=== PATIENT | male | born 1950 | race Caucasian/White ===

== ENCOUNTER 2018-09-12 17:06 | Emergency (ER) | payer OTHER ==
--- NOTE | 2018-09-12 18:15 | RAD REPORT ---
EXAM DESCRIPTION: RAD - Chest Pa And Lat (2 Views) - 09/12/2018 6:09 pm CLINICAL HISTORY: Cough;Congestion Chest pain. COMPARISON: Chest Single View dated 01/10/2017; Chest Single View dated 09/19/2015; CHEST SINGLE VIEW dated 06/29/2014; CHEST SINGLE VIEW dated 01/08/2013Chest Pa And Lat (2 Views) dated 10/17/2016Chest Pa And Lat (2 Views) dated 10/17/2016 TECHNIQUE: PA and lateral views of the chest were obtained. FINDINGS: The lungs are hyperexpanded compatible with COPD. The heart is upper limit of normal in si ze. Thoracic aorta is tortuous. No fracture or aggressive bony process. IMPRESSION: COPD without acute process identified.
[2018-09-12] MEDS ORDERED: IPRATROPIUM BROM 0.5MG/2.5ML ONE (18:56)
[2018-09-12] MEDS ORDERED: AZITHROMYCIN 250 MG TAB ONE (18:56)
[2018-09-12] MEDS ORDERED: predniSONE 20 MG TAB ONE (18:56)
[2018-09-12] MEDS ORDERED: ALBUTEROL 2.5 MG/3 ML NEB SOL ONE (18:56)
[2018-09-12] MEDS ORDERED: Magnesium Sulfate 2gm IVPB 2 G/50 ML BAG IV ONE (18:57)
[2018-09-12 19:11] LABS: Absolute Lymphocytes (CBC) 1.3 K/uL (0.7-4.9); Basophils % 0.6 % (0-1.3); Eosinophils % 1.2 % (0-4.4); Hematocrit 45.7 % (39.6-49.0); Lymphocytes % 11.8 % (15.3-44.8); MPV 8.9 fL (7.6-11.3); Monocytes % 11.1 % (3.3-12.3); RBC Red Blood Cell Count 4.83 M/uL (4.33-5.43)
[2018-09-12 19:21] LABS: Potassium 3.9 mmol/L (3.5-5.1)
--- NOTE | 2018-09-12 19:25 | ER ---
Nurse's Notes [facility] Name: Marquise Mendoza Age: 68 yrs Sex: Male : 1950 Arrival Date: 09/12/2018 Time: 17:11 Bed 30 Private MD: Diagnosis: Bronchitis, not specified as acute or chronic Presentation: 09/12 17:39 Presenting complaint: Patient states: Productive cough and SOB since Sunday, denies ph fever, N/V/D also reports pain to chest and back w/ cough and deep breathing, Spo2 94% in triage. Transition of care: patient was not received from another setting of care. Onset of symptoms was September 12, 2018. Risk Assessment: Do you want to hurt yourself or someone else? Patient reports no desire to harm self or others. Initial Sepsis Screen: Does the patient meet any 2 criteria? No. Patient's initial sepsis screen is negative. Does the patient have a suspected source of infection? Yes: Productive cough/pneumonia. Care prior to arrival: None. 17:39 Method Of Arrival: Ambulatory 17:39 Acuity: JELLY 3 ph Triage Assessment: 17:53 General: Appears in no apparent distress. comfortable, Behavior is calm, cooperative, ao appropriate for age. Respiratory: Reports shortness of breath at rest Onset: The symptoms/episode began/occurred suddenly, the patient has moderate shortness of breath. Historical: - Allergies: 17:41 No Known Allergies; ph - Home Meds: 17:41 Lorazepam Oral [Active]; paroxetine oral oral [Active]; gabapentin oral oral [Active]; ph - Immunization history:: Adult Immunizations up to date. - Social history:: Smoking status: Patient uses tobacco products, smokes one pack cigarettes per day. - Ebola Screening: : Patient negative for fever greater than or equal to 101.5 degrees Fahrenheit, and additional compatible Ebola Virus Disease symptoms Patient denies exposure to infectious person Patient denies travel to an Ebola-affected area in the 21 days before illness onset. Screenin:52 Abuse screen: Denies threats or abuse. Denies injuries from another. Nutritional ao screening: No deficits noted. Tuberculosis screening: No symptoms or risk factors identified. Fall Risk None identified. Assessment: 17:50 General: Appears in no apparent distress. uncomfortable, Behavior is calm, cooperative, ao appropriate for age. Pain: Complains of pain in when cough pain in the chest area. Neuro: Level of Consciousness is awake, alert, obeys commands, Oriented to person, place, time, situation, Appropriate for age Moves all extremities. Full function Speech. Cardiovascular: Heart tones Capillary refill < 3 seconds Patient's skin is warm and dry. Rhythm is regular. Respiratory: Airway is patent Respiratory effort is even, unlabored, Breath sounds with wheezes bilaterally. GI: Abdomen is non-distended, Bowel sounds present X 4 quads. : No deficits noted. No signs and/or symptoms were reported regarding the genitourinary system. EENT: No deficits noted. No signs and/or symptoms were reported regarding the EENT system. Derm: No deficits noted. No signs and/or symptoms reported regarding the dermatologic system. Musculoskeletal: Circulation, motion, and sensation intact. Range of motion: intact in all extremities. Vital Signs: 17:36 BP 153 / 106; Pulse 93; Resp 24; Temp 98.4; Pulse Ox 94% on R/A; Weight 95.25 kg; ph Height 5 ft. 11 in. (180.34 cm); 19:12 BP 143 / 103; Pulse 82; Resp 20; Temp 98.7(O); Pulse Ox 99% on R/A; mh5 19:30 BP 153 / 96; Pulse 91; Resp 20; Pulse Ox 93% ; Pain 0/10; fu 17:36 Body Mass Index 29.29 (95.25 kg, 180.34 cm) ph ED Course: 17:11 Patient arrived in ED. as 17:40 Triage completed. ph 17:41 Arm band placed on Patient placed in an exam room. ph 17:44 Jhoana Juarez FNP-C is PHCP. kb 17:44 Ramon Simpson MD is Attending Physician. kb 17:50 Ti Pederson, MAXX is Primary Nurse. ao 17:53 Patient has correct armband on for positive identification. Pulse ox on. NIBP on. ao 18:09 Chest Pa And Lat (2 Views) XRAY In Process Unspecified. EDMS 18:55 Inserted saline lock: 20 gauge in right antecubital area, using aseptic technique. ao 19:46 IV discontinued, intact, bleeding controlled, No redness/swelling at site. Pressure fu dressing applied. 19:47 No provider procedures requiring assistance completed. fu 09/13 01:23 Basic Metabolic Panel Sent. ao 01:23 CBC with Diff Sent. ao Administered Medications: 09/12 18:55 Drug: predniSONE 40 mg Route: PO; ao 20:30 Follow up: Response: No adverse reaction ao 18:55 Drug: Zithromax 500 mg Route: PO; ao 20:30 Follow up: Response: No adverse reaction ao 19:00 Drug: Magnesium Sulfate 2 grams Route: IVPB; Infused Over: 2 hrs; Site: right ao antecubital; 21:20 Follow up: IV Status: Completed infusion; IV Intake: 50ml ao 19:14 Drug: DuoNeb (3:1) (2.5 mg - 0.5 mg) 3 ml Route: Nebulizer; ao 23:00 Follow up: Response: No adverse reaction ao Intake: 21:20 IV: 50ml; Total: 50ml. ao Outcome: 19:24 Discharge ordered by . kb 19:47 Discharged to home ambulatory, with family. fu 19:47 Condition: improved 19:47 Discharge instructions given to patient, Instructed on discharge instructions, benefits of quitting smoking, Demonstrated understanding of instructions, follow-up care, medications, Prescriptions given X 3. 19:48 Patient left the ED. fu Signatures: Dispatcher [employer] EDMS Jhoana Juarez, OIL BURNER TECHNICIAN-C YAMILET-Jennifer Murphy Patricia, RN RN Ti Pederson, RN Niesha Linn [facility] Amaury Bender RN RN
--- NOTE | 2018-09-12 19:25 | EDPHYS ---
Physician Documentation [facility] Name: Marquise Mendoza Age: 68 yrs Sex: Male : 1950 Arrival Date: 09/12/2018 Time: 17:11 Bed 30 Private MD: ED Physician Ramon Simpson HPI: 09/12 18:55 This 68 yrs old Male presents to ER via Ambulatory with complaints of kb Shortness Of Breath, Congestion. 18:55 The patient or guardian reports cough, that is intermittent, described as moderate, kb with productive sputum. Onset: The symptoms/episode began/occurred 6 day(s) ago. Severity of symptoms: At their worst the symptoms were moderate, in the emergency department the symptoms are unchanged. Modifying factors: The symptoms are alleviated by nothing, the symptoms are aggravated by nothing. Associated signs and symptoms: Pertinent positives: congestion, dyspnea during coughing fit, Pertinent negatives: chest pain, diarrhea, ear ache, fever, nausea, rhinorrhea, sore throat, vomiting. The patient has not experienced similar symptoms in the past. The patient has not recently seen a physician. Pt reports he has had cough and congestion for 6 days. Denies fever. Has not been diagnosed with COPD, but does smoke a pack a day for many years . Historical: - Allergies: 17:41 No Known Allergies; ph - Home Meds: 17:41 Lorazepam Oral [Active]; paroxetine oral oral [Active]; gabapentin oral oral [Active]; ph - Immunization history:: Adult Immunizations up to date. - Social history:: Smoking status: Patient uses tobacco products, smokes one pack cigarettes per day. - Ebola Screening: : Patient negative for fever greater than or equal to 101.5 degrees Fahrenheit, and additional compatible Ebola Virus Disease symptoms Patient denies exposure to infectious person Patient denies travel to an Ebola-affected area in the 21 days before illness onset. ROS: 18:55 Constitutional: Negative for fever, chills, and weight loss, ENT: Negative for injury, kb pain, and discharge, Neck: Negative for injury, pain, and swelling, Cardiovascular: Negative for chest pain, palpitations, and edema, Abdomen/GI: Negative for abdominal pain, nausea, vomiting, diarrhea, and constipation, Back: Negative for injury and pain, : Negative for injury, bleeding, discharge, and swelling, MS/Extremity: Negative for injury and deformity, Skin: Negative for injury, rash, and discoloration, Neuro: Negative for headache, weakness, numbness, tingling, and seizure. 18:55 Respiratory: Positive for cough, shortness of breath, Negative for dyspnea on exertion, hemoptysis, orthopnea, pleurisy. Exam: 18:55 Constitutional: This is a well developed, well nourished patient who is awake, alert, kb and in no acute distress. Head/Face: Normocephalic, atraumatic. ENT: Nares patent. No nasal discharge, no septal abnormalities noted. Tympanic membranes are normal and external auditory canals are clear. Oropharynx with no redness, swelling, or masses, exudates, or evidence of obstruction, uvula midline. Mucous membranes moist. Neck: Trachea midline, no thyromegaly or masses palpated, and no cervical lymphadenopathy. Supple, full range of motion without nuchal rigidity, or vertebral point tenderness. No Meningismus. Chest/axilla: Normal chest wall appearance and motion. Nontender with no deformity. No lesions are appreciated. Cardiovascular: Regular rate and rhythm with a normal S1 and S2. No gallops, murmurs, or rubs. Normal PMI, no JVD. No pulse deficits. Abdomen/GI: Soft, non-tender, with normal bowel sounds. No distension or tympany. No guarding or rebound. No evidence of tenderness throughout. Back: No spinal tenderness. No costovertebral tenderness. Full range of motion. Skin: Warm, dry with normal turgor. Normal color with no rashes, no lesions, and no evidence of cellulitis. MS/ Extremity: Pulses equal, no cyanosis. Neurovascular intact. Full, normal range of motion. Neuro: Awake and alert, GCS 15, oriented to person, place, time, and situation. Cranial nerves II-XII grossly intact. Motor strength 5/5 in all extremities. Sensory grossly intact. Cerebellar exam normal. Normal gait. 18:55 Respiratory: the patient does not display signs of respiratory distress, Respirations: normal, Breath sounds: wheezing: inspiratory expiratory that is moderate, is heard diffusely. Vital Signs: 17:36 BP 153 / 106; Pulse 93; Resp 24; Temp 98.4; Pulse Ox 94% on R/A; Weight 95.25 kg; ph Height 5 ft. 11 in. (180.34 cm); 19:12 BP 143 / 103; Pulse 82; Resp 20; Temp 98.7(O); Pulse Ox 99% on R/A; mh5 19:30 BP 153 / 96; Pulse 91; Resp 20; Pulse Ox 93% ; Pain 0/10; fu 17:36 Body Mass Index 29.29 (95.25 kg, 180.34 cm) ph MDM: 17:45 Patient medically screened. kb 18:55 Data reviewed: vital signs, nurses notes. Data interpreted: Pulse oximetry: on room air kb is 94 %. Interpretation: acceptable. 19:24 Counseling: I had a detailed discussion with the patient and/or guardian regarding: the kb historical points, exam findings, and any diagnostic results supporting the discharge/admit diagnosis, lab results, radiology results, the need for outpatient follow up, a family practitioner, to return to the emergency department if symptoms worsen or persist or if there are any questions or concerns that arise at home, smoking cessation. 09/12 18:26 Order name: CBC with Diff kb 09/12 18:26 Order name: Basic Metabolic Panel kb 09/12 17:55 Order name: Chest Pa And Lat (2 Views) XRAY; Complete Time: 18:24 kb 09/12 18:26 Order name: CBC with Automated Diff; Complete Time: 19:14 EDMS 09/12 18:26 Order name: Basic Metabolic Panel; Complete Time: 19:23 EDMS 09/12 18:26 Order name: IV Start; Complete Time: 19:12 kb Administered Medications: 18:55 Drug: predniSONE 40 mg Route: PO; ao 20:30 Follow up: Response: No adverse reaction ao 18:55 Drug: Zithromax 500 mg Route: PO; ao 20:30 Follow up: Response: No adverse reaction ao 19:00 Drug: Magnesium Sulfate 2 grams Route: IVPB; Infused Over: 2 hrs; Site: right ao antecubital; 21:20 Follow up: IV Status: Completed infusion; IV Intake: 50ml ao 19:14 Drug: DuoNeb (3:1) (2.5 mg - 0.5 mg) 3 ml Route: Nebulizer; ao 23:00 Follow up: Response: No adverse reaction ao Disposition: 09/13 07:52 Co-signature as Attending Physician, Ramon Simpson MD I agree with the assessment and kdr plan of care. Disposition: 09/12/18 19:24 Discharged to Home. Impression: Bronchitis, not specified as acute or chronic. - Condition is Stable. - Discharge Instructions: Acute Bronchitis, [id number]. - Prescriptions for Prednisone 20 mg Oral Tablet - take 1 tablet by ORAL route once daily for 5 days; 5 tablet. Albuterol Sulfate 90 mcg/actuation - inhale 1-2 puff by INHALATION route every 4-6 hours; 1 Inhaler. Zithromax 500 mg Oral Tablet - take 1 tablet by ORAL route once daily for 5 days; 5 tablet. - Medication Reconciliation Form, Thank You Letter, Antibiotic Education, Prescription Opioid Use form. - Follow up: Private Physician; When: 2 - 3 days; Reason: Recheck today's complaints, Continuance of care, Re-evaluation by your physician. Follow up: Emergency Department; When: As needed; Reason: Worsening of condition. Signatures: Dispatcher [employer] EDAL Jhoana Juarez, NOVELTY CANDY MAKER-C NOVELTY CANDY MAKER-Ckb Ramon Simpson MD MD [facility] Therese Strange, RN RN Ti Pederson, RN RN Amaury Parham, MAXX RN fu Corrections: (The following items were deleted from the chart) 09/12 19:48 19:24 09/12/2018 19:24 Discharged to Home. Impression: Bronchitis, not specified as fu acute or chronic. Condition is Stable. Forms are Medication Reconciliation Form, Thank You Letter, Antibiotic Education, Prescription Opioid Use. Follow up: Private Physician; When: 2 - 3 days; Reason: Recheck today's complaints, Continuance of care, Re-evaluation by your physician. Follow up: Emergency Department; When: As needed; Reason: Worsening of condition. kb
[2018-09-12 19:57] VITALS: TEMP 98.7
[2018-09-12 19:58] VITALS: BP 153/96; O2SAT 93
== END 2018-09-12 19:48 | disposition home or self-care (01) ==
LOC: ER 17:06
DX: J40 Bronchitis, not specified as acute or chronic (principal); F17.210 Nicotine dependence, cigarettes, uncomplicated
CPT/HCPCS: 96365; 85025; 80048; 36415; 71046; 94640; 99284; 96366; J3475; J7512

== ENCOUNTER 2018-12-22 12:14 | Inpatient (IN) | payer OTHER ==
--- NOTE | 2018-12-22 12:47 | RAD REPORT ---
EXAM DESCRIPTION: CT - Head Brain Wo Cont - 12/22/2018 12:37 pm CLINICAL HISTORY: Headache COMPARISON: None. TECHNIQUE: Computed axial tomography of the head was obtained. IV contrast was not requested. All CT scans are performed using dose optimization technique as appropriate and may include automated exposure control or mA/KV adjustment according to patient size. FINDINGS: An intracranial bleed is not seen . The ventricles are normal in caliber. No extra-axial fluid collection is noted. Fluid within the sinuses/ mastoids is not seen. IMPRESSION: No acute intracranial abnormality is seen. If patient's symptoms persist MRI of the bra in would be recommended.
[2018-12-22 12:57] LABS: Basophils % 0.6 % (0-1.3); Hematocrit 39.4 % (39.6-49.0); MPV 8.9 fL (7.6-11.3); RBC Red Blood Cell Count 4.24 M/uL (4.33-5.43)
[2018-12-22] MEDS ORDERED: ENALAPRILAT 1.25 MG/ML VIAL IV ONE (12:59)
[2018-12-22 13:01] LABS: Protime INR 0.96
[2018-12-22 13:12] LABS: ALT/SGPT 17 U/L (12-78); AST/SGOT 16 U/L (15-37); Albumin 3.5 g/dL (3.4-5.0); Alkaline Phosphatase 116 U/L (45-117); BUN Blood Urea Nitrogen 32 mg/dL (7-18); Bicarbonate 26 mmol/L (21-32); Bilirubin Total 1.3 mg/dL (0.2-1.0); Glucose Level 107 mg/dL (74-106); Potassium 3.1 mmol/L (3.5-5.1); Protein, Total 7.3 g/dL (6.4-8.2); Sodium Level 136 mmol/L (136-145); Troponin (Emerg Dept Use Only) < 0.02 ng/mL (0.0-0.045)
[2018-12-22 14:23] LABS: Urine Bacteria LOADED /HPF (NONE SEEN); Urine Culture Reflex Order REFLEXED; Urine RBC <5 /HPF (NONE SEEN)
--- NOTE | 2018-12-22 15:27 | EDPHYS ---
Physician Documentation [facility] Name: Marquise Mendoza Age: 68 yrs Sex: Male : 1950 Arrival Date: 12/22/2018 Time: 12:16 Bed 23 Private MD: ED Physician Aaron Soria HPI: 12/22 15:26 This 68 yrs old Male presents to ER via Ambulatory with complaints of High m Blood Pressure. 15:26 The patient has elevated blood pressure and discovered this at home. Onset: The jmm symptoms/episode began/occurred this morning. Modifying factors: The symptoms are aggravated by. Associated signs and symptoms: Pertinent positives: headache, Pertinent negatives: chest pain. This is a 68 year old male with a history of migraines, anxiety that presents to the ED with complaints of headache which he awoke to this morning. Patient described the headache as mild which has completely resolved. Patient states he took his bp at home which was well over 200 systolic. Patient denies chest pain or shortness of breath. Patient has not been diagnosed with htn previously. . Historical: - Allergies: 12:21 No Known Allergies; hb - Home Meds: 12:21 gabapentin Oral [Active]; Lorazepam Oral [Active]; paroxetine Oral [Active]; hb - PMHx: 12:21 Migraines; Anxiety; hb - Immunization history:: Adult Immunizations up to date. - Social history:: Smoking status: Patient uses tobacco products, smokes one pack cigarettes per day. - Ebola Screening: : No symptoms or risks identified at this time. ROS: 15:26 Constitutional: Negative for fever, chills, and weight loss, Cardiovascular: Negative jmm for chest pain, palpitations, and edema, Respiratory: Negative for shortness of breath, cough, wheezing, and pleuritic chest pain, Abdomen/GI: Negative for abdominal pain, nausea, vomiting, diarrhea, and constipation. 15:26 Neuro: Positive for headache. 15:26 All other systems are negative. Exam: 15:26 Constitutional: This is a well developed, well nourished patient who is awake, alert, jmm and in no acute distress. Head/Face: atraumatic. Eyes: EOMI, no conjunctival erythema appreciated ENT: Moist Mucus Membranes Neck: Trachea midline, Supple Chest/axilla: Normal chest wall appearance and motion. Cardiovascular: Regular rate and rhythm. No edema appreciated Respiratory: Normal respirations, no respiratory distress appreciated Abdomen/GI: Non distended, soft Back: Normal ROM Skin: General appearance color normal MS/ Extremity: Moves all extremities, no obvious deformities appreciated, no edema noted to the lower extremities Neuro: Awake and alert, normal gait Psych: Behavior is normal, Mood is normal, Patient is cooperative and pleasant Vital Signs: 12:19 BP 253 / 153; Pulse 85; Resp 16; Temp 97.8; Pulse Ox 95% on R/A; Weight 90.72 kg; hb Height 6 ft. 1 in. (185.42 cm); Pain 0/10; 13:04 BP 213 / 146; Pulse 84; Resp 18; Pulse Ox 96% on 2 lpm NC; mg2 13:21 BP 160 / 104; Pulse 80; Resp 18; Pulse Ox 96% on 2 lpm NC; mg2 13:44 BP 141 / 97; Pulse 79; Resp 18; Pulse Ox 97% on 2 lpm NC; mg2 14:54 BP 145 / 101; Pulse 66; Resp 18; Pulse Ox 96% on 2 lpm NC; mg2 15:33 BP 141 / 110; Pulse 71; Resp 18; Pulse Ox 95% on 2 lpm NC; mg2 12:19 Body Mass Index 26.39 (90.72 kg, 185.42 cm) hb MDM: 12:40 Patient medically screened. [facility] 14:59 Data reviewed: vital signs, nurses notes. Counseling: I had a detailed discussion with [facility] the patient and/or guardian regarding: the historical points, exam findings, and any diagnostic results supporting the discharge/admit diagnosis, lab results. 15:26 ED course: Patient was discussed with Dr. Santos whom had concerns for renal artery [facility] stenosis ant the need for vascular surgery. I discussed the patient with Dr. Wilks whom stated the patient's presentation did no appear consistent with renal artery stenosis and advised to admit to local hospitalist. I discussed the patient with Dr. Gonzalez whom accepted admission. . 12/22 12:30 Order name: CBC with Diff; Complete Time: 13:22 [facility] 12/22 12:30 Order name: CMP; Complete Time: 13:22 [facility] 12/22 12:30 Order name: Troponin (emerg Dept Use Only); Complete Time: 13: [facility] 12/22 12:34 Order name: PT-INR [facility] 12/22 12:34 Order name: Magnesium [facility] 12/22 12:35 Order name: Protime (+INR); Complete Time: 13:22 [facility] 12/22 12:21 Order name: CT Head Brain wo Cont; Complete Time: 12:52 [facility] 12/22 12:35 Order name: Magnesium; Complete Time: 13:22 [facility] 12/22 14:04 Order name: Urine Microscopic Only; Complete Time: 14:28 [facility] 12/22 14:24 Order name: Urine Culture [facility] 12/22 14:48 Order name: US Rp Exam Complete [facility] 12/22 15:21 Order name: Urine Dipstick--Ancillary (enter results); Complete Time: 15:52 12/22 12:30 Order name: Saline Lock; Complete Time: 12:58 [facility] 12/22 12:30 Order name: EKG - Nurse/Tech; Complete Time: 12:58 [facility] 12/22 13:51 Order name: Urine Dipstick-Ancillary (obtain specimen); Complete Time: 14:05 [facility] Administered Medications: 13:04 Drug: Enalaprilat 1.25 mg Route: IV; Rate: bolus; Site: right antecubital; mg2 14:55 Follow up: Response: No adverse reaction; Blood pressure is lowered; IV Status: mg2 Completed infusion 15:33 Drug: Rocephin - (cefTRIAXone) 1 grams Route: IVPB; Infused Over: 30 mins; Site: right mg2 antecubital; 15:47 Follow up: Response: No adverse reaction; IV Status: Completed infusion mg2 Disposition: 12/22/18 15:26 Hospitalization ordered by Kailyn Gonzalez for Inpatient Admission. Preliminary diagnosis are Urinary tract infection, site not specified, Acute Kidney Injury, Hypertension. - Bed requested for Telemetry/MedSurg (Inpatient). - Status is Inpatient Admission. mg2 - Condition is Stable. - Problem is new. - Symptoms have improved. UTI on Admission? Yes Addendum: 12/26/2018 06:04 Co-signature as Attending Physician, Aaron Soria MD. g s Signatures: Dispatcher [employer] EDMI Denisa Adams Joel, PA PA m Mary Jo Vieira RN RN Soria, Aaron, MD MD gs Gardose, Tutu, RN RN mg2 Corrections: (The following items were deleted from the chart) 12/22 15:35 15:26 Hospitalization Ordered by Kailyn Gonzalez MD for Inpatient Admission. Preliminary bd diagnosis is Urinary tract infection, site not specified; Acute Kidney Injury; Hypertension. Bed requested for Telemetry/MedSurg (Inpatient). Status is Inpatient Admission. Condition is Stable. Problem is new. Symptoms have improved. UTI on Admission? Yes. [facility] 15:56 15:35 12/22/2018 15:26 Hospitalization Ordered by Kailyn Gonzalez MD for Inpatient mg2 Admission. Preliminary diagnosis is Urinary tract infection, site not specified; Acute Kidney Injury; Hypertension. Bed requested for Telemetry/MedSurg (Inpatient). Status is Inpatient Admission. Condition is Stable. Problem is new. Symptoms have improved. UTI on Admission? Yes. bd
--- NOTE | 2018-12-22 15:27 | ER ---
Nurse's Notes [facility] Name: Marquise Mendoza Age: 68 yrs Sex: Male : 1950 Arrival Date: 12/22/2018 Time: 12:16 Bed 23 Private MD: Diagnosis: Urinary tract infection, site not specified;Acute Kidney Injury;Hypertension Presentation: 12/22 12:18 Presenting complaint: Home SBP 208 and right sided headache upon waking today. Hx of hb migraines, pain resolved [employer]. Transition of care: patient was not received from another setting of care. Onset of symptoms was December 22, 2018. Risk Assessment: Do you want to hurt yourself or someone else? Patient reports no desire to harm self or others. Initial Sepsis Screen: Does the patient meet any 2 criteria? No. Patient's initial sepsis screen is negative. Does the patient have a suspected source of infection? No. Patient's initial sepsis screen is negative. Care prior to arrival: None. 12:18 Method Of Arrival: Ambulatory hb 12:18 Acuity: JELLY 2 hb Historical: - Allergies: 12:21 No Known Allergies; hb - Home Meds: 12:21 gabapentin Oral [Active]; Lorazepam Oral [Active]; paroxetine Oral [Active]; hb - PMHx: 12:21 Migraines; Anxiety; hb - Immunization history:: Adult Immunizations up to date. - Social history:: Smoking status: Patient uses tobacco products, smokes one pack cigarettes per day. - Ebola Screening: : No symptoms or risks identified at this time. Screenin:32 Abuse screen: Denies threats or abuse. Denies injuries from another. Nutritional mg2 screening: No deficits noted. Tuberculosis screening: No symptoms or risk factors identified. Fall Risk None identified. Assessment: 12:33 Reassessment: patient sent to ct scan via stretcher. no deficits noted. patient safe to mg2 go to ct scan now. General: Appears in no apparent distress. comfortable, Behavior is calm, cooperative. Pain: Complains of pain in pentecostalism. Neuro: Level of Consciousness is awake, alert, obeys commands, Oriented to person, place, time, situation. Cardiovascular: Capillary refill < 3 seconds Patient's skin is warm and dry. Respiratory: Airway is patent Respiratory effort is even, unlabored, Respiratory pattern is regular, symmetrical. GI: No signs and/or symptoms were reported involving the gastrointestinal system. : No signs and/or symptoms were reported regarding the genitourinary system. EENT: No signs and/or symptoms were reported regarding the EENT system. Derm: Skin is intact, is healthy with good turgor, Skin is pink, warm \T\ dry. normal. Musculoskeletal: Circulation, motion, and sensation intact. Capillary refill < 3 seconds. Vital Signs: 12:19 BP 253 / 153; Pulse 85; Resp 16; Temp 97.8; Pulse Ox 95% on R/A; Weight 90.72 kg; hb Height 6 ft. 1 in. (185.42 cm); Pain 0/10; 13:04 BP 213 / 146; Pulse 84; Resp 18; Pulse Ox 96% on 2 lpm NC; mg2 13:21 BP 160 / 104; Pulse 80; Resp 18; Pulse Ox 96% on 2 lpm NC; mg2 13:44 BP 141 / 97; Pulse 79; Resp 18; Pulse Ox 97% on 2 lpm NC; mg2 14:54 BP 145 / 101; Pulse 66; Resp 18; Pulse Ox 96% on 2 lpm NC; mg2 15:33 BP 141 / 110; Pulse 71; Resp 18; Pulse Ox 95% on 2 lpm NC; mg2 12:19 Body Mass Index 26.39 (90.72 kg, 185.42 cm) hb ED Course: 12:16 Patient arrived in ED. as 12:19 Triage completed. hb 12:21 aMlik Dunn PA is PHCP. jmm 12:21 Aaron Soria MD is Attending Physician. jmm 12:21 Arm band placed on. hb 12:27 Tutu Jorgensen, MAXX is Primary Nurse. mg2 12:35 Patient has correct armband on for positive identification. alarm security or surveillance monitor on. Pulse mg2 ox on. NIBP on. Door closed. Warm blanket given. 12:37 CT completed. Patient tolerated procedure well. Patient moved back from CT. mw3 12:38 CT Head Brain wo Cont In Process Unspecified. EDMS 13:00 Inserted saline lock: 20 gauge in right antecubital area, using aseptic technique. mg2 Blood collected. 13:22 No provider procedures requiring assistance completed. mg2 15:24 Kailyn Gonzalez MD is Hospitalizing Provider. jmm 15:46 intact. mg2 Administered Medications: 13:04 Drug: Enalaprilat 1.25 mg Route: IV; Rate: bolus; Site: right antecubital; mg2 14:55 Follow up: Response: No adverse reaction; Blood pressure is lowered; IV Status: mg2 Completed infusion 15:33 Drug: Rocephin - (cefTRIAXone) 1 grams Route: IVPB; Infused Over: 30 mins; Site: right mg2 antecubital; 15:47 Follow up: Response: No adverse reaction; IV Status: Completed infusion mg2 Outcome: 15:26 Decision to Hospitalize by Provider. fozia 15:47 Admitted to Tele accompanied by tech, via wheelchair, room 405, with oxygen, with mg2 chart, Report called to MAXX Butler 15:47 Condition: stable 15:47 Instructed on the need for admit, Demonstrated understanding of instructions. 15:56 Patient left the ED. mg2 Signatures: Dispatcher [employer] EDMS Malik Dunn PA PA jmm Martinez, Amelia as Baxter, Heather, RN RN Tutu Jorgensen RN RN [facility] Mandie Raymond mw3 Corrections: (The following items were deleted from the chart) 12:20 12:18 Presenting complaint: Home SBP 208 and right sided headache upon waking today hb hb
[2018-12-22] MEDS ORDERED: CEFTRIAXONE/SWI 1gm 1 GM/10 ML SYR ONE (15:29)
[2018-12-22 15:39] LABS: Urine Blood 1+ (NEG); Urine Glucose NEGATIVE (NEG); Urine Protein 3+ (NEG)
[2018-12-22] MEDS ORDERED: ONDANSETRON 4 MG/2 ML VIAL IV PRN (16:09)
[2018-12-22] MEDS ORDERED: ACETAMINOPHEN 500 MG TAB PO PRN (16:09)
[2018-12-22] MEDS ORDERED: NA CHLORIDE 0.9% 1,000 ML IV SCH (16:09)
[2018-12-22] MEDS ORDERED: LABETALOL 20 MG/4ML SYRINGE IV PRN (16:09)
[2018-12-22] MEDS ORDERED: POTASSIUM CL SA 10 MEQ TAB PO ONE (16:40)
[2018-12-22] MEDS ORDERED: IPRATROPIUM BROM 0.5MG/2.5ML NEB PRN (16:43)
[2018-12-22] MEDS ORDERED: ALBUTEROL 2.5 MG/3 ML NEB SOL NEB PRN (16:43)
[2018-12-22] MEDS ORDERED: HYDRALAZINE HCL 20 MG/ML VIAL IV PRN (16:44)
[2018-12-22] MEDS ORDERED: LORAZEPAM 1 MG TABLET PO PRN (16:44)
[2018-12-22 17:30] VITALS: BMI 26.4
[2018-12-22] MEDS ORDERED: NICOTINE 21 MG/PAT TD SCH (18:00)
[2018-12-22] MEDS: GABAPENTIN 300 MG CAP PO SCH ×2 (18:16→20:29)
--- NOTE | 2018-12-22 20:30 | RAD REPORT ---
EXAM DESCRIPTION: US - Renal Ultrasound-Complete - 12/22/2018 6:20 pm CLINICAL HISTORY: Hypertension COMPARISON: None. FINDINGS: The right kidney measures 11 cm with an increased echotexture. The left kidney measures 11 cm with an increased echotexture. Hydronephrosis is not seen. No gross abnormality of bladder is seen Abdominal aorta has an AP diameter of 7.3 centimeters. It contains moderate thrombus. A possible diss ection is noted. IMPRESSION: Increased renal echotexture consistent with parenchymal disease 7.3 centimeter abdominal aortic aneurysm. A possible dissection is seen The charge nurse Chun was notified 8:20 p.m. December 22, 2018
[2018-12-22] MEDS ORDERED: PARoxetine HCl 10 MG TAB PO SCH (21:00)
[2018-12-22] MEDS ORDERED: LABETALOL HCL 100 MG/20 ML ONE ×2 (21:41→21:51)
[2018-12-22] MEDS ORDERED: D5W 100 ML IV ONE (21:55)
[2018-12-22] MEDS ORDERED: LABETALOL HCL 200 MG in D5W 60 ML IV SCH (22:00)
[2018-12-22 23:18] VITALS: BP 168/97; TEMP 98; O2SAT 96
--- NOTE | 2018-12-23 00:37 | HP ---
Date of Admission: 12/22/2018 Chief Complaint: Headache, elevated blood pressure. Code Status: Full. Primary Care Physician: Dr. Gracia. History Of Present Illness: Patient is a 68-year-old male with past medical history of depression, anxiety, COPD, smoker, and migraine headaches, as well as neuropathy from postherpetic neuralgia with no previous diagnosis of hypertension who comes into the hospital for headache. Patient was in his usual state of health, had episode of headache the night prior to admission, took some ibuprofen. Headache was right-sided continuous, felt similar to his previous migraine headaches, however, did not have improvement. He checked his blood pressure. His blood pressure was in the 200s. He therefore came into the ER for further evaluation. His symptoms are constant, moderate, progressively worsening. No blurry vision. No chest pain or shortness of breath. Patient's workup in the ER revealed a blood pressure of 253/153. He was given enalapril 0.125 mg IV x1 and blood pressure dropped to 145/101. His workup revealed a kidney function creatinine level of 2.24, which is above his baseline and which was 1.49 in September. He had some mild electrolyte abnormalities. Head CT scan was negative. Patient was referred for admission. When seen in the ER, he was awake, alert, oriented x3, in minimal distress. Headache had improved significantly. Past Medical History: Restless legs syndrome, history of shingles with postherpetic neuralgia, depression, and anxiety, COPD, migraine headaches. Surgeries: Patient had perineal abscess surgery, surgery for left thumb trauma to reconnect it. Allergies: NO KNOWN DRUG ALLERGIES. Medications: List reviewed. Social History: Patient is . Smokes 1 pack per day, has been smoking since he was 12. Denies any alcohol use or illicit drug use. Patient is independent in his activities of daily living, has good social support. Family History: Patient denies any family history of hypertension or heart disease. No premature coronary artery disease in the family. Review of Systems: Ten-point system reviewed, negative except as per HPI. Physical Examination: Vital Signs: Blood pressure 253/153, improved to 153/106, pulse 93, respiratory rate 24, temperature 98.4, O2 saturation is 94% on room air. Patient did drop down to 90%, he was placed on 2 L of oxygen via nasal cannula. General: Awake, alert, oriented x3. Elderly male, appears older than stated age, in some mild distress. HEENT: Normocephalic, atraumatic. PERRLA, EOMI. Moist mucous membranes. Oropharynx is clear. Poor dentition. Conjunctivae anicteric. Neck: Supple. No JVD. Trachea midline. CV: S1, S2. Regular rate and rhythm. Peripheral pulses 1+ bilaterally. Respiratory: Clear to auscultation bilaterally. No wheezing or stridor. No use of accessory muscles. Gastrointestinal: Abdomen is soft, nontender, nondistended. Positive bowel sounds. Extremities: No clubbing, cyanosis, or edema. No calf tenderness. Neuro: Cranial nerves 2 through 12 intact grossly. No focal neurological deficit. Speech is normal. Skin: No rashes. Normal skin turgor. Psych: Mood is okay. Affect is full. Insight and judgment are good. Laboratory Data: WBC 10.4, H and H 13.6 and 39.4, platelets 196, neutrophils 79 %. INR 0.96. Sodium 136, potassium 3.1, chloride 100, CO2 26, BUN 32, creatinine 2.24, baseline is 1.49 from September 2018. Glucose 107, calcium 8.8, magnesium 2.7, total bilirubin 1.3, AST 16, ALT 17, troponin less than 0.02. Albumin is 3.5. UA; trace leukocyte esterase, negative nitrite, less than 5 rbc , 250 wbc, loaded bacteria. Head CT scan personally reviewed shows no acute intracranial abnormality. Assessment: 68-year-old male with; 1. Accelerated hypertension. Blood pressure is 250s over 150s, improved with enalapril, now in the 150s over 100s. Patient seems to be very sensitive to IV medication. Patient on enalapril, we will switch over to hydralazine, avoid beta-sravan due to history of chronic obstructive pulmonary disease. We will continue to monitor closely. Patient has no previous history of hypertension. 2. Headache, right-sided. Patient does touch his cheondoism when he reports headache, has been ongoing for several months. Has been taking ibuprofen 800 mg daily for the past 3 weeks or so. states he has been taking that dose for longer period of time. Patient has been counseled against the use of NSAIDs. We will switch to Tylenol and triptans as needed for migraine. Possibility of temporal arteritis. We will start on steroids as well. 3. Acute kidney injury likely secondary to NSAID use possibly ATN. We will start on IV fluids and monitor kidney function. We will consult Nephrology. We will obtain ultrasound of the kidneys, avoid NSAIDs and nephrotoxins. 4. Acute cystitis without hematuria. Patient did report some urinary frequency at night and some dribbling. Patient likely has enlarged prostate which will need to be further worked up as an outpatient by PCP. We will start on IV antibiotics and follow up on urine culture. 5. Chronic obstructive pulmonary disease, chronic bronchitis. Patient does follow with tufter, currently on 2 L via nasal cannula due to hypoxia. We will start on nebulizer treatments as needed. Patient not on any maintenance inhalers. 6. Generalized anxiety disorder. Patient is on chronic benzodiazepines. We will continue home medications. 7. Major depressive disorder, single episode, currently in remission. Continue Paxil. 8. Postherpetic neuralgia. Continue gabapentin. 9. Restless legs syndrome. 10. Nicotine dependence with cigarette smoking. Continuous counseled. We will start on nicotine patch. 11. Deep vein thrombosis prophylaxis with Lovenox and SCDs. We will await renal ultrasound to rule out any sort of hemorrhage prior to starting Lovenox. Plan: Admit patient to Med-Surg, place as inpatient. Length Of Stay: Greater than 2 midnights. ESTELA Voice ID: [id number] MTDD
--- NOTE | 2018-12-23 01:24 | P.PN ---
Date of Service: 12/22/18 Renal ultrasound report 7.3 cm abdominal aortic aneurysm with thrombus and possible dissection. Patient seen and examined. He denies any abdominal pain. His only complaint is blurry vision. Current blood pressure is 180/113. Case discussed with Dr. Gonzalez. Urgent transfer to tertiary institute for further evaluation by Vascular surgery recommended. I spoke to Dr. Logan at [facility] via the transfer center. Patient accepted for transfer. He will be air-lifted to [facility]. He transfered to ICU for the meantime for Labetalol drip for a target SBP of 120 or MAP of 65.
--- NOTE | 2018-12-23 08:56 | EKG ---
Test Date: 2018-12-22 Test Time: 12:50:05 [employer] Supervisor: MEASUREMENT RESULTS: Intervals: Rate: 78 CT: 150 QRSD: 88 QT: 416 QTc: 474 Colony: P: 58 CT: 150 QRS: 34 T: -6 INTERPRETIVE STATEMENTS: Sinus rhythm with premature atrial complexes Nonspecific ST abnormality Abnormal ECG Compared to ECG 10/17/2016 14:12:22 Atrial premature complex(es) now present ST (T wave) deviation now present Sinus arrhythmia no longer present Electronically Signed On 12-23-18 08:55:34 CDT by Orlin Kaufman
[2018-12-23] MEDS ORDERED: CEFTRIAXONE/SWI 1gm 1 GM/10 ML SYR IVP SCH (09:00)
[2018-12-23] MEDS ORDERED: NICOTINE 21 MG/PAT TD SCH (17:31)
--- NOTE | 2018-12-23 21:14 | DS ---
Date of Discharge: 12/22/2018 Consultants: Dr. Blankenship, nephrology. Discharge Diagnoses: 1.Acute aortic dissection and thrombus, 7.3 cm abnormal aortic aneurysm. 2.Accelerated hypertension. Blood pressure 250s over 150s. 3.Headache, right-sided. 4.Acute kidney injury secondary to NSAID use. 5.Acute cystitis without hematuria. 6.Chronic obstructive pulmonary disease with bronchitis. 7.Generalized anxiety disorder. 8.Major depressive disorder, single episode, currently in remission. 9.Postherpetic neuralgia. 10.Restless legs syndrome. 11.Nicotine dependence with cigarette smoking. Hospital Course: Patient is a 68-year-old male who was admitted to the hospital for headache and luisa vated blood pressure. His blood pressure improved to 140s over 100s down from [address] scan of the head was negative. He was also found to have acute kidney injury likely related to his overu se of NSAIDs and had a UTI. Patient was started on IV antibiotics. Nephrology was consulted, karine valdez, it was not seen due to patient being transferred out the same night. Patient's renal ultrasound w as ordered, which showed increased renal echotexture consistent with parenchymal disease, 7.3 cm abdo ramona aortic aneurysm with possible dissection. This was called in to the charge nurse and was then notified to the electronic bench technician, Dr. Harmon whom I contacted as well. He initiated the transfer to [facility] and spoke with vascular surgeon who excepted the patient. Please see his progress note for detail s regarding discharge. Patient was then transferred to ICU to be placed on labetalol drip until arriaga sferred to better control his blood pressure. Patient was then life flighted to acute care facility in a serious condition. For physical exam findings please see H and P dictated o n the day of discharge. /BRII Voice ID: [id number] Report ID: [id number]
== END 2018-12-22 23:10 | disposition short-term general hospital (02) | DRG 300 ==
LOC: ER 12:14 → ERHOLD 15:21 → 4TH 15:47 → 3RD-ICU 21:40
PROVIDERS: ADMIT Family Medicine; ATTEND Family Medicine
DX: I71.02 Dissection of abdominal aorta (principal); I74.09 Other arterial embolism and thrombosis of abdominal aorta; B02.29 Other postherpetic nervous system involvement; N17.9 Acute kidney failure, unspecified; N30.00 Acute cystitis without hematuria; I10 Essential (primary) hypertension; F32.5 Major depressive disorder, single episode, in full remission; F41.9 Anxiety disorder, unspecified; J44.9 Chronic obstructive pulmonary disease, unspecified; F17.210 Nicotine dependence, cigarettes, uncomplicated; G43.909 Migraine, unspecified, not intractable, without status migrainosus; G25.81 Restless legs syndrome; N14.1 Nephropathy induced by other drugs, medicaments and biological substances; T39.395A Adverse effect of other nonsteroidal anti-inflammatory drugs [NSAID], initial encounter; Y92.9 Unspecified place or not applicable; Z99.81 Dependence on supplemental oxygen
CPT/HCPCS: 36415; 70450; 76770; 80053; 81003; 81015; 83735; 84484; 85025; 85610; 87077; 87086; 87088; 87186; 93005; 94760; 96365; 96366; 96375; 99285; J0360; J0696; J7030

== ENCOUNTER 2019-05-14 16:52 | Inpatient (IN) | payer OTHER ==
--- OUTSIDE RECORDS SUMMARY | 2019-05-14 17:00 | XMS REPORT ---
:1950 Author Organization [facility] Address [address] [place] [address] Care Team Providers Name Role Phone WILLOW REID ALRIVIAD Unavailable Unavailable Payers Payer Name Policy Type Policy Number Effective Date Expiration Date Problems This patient has no known problems. Allergies, Adverse Reactions, Alerts Allergy Allergy Status Severity Reaction(s) Onset Inactive Treating Comments Name Type Date Date Clinician caffeine FA Active U 2019-02 00:00:0 0 No Known DA Active U 2019-02 Allergies -13 00:00:0 0 Medications This patient has no known medications. Results Test Description Test Time Test Comments Text Results Atomic Results Result Comments BASIC METABOLIC PANEL 2019-03-05 11:43:00 Test Item Value Reference Range Comments SODIUM (test code=NA) 137 MMOL/L 137-145 POTASSIUM (test code=K) 3.4 MMOL/L 3.5-5.1 CHLORIDE (test code=CL) 102 MMOL/L 98-107 CARBON DIOXIDE (test code=CO2) 22 MMOL/L 22-30 ANION GAP (test code=GAP) 16 MMOL/L 14-24 GLUCOSE (test code=GLU) 122 MG/DL 74-106 BLOOD UREA NITROGEN (test 31 MG/DL 9-20 code=BUN) GLOMERULAR FILTRATION RATE (test 19 Reporting units: ml/min/1.73 m2 code=GFR) (Modified MDRD Formula)Reference Range: > or=60 ml/min/1.73 m2 CREATININE (test code=CREAT) 3.20 MG/DL 0.66-1.25 CALCIUM (test code=CA) 9.3 MG/DL 8.4-10.2 BASIC METABOLIC [id number] 11:35:00 Test Item Value Reference Range Comments SODIUM (test code=NA) 137 MMOL/L 137-145 POTASSIUM (test code=K) 3.4 MMOL/L 3.5-5.1 CHLORIDE (test code=CL) 102 MMOL/L 98-107 CARBON DIOXIDE (test code=CO2) MMOL/L 22-30 GLUCOSE (test code=GLU) MG/DL 74-106 BLOOD UREA NITROGEN (test code=BUN) MG/DL 9-20 GLOMERULAR FILTRATION RATE (test code=GFR) CREATININE (test code=CREAT) MG/DL 0.66-1.25 CALCIUM (test code=CA) MG/DL 8.7-9.7 CBC W/AUTO [id number] 11:12:00 Test Item Value Reference Range Comments WHITE BLOOD CELL (test code=WBC) 8.4 K/MM3 3.8-9.8 RED BLOOD CELL (test code=RBC) 3.92 M/MM3 3.95-5.67 HEMOGLOBIN (test code=HGB) 11.8 G/DL 12.4-16.7 HEMATOCRIT (test code=HCT) 38.1 % 35.9-49.5 MEAN CELL VOLUME (test code=MCV) 97 fL 81.7-96.1 MEAN CELL HGB (test code=MCH) 30.1 pg 27.6-33.2 MEAN CELL HGB CONCETRATION (test code=MCHC) 31.0 % 32.9-35.5 RED CELL DISTRIBUTION WIDTH (test code=RDW) 19.1 % 12.1-15.2 PLATELET COUNT (test code=PLT) 157 K/MM3 129-368 MEAN PLATELET VOLUME (test code=MPV) 11.8 fl 7.4-10.4 NEUTROPHIL % (test code=NT%) 74.8 % 43-75 IMMATURE GRANULOCYTE % (test code=IG%) 0.4 % 0.0-2.0 LYMPHOCYTE % (test code=LY%) 13.5 % 14-44 MONOCYTE % (test code=MO%) 9.6 % 4-13 EOSINOPHIL % (test code=EO%) 1.2 % 0-6 BASOPHIL % (test code=BA%) 0.5 % 0-2 NUCLEATED RBC % (test code=NRBC%) 0.0 % 0-1.0 NEUTROPHIL # (test code=NT#) 6.25 K/mm3 2.0-7.6 IMMATURE GRANULOCYTE # (test code=IG#) 0.03 x10 3/uL 0-0.03 LYMPHOCYTE # (test code=LY#) 1.13 K/mm3 1.0-3.8 MONOCYTE # (test code=MO#) 0.80 K/mm3 0.1-0.8 EOSINOPHIL # (test code=EO#) 0.10 K/mm3 0.0-0.2 BASOPHIL # (test code=BA#) 0.04 K/mm3 0.0-0.2 NUCLEATED RBC # (test code=NRBC#) 0.00 K/mm3 0.0-0.1 - XR CHEST [id number] 19:01:00 Patient Name: ROSEMARIE YOUNG Unit No: [id number] EXAMS: CPT CODE: [id number] XR CHEST 1V [id number] Chest Radiograph History: S/P ICD Comparison: None at this time Location: R16 A single frontal view of the chest is submitted. The heart is within normal limits in size. There is pulmonary vascular congestion. There are patchy opacities in the lungs bilaterally. There are small bilateralpleural effusions. The bones appear unremarkable. An AICD is identified. No pneumothorax is identified. IMPRESSION: There are findings compatible with congestive heart failure. There are patchy opacities in the lung bases bilaterally. This could be due to atelectasis or pneumonia. at 1901 Reported and signed by: Raimundo Loving MD CC: René Brownlee MD ; Aaron Benz Technologist: Felicitas Lantigua (RT)(R) Transcrpt Date/Tm/Trnsp: 03/04/2019 (1900) HeatherPMT Orig Print D/T: S: 03/04 (1903) [facility] NAME: ROSEMARIE YOUNG [id number] PHYS: [place] [address] : 1950 AGE: 68 SEX: M LOC: ZKatiuska Peña PHONE #: [phone] EXAM DATE: 03/04/2019 STATUS: ADM IN FAX #: [phone] RADIOLOGY NO: PAGE 1 Signed ReportBASIC METABOLIC [id number] 11:49:00 Test Item Value Reference Range Comments SODIUM (test code=NA) 139 MMOL/L 137-145 POTASSIUM (test code=K) 3.5 MMOL/L 3.5-5.1 CHLORIDE (test code=CL) 102 MMOL/L 98-107 CARBON DIOXIDE (test code=CO2) 23 MMOL/L 22-30 ANION GAP (test code=GAP) 18 MMOL/L 14-24 GLUCOSE (test code=GLU) 110 MG/DL 74-106 BLOOD UREA NITROGEN (test 31 MG/DL 9-20 code=BUN) GLOMERULAR FILTRATION RATE 19 Reporting units: ml/min/1.73 (test code=GFR) m2 (Modified MDRD Formula)Reference Range: > or=60 ml/min/1.73 m2 CREATININE (test code=CREAT) 3.30 MG/DL 0.66-1.25 CALCIUM (test code=CA) 9.5 MG/DL 8.4-10.2 Comments to Overhead Gar[employer] Door Hanger: NURSE WILL BRING SPECIMEN TO LAB Is this a LINE draw? NComments to Overhead Gar[employer] Door Hanger: NURSE WILL BRING SPECIMEN TO [id number] 11:49:00 Test Item Value Reference Range Comments MAGNESIUM (test code=MAG) 2.4 MG/DL 1.6-2.3 Comments to Overhead Garage Door Hanger: NURSE WILL BRING SPECIMEN TO LAB Is this a LINE draw? NComments to Overhead Gar[employer] Door Hanger: NURSE WILL BRING SPECIMEN TO LABPROTHROMBIN [id number] 11:49:00 Test Item Value Reference Range Comments PROTHROMBIN TIME PATIENT (test 12.2 SECONDS 9.6-11.6 code=PTP) INTERNATIONAL NORMAL RATIO 1.2 0.8-1.1 The INR is to be used only (test code=INR) for monitoring oral anticoagulanttherapy. INDICATION INR VALUE 1. Prophylaxis, deep venous thrombosis, including high risk surgery. 2.0 - 3.0 2. Prophylaxis, deep venous thrombosis, hip surgery, treatment for deep venous thrombosis or pulmonary prevention of systemic embolism in patients with valvular heart disease, atrial fibrillation, tissue heart valve, or acute myocardial infarction. 2.0 - 3.0 3. Mechanical prosthesis heart valves, recurrent systemic embolism. 3.0 - 4.5 Comments to Overhead Gar[employer] Door Hanger: NURSE WILL BRING SPECIMEN TO LABPTT [id number] 11:49:00 Test Item Value Reference Range Comments PTT ACTIVATED (test code=APTT) 31.7 SECONDS 22.0-33.0 Comments to Overhead Gar[employer] Door Hanger: NURSE WILL BRING SPECIMEN TO LABBASIC METABOLIC [id number] 11:45:00 Test Item Value Reference Range Comments SODIUM (test code=NA) 139 MMOL/L 137-145 POTASSIUM (test code=K) 3.5 MMOL/L 3.5-5.1 CHLORIDE (test code=CL) 102 MMOL/L 98-107 CARBON DIOXIDE (test code=CO2) MMOL/L 22-30 GLUCOSE (test code=GLU) MG/DL 74-106 BLOOD UREA NITROGEN (test code=BUN) MG/DL 9-20 GLOMERULAR FILTRATION RATE (test code=GFR) CREATININE (test code=CREAT) MG/DL 0.66-1.25 CALCIUM (test code=CA) MG/DL 8.7-9.7 Comments to Overhead Gar[employer] Door Hanger: NURSE WILL BRING SPECIMEN TO LAB Is this a LINE draw? NComments to Overhead Gar[employer] Door Hanger: NURSE WILL BRING SPECIMEN TO [id number] 11:45:00 Test Item Value Reference Range Comments MAGNESIUM (test code=MAG) MG/DL 1.6-2.3 Comments to Overhead Gar[employer] Door Hanger: NURSE WILL BRING SPECIMEN TO LAB Is this a LINE draw? NComments to Overhead Gar[employer] Door Hanger: NURSE WILL BRING SPECIMEN TO LABBASIC METABOLIC [id number] 11:44:00 Test Item Value Reference Range Comments SODIUM (test code=NA) MMOL/L 137-145 POTASSIUM (test code=K) MMOL/L 3.5-5.1 CHLORIDE (test code=CL) 102 MMOL/L 98-107 CARBON DIOXIDE (test code=CO2) MMOL/L 22-30 GLUCOSE (test code=GLU) MG/DL 74-106 BLOOD UREA NITROGEN (test code=BUN) MG/DL 9-20 GLOMERULAR FILTRATION RATE (test code=GFR) CREATININE (test code=CREAT) MG/DL 0.66-1.25 CALCIUM (test code=CA) MG/DL 8.7-9.7 Comments to Overhead Gar[employer] Door Hanger: NURSE WILL BRING SPECIMEN TO LAB Is this a LINE draw? NComments to Overhead [employer] Door Hanger: NURSE WILL BRING SPECIMEN TO [id number] 11:44:00 Test Item Value Reference Range Comments MAGNESIUM (test code=MAG) MG/DL 1.6-2.3 Comments to Overhead Gar[employer] Door Hanger: NURSE WILL BRING SPECIMEN TO LAB Is this a LINE draw? NComments to Overhead Gar[employer] Door Hanger: NURSE WILL BRING SPECIMEN TO LABCBC W/AUTO [id number] 11:33:00 Test Item Value Reference Range Comments WHITE BLOOD CELL (test code=WBC) 8.5 K/MM3 3.8-9.8 RED BLOOD CELL (test code=RBC) 4.20 M/MM3 3.95-5.67 HEMOGLOBIN (test code=HGB) 12.8 G/DL 12.4-16.7 HEMATOCRIT (test code=HCT) 41.4 % 35.9-49.5 MEAN CELL VOLUME (test code=MCV) 99 fL 81.7-96.1 MEAN CELL HGB (test code=MCH) 30.5 pg 27.6-33.2 MEAN CELL HGB CONCETRATION (test code=MCHC) 30.9 % 32.9-35.5 RED CELL DISTRIBUTION WIDTH (test code=RDW) 19.1 % 12.1-15.2 PLATELET COUNT (test code=PLT) 184 K/MM3 129-368 MEAN PLATELET VOLUME (test code=MPV) 11.8 fl 7.4-10.4 NEUTROPHIL % (test code=NT%) 77.0 % 43-75 IMMATURE GRANULOCYTE % (test code=IG%) 0.2 % 0.0-2.0 LYMPHOCYTE % (test code=LY%) 11.8 % 14-44 MONOCYTE % (test code=MO%) 9.0 % 4-13 EOSINOPHIL % (test code=EO%) 1.5 % 0-6 BASOPHIL % (test code=BA%) 0.5 % 0-2 NUCLEATED RBC % (test code=NRBC%) 0.0 % 0-1.0 NEUTROPHIL # (test code=NT#) 6.53 K/mm3 2.0-7.6 IMMATURE GRANULOCYTE # (test code=IG#) 0.02 x10 3/uL 0-0.03 LYMPHOCYTE # (test code=LY#) 1.00 K/mm3 1.0-3.8 MONOCYTE # (test code=MO#) 0.76 K/mm3 0.1-0.8 EOSINOPHIL # (test code=EO#) 0.13 K/mm3 0.0-0.2 BASOPHIL # (test code=BA#) 0.04 K/mm3 0.0-0.2 NUCLEATED RBC # (test code=NRBC#) 0.00 K/mm3 0.0-0.1 Comments to Overhead [employer] Door Hanger: NURSE WILL BRING SPECIMEN TO LABIs this a LINE draw? NBASIC METABOLIC [id number] 07:10:00 Test Item Value Reference Range Comments SODIUM (test code=NA) 135 MMOL/L 137-145 POTASSIUM (test code=K) 3.9 MMOL/L 3.5-5.1 CHLORIDE (test code=CL) 99 MMOL/L 98-107 CARBON DIOXIDE (test code=CO2) 24 MMOL/L 22-30 ANION GAP (test code=GAP) 16 MMOL/L 14-24 GLUCOSE (test code=GLU) 132 MG/DL 74-106 BLOOD UREA NITROGEN (test 31 MG/DL 9-20 code=BUN) GLOMERULAR FILTRATION RATE 19 Reporting units: ml/min/1.73 (test code=GFR) m2 (Modified MDRD Formula)Reference Range: > or=60 ml/min/1.73 m2 CREATININE (test code=CREAT) 3.30 MG/DL 0.66-1.25 CALCIUM (test code=CA) 9.2 MG/DL 8.4-10.2 LIPID PROFILE (CORONARY RISK)2019-02-15 07:10:00 Test Item Value Reference Range Comments TRIGLYCERIDES (test code=TRIG) 148 MG/DL TRIGLYCERIDES REFERENCE RANGE:Normal: <150 mg/dLBorderline High: 150-199 mg/dLHigh: 200-499 mg/dLVery High: >=500 mg/dL CHOLESTEROL (test code=CHOL) 152 MG/DL <200 HDL CHOLESTEROL (test 38 MG/DL 40-59 code=HDL) LIPOPROTEIN LDL (test 78 MG/DL 0-99 code=LDL) OPTIMAL.........<100 mg/dLNEAR OPTIMAL/ABOVE OPTIMAL.........100-129 mg/dL BORDERLINE HIGH.........130-159 mg/dL HIGH.........160-189 mg/dL VERY HIGH.........>/=190 mg/dL [id number] 07:10:00 Test Item Value Reference Range Comments MAGNESIUM (test code=MAG) 2.4 MG/DL 1.6-2.3 BASIC METABOLIC [id number] 07:01:00 Test Item Value Reference Range Comments SODIUM (test code=NA) 135 MMOL/L 137-145 POTASSIUM (test code=K) 3.9 MMOL/L 3.5-5.1 CHLORIDE (test code=CL) 99 MMOL/L 98-107 CARBON DIOXIDE (test code=CO2) 24 MMOL/L 22-30 ANION GAP (test code=GAP) 16 MMOL/L 14-24 GLUCOSE (test code=GLU) 132 MG/DL 74-106 BLOOD UREA NITROGEN (test 31 MG/DL 9-20 code=BUN) GLOMERULAR FILTRATION RATE 19 Reporting units: ml/min/1.73 (test code=GFR) m2 (Modified MDRD Formula)Reference Range: > or=60 ml/min/1.73 m2 CREATININE (test code=CREAT) 3.30 MG/DL 0.66-1.25 CALCIUM (test code=CA) 9.2 MG/DL 8.4-10.2 LIPID PROFILE (CORONARY RISK)2019-02-15 07:01:00 Test Item Value Reference Range Comments TRIGLYCERIDES (test code=TRIG) 148 MG/DL TRIGLYCERIDES REFERENCE RANGE:Normal: <150 mg/dLBorderline High: 150-199 mg/dLHigh: 200-499 mg/dLVery High: >=500 mg/dL CHOLESTEROL (test code=CHOL) 152 MG/DL <200 HDL CHOLESTEROL (test 38 MG/DL 40-59 code=HDL) LIPOPROTEIN LDL (test MG/DL 0-99 code=LDL) [id number] 07:01:00 Test Item Value Reference Range Comments MAGNESIUM (test code=MAG) 2.4 MG/DL 1.6-2.3 BASIC METABOLIC [id number] 06:55:00 Test Item Value Reference Range Comments SODIUM (test code=NA) 135 MMOL/L 137-145 POTASSIUM (test code=K) 3.9 MMOL/L 3.5-5.1 CHLORIDE (test code=CL) 99 MMOL/L 98-107 CARBON DIOXIDE (test code=CO2) MMOL/L 22-30 GLUCOSE (test code=GLU) MG/DL 74-106 BLOOD UREA NITROGEN (test code=BUN) MG/DL 9-20 GLOMERULAR FILTRATION RATE (test code=GFR) CREATININE (test code=CREAT) MG/DL 0.66-1.25 CALCIUM (test code=CA) MG/DL 8.7-9.7 LIPID PROFILE (CORONARY RISK)2019-02-15 06:55:00 Test Item Value Reference Range Comments TRIGLYCERIDES (test code=TRIG) MG/DL CHOLESTEROL (test code=CHOL) MG/DL <200 HDL CHOLESTEROL (test code=HDL) MG/DL 40-59 LIPOPROTEIN LDL (test code=LDL) MG/DL 0-99 [id number] 06:55:00 Test Item Value Reference Range Comments MAGNESIUM (test code=MAG) MG/DL 1.6-2.3 PROTHROMBIN [id number] 06:53:00 Test Item Value Reference Range Comments PROTHROMBIN TIME PATIENT (test 11.9 SECONDS 9.6-11.6 code=PTP) INTERNATIONAL NORMAL RATIO 1.1 0.8-1.1 The INR is to be used only (test code=INR) for monitoring oral anticoagulanttherapy. INDICATION INR VALUE 1. Prophylaxis, deep venous thrombosis, including high risk surgery. 2.0 - 3.0 2. Prophylaxis, deep venous thrombosis, hip surgery, treatment for deep venous thrombosis or pulmonary prevention of systemic embolism in patients with valvular heart disease, atrial fibrillation, tissue heart valve, or acute myocardial infarction. 2.0 - 3.0 3. Mechanical prosthesis heart valves, recurrent systemic embolism. 3.0 - 4.5 PTT [id number] 06:53:00 Test Item Value Reference Range Comments PTT ACTIVATED (test code=APTT) 32.2 SECONDS 22.0-33.0 CBC W/AUTO [id number] 06:43:00 Test Item Value Reference Range Comments WHITE BLOOD CELL (test code=WBC) 9.2 K/MM3 3.8-9.8 RED BLOOD CELL (test code=RBC) 3.48 M/MM3 3.95-5.67 HEMOGLOBIN (test code=HGB) 10.4 G/DL 12.4-16.7 HEMATOCRIT (test code=HCT) 33.3 % 35.9-49.5 MEAN CELL VOLUME (test code=MCV) 96 fL 81.7-96.1 MEAN CELL HGB (test code=MCH) 29.9 pg 27.6-33.2 MEAN CELL HGB CONCETRATION (test code=MCHC) 31.2 % 32.9-35.5 RED CELL DISTRIBUTION WIDTH (test code=RDW) 17.2 % 12.1-15.2 PLATELET COUNT (test code=PLT) 257 K/MM3 129-368 MEAN PLATELET VOLUME (test code=MPV) 11.3 fl 7.4-10.4 NEUTROPHIL % (test code=NT%) 74.4 % 43-75 IMMATURE GRANULOCYTE % (test code=IG%) 0.7 % 0.0-2.0 LYMPHOCYTE % (test code=LY%) 13.9 % 14-44 MONOCYTE % (test code=MO%) 9.1 % 4-13 EOSINOPHIL % (test code=EO%) 1.4 % 0-6 BASOPHIL % (test code=BA%) 0.5 % 0-2 NUCLEATED RBC % (test code=NRBC%) 0.0 % 0-1.0 NEUTROPHIL # (test code=NT#) 6.86 K/mm3 2.0-7.6 IMMATURE GRANULOCYTE # (test code=IG#) 0.06 x10 3/uL 0-0.03 LYMPHOCYTE # (test code=LY#) 1.28 K/mm3 1.0-3.8 MONOCYTE # (test code=MO#) 0.84 K/mm3 0.1-0.8 EOSINOPHIL # (test code=EO#) 0.13 K/mm3 0.0-0.2 BASOPHIL # (test code=BA#) 0.05 K/mm3 0.0-0.2 NUCLEATED RBC # (test code=NRBC#) 0.00 K/mm3 0.0-0.1 [id number] 05:11:00 Test Item Value Reference Range Comments PHOSPHORUS (BEAKER) (test xcnc=961) 1.8 mg/dL 2.3-4.7 [id number] 05:11:00 Test Item Value Reference Range Comments MAGNESIUM (BEAKER) (test acjs=868) 2.0 mg/dL 1.6-2.6 BASIC METABOLIC [id number] 05:11:00 Test Item Value Reference Range Comments SODIUM (BEAKER) (test 135 meq/L 136-145 csjo=038) POTASSIUM (BEAKER) (test 3.2 meq/L 3.5-5.1 sjbc=038) CHLORIDE (BEAKER) (test 105 meq/L 98-107 nkhv=959) CO2 (BEAKER) (test 21 meq/L 22-29 ackb=945) BLOOD UREA NITROGEN 16 mg/dL 7-21 (BEAKER) (test hmse=680) CREATININE (BEAKER) (test 1.56 mg/dL 0.57-1.25 mput=854) GLUCOSE RANDOM (BEAKER) 97 mg/dL 70-105 (test coae=659) CALCIUM (BEAKER) (test 8.4 mg/dL 8.4-10.2 kvrr=609) EGFR (BEAKER) (test 44 mL/min/1.73 sq m ESTIMATED GFR IS NOT agvw=3209) ACCURATE CREATININE CLEARANCE IN PREDICTING GLOMERULAR FILTRATION RATE. ESTIMATED GFR IS NOT APPLICABLE FOR DIALYSIS PATIENTS. [id number] 05:07:00 Test Item Value Reference Range Comments PARTIAL THROMBOPLASTIN TIME (BEAKER) (test 47.4 seconds 22.5-36.0 iiqs=641) PROTHROMBIN [id number] 05:05:00 Test Item Value Reference Range Comments PROTIME (BEAKER) (test fyoq=782) 14.2 seconds 11.9-14.2 INR (BEAKER) (test xtlc=773) 1.2 <=5.9 Effective 07/31/2018: PT Reference Range ChangeNew: 11.9-14.2 Previous: 11.7- 14.7RECOMMENDED COUMADIN/WARFARIN INR THERAPY RANGESSTANDARD DOSE: 2.0-3.0 Includes: PROPHYLAXIS for venous thrombosis, systemic embolization; TREATMENT for venous thrombosis and/or pulmonary embolus.HIGH RISK: Target INR is2.5-3.5 for patients wiht mechanical heart valves.CBC (HEMOGRAM ONLY)2018-12-27 04:58:00 Test Item Value Reference Range Comments WHITE BLOOD CELL COUNT (BEAKER) (test fvkf=873) 10.9 K/ L 3.5-10.5 RED BLOOD CELL COUNT (BEAKER) (test ezqx=104) 3.09 M/ L 4.63-6.08 HEMOGLOBIN (BEAKER) (test dgkm=278) 9.8 GM/DL 13.7-17.5 HEMATOCRIT (BEAKER) (test chix=502) 29.8 % 40.1-51.0 MEAN CORPUSCULAR VOLUME (BEAKER) (test ygtq=583) 96.4 fL 79.0-92.2 MEAN CORPUSCULAR HEMOGLOBIN (BEAKER) (test 31.7 pg 25.7-32.2 idkk=572) MEAN CORPUSCULAR HEMOGLOBIN CONC (BEAKER) (test 32.9 GM/DL 32.3-36.5 olna=485) RED CELL DISTRIBUTION WIDTH (BEAKER) (test 13.8 % 11.6-14.4 bwzq=001) PLATELET COUNT (BEAKER) (test wclu=716) 135 K/CU MM 150-450 MEAN PLATELET VOLUME (BEAKER) (test gqor=341) 10.7 fL 9.4-12.4 NUCLEATED RED BLOOD CELLS (BEAKER) (test 0 /100 WBC 0-0 bhch=027) POTASSIUM-STAT [id number] 19:57:00 Test Item Value Reference Range Comments POTASSIUM (BEAKER) (test yjvb=764) 3.4 meq/L 3.6-5.5 POTASSIUM-STAT [id number] 13:27:00 Test Item Value Reference Range Comments POTASSIUM (BEAKER) (test kkqh=331) 3.1 meq/L 3.6-5.5 RAD, CHEST, 1 VIEW, NON [id number] 08:42:00Reason for exam:->postop and intubatedFINAL REPORT INDICATION: postop and intubated TECHNIQUE: Chest radiograph, single view, portable technique. FINDINGS / IMPRESSION: Comparison to December 25 at 11:11 PM.Bibasilar subsegmental atelectasis without discrete pneumonia. No overt pulmonary edema or pneumothorax.Endotracheal tube and right internal jugular line again demonstrated and appear in good position. Signed: Alejandro Cardenas MDReport Verified Date/Time: 12/26/2018 08:42:52 Reading Location: [facility] Reading Room 08: 42 AMBLOOD GAS, [id number] 04:48:00 Test Item Value Reference Range Comments PH ARTERIAL (BEAKER) (test pzop=576) 7.43 7.35-7.45 PCO2 ARTERIAL (BEAKER) (test vbkv=384) 31 mmHg 35-45 PO2 ARTERIAL (BEAKER) (test lvrx=038) 62 mmHg 80-90 O2 SATURATION ARTERIAL (BEAKER) (test wkje=385) 92.9 % 96.0-97.0 HCO3 ARTERIAL (BEAKER) (test upvv=139) 20 mmol/L 21-29 BASE EXCESS ARTERIAL (BEAKER) (test vxhe=591) -3.6 mmol/L -2.0-3.0 PATIENT TEMPERATURE (BEAKER) (test wshc=2954) 36.8 C FIO2 (BEAKER) (test zkns=1772) 60.0 % [id number] 04:17:00 Test Item Value Reference Range Comments PHOSPHORUS (BEAKER) (test gxqn=573) 2.7 mg/dL 2.3-4.7 [id number] 04:17:00 Test Item Value Reference Range Comments MAGNESIUM (BEAKER) (test iowy=781) 2.3 mg/dL 1.6-2.6 BASIC METABOLIC [id number] 04:17:00 Test Item Value Reference Range Comments SODIUM (BEAKER) (test 141 meq/L 136-145 ymqb=546) POTASSIUM (BEAKER) (test 3.3 meq/L 3.5-5.1 jmtu=812) CHLORIDE (BEAKER) (test 112 meq/L 98-107 jnam=040) CO2 (BEAKER) (test 21 meq/L 22-29 rnlo=369) BLOOD UREA NITROGEN 16 mg/dL 7-21 (BEAKER) (test pwyq=987) CREATININE (BEAKER) (test 1.63 mg/dL 0.57-1.25 zalb=641) GLUCOSE RANDOM (BEAKER) 102 mg/dL 70-105 (test emgj=050) CALCIUM (BEAKER) (test 8.4 mg/dL 8.4-10.2 bmns=565) EGFR (BEAKER) (test 42 mL/min/1.73 sq m ESTIMATED GFR IS NOT fouy=9224) ACCURATE CREATININE CLEARANCE IN PREDICTING GLOMERULAR FILTRATION RATE. ESTIMATED GFR IS NOT APPLICABLE FOR DIALYSIS PATIENTS. [id number] 04:00:00 Test Item Value Reference Range Comments PARTIAL THROMBOPLASTIN TIME (BEAKER) (test 44.5 seconds 22.5-36.0 ygba=115) PROTHROMBIN TIME/[id number] 03:59:00 Test Item Value Reference Range Comments PROTIME (BEAKER) (test cluj=562) 14.3 seconds 11.9-14.2 INR (BEAKER) (test btih=791) 1.2 <=5.9 Effective 07/31/2018: PT Reference Range ChangeNew: 11.9-14.2 Previous: 11.7- 14.7RECOMMENDED COUMADIN/WARFARIN INR THERAPY RANGESSTANDARD DOSE: 2.0-3.0 Includes: PROPHYLAXIS for venous thrombosis, systemic embolization; TREATMENT for venous thrombosis and/or pulmonary embolus.HIGH RISK: Target INR is2.5-3.5 for patients wiht mechanical heart valves.CBC (HEMOGRAM ONLY)2018-12-26 03:52:00 Test Item Value Reference Range Comments WHITE BLOOD CELL COUNT (BEAKER) (test tfqy=553) 12.1 K/ L 3.5-10.5 RED BLOOD CELL COUNT (BEAKER) (test vqvk=525) 3.38 M/ L 4.63-6.08 HEMOGLOBIN (BEAKER) (test ysez=690) 10.6 GM/DL 13.7-17.5 HEMATOCRIT (BEAKER) (test uwei=906) 33.3 % 40.1-51.0 MEAN CORPUSCULAR VOLUME (BEAKER) (test jccl=546) 98.5 fL 79.0-92.2 MEAN CORPUSCULAR HEMOGLOBIN (BEAKER) (test 31.4 pg 25.7-32.2 axbj=475) MEAN CORPUSCULAR HEMOGLOBIN CONC (BEAKER) (test 31.8 GM/DL 32.3-36.5 xcui=419) RED CELL DISTRIBUTION WIDTH (BEAKER) (test 13.9 % 11.6-14.4 vevf=121) PLATELET COUNT (BEAKER) (test wxjm=060) 157 K/CU MM 150-450 MEAN PLATELET VOLUME (BEAKER) (test ahcr=201) 10.8 fL 9.4-12.4 NUCLEATED RED BLOOD CELLS (BEAKER) (test 0 /100 WBC 0-0 afli=740) BASIC METABOLIC [id number] 00:10:00 Test Item Value Reference Range Comments SODIUM (BEAKER) (test 136 meq/L 136-145 rirj=487) POTASSIUM (BEAKER) (test 4.0 meq/L 3.5-5.1 rmub=385) CHLORIDE (BEAKER) (test 110 meq/L 98-107 sbui=230) CO2 (BEAKER) (test 18 meq/L 22-29 vxsg=640) BLOOD UREA NITROGEN 14 mg/dL 7-21 (BEAKER) (test sgri=966) CREATININE (BEAKER) (test 1.46 mg/dL 0.57-1.25 bvpk=480) GLUCOSE RANDOM (BEAKER) 100 mg/dL 70-105 (test ntus=839) CALCIUM (BEAKER) (test 7.9 mg/dL 8.4-10.2 mten=484) EGFR (BEAKER) (test 48 mL/min/1.73 sq m ESTIMATED GFR IS NOT xcvu=2715) ACCURATE CREATININE CLEARANCE IN PREDICTING GLOMERULAR FILTRATION RATE. ESTIMATED GFR IS NOT APPLICABLE FOR DIALYSIS PATIENTS. [id number] 23:55:00 Test Item Value Reference Range Comments PHOSPHORUS (BEAKER) (test rrui=631) 3.9 mg/dL 2.3-4.7 [id number] 23:55:00 Test Item Value Reference Range Comments MAGNESIUM (BEAKER) (test ddsa=753) 1.9 mg/dL 1.6-2.6 RAD, CHEST, 1 VIEW, NON [id number] 23:50:00Reason for exam:-> postopShould this be performed at the bedside?->YesFINAL REPORT Chest one view. Clinical history: postop Comparison: December 23, 2017 Discussion: A frontal chest is provided. Cardiomediastinal contours are unchanged. Aorta is tortuous. ETT is 6 cm above the margy. Right IJ line projects over the distal SVC. There is no consolidation or hunter pulmonary edema. No pneumothorax or large effusion. No acute bony abnormality. Signed: Jose Pandaeport Verified Date/Time: 12/25/2018 23:50:30 Reading Location: [facility] [id number] Ortho Consult Reading Room OXYGEN SATURATION, [id number] 23:34:00 Test Item Value Reference Range Comments O2 SATURATION (MEASURED) (BEAKER) (test igya=6225) 87.1 % BLOOD GAS, [id number] 23:33:00 Test Item Value Reference Range Comments PH ARTERIAL (BEAKER) (test zjzz=453) 7.29 7.35-7.45 PCO2 ARTERIAL (BEAKER) (test frrc=422) 45 mmHg 35-45 PO2 ARTERIAL (BEAKER) (test qpqp=799) 98 mmHg 80-90 O2 SATURATION ARTERIAL (BEAKER) (test bnyo=372) 96.8 % 96.0-97.0 HCO3 ARTERIAL (BEAKER) (test fuav=629) 22 mmol/L 21-29 BASE EXCESS ARTERIAL (BEAKER) (test rloo=032) -4.9 mmol/L -2.0-3.0 PATIENT TEMPERATURE (BEAKER) (test kyem=9405) 36.8 C FIO2 (BEAKER) (test dsmh=4140) 60.0 % [id number] 23:17:00 Test Item Value Reference Range Comments PARTIAL THROMBOPLASTIN TIME (BEAKER) (test 39.2 seconds 22.5-36.0 tneg=885) PROTHROMBIN TIME/[id number] 23:16:00 Test Item Value Reference Range Comments PROTIME (BEAKER) (test tcsk=187) 16.4 seconds 11.9-14.2 INR (BEAKER) (test ljbp=883) 1.4 <=5.9 Effective 07/31/2018: PT Reference Range ChangeNew: 11.9-14.2 Previous: 11.7- 14.7RECOMMENDED COUMADIN/WARFARIN INR THERAPY RANGESSTANDARD DOSE: 2.0-3.0 Includes: PROPHYLAXIS for venous thrombosis, systemic embolization; TREATMENT for venous thrombosis and/or pulmonary embolus.HIGH RISK: Target INR is2.5-3.5 for patients wiht mechanical heart valves.CBC W/PLT COUNT & AUTO [id number] 23:15:00 Test Item Value Reference Range Comments WHITE BLOOD CELL COUNT (BEAKER) (test ffte=122) 14.0 K/ L 3.5-10.5 RED BLOOD CELL COUNT (BEAKER) (test bbsc=838) 3.36 M/ L 4.63-6.08 HEMOGLOBIN (BEAKER) (test mgtk=007) 10.7 GM/DL 13.7-17.5 HEMATOCRIT (BEAKER) (test vyoq=911) 33.6 % 40.1-51.0 MEAN CORPUSCULAR VOLUME (BEAKER) (test tjoj=450) 100.0 fL 79.0-92.2 MEAN CORPUSCULAR HEMOGLOBIN (BEAKER) (test 31.8 pg 25.7-32.2 qbjm=997) MEAN CORPUSCULAR HEMOGLOBIN CONC (BEAKER) (test 31.8 GM/DL 32.3-36.5 gsrb=894) RED CELL DISTRIBUTION WIDTH (BEAKER) (test 13.8 % 11.6-14.4 gcbn=681) PLATELET COUNT (BEAKER) (test xzbm=677) 156 K/CU MM 150-450 MEAN PLATELET VOLUME (BEAKER) (test lrsa=034) 10.6 fL 9.4-12.4 NUCLEATED RED BLOOD CELLS (BEAKER) (test 0 /100 WBC 0-0 cqct=356) NEUTROPHILS RELATIVE PERCENT (BEAKER) (test 73 % krnl=092) LYMPHOCYTES RELATIVE PERCENT (BEAKER) (test 15 % suzn=871) MONOCYTES RELATIVE PERCENT (BEAKER) (test 9 % uenf=179) EOSINOPHILS RELATIVE PERCENT (BEAKER) (test 1 % fhhz=383) BASOPHILS RELATIVE PERCENT (BEAKER) (test 1 % spem=228) NEUTROPHILS ABSOLUTE COUNT (BEAKER) (test 10.24 K/ L 1.78-5.38 yebf=515) LYMPHOCYTES ABSOLUTE COUNT (BEAKER) (test 2.05 K/ L 1.32-3.57 dbux=892) MONOCYTES ABSOLUTE COUNT (BEAKER) (test 1.27 K/ L 0.30-0.82 npth=866) EOSINOPHILS ABSOLUTE COUNT (BEAKER) (test 0.17 K/ L 0.04-0.54 pcgn=254) BASOPHILS ABSOLUTE COUNT (BEAKER) (test 0.07 K/ L 0.01-0.08 devm=605) IMMATURE GRANULOCYTES-RELATIVE PERCENT (BEAKER) 1 % 0-1 (test dcwg=4269) [id number] 22:22:00 Test Item Value Reference Range Comments ACTIVATED CLOTTING TIME 114 sec Reference Range: 74-137 (BEAKER) (test djou=353) seconds, Baseline/TESTED AT [place] [address] [id number] 22:22:00 Test Item Value Reference Range Comments ACTIVATED CLOTTING TIME 340 sec Reference Range: 74-137 (BEAKER) (test yehi=255) seconds, Baseline/TESTED AT [place] [address] [id number] 22:22:00 Test Item Value Reference Range Comments ACTIVATED CLOTTING TIME 219 sec Reference Range: 74-137 (BEAKER) (test difx=341) seconds, Baseline/TESTED AT [place] [address] [id number] 22:22:00 Test Item Value Reference Range Comments ACTIVATED CLOTTING TIME 252 sec Reference Range: 74-137 (BEAKER) (test ukfr=961) seconds, Baseline/TESTED AT [place] [address] [id number] 22:22:00 Test Item Value Reference Range Comments ACTIVATED CLOTTING TIME 257 sec Reference Range: 74-137 (BEAKER) (test chdg=587) seconds, Baseline/TESTED AT [place] [address] [id number] 22:22:00 Test Item Value Reference Range Comments ACTIVATED CLOTTING TIME 224 sec Reference Range: 74-137 (BEAKER) (test myxz=498) seconds, Baseline/TESTED AT [place] [address] GLUCOSE-STAT [id number] 22:20:00 Test Item Value Reference Range Comments GLUCOSE RANDOM (BEAKER) (test jwxt=976) 101 mg/dL 70-110 SODIUM NA-STAT [id number] 22:20:00 Test Item Value Reference Range Comments SODIUM (BEAKER) (test eqnb=176) 136 meq/L 135-148 POTASSIUM-STAT [id number] 22:20:00 Test Item Value Reference Range Comments POTASSIUM (BEAKER) (test skxf=334) 4.0 meq/L 3.6-5.5 BLOOD GAS, [id number] 22:20:00 Test Item Value Reference Range Comments PH ARTERIAL (BEAKER) (test rieh=351) 7.28 7.35-7.45 PCO2 ARTERIAL (BEAKER) (test yjjq=930) 48 mmHg 35-45 PO2 ARTERIAL (BEAKER) (test xlem=172) 181 mmHg 80-90 O2 SATURATION ARTERIAL (BEAKER) (test xssj=371) 99.1 % 96.0-97.0 HCO3 ARTERIAL (BEAKER) (test cnqp=677) 22 mmol/L 21-29 BASE EXCESS ARTERIAL (BEAKER) (test yrvb=982) -4.5 mmol/L -2.0-3.0 PATIENT TEMPERATURE (BEAKER) (test hthq=6650) 36.5 C FIO2 (BEAKER) (test fxle=3805) 100.0 % HGB/HCT (H&H) - STAT [id number] 22:20:00 Test Item Value Reference Range Comments HEMOGLOBIN (BEAKER) (test ahcw=981) 11.0 g/dL 13.0-16.8 HEMATOCRIT (BEAKER) (test kjbm=795) 32.0 % 40.0-50.0 CALCIUM, [id number] 22:20:00 Test Item Value Reference Range Comments CALCIUM IONIZED (BEAKER) (test besx=829) 1.08 mmol/L 1.12-1.27 PH, BLOOD (BEAKER) (test fpxi=8091) 7.28 CALCIUM, [id number] 21:14:00 Test Item Value Reference Range Comments CALCIUM IONIZED (BEAKER) (test rfpa=184) 1.09 mmol/L 1.12-1.27 PH, BLOOD (BEAKER) (test xdll=0262) 7.26 GLUCOSE-STAT [id number] 21:13:00 Test Item Value Reference Range Comments GLUCOSE RANDOM (BEAKER) (test yrco=510) 97 mg/dL 70-110 SODIUM NA-STAT [id number] 21:13:00 Test Item Value Reference Range Comments SODIUM (BEAKER) (test eifm=550) 135 meq/L 135-148 POTASSIUM-STAT [id number] 21:13:00 Test Item Value Reference Range Comments POTASSIUM (BEAKER) (test ugyi=163) 4.6 meq/L 3.6-5.5 BLOOD GAS, [id number] 21:13:00 Test Item Value Reference Range Comments PH ARTERIAL (BEAKER) (test klot=340) 7.26 7.35-7.45 PCO2 ARTERIAL (BEAKER) (test aial=687) 52 mmHg 35-45 PO2 ARTERIAL (BEAKER) (test wtqa=744) 226 mmHg 80-90 O2 SATURATION ARTERIAL (BEAKER) (test dxin=862) 99.3 % 96.0-97.0 HCO3 ARTERIAL (BEAKER) (test zaab=321) 23 mmol/L 21-29 BASE EXCESS ARTERIAL (BEAKER) (test fkbw=795) -4.3 mmol/L -2.0-3.0 PATIENT TEMPERATURE (BEAKER) (test wbye=9762) 36.5 C FIO2 (BEAKER) (test bjfe=7996) 100.0 % HGB/HCT (H&H) - STAT [id number] 21:13:00 Test Item Value Reference Range Comments HEMOGLOBIN (BEAKER) (test gwna=440) 11.0 g/dL 13.0-16.8 HEMATOCRIT (BEAKER) (test zint=418) 32.0 % 40.0-50.0 BLOOD GAS, [id number] 20:07:00 Test Item Value Reference Range Comments PH ARTERIAL (BEAKER) (test gwkj=249) 7.30 7.35-7.45 PCO2 ARTERIAL (BEAKER) (test gmzp=256) 47 mmHg 35-45 PO2 ARTERIAL (BEAKER) (test egil=518) 248 mmHg 80-90 O2 SATURATION ARTERIAL (BEAKER) (test qgpa=965) 99.5 % 96.0-97.0 HCO3 ARTERIAL (BEAKER) (test jgdn=202) 23 mmol/L 21-29 BASE EXCESS ARTERIAL (BEAKER) (test zjgw=293) -3.4 mmol/L -2.0-3.0 PATIENT TEMPERATURE (BEAKER) (test ocps=3592) 36.4 C FIO2 (BEAKER) (test fors=2708) 100.0 % POTASSIUM-STAT [id number] 20:07:00 Test Item Value Reference Range Comments POTASSIUM (BEAKER) (test qvjd=375) 2.8 meq/L 3.6-5.5 HGB/HCT (H&H) - STAT [id number] 20:07:00 Test Item Value Reference Range Comments HEMOGLOBIN (BEAKER) (test hllg=074) 10.9 g/dL 13.0-16.8 HEMATOCRIT (BEAKER) (test vxuf=907) 32.0 % 40.0-50.0 CALCIUM, [id number] 20:07:00 Test Item Value Reference Range Comments CALCIUM IONIZED (BEAKER) (test dkda=796) 1.01 mmol/L 1.12-1.27 PH, BLOOD (BEAKER) (test pxas=6603) 7.30 GLUCOSE-STAT [id number] 20:06:00 Test Item Value Reference Range Comments GLUCOSE RANDOM (BEAKER) (test ifst=386) 93 mg/dL 70-110 SODIUM NA-STAT [id number] 20:06:00 Test Item Value Reference Range Comments SODIUM (BEAKER) (test vgcm=612) 135 meq/L 135-148 BLOOD GAS, [id number] 19:04:00 Test Item Value Reference Range Comments PH ARTERIAL (BEAKER) (test crfd=366) 7.37 7.35-7.45 PCO2 ARTERIAL (BEAKER) (test hqzq=161) 40 mmHg 35-45 PO2 ARTERIAL (BEAKER) (test zpgs=443) 198 mmHg 80-90 O2 SATURATION ARTERIAL (BEAKER) (test dpxq=240) 99.3 % 96.0-97.0 HCO3 ARTERIAL (BEAKER) (test wyfj=793) 23 mmol/L 21-29 BASE EXCESS ARTERIAL (BEAKER) (test kpce=086) -2.7 mmol/L -2.0-3.0 PATIENT TEMPERATURE (BEAKER) (test hdra=4758) 36.3 C FIO2 (BEAKER) (test ckid=9837) 100.0 % POTASSIUM-STAT [id number] 19:04:00 Test Item Value Reference Range Comments POTASSIUM (BEAKER) (test wimn=522) 2.4 meq/L 3.6-5.5 HGB/HCT (H&H) - STAT [id number] 19:04:00 Test Item Value Reference Range Comments HEMOGLOBIN (BEAKER) (test vqps=101) 11.4 g/dL 13.0-16.8 HEMATOCRIT (BEAKER) (test upei=401) 34.0 % 40.0-50.0 CALCIUM, [id number] 19:04:00 Test Item Value Reference Range Comments CALCIUM IONIZED (BEAKER) (test vpvb=098) 1.11 mmol/L 1.12-1.27 PH, BLOOD (BEAKER) (test wrqz=9959) 7.37 GLUCOSE-STAT [id number] 19:03:00 Test Item Value Reference Range Comments GLUCOSE RANDOM (BEAKER) (test rrdn=157) 92 mg/dL 70-110 SODIUM NA-STAT [id number] 19:03:00 Test Item Value Reference Range Comments SODIUM (BEAKER) (test vmpw=502) 140 meq/L 135-148 [id number] 05:00:00 Test Item Value Reference Range Comments PHOSPHORUS (BEAKER) (test jxkr=232) 3.0 mg/dL 2.3-4.7 [id number] 05:00:00 Test Item Value Reference Range Comments MAGNESIUM (BEAKER) (test kprn=495) 2.1 mg/dL 1.6-2.6 BASIC METABOLIC [id number] 05:00:00 Test Item Value Reference Range Comments SODIUM (BEAKER) (test 140 meq/L 136-145 zkne=073) POTASSIUM (BEAKER) (test 3.1 meq/L 3.5-5.1 rvsg=508) CHLORIDE (BEAKER) (test 111 meq/L 98-107 vvss=577) CO2 (BEAKER) (test 22 meq/L 22-29 bjqi=140) BLOOD UREA NITROGEN 17 mg/dL 7-21 (BEAKER) (test nihl=791) CREATININE (BEAKER) (test 1.46 mg/dL 0.57-1.25 bqbt=354) GLUCOSE RANDOM (BEAKER) 90 mg/dL 70-105 (test rtbk=458) CALCIUM (BEAKER) (test 8.8 mg/dL 8.4-10.2 xrvq=136) EGFR (BEAKER) (test 48 mL/min/1.73 sq m ESTIMATED GFR IS NOT phxw=4056) ACCURATE CREATININE CLEARANCE IN PREDICTING GLOMERULAR FILTRATION RATE. ESTIMATED GFR IS NOT APPLICABLE FOR DIALYSIS PATIENTS. CBC (HEMOGRAM ONLY)2018-12-25 04:53:00 Test Item Value Reference Range Comments WHITE BLOOD CELL COUNT 10.1 K/ L 3.5-10.5 (BEAKER) (test deln=557) RED BLOOD CELL COUNT (BEAKER) 3.37 M/ L 4.63-6.08 (test pasj=097) HEMOGLOBIN (BEAKER) (test 10.7 GM/DL 13.7-17.5 qvqo=308) HEMATOCRIT (BEAKER) (test 33.0 % 40.1-51.0 dqrs=622) MEAN CORPUSCULAR VOLUME 97.9 fL 79.0-92.2 Discordant MCV results (BEAKER) (test ihij=064) compared to previous results; clinical correlation required. MEAN CORPUSCULAR HEMOGLOBIN 31.8 pg 25.7-32.2 (BEAKER) (test vdsd=478) MEAN CORPUSCULAR HEMOGLOBIN 32.4 GM/DL 32.3-36.5 CONC (BEAKER) (test bpml=175) RED CELL DISTRIBUTION WIDTH 13.7 % 11.6-14.4 (BEAKER) (test owjd=463) PLATELET COUNT (BEAKER) (test 167 K/CU MM 150-450 lpcs=240) MEAN PLATELET VOLUME (BEAKER) 10.5 fL 9.4-12.4 (test axtn=933) NUCLEATED RED BLOOD CELLS 0 /100 WBC 0-0 (BEAKER) (test xhfs=631) [id number] 04:48:00 Test Item Value Reference Range Comments PARTIAL THROMBOPLASTIN TIME (BEAKER) (test 39.6 seconds 22.5-36.0 pyth=802) PROTHROMBIN [id number] 04:47:00 Test Item Value Reference Range Comments PROTIME (BEAKER) (test tdva=379) 16.5 seconds 11.9-14.2 INR (BEAKER) (test wabc=791) 1.4 <=5.9 Effective 07/31/2018: PT Reference Range ChangeNew: 11.9-14.2 Previous: 11.7- 14.7RECOMMENDED COUMADIN/WARFARIN INR THERAPY RANGESSTANDARD DOSE: 2.0-3.0 Includes: PROPHYLAXIS for venous thrombosis, systemic embolization; TREATMENT for venous thrombosis and/or pulmonary embolus.HIGH RISK: Target INR is2.5-3.5 for patients wiht mechanical heart valves.CTA, CHEST, ABDOMEN - PELVIS, FOR [id number] 16:52:00Addendum BeginsREPORT STATUS:A Addendum: I agree with the previously described non vascular findings. Signed: Raven Chris MDReport Verified Date/Time: 12/24/2018 16:52:26 Reading Location: [place] [address] Angio Body Reading RoomAddendum EndsFINAL REPORT CT angiography of the thoracoabdominal aorta and pelvic arteries, 23 December 2018 INDICATION: This is a 68 year old male with a diagnosis of aortic aneurysm presents for assessment. TECHNIQUE: Spiral acquisition before and during intravenous contrast administration using a [employer] multidetector CT scanner. Images were obtained before and during the dynamic passage of intravenous contrast material. Multi-planar 3-D volume- rendering reconstruction was performed using an independent workstation interactively by the interpreting physician as well as the 3-D specialist for optimal visualisation of thethoracoabdominal aorta, the pelvic arteries as well as its proximal branches. Please refer to the contrast sheet scanned in the EPIC system for the amount and route of contrast given. This exam was performed according to our departmental dose-optimisation programme, which includes automated exposure control, adjustment of the mA and/or kV according to patient size and/or use of iterative reconstruction technique. Dose modulation, iterative reconstruction, and/or weight based adjustment of the mA/kV was utilized to reduce the radiation dose to as low as reasonably achievable. FINDINGS: VASCULAR: The central pulmonary artery is at the upper limits of normal in size. The cardiac chambers demonstratenormal atrioventricular and ventriculoarterial concordance, and systemic and pulmonary venous return. The left ventricle is normal in size. No pericardial effusion is identified. Coronary artery origins are normal. Coronary artery calcification is identified in the LAD and RCA territories. Right atrial enlargement is also identified as well as left atrial enlargement. Minimal aortic valvular calcification is seen. Ectasia is identified in the ascending thoracic aorta and scattered calcification is identified, however, there is also noncalcific atheroma present in the mid ascending thoracic aorta, image 81, with thickness up to 4 to 5 mm. There is moderate noncalcific atherosclerosis identified proximal descending thoracic aorta, as well as in the distal descending thoracic aorta. At image 52, the upper abdomen measure up to 7 to 8 mm in thickness, and the atheroma in the distal descending thoracic aorta, at image 145 measures up to 11 mm. The abdominal aorta, there is aneurysmal dilation identified in the infrarenal abdominal aorta. Please refer to snapshot regarding the angulation. An approximate 1.5 cm below the left renal artery, and approximately 1 cm below the right renal artery, the proximal neck measures approximately 27.5 x 25.6 mm. The length of the aneurysm is at least 11 to 12 cm, terminates at the aortic bifurcation. Maximum diameter of the aneurysmal dilation is 6.9 x 6.6 cm , with circumferential intraluminal thrombus identified that is nonobstructive. See snapshot for details. The dilation also extends into the left common iliac artery relatively sparing the right common iliac artery, and the maximum diameter of the left common iliac artery is approximately 4.5 x 4.2 cm, again with circumferential intraluminal thrombus present. The right common iliac artery measures approximately 18 mm. The common iliac, external iliac, common femoral, and the visualised superficial femoral arteries are patent with minimal eccentric nonobstructive calcification identified. Of note, substantial tortuosity is identified between the left common iliac and the left external iliac artery andthe RIGHT pelvic approach could be the more optimal approach. Batch Trucker dimension of the left and the right external iliac artery is at least 9 to 10 mm. Minimal atherosclerotic ulcerations identified in the left external iliac artery at image 378. The coeliac axis, SMA are widely patent. The IMAis also patent. There are single left and right renal arteries that are widely patent. Single left and right renal veins are seen draining normally into the IVC. There could be a tiny superior accessory left renal artery identified as well. There is no evidence of acute aortic pathology, specifically ,there is no dissection, intramural hematoma, or contained rupture. The arch vessel branching patternis normal and the visualized arch vessels are widely patent proximally. Nonobstructive noncalcific atherosclerosis is seen at the takeoff of the left subclavian artery, image 46. Quantitative dimensions of the aorta are as follows: 3.7 x 3.7 cm at the sinuses of Valsalva (the sino-tubular junction is preserved); 3.5 x 3.4 cm at the proximal ascending thoracic aorta; 4.2 x 4 point cm at the mid ascending aorta; 3.9 x 3.8 cm at the distal ascending aorta; 3.2 cm at the mid transverse arch; 3.5 cm atthe proximal descending aorta; 3.5 x3.2 cm at the mid descending aorta; 3.7 x 3.7 cm at the distal descending thoracic aorta; 3.8 x 3.7 cm at the diaphragmatic hiatus. In the abdomen, the aorta measures 2.8 x 2.8 cm at the mesenteric segment; 2.9 x 2.6 cm at the renal segment,; and approximately 5.6 x 4.6 cm at the aortic bifurcation. NON-VASCULAR: The visualised thyroid gland appears unremarkable. The chest wall and mediastinum appear normal. Number of small lymph nodes are seen in the mediastinum, some with fatty hilum, consider nonspecific in nature. In the lung windows, no endobronchiallesion is seen. Debris/mucous plug is identified in the trachea, in the right lateral aspect, image 41. Mild paraseptal emphysematous changes are seen, best seen in the upper lobes. No effusion is identified. No dependent changes are seen. No suspicious pulmonary nodule is identified. Pulmonary findings has been already been described by the Vocational Examiner Radiologist. See formal dictation for details. In addition, tiny calcified granuloma is identified in the right lower lobe at image 146 indicating prior granulomatous disease. In the abdomen, the liver and spleen appears unremarkable. The liver edge is smooth. No abnormal enhancing structure is identified. The adrenal glands are unremarkable. The pancreas have no gross abnormality identified. The gallbladder also has no gross abnormality seen. No gallstone is identified and no wall thickening is noted. The pancreas appears unremarkable. No acute renal pathology is seen and no hydronephrosis or perirenal fluid collection is identified. Cortical scarring is identified in both kidneys. Bowel is not well assessed by CT angiography as enteric contrast is not given. No obvious bowel dilation is identified. The appendix appears unremarkable. Diverticular disease is seen in the distal colon, with associated stranding identified in the distal/sigmoid colon, at image 380. No obvious fluid collection is seen. No obvious rim-enhancing is identified. See recent dictation by Vocational Examiner Radiologist for details. Once again of note, as described by the Vocational Examiner Radiologist, a focus of inflammatory fat stranding and soft tissue density surrounding gas is identified, 361, again may suggest acute diverticulitis. An addendum will be dictated thereafter, if needed. The prostate type of the calcification identified. The bladder is not distended. No free air free fluid seen abdomen and pelvis. No significant retroperitoneal adenopathy is identified. No acute interval bony changes is identified. Mild degenerative changes is noted. CONCLUSIONS: 1. Ectasia is identified in the ascending thoracic aorta. Increasing atherosclerosis is identified in the descendingthoracic aorta with protruding noncalcific atheroma identified. Aneurysmal dilation is identified inthe infrarenal abdominal aorta, and maximum diameter measures approximately 6.9 x 6.6 cm, with circumferential intraluminal thrombus identified that is nonobstructive, and the dilation also extends into the left common iliac artery. There is no evidence of acute aortic pathology, specifically, there is no dissection, intramural hematoma, or contained rupture. Quantitative dimension of the the thoracoabdominal aorta are as described above. Please See snapshot for details. The radiology department requires follow duration to be dictated, however, the referring physician is the Vocational Examiner Cardiovascular Surgeon of the [facility], therefore no recommendation is necessary. Substantial angulation is present between the left common iliac artery and the left external iliac artery in the pelvic arteries, bilaterally, widely patent. Perhaps, the right pelvic approach may be the more optimal approach. Please correlate clinically. 2. Normal coronary artery origins. Coronary arthrosclerosis. 3. No interval change is seen in the pulmonary findings when compared to recent CT scan. Minimal paraseptal emphysematous changes. Evidence of prior granulomatous disease. 4. Other findings as described above, including the sigmoid colon finding. Please correlate with clinical examination. An addendum will be dictated thereafter, if needed. 5. An addendum will be dictated regarding the non-vascularfindings by the Vocational Examiner Radiologist. Signed: Tahir Arita Verified Date/ Time: 12/24/2018 07:57:30 [id number] 05:30:00 Test Item Value Reference Range Comments PARTIAL THROMBOPLASTIN TIME (BEAKER) (test 35.2 seconds 22.5-36.0 xweo=634) PROTHROMBIN [id number] 05:29:00 Test Item Value Reference Range Comments PROTIME (BEAKER) (test wlmo=990) 13.8 seconds 11.9-14.2 INR (BEAKER) (test bqmv=035) 1.1 <=5.9 Effective 07/31/2018: PT Reference Range ChangeNew: 11.9-14.2 Previous: 11.7- 14.7RECOMMENDED COUMADIN/WARFARIN INR THERAPY RANGESSTANDARD DOSE: 2.0-3.0 Includes: PROPHYLAXIS for venous thrombosis, systemic embolization; TREATMENT for venous thrombosis and/or pulmonary embolus.HIGH RISK: Target INR is2.5-3.5 for patients wiht mechanical heart valves.[id number] 04:10:00 Test Item Value Reference Range Comments PHOSPHORUS (BEAKER) (test oezv=580) 2.4 mg/dL 2.3-4.7 [id number] 04:10:00 Test Item Value Reference Range Comments MAGNESIUM (BEAKER) (test erey=515) 2.2 mg/dL 1.6-2.6 BASIC METABOLIC [id number] 04:10:00 Test Item Value Reference Range Comments SODIUM (BEAKER) (test 136 meq/L 136-145 henb=025) POTASSIUM (BEAKER) (test 3.4 meq/L 3.5-5.1 leyl=343) CHLORIDE (BEAKER) (test 106 meq/L 98-107 wrft=132) CO2 (BEAKER) (test 24 meq/L 22-29 nsvv=396) BLOOD UREA NITROGEN 21 mg/dL 7-21 (BEAKER) (test xrca=671) CREATININE (BEAKER) (test 1.54 mg/dL 0.57-1.25 zjgq=362) GLUCOSE RANDOM (BEAKER) 124 mg/dL 70-105 (test lcxn=579) CALCIUM (BEAKER) (test 8.8 mg/dL 8.4-10.2 bmht=713) EGFR (BEAKER) (test 45 mL/min/1.73 sq m ESTIMATED GFR IS NOT wwzl=5858) ACCURATE CREATININE CLEARANCE IN PREDICTING GLOMERULAR FILTRATION RATE. ESTIMATED GFR IS NOT APPLICABLE FOR DIALYSIS PATIENTS. CBC (HEMOGRAM ONLY)2018-12-24 03:42:00 Test Item Value Reference Range Comments WHITE BLOOD CELL COUNT (BEAKER) (test iair=613) 12.3 K/ L 3.5-10.5 RED BLOOD CELL COUNT (BEAKER) (test kpun=590) 3.66 M/ L 4.63-6.08 HEMOGLOBIN (BEAKER) (test xywk=132) 11.4 GM/DL 13.7-17.5 HEMATOCRIT (BEAKER) (test ybek=771) 33.9 % 40.1-51.0 MEAN CORPUSCULAR VOLUME (BEAKER) (test ckde=457) 92.6 fL 79.0-92.2 MEAN CORPUSCULAR HEMOGLOBIN (BEAKER) (test 31.1 pg 25.7-32.2 vqwi=375) MEAN CORPUSCULAR HEMOGLOBIN CONC (BEAKER) (test 33.6 GM/DL 32.3-36.5 szpg=056) RED CELL DISTRIBUTION WIDTH (BEAKER) (test 13.2 % 11.6-14.4 pkrj=291) PLATELET COUNT (BEAKER) (test wtww=959) 193 K/CU MM 150-450 MEAN PLATELET VOLUME (BEAKER) (test intw=788) 10.3 fL 9.4-12.4 NUCLEATED RED BLOOD CELLS (BEAKER) (test 0 /100 WBC 0-0 vhym=375) POCT-GLUCOSE [id number] 00:04:00 Test Item Value Reference Range Comments POC-GLUCOSE METER (BEAKER) 112 mg/dL 70-110 TESTED AT [facility] [address] [facility] (test nakv=8539) [facility] [address] RAD, CHEST, 1 VIEW, NON [id number] 10:30:00Reason for exam:->Post- opShould this be performed at the bedside?->YesFINAL REPORT CLINICAL HISTORY: Post-op TECHNIQUE: 1 view of the chest. COMPARISON: CT 12/23/2018 IMPRESSION: There are coarsened lung markings without focal infiltrates or effusions. The cardiomediastinal silhouette is magnified by technique. Tortuosity of the thoracic aorta again seen. Signed: Shreya Abreu MDReport Verified Date/Time: 12/23/2018 10:30:21 Reading Location: [facility] Radiology Reading Room 10:30 AMLACTIC ACID, [id number] 04:16:00 Test Item Value Reference Range Comments LACTATE BLOOD ARTERIAL (2) (BEAKER) (test 0.5 mmol/L 0.5-2.2 uacj=5687) BASIC METABOLIC [id number] 04:16:00 Test Item Value Reference Range Comments SODIUM (BEAKER) (test 136 meq/L 136-145 naul=175) POTASSIUM (BEAKER) (test 3.2 meq/L 3.5-5.1 xuex=288) CHLORIDE (BEAKER) (test 102 meq/L 98-107 cnme=251) CO2 (BEAKER) (test 25 meq/L 22-29 tuin=847) BLOOD UREA NITROGEN 28 mg/dL 7-21 (BEAKER) (test qmsi=175) CREATININE (BEAKER) (test 1.87 mg/dL 0.57-1.25 faih=388) GLUCOSE RANDOM (BEAKER) 116 mg/dL 70-105 (test xnhl=239) CALCIUM (BEAKER) (test 9.2 mg/dL 8.4-10.2 qxaa=641) EGFR (BEAKER) (test 36 mL/min/1.73 sq m ESTIMATED GFR IS NOT [id number]) ACCURATE CREATININE CLEARANCE IN PREDICTING GLOMERULAR FILTRATION RATE. ESTIMATED GFR IS NOT APPLICABLE FOR DIALYSIS PATIENTS. [id number] 04:13:00 Test Item Value Reference Range Comments PARTIAL THROMBOPLASTIN TIME (BEAKER) (test 34.4 seconds 22.5-36.0 ahoz=441) PROTHROMBIN TIME/[id number] 04:12:00 Test Item Value Reference Range Comments PROTIME (BEAKER) (test avfg=791) 13.3 seconds 11.9-14.2 INR (BEAKER) (test fqpe=790) 1.1 <=5.9 Effective 07/31/2018: PT Reference Range ChangeNew: 11.9-14.2 Previous: 11.7- 14.7RECOMMENDED COUMADIN/WARFARIN INR THERAPY RANGESSTANDARD DOSE: 2.0-3.0 Includes: PROPHYLAXIS for venous thrombosis, systemic embolization; TREATMENT for venous thrombosis and/or pulmonary embolus.HIGH RISK: Target INR is2.5-3.5 for patients wiht mechanical heart valves.BLOOD GAS, [id number] 03:55:00 Test Item Value Reference Range Comments PH ARTERIAL (BEAKER) (test gcjm=137) 7.48 7.35-7.45 PCO2 ARTERIAL (BEAKER) (test pjtw=046) 34 mmHg 35-45 PO2 ARTERIAL (BEAKER) (test iare=886) 64 mmHg 80-90 O2 SATURATION ARTERIAL (BEAKER) (test zqcj=686) 94.2 % 96.0-97.0 HCO3 ARTERIAL (BEAKER) (test iofx=686) 25 mmol/L 21-29 BASE EXCESS ARTERIAL (BEAKER) (test mogi=140) 1.5 mmol/L -2.0-3.0 PATIENT TEMPERATURE (BEAKER) (test ckif=4496) 36.7 C FIO2 (BEAKER) (test gwzl=2882) 21.0 % CBC (HEMOGRAM ONLY)2018-12-23 03:48:00 Test Item Value Reference Range Comments WHITE BLOOD CELL COUNT (BEAKER) (test tgzp=334) 14.4 K/ L 3.5-10.5 RED BLOOD CELL COUNT (BEAKER) (test mpqq=026) 3.97 M/ L 4.63-6.08 HEMOGLOBIN (BEAKER) (test txcv=806) 12.5 GM/DL 13.7-17.5 HEMATOCRIT (BEAKER) (test bkxo=333) 36.9 % 40.1-51.0 MEAN CORPUSCULAR VOLUME (BEAKER) (test xocp=402) 92.9 fL 79.0-92.2 MEAN CORPUSCULAR HEMOGLOBIN (BEAKER) (test 31.5 pg 25.7-32.2 wpbe=631) MEAN CORPUSCULAR HEMOGLOBIN CONC (BEAKER) (test 33.9 GM/DL 32.3-36.5 bgrq=683) RED CELL DISTRIBUTION WIDTH (BEAKER) (test 13.2 % 11.6-14.4 ehym=291) PLATELET COUNT (BEAKER) (test uxfu=779) 180 K/CU MM 150-450 MEAN PLATELET VOLUME (BEAKER) (test nzxj=394) 10.0 fL 9.4-12.4 NUCLEATED RED BLOOD CELLS (BEAKER) (test 0 /100 WBC 0-0 ekcn=389) CT, CHEST, WITHOUT [id number] 02:30:00Reason for exam:->AAA found on OSH renal U/SAddendum BeginsREPORT STATUS:A Findings were discussed with Dr. Reddy of the vascular surgery service at the time of dictation. An additional recommendation of follow-up colonoscopy when clinically feasible is recommended to exclude a more aggressive colonic lesion. Signed: Paul Tejeda MDReport Verified Date/Time: 12/23/2018 02:30:49 Addendum EndsFINAL REPORT CLINICAL HISTORY: AAA, preop planning FINDINGS: Multiple axial images of the chest, abdomen and pelvis were performed without IV contrast. Oral contrast was not given. This exam was performed according to our departmental dose-optimization program, which includes automated exposure control, adjustment of the mA and/or kV according to patient size and/or use of the iterative reconstruction technique. Comparison : None. Chest: Lung parenchyma: Mild emphysematous changes in the upper lungs. Calcified granuloma in the lingula. Pleural effusion: None. Pneumothorax: None. Tracheobronchial tree: No significant findings. Pulmonary vasculature: No significant findings. Cardiac contours and great vessels: Atherosclerotic calcification of the coronary arteries. Elongated thoracic aorta with mild to moderate atherosclerotic calcification. Mediastinum: No significant findings. Lymph Nodes: No adenopathy in the mediastinum or alphonso. Skeleton: No acute abnormality. Abdomen and pelvis: Liver: No significant findings. Gallbladder and biliary tree: No significant findings. Spleen: No significant findings. Adrenal Glands: No significant findings. Kidneys and ureters: No significant findings. Stomach and Duodenum: No significant findings. Pancreas: No significant findings. Bowel: Colonic diverticulosis. Circumferential wall thickening of the mid sigmoid colon. There is a focus of inflammatory fat stranding and soft tissue density surrounding gas, arising from the thickened bowel wall. This may reflect a contained perforation or inflamed diverticulum. This is best seen on coronal image 41 and axial [id number]. Evaluation is limited by lack of IV contrast but no rim-enhancing fluid collection is identified to suggest drainable abscess. Appendix: Normal. Bladder: No significant findings. Major vascular structures: 7.5 x 7.5 cm infrarenal abdominal aortic aneurysm. The craniocaudal dimension of the aortic component of the aneurysm measures 11.8 cm. There is aneurysmal dilatation extending into the left greater than right common iliac arteries. The left common iliac artery measures 3.5 cm. The right common iliac artery measures 2.3 cm. There is extensive atherosclerotic calcification. Reproductive organs: No significant findings. Other: No free fluid or adenopathy Skeleton: No acute bony abnormality. IMPRESSION: Lack of IV contrast limits the evaluation. 7.5 cm infrarenal abdominal aortic aneurysm with extension into the left greater than right common iliac arteries, as described. Findings suggesting acute sigmoid diverticulitis. There is inflammatory fat stranding and soft tissue density surrounding a small focus of gas adjacent to the inflamed sigmoid colon which could reflect an inflamed diverticulum or contained perforation. No abscess formation is identified. The cardiothoracic surgery resident was paged at the time of dictation. Signed: Paul Tejeda MDReport Verified Date/Time: 2018 02:27:28 Electronically signed by: PAUL TEJEDA M.D. on 2018 02:30 AMCT, [id number] 02:30:00Reason for exam:->AAA, finding on OSH renal U/SAddendum BeginsREPORT STATUS:A Findings were discussed with Dr. Reddy of the vascular surgery service at the time of dictation. An additional recommendation of follow-up colonoscopy when clinically feasible is recommended to exclude a more aggressive colonic lesion. Signed: Paul Tejeda MDRkathrynort Verified Date/Time: 12/23/2018 02:30:49 Addendum EndsFINAL REPORT CLINICAL HISTORY: AAA, preop planning FINDINGS: Multiple axial images of the chest, abdomen and pelvis were performed without IV contrast. Oral contrast was not given. This exam was performed according to our departmental dose-optimization program, which includes automated exposure control, adjustment of the mA and/or kV according to patient size and/or use of the iterative reconstruction technique. Comparison : None. Chest: Lung parenchyma: Mild emphysematous changes in the upper lungs. Calcified granuloma in the lingula. Pleural effusion: None. Pneumothorax: None. Tracheobronchial tree: No significant findings. Pulmonary vasculature: No significant findings. Cardiac contours and great vessels: Atherosclerotic calcification of the coronary arteries. Elongated thoracic aorta with mild to moderate atherosclerotic calcification. Mediastinum: No significant findings. Lymph Nodes: No adenopathy in the mediastinum or alphonso. Skeleton: No acute abnormality. Abdomen and pelvis: Liver: No significant findings. Gallbladder and biliary tree: No significant findings. Spleen: No significant findings. Adrenal Glands: No significant findings. Kidneys and ureters: No significant findings. Stomach and Duodenum: No significant findings. Pancreas: No significant findings. Bowel: Colonic diverticulosis. Circumferential wall thickening of the mid sigmoid colon. There is a focus of inflammatory fat stranding and soft tissue density surrounding gas, arising from the thickened bowel wall. This may reflect a contained perforation or inflamed diverticulum. This is best seen on coronal image 41 and axial . Evaluation is limited by lack of IV contrast but no rim-enhancing fluid collection is identified to suggest drainable abscess. Appendix: Normal. Bladder: No significant findings. Major vascular structures: 7.5 x 7.5 cm infrarenal abdominal aortic aneurysm. The craniocaudal dimension of the aortic component of the aneurysm measures 11.8 cm. There is aneurysmal dilatation extending into the left greater than right common iliac arteries. The left common iliac artery measures 3.5 cm. The right common iliac artery measures 2.3 cm. There is extensive atherosclerotic calcification. Reproductive organs: No significant findings. Other: No free fluid or adenopathy Skeleton: No acute bony abnormality. IMPRESSION: Lack of IV contrast limits the evaluation. 7.5 cm infrarenal abdominal aortic aneurysm with extension into the left greater than right common iliac arteries, as described. Findings suggesting acute sigmoid diverticulitis. There is inflammatory fat stranding and soft tissue density surrounding a small focus of gas adjacent to the inflamed sigmoid colon which could reflect an inflamed diverticulum or contained perforation. No abscess formation is identified. The cardiothoracic surgery resident was paged at the time of dictation. Signed: Paul Tejeda MDReport Verified Date/Time: 2018 02:27:28 Electronically signed by: PAUL TEJEDA M.D. on 2018 02:30 AMCBC W/PLT COUNT & AUTO [id number] 01:24:00 Test Item Value Reference Range Comments WHITE BLOOD CELL COUNT (BEAKER) (test owfv=896) 12.0 K/ L 3.5-10.5 RED BLOOD CELL COUNT (BEAKER) (test osjy=602) 4.11 M/ L 4.63-6.08 HEMOGLOBIN (BEAKER) (test nopv=925) 12.7 GM/DL 13.7-17.5 HEMATOCRIT (BEAKER) (test msyf=828) 38.3 % 40.1-51.0 MEAN CORPUSCULAR VOLUME (BEAKER) (test mpzu=793) 93.2 fL 79.0-92.2 MEAN CORPUSCULAR HEMOGLOBIN (BEAKER) (test 30.9 pg 25.7-32.2 qbrf=948) MEAN CORPUSCULAR HEMOGLOBIN CONC (BEAKER) (test 33.2 GM/DL 32.3-36.5 mpwi=731) RED CELL DISTRIBUTION WIDTH (BEAKER) (test 13.2 % 11.6-14.4 aowx=772) PLATELET COUNT (BEAKER) (test kmmv=955) 183 K/CU MM 150-450 MEAN PLATELET VOLUME (BEAKER) (test yrfq=462) 11.2 fL 9.4-12.4 NUCLEATED RED BLOOD CELLS (BEAKER) (test 0 /100 WBC 0-0 diji=555) NEUTROPHILS RELATIVE PERCENT (BEAKER) (test 80 % njai=837) LYMPHOCYTES RELATIVE PERCENT (BEAKER) (test 11 % hxuv=148) MONOCYTES RELATIVE PERCENT (BEAKER) (test 8 % oycu=004) EOSINOPHILS RELATIVE PERCENT (BEAKER) (test 1 % vbou=209) BASOPHILS RELATIVE PERCENT (BEAKER) (test 1 % etcz=724) NEUTROPHILS ABSOLUTE COUNT (BEAKER) (test 9.51 K/ L 1.78-5.38 ceiv=564) LYMPHOCYTES ABSOLUTE COUNT (BEAKER) (test 1.28 K/ L 1.32-3.57 cwig=308) MONOCYTES ABSOLUTE COUNT (BEAKER) (test 0.96 K/ L 0.30-0.82 rydr=876) EOSINOPHILS ABSOLUTE COUNT (BEAKER) (test 0.09 K/ L 0.04-0.54 gcnx=418) BASOPHILS ABSOLUTE COUNT (BEAKER) (test 0.06 K/ L 0.01-0.08 qwlc=781) IMMATURE GRANULOCYTES-RELATIVE PERCENT (BEAKER) 1 % 0-1 (test rdhz=6723) PROTHROMBIN TIME/[id number] 01:19:00 Test Item Value Reference Range Comments PROTIME (BEAKER) (test mgnb=230) 13.2 seconds 11.9-14.2 INR (BEAKER) (test txom=567) 1.0 <=5.9 Effective 07/31/2018: PT Reference Range ChangeNew: 11.9-14.2 Previous: 11.7- 14.7RECOMMENDED COUMADIN/WARFARIN INR THERAPY RANGESSTANDARD DOSE: 2.0-3.0 Includes: PROPHYLAXIS for venous thrombosis, systemic embolization; TREATMENT for venous thrombosis and/or pulmonary embolus.HIGH RISK: Target INR is2.5-3.5 for patients wiht mechanical heart valves.[id number] 01:19:00 Test Item Value Reference Range Comments PARTIAL THROMBOPLASTIN TIME (BEAKER) (test 35.8 seconds 22.5-36.0 eaih=704) CALCIUM, [id number] 01:15:00 Test Item Value Reference Range Comments CALCIUM IONIZED (BEAKER) (test biqx=894) 1.02 mmol/L 1.12-1.27 PH, BLOOD (BEAKER) (test rsmw=5030) 7.52 BLOOD GAS, [id number] 01:15:00 Test Item Value Reference Range Comments PH ARTERIAL (BEAKER) (test ivtg=326) 7.52 7.35-7.45 PCO2 ARTERIAL (BEAKER) (test lhlc=775) 32 mmHg 35-45 PO2 ARTERIAL (BEAKER) (test tnhh=417) 74 mmHg 80-90 O2 SATURATION ARTERIAL (BEAKER) (test tfak=917) 96.3 % 96.0-97.0 HCO3 ARTERIAL (BEAKER) (test znwy=725) 25 mmol/L 21-29 BASE EXCESS ARTERIAL (BEAKER) (test pfas=491) 3.0 mmol/L -2.0-3.0 PATIENT TEMPERATURE (BEAKER) (test zvft=8800) 36.8 C FIO2 (BEAKER) (test humi=4429) 21.0 % SODIUM NA-STAT [id number] 01:15:00 Test Item Value Reference Range Comments SODIUM (BEAKER) (test lpna=283) 132 meq/L 135-148 POTASSIUM-STAT [id number] 01:15:00 Test Item Value Reference Range Comments POTASSIUM (BEAKER) (test fdjg=655) 2.7 meq/L 3.6-5.5 GLUCOSE-STAT [id number] 01:15:00 Test Item Value Reference Range Comments GLUCOSE RANDOM (BEAKER) (test rshp=909) 123 mg/dL 70-110 HGB/HCT (H&H) - STAT [id number] 01:15:00 Test Item Value Reference Range Comments HEMOGLOBIN (BEAKER) (test gftw=584) 12.8 g/dL 13.0-16.8 HEMATOCRIT (BEAKER) (test iyxj=966) 38.0 % 40.0-50.0 [id number] 00:51:00 Test Item Value Reference Range Comments PHOSPHORUS (BEAKER) (test biqu=030) 3.0 mg/dL 2.3-4.7 [id number] 00:51:00 Test Item Value Reference Range Comments MAGNESIUM (BEAKER) (test ngbs=900) 2.3 mg/dL 1.6-2.6 BASIC METABOLIC [id number] 00:51:00 Test Item Value Reference Range Comments SODIUM (BEAKER) (test 134 meq/L 136-145 hjqx=175) POTASSIUM (BEAKER) (test 2.8 meq/L 3.5-5.1 xiaw=736) CHLORIDE (BEAKER) (test 99 meq/L 98-107 pkey=906) CO2 (BEAKER) (test 25 meq/L 22-29 inhz=945) BLOOD UREA NITROGEN 29 mg/dL 7-21 (BEAKER) (test gbcl=138) CREATININE (BEAKER) (test 1.95 mg/dL 0.57-1.25 wwfg=801) GLUCOSE RANDOM (BEAKER) 128 mg/dL 70-105 (test riqo=955) CALCIUM (BEAKER) (test 9.0 mg/dL 8.4-10.2 wzev=709) EGFR (BEAKER) (test 34 mL/min/1.73 sq m ESTIMATED GFR IS NOT oiby=8483) ACCURATE CREATININE CLEARANCE IN PREDICTING GLOMERULAR FILTRATION RATE. ESTIMATED GFR IS NOT APPLICABLE FOR DIALYSIS PATIENTS. LACTIC ACID, [id number] 00:45:00 Test Item Value Reference Range Comments LACTATE BLOOD ARTERIAL (2) (BEAKER) (test 0.9 mmol/L 0.5-2.2 gdnh=8013)
--- NOTE | 2019-05-14 18:30 | EDPHYS ---
Physician Documentation [facility] Name: Marquise Mendoza Age: 68 yrs Sex: Male : 1950 Arrival Date: 05/14/2019 Time: 16:55 Bed 5 Private MD: Abdulaziz Rodríguez ED Physician Ramon Simpson HPI: 05/13 18:29 This 68 yrs old Male presents to ER via Wheelchair with complaints of Kidney kdr Problem - Sent By Dr. Rodríguez. 18:29 The patient presents with confusion, decreased mental status. Onset: The kdr symptoms/episode began/occurred last night. Possible causes: Acute on chronic renal failure, Uremia. 18:39 Associated signs and symptoms: Pertinent positives: confusion, weakness. Current kdr symptoms: In the emergency department the patient's symptoms have improved, mildly. Patient's baseline: Neuro: alert and fully oriented, Motor: no deficits, Ambulation: walks without assistance, Speech: normal for age, The patient has a previous history of Kidney disease, anxiety, Migraines. The patient has not experienced similar symptoms in the past. The patient has been recently seen by a physician: The patient was sent by Dr. Rodríguez for further evaluation of his AMS and renal functioin. Historical: - Allergies: 18:00 No Known Allergies; tw2 - Home Meds: 18:00 gabapentin Oral [Active]; Lorazepam Oral [Active]; paroxetine Oral [Active]; tw2 - PMHx: 18:00 Anxiety; Migraines; tw2 - Immunization history:: Adult Immunizations. - Social history:: Smoking status: Patient reports the use of cigarette tobacco products, smokes two packs cigarettes per day. ROS: 18:39 Constitutional: Negative for fever, chills, and weight loss, Eyes: Negative for injury, kdr pain, redness, and discharge, Neck: Negative for injury, pain, and swelling, Cardiovascular: Negative for chest pain, palpitations, and edema, Respiratory: Negative for shortness of breath, cough, wheezing, and pleuritic chest pain, Abdomen/GI: Negative for abdominal pain, nausea, vomiting, diarrhea, and constipation, Back: Negative for injury and pain, : Negative for injury, bleeding, discharge, and swelling, MS/Extremity: Negative for injury and deformity, Skin: Negative for injury, rash, and discoloration, Psych: Negative for depression, anxiety, suicide ideation, homicidal ideation, and hallucinations, Allergy/Immunology: Negative for hives, rash, and allergies, Endocrine: Negative for neck swelling, polydipsia, polyuria, polyphagia, and marked weight changes, Hematologic/Lymphatic: Negative for swollen nodes, abnormal bleeding, and unusual bruising. 18:39 Neuro: Positive for altered mental status, weakness, Negative for gait disturbance, headache, loss of consciousness, seizure activity, speech changes, syncope, near syncope. Exam: 18:39 Constitutional: This is a well developed, well nourished patient who is awake, alert, kdr and in no acute distress. The patinet is pale and has mild jauncied appearance Head/Face: Normocephalic, atraumatic. Eyes: Pupils equal round and reactive to light, extra-ocular motions intact. Lids and lashes normal. Conjunctiva and sclera are non-icteric and not injected. Cornea within normal limits. Periorbital areas with no swelling, redness, or edema. Neck: Trachea midline, no thyromegaly or masses palpated, and no cervical lymphadenopathy. Supple, full range of motion without nuchal rigidity, or vertebral point tenderness. No Meningismus. Chest/axilla: Normal chest wall appearance and motion. Nontender with no deformity. No lesions are appreciated. Cardiovascular: Regular rate and rhythm with a normal S1 and S2. No gallops, murmurs, or rubs. Normal PMI, no JVD. No pulse deficits. Respiratory: Lungs have equal breath sounds bilaterally, clear to auscultation and percussion. No rales, rhonchi or wheezes noted. No increased work of breathing, no retractions or nasal flaring. Abdomen/GI: Soft, non-tender, with normal bowel sounds. No distension or tympany. No guarding or rebound. No evidence of tenderness throughout. Back: No spinal tenderness. No costovertebral tenderness. Full range of motion. MS/ Extremity: Pulses equal, no cyanosis. Neurovascular intact. Full, normal range of motion. Neuro: Awake and alert, GCS 15, oriented to person, place, time, and situation. Cranial nerves II-XII grossly intact. Motor strength 5/5 in all extremities. Sensory grossly intact. Cerebellar exam normal. Normal gait. Psych: Awake, alert, with orientation to person, place and time. Behavior, mood, and affect are within normal limits. 18:39 Skin: Appearance: Color: jaundiced, pale. Vital Signs: 17:34 BP 130 / 98; Pulse 61; Resp 18; Temp 97.9(TE); Pulse Ox 97% on R/A; Pain 0/10; tw2 18:04 BP 128 / 99; Pulse 75; Resp 20; Pulse Ox 97% on R/A; tw2 19:30 BP 118 / 90; Pulse 62; Resp 17; Pulse Ox 99% on R/A; jb4 20:00 BP 141 / 93; Pulse 64; Resp 20; Pulse Ox 99% on R/A; jb4 21:00 BP 137 / 97; Pulse 71; Resp 14; Pulse Ox 100% on R/A; jb4 22:00 BP 102 / 78; Pulse 64; Resp 18; Pulse Ox 98% on R/A; jb4 MDM: 18:29 Patient medically screened. kdr 18:43 Data reviewed: vital signs, nurses notes, lab test result(s), radiologic studies. kdr Counseling: I had a detailed discussion with the patient and/or guardian regarding: the historical points, exam findings, and any diagnostic results supporting the discharge/admit diagnosis, lab results, radiology results, the need for further work-up and treatment in the hospital. 05/13 18:02 Order name: Amylase, Serum kdr 05/13 18:02 Order name: Basic Metabolic Panel kdr 05/13 18:02 Order name: Blood Culture Adult (2) kdr 05/13 18:02 Order name: CBC with Diff kdr 05/13 18:02 Order name: Ckmb kdr 05/13 18:02 Order name: CPK kdr 05/13 18:02 Order name: Lactate kdr 05/13 18:02 Order name: LFT's kdr 05/13 18:02 Order name: Lipase kdr 05/13 18:02 Order name: Procalcitonin kdr 05/13 18:02 Order name: Protime (+inr) kdr 05/13 18:02 Order name: Ptt, Activated kdr 05/13 18:02 Order name: Troponin (emerg Dept Use Only) kdr 05/13 18:02 Order name: Urine Microscopic Only kdr 05/13 18:02 Order name: Chest Single View XRAY kdr 05/13 18:02 Order name: Accucheck; Complete Time: 18:49 kdr 05/13 18:02 Order name: Cardiac monitoring; Complete Time: 18:05 [facility] 05/13 18:02 Order name: EKG - Nurse/Tech; Complete Time: 18:58 [facility] 05/13 18:02 Order name: IV Saline Lock - Large Bore; Complete Time: 18:49 [facility] 03 18:02 Order name: Labs collected and sent; Complete Time: 18:49 [facility] 05/13 18:02 Order name: O2 Per Protocol; Complete Time: 18:05 [facility] 05/13 18:02 Order name: O2 Sat Monitoring; Complete Time: 18:05 [facility] 05/13 18:53 Order name: Glucose, Ancillary Testing [facility] 05/13 18:58 Order name: Urine Dipstick--Ancillary (enter results) 05/13 20:01 Order name: Hepatitis B Surface Ab,Quant [facility] 05/13 20:01 Order name: Hep B Surface AG w/ Confirm [facility] 05/13 20:01 Order name: Hep B Core Ab, Tot/reflex IgM [facility] 05/13 20:07 Order name: Urine Culture [facility] 05/13 20:29 Order name: CONS Physician Consult [facility] 05/13 20:29 Order name: Renal [facility] 05/13 18:02 Order name: Urine Dipstick-Ancillary (obtain specimen); Complete Time: 22:18 kdr Administered Medications: No medications were administered Disposition: 05/14/19 18:29 Hospitalization ordered by Quentin Mchugh for Inpatient Admission. Preliminary diagnosis are Altered mental status, unspecified, Uremia. - Bed requested for Telemetry/MedSurg (Inpatient). - Status is Inpatient Admission. dh4 - Condition is Fair. - Problem is new. - Symptoms are unchanged. Signatures: Dispatcher [employer] [facility] Cindy Nielson RN RN dw Ramon Simpson MD MD [facility] Lashell Phelps RN RN [facility] [place] 4 Corrections: (The following items were deleted from the chart) 21:28 18:29 Hospitalization Ordered by Quentin Mchugh for Inpatient Admission. Preliminary diagnosis is Altered mental status, unspecified; Uremia. Bed requested for Telemetry/MedSurg (Inpatient). Status is Inpatient Admission. Condition is Fair. Problem is new. Symptoms are unchanged. kdr 22:39 21:28 05/14/2019 18:29 Hospitalization Ordered by Quentin Mchugh for Inpatient 4 Admission. Preliminary diagnosis is Altered mental status, unspecified; Uremia. Bed requested for Telemetry/MedSurg (Inpatient). Status is Inpatient Admission. Condition is Fair. Problem is new. Symptoms are unchanged. dw
--- NOTE | 2019-05-14 18:30 | ER ---
Nurse's Notes [facility] Name: Marquise Mendoza Age: 68 yrs Sex: Male : 1950 Arrival Date: 05/14/2019 Time: 16:55 Bed 5 Private MD: Abdulaziz Rodríguez Diagnosis: Altered mental status, unspecified;Uremia Presentation: 05/13 17:34 Chief complaint: Patient states: Dr. Elizabeth sent me here to be admitted. Coronavirus tw2 screen: The patient has NOT traveled to a country currently being monitored by the [facility] within the last 14 days. Ebola Screen: Patient denies travel to an Ebola-affected area in the 21 days before illness onset. Initial Sepsis Screen: Does the patient meet any 2 criteria? No. Patient's initial sepsis screen is negative. Does the patient have a suspected source of infection? No. Patient's initial sepsis screen is negative. Risk Assessment: Do you want to hurt yourself or someone else? Patient reports no desire to harm self or others. 17:34 Method Of Arrival: Wheelchair tw2 17:34 Acuity: JELLY 3 tw2 17:34 Onset of symptoms was May 14, 2019. tw2 Triage Assessment: 17:34 General: Appears in no apparent distress. Behavior is calm, cooperative, appropriate tw2 for age. General: Smells of cigarette smoke. Pain: Denies pain. Derm: Skin is jaundiced. Historical: - Allergies: 18:00 No Known Allergies; tw2 - Home Meds: 18:00 gabapentin Oral [Active]; Lorazepam Oral [Active]; paroxetine Oral [Active]; tw2 - PMHx: 18:00 Anxiety; Migraines; tw2 - Immunization history:: Adult Immunizations. - Social history:: Smoking status: Patient reports the use of cigarette tobacco products, smokes two packs cigarettes per day. Screenin:01 Abuse screen: Denies threats or abuse. Nutritional screening: No deficits noted. tw2 Tuberculosis screening: No symptoms or risk factors identified. Fall Risk Secondary diagnosis (15 points) impaired mobility. Assessment: 17:35 General: Appears in no apparent distress. Behavior is calm, cooperative, appropriate tw2 for age. Pain: Denies pain. Neuro: Level of Consciousness is awake, alert, obeys commands, Oriented to person, place, time, situation. Cardiovascular: Heart tones S1 S2 Patient's skin is warm and dry. Respiratory: Airway is patent Respiratory effort is even, unlabored, Respiratory pattern is regular, symmetrical, Breath sounds are clear bilaterally. GI: Abdomen is round distended, Bowel sounds present X 4 quads. : No signs and/or symptoms were reported regarding the genitourinary system. EENT: No signs and/or symptoms were reported regarding the EENT system. Derm: Skin is fragile, is thin, Skin is dry, Skin is jaundiced, Skin temperature is warm. Musculoskeletal: Range of motion: intact in all extremities. 18:02 Reassessment: Patient appears in no apparent distress at this time. Patient and/or tw2 family updated on plan of care and expected duration. Pain level reassessed. 19:00 Reassessment: Patient appears in no apparent distress at this time. Patient and/or jb4 family updated on plan of care and expected duration. Pain level reassessed. Patient is alert, oriented x 3, equal unlabored respirations, skin warm/dry/pink. Family is at the bedside. 20:00 Reassessment: Patient appears in no apparent distress at this time. Patient and/or jb4 family updated on plan of care and expected duration. Pain level reassessed. Pt is awake and alert with no s/s of distress noted, respirations are even and unlabored, family remains at the bedside. 20:30 Reassessment: Pt assisted to the restroom and back to bed via wheelchair. jb4 21:45 Reassessment: Patient appears in no apparent distress at this time. Patient and/or jb4 family updated on plan of care and expected duration. Pain level reassessed. Patient is alert, oriented x 3, equal unlabored respirations, skin warm/dry/pink. attempted to call report, instructed to wait for call back. 22:11 Reassessment: attempted to call report. Placed on hold for 12 minutes. Will attempt to jb4 call again in 5 minutes. 22:39 Reassessment: PT transferred upstairs via stretcher. IV site is dry, clean, and intact jb4 w/ no s/s of infiltration or phlebitis. Pt is awake and alert and is oriented x4. Respirations are even and unlabored. no s/s of distress noted. Vital Signs: 17:34 BP 130 / 98; Pulse 61; Resp 18; Temp 97.9(TE); Pulse Ox 97% on R/A; Pain 0/10; tw2 18:04 BP 128 / 99; Pulse 75; Resp 20; Pulse Ox 97% on R/A; tw2 19:30 BP 118 / 90; Pulse 62; Resp 17; Pulse Ox 99% on R/A; jb4 20:00 BP 141 / 93; Pulse 64; Resp 20; Pulse Ox 99% on R/A; jb4 21:00 BP 137 / 97; Pulse 71; Resp 14; Pulse Ox 100% on R/A; jb4 22:00 BP 102 / 78; Pulse 64; Resp 18; Pulse Ox 98% on R/A; jb4 ED Course: 16:55 Patient arrived in ED. ag5 16:56 Abdulaziz Rodríguez DO is Private Physician. ag5 17:06 Ramon Simpson MD is Attending Physician. kdr 17:34 Arm band placed on. tw2 17:34 Bed in low position. Call light in reach. nurse monitoring on. Pulse ox on. NIBP on. tw2 17:59 Triage completed. tw2 18:21 Quentin Mchugh is Hospitalizing Provider. kdr 18:28 Missed attempt(s): 20 gauge in right forearm. Bleeding controlled, band aid applied, tw2 catheter tip intact. Missed attempt(s): 20 gauge in right forearm. Bleeding controlled, band aid applied, catheter tip intact. 18:30 First set of blood cultures drawn by me. jb1 18:37 Chest Single View XRAY In Process Unspecified. EDMS 18:45 Second set of blood cultures drawn by me. jb1 18:48 Lashell Phelps RN is Primary Nurse. tw2 18:56 Initial lab(s) drawn, by me, sent to lab. Inserted saline lock: 22 gauge in left jb1 antecubital area, using aseptic technique. Blood collected. 18:57 EKG done, by ED staff, reviewed by Ramon Simpson MD. jb1 18:57 Urine collected: clean catch specimen, cloudy, krystal colored. jb1 19:00 Report given to PaoRN and PedroRN. tw2 19:01 Primary Nurse role handed off by Lashell Phelps RN jb4 19:01 Naveen Villasenor RN is Primary Nurse. jb4 22:39 No provider procedures requiring assistance completed. Patient admitted, IV remains in jb4 place. Administered Medications: No medications were administered Outcome: 18:29 Decision to Hospitalize by Provider. kdr 22:39 Patient left the ED. 4 22:39 Admitted to Tele accompanied by tech, via stretcher, room 401, with chart, Report jb4 called to MAXX Ellis 22:39 Condition: stable 22:39 Discharge instructions given to patient, family, Instructed on the need for admit, Demonstrated understanding of instructions. Signatures: Dispatcher [employer] EDFransisco Byrd jb1 Ramon Simpson MD MD kdr Lashell Phelps RN RN tw2 Naveen Villasenor RN RN jb4 Kamila [facility] [place] 4 Corrections: (The following items were deleted from the chart) 18:01 17:34 Chief complaint: Patient states: Dr. Elizabeth sent me here to be admitted tw2 tw2
--- NOTE | 2019-05-14 18:51 | RAD REPORT ---
EXAM DESCRIPTION: Brittany Single View05/14/2019 6:37 pm CLINICAL HISTORY: Chest pain COMPARISON: April 2019 FINDINGS: Small to moderate left and small right pleural effusions. Left basilar atelectasis. Mild interstitial lung opacities probably mild interstitial pulmonary edema The heart is mildly to moderately enlarged. Pacemaker leads are in place.
[2019-05-14 19:07] LABS: Basophils % 1.1 % (0-1.3); Hematocrit 28.4 % (39.6-49.0); MPV 10.7 fL (7.6-11.3); RBC Red Blood Cell Count 2.97 M/uL (4.33-5.43)
[2019-05-14 19:11] LABS: Protime INR 1.09
[2019-05-14 19:39] LABS: ALT/SGPT 10 U/L (12-78); AST/SGOT 7 U/L (15-37); Albumin 3.2 g/dL (3.4-5.0); Alkaline Phosphatase 137 U/L (45-117); Amylase Level 30 U/L (25-115); BUN Blood Urea Nitrogen 86 mg/dL (7-18); Bicarbonate 17 mmol/L (21-32); Bilirubin Direct 0.7 mg/dL (0-0.2); Bilirubin Total 1.1 mg/dL (0.2-1.0); CKMB Creatine Kinase MB 2.3 ng/mL (0.3-3.6); Creatine Phosphokinase 60 U/L (39-308); Glucose Level 90 mg/dL (74-106); Lipase 114 U/L (73-393); Protein, Total 7.2 g/dL (6.4-8.2); Sodium Level 136 mmol/L (136-145); Troponin (Emerg Dept Use Only) < 0.02 ng/mL (0.0-0.045)
[2019-05-14 20:05] LABS: Urine Bacteria 20-50 /HPF (NONE SEEN); Urine Culture Reflex Order REFLEXED; Urine RBC <5 /HPF (NONE SEEN)
[2019-05-14 20:08] LABS: Urine Blood 1+ (NEG); Urine Glucose NEGATIVE (NEG); Urine Protein 1+ (NEG); Urine Specific Gravity 1.015 (1.005-1.030)
[2019-05-14] MEDS ORDERED: ONDANSETRON 4 MG/2 ML VIAL IV PRN (20:23)
[2019-05-14 23:41] VITALS: BMI 24.9
[2019-05-14] MEDS: CEFTRIAXONE/SWI 1gm 1 GM/10 ML SYR IV SCH (23:50)
[2019-05-15] MEDS: ALPRAZOLAM 0.25 MG TABLET PO PRN (00:07)
--- NOTE | 2019-05-15 02:28 | P.HP ---
Certification for Inpatient Patient admitted to: Inpatient With expected LOS: >2 Midnights Patient will require the following post-hospital care: None Practitioner: I am a practitioner with admitting privileges, knowledge of patient current condition, hospital course, and medical plan of care. Services: Services provided to patient in accordance with Admission requirements found in Title 42 Section 412.3 of the Code of Federal Regulations Patient History Date of Service: 05/14/19 Reason for admission: Altered mental status; uremic encephalopathy History of Present Illness: Patient is a 68-year-old gentleman who came to the hospital with confusion. Patient has a significant history of recent abdominal aortic aneurysm repair with stent placement. Patient has some renal insufficiency at that time with a baseline of creatinine around 3.0. However, after this patient's creatinine trended upward. He was found have a creatinine of 7 shortly after his surgery. Nephrology has been monitoring patient's renal function closely. Over the last few days patient has started getting more confused. Patient came into the hospital, and he was found to be significantly more uremic then before. Patient has pruritus, and patient has had decreased appetite. Patient states his food does not taste the same. He has been very lethargic and he was brought into the emergency room for further evaluation. In the emergency room patient has significantly elevated BUN and creatinine. Patient will be admitted to the hospital for further workup. Patient may benefit from hemodialysis. We will admitted to the hospital, consult nephrology, and we may also need general surgery consultation for dialysis access catheter placement. Allergies No Known Allergies Allergy (Verified 05/15/19 01:15) Home Medications: LORazepam [Ativan] 1 mg PO DAILY PRN 10/17/16 Paroxetine HCl [Paxil] 10 mg PO BID 10/17/16 Gabapentin [Neurontin] 600 mg PO BID 12/22/18 Ibuprofen 800 mg PO DAILY PRN 12/22/18 Losartan Potassium 100 mg PO DAILY 05/15/19 - Past Medical/Surgical History Has patient received pneumonia vaccine in the past: Yes Diabetic: No -: Migranes -: Anxiety -: Shingles -: abdominal aortic aneurysm repair - Family History Father Medical History: Diabetes Mother Medical History: Diabetes - Social History Smoking Status: Current every day smoker Alcohol use: Yes CD- Drugs: No Caffeine use: No Place of Residence: Home Review of Systems 10-point ROS is otherwise unremarkable Physical Examination - Vital Signs Temperature: 98.2 F Blood Pressure: 107/68 Pulse: 64 Respirations: 18 Pulse Ox (%): 98 - Physical Exam General: Alert, In no apparent distress, Oriented x1, Confused HEENT: Atraumatic, PERRLA, Mucous membr. moist/pink, EOMI, Sclerae nonicteric Neck: Supple, 2+ carotid pulse no bruit, No LAD, Without JVD or thyroid abnormality Respiratory: Clear to auscultation bilaterally, Normal air movement Cardiovascular: Regular rate/rhythm, Normal S1 S2, No murmurs Gastrointestinal: Normal bowel sounds, Soft and benign, Non-distended, No tenderness Musculoskeletal: No clubbing, No swelling, No tenderness Integumentary: No rashes Neurological: Normal gait, Normal speech, Normal strength at 5/5 x4 extr, Normal tone, Sensation intact, Cranial nerves 3-12 intact, Normal affect Lymphatics: No axilla or inguinal lymphadenopathy - Studies Laboratory Data (last 24 hrs) 05/14/19 18:45: PT 12.8 H, INR 1.09, APTT 40.1 H 05/14/19 18:45: WBC 7.0, Hgb 9.2 L, Hct 28.4 L, Plt Count 129 L 05/14/19 18:45: Sodium 136, Potassium 5.0, BUN 86 H, Creatinine 9.08 H* D, Glucose 90, Total Bilirubin 1.1 H, AST 7 L, ALT 10 L, Alkaline Phosphatase 137 H , Amylase 30, Lipase 114 Assessment & Plan - Problems (Diagnosis) (1) Uremic encephalopathy Current Visit: Yes Status: Acute (2) Acute on chronic kidney failure Current Visit: Yes Status: Acute (3) History of AAA (abdominal aortic aneurysm) repair Current Visit: Yes Status: Acute (4) Depression Current Visit: Yes Status: Acute (5) Migraine Current Visit: Yes Status: Acute (6) Anemia of chronic disease Current Visit: Yes Status: Acute (7) Metabolic acidosis Current Visit: Yes Status: Acute (8) Thrombocytopenia Current Visit: Yes Status: Acute (9) Proteinuria Current Visit: Yes Status: Acute - Plan Plan: 1. IV hydration 2. Nephrology consultation 3. Renal ultrasound 4. May need repeat echocardiogram 5. Monitor labs closely 6. IV antibiotics for UTI 7. Monitor CBCs closely 8. GI and DVT prophylaxis Discharge Plan: Home Plan to discharge in: Greater than 2 days - Advance Directives Does patient have a Living Will: No Does patient have a Durable POA for Healthcare: No - Code Status/Comfort Care Code Status Assessed: Yes Code Status: Full Code Critical Care: No Time Spent Managing PTS Care (In Minutes): 45
[2019-05-15] MEDS: NA CHLORIDE 0.9% 1,000 ML IV SCH ×2 (03:23→16:20)
[2019-05-15 04:29] LABS: Basophils % 1.2 % (0-1.3); Hematocrit 26.6 % (39.6-49.0); Lymphocytes % 15.2 % (15.3-44.8); MPV 10.8 fL (7.6-11.3); RBC Red Blood Cell Count 2.81 M/uL (4.33-5.43)
[2019-05-15 04:56] LABS: Magnesium 2.8 mg/dL (1.8-2.4); Potassium 5.1 mmol/L (3.5-5.1)
[2019-05-15] MEDS: ENOXAPARIN 30 MG/0.3 ML SQ SCH (08:15)
[2019-05-15] MEDS ORDERED: INFLUENZA VACCINE (for 3y+) 0.5 ML DOSE IMVAC ONE (09:00)
[2019-05-15] MEDS ORDERED: ALBUTEROL 2.5 MG/3 ML NEB SOL ONE ×2 (13:40→15:41)
[2019-05-15] MEDS ORDERED: NA CHLORIDE 0.9% 1,000 ML ONE (13:41)
[2019-05-15] MEDS ORDERED: propofoL 200 MG/20 ML VIAL IV ONE ×2 (13:47→15:08)
[2019-05-15] MEDS ORDERED: FENTANYL CITR 100 MCG/2 ML ONE (13:48)
[2019-05-15] MEDS ORDERED: ONDANSETRON 4 MG/2 ML VIAL ONE ×2 (13:52→14:27)
[2019-05-15] MEDS ORDERED: ROCURONIUM 50 MG/5 ML VIAL IV ONE (13:54)
[2019-05-15] MEDS ORDERED: HEPARIN 500 UNIT/5 ML SYR IV ONE (13:55)
[2019-05-15] MEDS ORDERED: NEOSTIGMINE 1 MG/ML -5 ML ONE (13:55)
[2019-05-15] MEDS ORDERED: NS 0.9% VIAL 20 ML ONE (13:55)
[2019-05-15] MEDS ORDERED: GLYCOPYRROLATE 0.2 MG/ML SYR ONE (13:55)
[2019-05-15] MEDS ORDERED: LIDOCAINE 1% 20 ML MDV ONE (13:56)
--- NOTE | 2019-05-15 14:16 | P.CNS ---
Date of Consult: 05/15/19 PC: I was asked to see this 68-year-old male in regards to placement of a dialysis catheter. HPC: Patient is in acute renal failure requires dialysis PSHx: No clavicular fracture SOC: An allergy SYS REVIEW: Denies any medical problems at the moment just not feeling well O/E wake alert sleepy HEENT: Nonicteric Chest: Chest movement equal bilaterally ABD: Intact LOCO: No fractured clavicle or callus IMPRESSION: Renal failure PLAN: I will take him the operating room for insertion of a right IJ dialysis catheter. The risks of this procedure have been discussed. The possibility of bleeding, infection, injury to surrounding structures was explained. Pneumothorax bleeding and catheter malfunction were outlined. They understand and want to proceed.
[2019-05-15] MEDS: LIDOCAINE 1% MPF 2 ML AMPULE ONE ×2 (14:21→14:31)
[2019-05-15] MEDS ORDERED: MANNITOL 25% 12.5 GM/50 ML VIAL IV PRN (14:54)
[2019-05-15] MEDS ORDERED: NA CHLORIDE 0.9% 1,000 ML IV PRN (14:54)
[2019-05-15] MEDS ORDERED: ALBUMIN HUMAN 25% 50 ML IV SCH (15:00)
--- NOTE | 2019-05-15 15:08 | P.CNS ---
Date of Consult: 05/15/19 Reason for Consult: SARAH/ CKD Requesting Physician: Emmett Oliver Primary Care Provider: Dr. Gracia Chief Complaint: Altered mental status; uremic encephalopathy History of Present Illness: 68 yo WM CKD, HTN presented to the ER with acute on chronic renal disease with associated uremia. The reports confusion and hallucinations at home. + Anorexia Case reviewed with the and daughter. Patient is a 68-year-old gentleman who came to the hospital with confusion. Patient has a significant history of recent abdominal aortic aneurysm repair with stent placement. Patient has some renal insufficiency at that time with a baseline of creatinine around 3.0. However, after this patient's creatinine trended upward. He was found have a creatinine of 7 shortly after his surgery. Nephrology has been monitoring patient's renal function closely. Over the last few days patient has started getting more confused. Patient came into the hospital, and he was found to be significantly more uremic then before. Patient has pruritus, and patient has had decreased appetite. Patient states his food does not taste the same. He has been very lethargic and he was brought into the emergency room for further evaluation. In the emergency room patient has significantly elevated BUN and creatinine. Patient will be admitted to the hospital for further workup. Patient may benefit from hemodialysis. We will admitted to the hospital, consult nephrology, and we may also need general surgery consultation for dialysis access catheter placement. 18:29 This 68 yrs old Male presents to ER via Wheelchair with complaints of Kidney kdr Problem - Sent By Dr. Rodríguez. 18:29 The patient presents with confusion, decreased mental status. Onset: The kdr symptoms/episode began/occurred last night. Possible causes: Acute on chronic renal failure, Uremia. 18:39 Associated signs and symptoms: Pertinent positives: confusion, weakness. Current kdr symptoms: In the emergency department the patient's symptoms have improved , mildly. Patient's baseline: Neuro: alert and fully oriented, Motor: no deficits, Ambulation: walks without assistance, Speech: normal for age, The patient has a previous history of Kidney disease, anxiety, Migraines. The patient has not experienced similar symptoms in the past. The patient has been recently seen by a physician: The patient was sent by Dr. Rodríguez for further evaluation of his AMS and renal functioin. Allergies No Known Allergies Allergy (Verified 05/15/19 01:15) Home medications list reviewed: Yes Home Medications: LORazepam [Ativan] 1 mg PO DAILY PRN 10/17/16 Paroxetine HCl [Paxil] 10 mg PO BID 10/17/16 Gabapentin [Neurontin] 600 mg PO BID 12/22/18 Ibuprofen 800 mg PO DAILY PRN 12/22/18 Losartan Potassium 100 mg PO DAILY 05/15/19 - Past Medical/Surgical History Diabetic: No -: Migranes -: Anxiety -: Shingles -: abdominal aortic aneurysm repair - Family History Father Medical History: Diabetes Mother Medical History: Diabetes - Social History Smoking Status: Current every day smoker Alcohol use: Yes CD- Drugs: No Caffeine use: No Place of Residence: Home Review of Systems 10-point ROS is otherwise unremarkable General: Weakness, Malaise Gastrointestinal: Nausea Neurological: Weakness, Confusion Physical Examination Temp Pulse Resp BP Pulse Ox 97.3 F 69 17 156/85 H 97 05/15/19 12:00 05/15/19 12:00 05/15/19 12:00 05/15/19 12:00 05/15/19 12:00 General: In no apparent distress, Cooperative HEENT: Atraumatic Neck: Supple Respiratory: Clear to auscultation bilaterally Cardiovascular: No edema, Regular rate/rhythm Gastrointestinal: Soft and benign, Non-distended Musculoskeletal: No clubbing, No contractures Integumentary: No rashes, No cyanosis Neurological: Normal speech Laboratory Data (last 24 hrs) 05/14/19 18:45: PT 12.8 H, INR 1.09, APTT 40.1 H 05/14/19 18:45: WBC 7.0, Hgb 9.2 L, Hct 28.4 L, Plt Count 129 L 05/14/19 18:45: Sodium 136, Potassium 5.0, BUN 86 H, Creatinine 9.08 H* D, Glucose 90, Total Bilirubin 1.1 H, AST 7 L, ALT 10 L, Alkaline Phosphatase 137 H , Amylase 30, Lipase 114 Imagings Data: EXAM DESCRIPTION: Brittany Single View05/14/2019 6:37 pm CLINICAL HISTORY: Chest pain COMPARISON: April 2019 FINDINGS: Small to moderate left and small right pleural effusions. Left basilar atelectasis. Mild interstitial lung opacities probably mild interstitial pulmonary edema The heart is mildly to moderately enlarged. Pacemaker leads are in place. Conclusions/Impression: A/ SARAH likely due to LEONEL and suspicious for ESRD. Hyponatremia. Hyperkalemia. Acidosis. CKD IV with proteinuria in the setting of HTN, vascular disease and NSAIDs. HTN with CKD/ CHF. Diastolic CHF, A/C. Anemia in chronic illness. Thrombocytopenia. HyperPO4. P/ Continue current POC and Medications. Arrange for a temporary HD catheter placement today. Arrange for acute HD today. Will need daily dialysis. Start Vitamin D and Phoslo. Give a dose of Retacrit. No NSAIDs. Advance renal diet once indicated. AM labs. Daily weight. Thank you kindly for the consultation.
--- NOTE | 2019-05-15 15:16 | P.OP ---
Preoperative diagnosis: end stage renal disease Postoperative diagnosis: The same Primary procedure: Insertion of temporary dialysis catheter Anesthesia: General Estimated blood loss: Less than 10 cc Operative Technique: The patient brought the operating room and placed supine on the table. After the induction of adequate general anesthesia, there the right side of the neck and chest were prepped with a Betadine solution, he was draped in usual aseptic manner. The carotid artery was palpated. Just lateral to this using a finer needle we of the Calot delayed the jugular vein. A finer needle used to go behind this and cannulate the vein as well. Good venous return having been obtained a guidewire was passed down to red needle. The 1st attempt we not have good easy trending of the guidewire hence the guidewire was withdrawn as was the needle. After having re-loaded once again the vein was isolated this time the finer needle was able to cannulate the vein and the wire was passed easily we confirmed this position using fluoroscopy. The catheter now was inserted. This was done by making a skin incision on the upper right part of the chest. The catheter was brought through our subcutaneous tunnel that we created. The dilators were gradually placed over the wire and using a modified Seldinger technique the catheter was inserted through the tear-away catheter into the right superior vena cava. The catheter was in good position. We required some manipulation and this was done under fluoroscopy to ensure we had a good sweep at the bend in that the catheter is flushed adequately. At this point the subcutaneous tissue was approximated to the neck using interrupted sutures of Vicryl. This was also repeated on the anterior wall the chest. The catheter was flushed and secured using nylon. At the end of procedure he was stable when sent to the recovery room. The chest x-ray is pending. Transferred to: Recovery Room Condition: Good
--- NOTE | 2019-05-15 15:38 | RAD REPORT ---
EXAM DESCRIPTION: RAD - Fluoroscopy <1 Hour - 05/15/2019 3:17 pm FINDINGS: There were 11 portable C-arm views submitted from a fluoroscopic assisted placement of a r ight-sided dialysis catheter. Images show stepwise placement of the catheter. No suspicious or unexpe cted findings. Fluoro time was 2.0 minutes.
--- NOTE | 2019-05-15 15:46 | RAD REPORT ---
EXAM DESCRIPTION: RAD - Chest Single View - 05/15/2019 3:37 pm CLINICAL HISTORY: s/p HD cath COMPARISON: CT chest May 01, 2019 TECHNIQUE: AP portable chest image was obtained 05/15/2019 3:37 pm . FINDINGS: Patient is status post placement of a right-sided double-lumen dialysis catheter. Double-l umen catheter is in place. The long and short arm of the catheter are in the superior most aspect of the SVC. Both long and short arm are positioned superior to the SVC -brachiocephalic junction. No pneumothorax. Moderate bilateral pleural effusions are present. Overall vascular and lung parenchymal congestion is seen with prominent heart. IMPRESSION: No pneumothorax identified. Double-lumen catheter has been placed. Long and short arm of the catheter are in the superior most SV C. This is superior to the SVC brachiocephalic junction.
[2019-05-15] MEDS ORDERED: EPOETIN ALFA-EPBX 10,000 UNIT/ML VIAL SQ SCH (16:00)
[2019-05-15] MEDS: CA ACETATE 667 MG CAP PO SCH (17:00)
--- NOTE | 2019-05-15 17:08 | P.PN ---
Subjective Date of Service: 05/15/19 Primary Care Provider: Dr. Gracia Chief Complaint: Altered mental status; uremic encephalopathy Patient still confused. Dialysis catheter placed today. Physical Examination - Vital Signs Temperature: 96.7 F Blood Pressure: 126/80 Pulse: 59 Respirations: 18 Pulse Ox (%): 95 - Physical Exam General: In no apparent distress, Confused HEENT: Mucous membr. moist/pink, Other (Bruise-occipital scalp.) Neck: Supple, JVD not distended Respiratory: Clear to auscultation bilaterally, Normal air movement Cardiovascular: No edema, Regular rate/rhythm, Normal S1 S2 Gastrointestinal: Normal bowel sounds, Soft and benign, Non-distended, No tenderness Musculoskeletal: No erythema Neurological: Other (Confused, nonfocal.) Urinary: Dialysis catheter - Studies Laboratory Data (last 24 hrs) 05/14/19 18:45: PT 12.8 H, INR 1.09, APTT 40.1 H 05/14/19 18:45: WBC 7.0, Hgb 9.2 L, Hct 28.4 L, Plt Count 129 L 05/14/19 18:45: Sodium 136, Potassium 5.0, BUN 86 H, Creatinine 9.08 H* D, Glucose 90, Total Bilirubin 1.1 H, AST 7 L, ALT 10 L, Alkaline Phosphatase 137 H , Amylase 30, Lipase 114 Assessment And Plan - Current Problems (Diagnosis) (1) Acute on chronic kidney failure Current Visit: Yes Status: Acute (2) Anemia of chronic disease Current Visit: Yes Status: Acute (3) Metabolic acidosis Current Visit: Yes Status: Acute (4) Uremic encephalopathy Current Visit: Yes Status: Acute (5) UTI (urinary tract infection) Current Visit: Yes Status: Acute (6) Fall Current Visit: Yes Status: Acute - Plan Patient is scheduled for dialysis today. Monitor renal function IV Rocephin for UTI. Follow urine culture. Monitor H&H daily. Transfuse p.r.n. for hemoglobin less than 8. Erythropoietin per nephrology. Obtain CT head.
[2019-05-15] MEDS: CEFTRIAXONE/SWI 1gm 1 GM/10 ML SYR IV SCH (21:30)
[2019-05-16 03:53] LABS: Urine Appearance CLEAR; Urine Bilirubin NEGATIVE (NEG); Urine Blood TRACE (NEG); Urine Color YELLOW; Urine Glucose NEGATIVE (NEG); Urine Protein TRACE (NEG); Urine pH 5.5 (5.0-7.0)
[2019-05-16 04:13] LABS: UR MICROALBUMIN 6.6 mg/dL (< 1.9); Urine Bacteria 20-50 /HPF (NONE SEEN); Urine Culture Reflex Order REFLEXED; Urine Mucus 1+ /HPF (NONE SEEN)
[2019-05-16 06:09] LABS: Absolute Lymphocytes (CBC) 0.7 K/uL (0.7-4.9); Basophils % 0.6 % (0-1.3); Hematocrit 25.9 % (39.6-49.0); Lymphocytes % 7.1 % (15.3-44.8); MPV 10.7 fL (7.6-11.3); RBC Red Blood Cell Count 2.69 M/uL (4.33-5.43)
[2019-05-16 08:00] LABS: Albumin 2.8 g/dL (3.4-5.0); Folic Acid, (Folate) 7.4 ng/mL (3.1-17.5); Phosphorus 7.7 mg/dL (2.5-4.9)
[2019-05-16] MEDS: CA ACETATE 667 MG CAP PO SCH ×3 (08:00→17:12)
[2019-05-16 08:04] LABS: Potassium 5.6 mmol/L (3.5-5.1)
[2019-05-16] MEDS ORDERED: NS 0.9% VIAL 20 ML ONE (08:33)
[2019-05-16] MEDS: LIDOCAINE 1% MPF 30 ML VIAL ONE ×2 (08:33→09:32)
[2019-05-16] MEDS ORDERED: NA CHLORIDE 0.9% 500 ML ONE (08:36)
[2019-05-16] MEDS ORDERED: propofoL 200 MG/20 ML VIAL IV ONE (08:42)
[2019-05-16] MEDS ORDERED: FENTANYL CITR 100 MCG/2 ML ONE (08:42)
[2019-05-16] MEDS ORDERED: LIDOCAINE 2% MPF 5 ML VIAL ONE (08:42)
[2019-05-16] MEDS ORDERED: ROCURONIUM 50 MG/5 ML VIAL IV ONE (08:42)
--- NOTE | 2019-05-16 08:54 | P.PN ---
Date of Service: 05/16/19 S: Patient feels okay today. Complaining of being hungry (patient is NPO since midnight) O: Physical exam essentially unchanged A: Malfunctioning catheter when patient was put on dialysis yesterday apparently had resistance on the venous flow line P: I will take her the operating room to manipulate this catheter. We will most likely change it to a straight temporary. The risks of this procedure have been discussed. Once again the possibility of bleeding, infection, pneumothorax and catheter complications were explained. The possible need in the future for something more permanent were outlined. He understands and wants to proceed.
[2019-05-16] MEDS: CALCITROL 0.25 MCG CAP PO SCH (09:00)
[2019-05-16] MEDS: ENOXAPARIN 30 MG/0.3 ML SQ SCH (09:00)
[2019-05-16] MEDS: VITAMIN D 5,000 UNIT CAP PO SCH (09:00)
--- NOTE | 2019-05-16 09:54 | P.OP ---
Preoperative diagnosis: Malfunctioning dialysis catheter Postoperative diagnosis: The same Primary procedure: Pre insertion of new temporary dialysis catheter Estimated blood loss: Less than 20 cc Operative Technique: The patient brought the operating room and placed supine on the table. After the induction of adequate general anesthesia, there the right side of the neck and chest were prepped with a Betadine solution, he was draped in usual aseptic manner. Attention was turned towards the previous incision on the right side of the neck. The sutures were removed. The catheter loop was identified in the subcutaneous tissue. The catheter was grasped proximally and distally with 2 hemostats. The catheter was transected. On the distal edge a piece of anchoring suture of 2 0 Vicryl was placed to prevent catheter migration. The distal portion of the catheter was now freed from the skin were had been inserted on the chest and removed. Attention was turned back towards the catheter still remaining. We were able to pass a guidewire down through the he catheter in confirm its position with fluoroscopy. At this point the old catheter was removed. A new temporary straight dialysis catheter was now placed over the guidewire and reinserted. This position was confirmed using fluoroscopy. It was anchored in place with nylon sutures to the skin. The insertion site was then approximated using interrupted sutures of Vicryl as well as 2 nylon sutures. At this point the position was once again confirmed, the catheter thoroughly flushed, and dressings applied. He was stable when sent to the recovery room. A chest x-ray will be obtained to confirm catheter position and demonstrate no pneumothorax. Complications: None Transferred to: Recovery Room Condition: Good
--- NOTE | 2019-05-16 10:06 | RAD REPORT ---
EXAM DESCRIPTION: CT - Head Brain Wo Cont - 05/15/2019 9:20 pm CLINICAL HISTORY: Fall, hit head. COMPARISON: None. TECHNIQUE: CT scan of the brain without IV contrast. This exam was performed according to our depa rtmental dose-optimization program, which includes automated exposure control, adjustment of the mA a nd/or kV according to patient size and/or use of iterative reconstruction technique. FINDINGS: The ventricles, cisterns, and sulci are age-appropriate. No evidence of acute infarction, intracranial hemorrhage, extra-axial fluid collection, or midline shift. There is sinus mucosal disea se of the right maxillary sinus. No depressed skull fracture. IMPRESSION: No acute intracranial findings. Electronically signed by: Carlos Fierro MD 05/15/2019 9:43 PM CDT Due to temporary technical issues with the PACS/Fluency reporting system, reports are being signed by the in house radiologist as a courtesy to ensure prompt reporting. The interpreting radiologist is f ully responsible for the content of the report.
--- NOTE | 2019-05-16 10:44 | RAD REPORT ---
EXAM DESCRIPTION: RAD - Fluoroscopy <1 Hour - 05/16/2019 9:59 am FINDINGS: There were 5 portable C-arm views obtained during fluoroscopic assisted replacement or rep ositioning of a catheter. No suspicious or unexpected findings. Fluoro time was 0.7 minutes.
--- NOTE | 2019-05-16 10:54 | RAD REPORT ---
EXAM DESCRIPTION: Dajuant Single View05/16/2019 10:46 am CLINICAL HISTORY: Device placement/catheter placement COMPARISON: May 15, 2019 FINDINGS: Central venous line has its tip in the superior vena cava. A pneumothorax is not present Small to moderate left and small right pleural effusions with bibasilar atelectasis. The pulmonary ed ysabel appears mostly resolved. Heart remains enlarged
--- NOTE | 2019-05-16 16:41 | P.PN ---
Subjective Date of Service: 05/16/19 Primary Care Provider: Dr. Gracia Chief Complaint: Altered mental status; uremic encephalopathy Patient remain confused but more interactive today than yesterday. His hemodialysis catheter was nonfunctional and dialysis could not be performed yesterday. Dialysis catheter was changed today. Patient seen after hemodialysis. Physical Examination - Vital Signs Temperature: 97.0 F Blood Pressure: 107/77 Pulse: 61 Respirations: 16 Pulse Ox (%): 94 - Physical Exam General: Confused HEENT: Mucous membr. moist/pink, Sclerae nonicteric Neck: Supple, JVD not distended Respiratory: Clear to auscultation bilaterally, Normal air movement Cardiovascular: No edema, Regular rate/rhythm, Normal S1 S2, No murmurs Gastrointestinal: Normal bowel sounds, Soft and benign, Non-distended, No tenderness Musculoskeletal: No swelling, No erythema Integumentary: No erythema Neurological: Other (Confused, non-focal) Assessment And Plan - Current Problems (Diagnosis) (1) Acute on chronic kidney failure Current Visit: Yes Status: Acute (2) Anemia of chronic disease Current Visit: Yes Status: Acute (3) Metabolic acidosis Current Visit: Yes Status: Acute (4) Uremic encephalopathy Current Visit: Yes Status: Acute (5) UTI (urinary tract infection) Current Visit: Yes Status: Acute (6) Fall Current Visit: Yes Status: Acute - Plan Status post hemodialysis today. Head CT: No acute intracranial findings. Repeat blood chemistry to follow potassium and metabolic acidosis. Urine culture: mixed growth Continue IV Rocephin for UTI. Monitor H&H daily. Transfuse p.r.n. for hemoglobin less than 8. Continue to hold home psychotropic medications and ARB Avoid NSAID.
[2019-05-16 17:03] LABS: Potassium 4.4 mmol/L (3.5-5.1)
[2019-05-16] MEDS: SODIUM BICARB 325 MG TAB PO SCH ×2 (17:12→21:37)
--- NOTE | 2019-05-16 18:58 | P.PN ---
Date of Service: 05/16/19 Vital Signs Temp Pulse Resp BP Pulse Ox 97.0 F 61 16 107/77 94 05/16/19 16:41 05/16/19 16:41 05/16/19 16:41 05/16/19 16:41 05/16/19 16:41 Medications Acetaminophen (Tylenol -Extra Strength) 500 mg PO Q4HP PRN PRN Reason: pain/fever Stop: 06/13/19 20:24 Alprazolam (Xanax) 0.25 mg PO BEDTIME PRN PRN PRN Reason: INSOMNIA Stop: 06/13/19 20:24 Last Admin: 05/15/19 00:07 Dose: 0.25 mg Calcitriol (Rocaltrol) 0.5 mcg PO DAILY [facility] Stop: 06/15/19 09:01 Last Admin: 05/16/19 09:00 Dose: Not Given Calcium Acetate (Phoslo) 667 mg PO TIDWM [facility] Stop: 06/14/19 17:01 Last Admin: 05/16/19 17:12 Dose: 667 mg Cholecalciferol (Vitamin D 5,000 Iu Cap) 5,000 unit PO DAILY [facility] Stop: 06/15/19 09:01 Last Admin: 05/16/19 09:00 Dose: Not Given Enoxaparin Sodium (Lovenox 30 Mg Inj) 30 mg SQ DAILY [facility] Stop: 06/14/19 09:01 Last Admin: 05/16/19 09:00 Dose: Not Given Heparin Sodium (Porcine) (Heparin 1,000 Units/Ml) 6,000 unit IV EVERY HD PRN PRN Reason: FLUSH AFTER EACH USE Stop: 06/14/19 14:55 Ceftriaxone Sodium/Sodium Chloride (Rocephin 1 Gm/10 Ml Swi Ivp) 1 gm in 10 mls @ 20 mls/hr IV 2100 [facility]ANT[facility]; Protocol Stop: 06/13/19 21:01 Last Admin: 05/15/19 21:30 Dose: 10 mls Albumin Human (Albumin 25%) 50 mls @ 100 mls/hr IV EVERY HD [facility] Stop: 06/14/19 15:01 Ferric Sodium Gluconate Complex 125 mg/ Sodium Chloride 110 mls @ 100 mls/hr IV ONCE ONE Stop: 05/17/19 07:05 Mannitol (Mannitol 12.5 Gm/50 Ml Vial) 12.5 gm IV EVERY HD PRN PRN Reason: FOR BP SUPPORT AT HD Stop: 06/14/19 14:55 Ondansetron HCl (Zofran) 4 mg IV Q6HP PRN PRN Reason: NAUSEA / VOMITING Stop: 06/13/19 20:24 Sodium Bicarbonate (Sodium Bicarb 325 Mg) 325 mg PO TID [facility] Stop: 06/15/19 14:01 Last Admin: 05/16/19 17:12 Dose: 325 mg Sodium Chloride (Normal Saline Flush) 10 ml IV BID [facility] Stop: 06/13/19 21:01 Last Admin: 05/16/19 09:00 Dose: Not Given Microbiology Results 05/14/19 18:55 Clean Catch Urine [place] Count - Preliminary >100,000 CFU/ML. 05/14/19 18:55 Clean Catch Urine - Preliminary MIXED MILES. 05/14/19 18:30 Blood - Blood Aerobic Blood Culture - Preliminary No growth in 24 hours. 05/14/19 18:30 Blood - Blood Anaerobic Blood Culture - Preliminary No growth in 24 hours. 05/14/19 18:30 Blood - Blood Aerobic Blood Culture - Preliminary No growth in 24 hours. 05/14/19 18:30 Blood - Blood Anaerobic Blood Culture - Preliminary No growth in 24 hours. Assessment/ Plan: Nephrology CPS stable without CP or SOB. +Fatigue No acute events overnight. HD delayed due to non-working HD CVC. Vitals, medications, blood work and imaging reviewed in the chart. General: In no apparent distress, Cooperative HEENT: Atraumatic Neck: Supple Respiratory: Clear to auscultation bilaterally Cardiovascular: No edema, Regular rate/rhythm Gastrointestinal: Soft and benign, Non-distended Musculoskeletal: No clubbing, No contractures Integumentary: No rashes, No cyanosis Neurological: Normal speech Laboratory Data (last 24 hrs) 05/14/19 18:45: PT 12.8 H, INR 1.09, APTT 40.1 H 05/14/19 18:45: WBC 7.0, Hgb 9.2 L, Hct 28.4 L, Plt Count 129 L 05/14/19 18:45: Sodium 136, Potassium 5.0, BUN 86 H, Creatinine 9.08 H* D, Glucose 90, Total Bilirubin 1.1 H, AST 7 L, ALT 10 L, Alkaline Phosphatase 137 H , Amylase 30, Lipase 114 Imagings Data: EXAM DESCRIPTION: Brittany Single View05/14/2019 6:37 pm CLINICAL HISTORY: Chest pain COMPARISON: April 2019 FINDINGS: Small to moderate left and small right pleural effusions. Left basilar atelectasis. Mild interstitial lung opacities probably mild interstitial pulmonary edema The heart is mildly to moderately enlarged. Pacemaker leads are in place. Conclusions/Impression: A/ SARAH likely due to LEONEL and suspicious for ESRD. Hyponatremia. Hyperkalemia. Acidosis. CKD IV with proteinuria in the setting of HTN, vascular disease and NSAIDs. HTN with CKD/ CHF. Diastolic CHF, A/C. Anemia in chronic illness. Thrombocytopenia. HyperPO4. P/ Continue current POC and Medications. Non-tunneled HD CVC placed this morning. Acute HD today as ordered. Seen and examined at the start of HD. Give IV iron in the AM. Retacrit PRN. No NSAIDs. Advance renal diet as tolerated. AM labs. Daily weight. Will discuss dialysis placement with the family.
[2019-05-16] MEDS: CEFTRIAXONE/SWI 1gm 1 GM/10 ML SYR IV SCH (21:36)
[2019-05-17] MEDS ORDERED: SOD FERRIC GLUC COMPLX/SUCROSE 125 MG in NA CHLORIDE 0.9% 100 ML IV ONE ×2 (06:00→08:00)
[2019-05-17 07:11] LABS: Absolute Lymphocytes (CBC) 0.9 K/uL (0.7-4.9); Basophils % 1.2 % (0-1.3); Hematocrit 24.9 % (39.6-49.0); Lymphocytes % 11.7 % (15.3-44.8); MPV 10.5 fL (7.6-11.3); RBC Red Blood Cell Count 2.61 M/uL (4.33-5.43)
[2019-05-17 07:38] LABS: Albumin 2.9 g/dL (3.4-5.0); Phosphorus 5.5 mg/dL (2.5-4.9); Potassium 4.2 mmol/L (3.5-5.1)
[2019-05-17] MEDS: CALCITROL 0.25 MCG CAP PO SCH (09:44)
[2019-05-17] MEDS: VITAMIN D 5,000 UNIT CAP PO SCH (09:44)
[2019-05-17] MEDS: ENOXAPARIN 30 MG/0.3 ML SQ SCH (09:45)
[2019-05-17] MEDS: SODIUM BICARB 325 MG TAB PO SCH ×3 (09:49→20:58)
[2019-05-17] MEDS: CA ACETATE 667 MG CAP PO SCH ×3 (09:49→17:50)
--- NOTE | 2019-05-17 13:38 | P.PN ---
Subjective Date of Service: 05/17/19 Primary Care Provider: Dr. Gracia Chief Complaint: Altered mental status; uremic encephalopathy Patient is awake and alert, oriented x4. He has no complain. Physical Examination - Vital Signs Temperature: 97.5 F Blood Pressure: 121/79 Pulse: 73 Respirations: 16 Pulse Ox (%): 95 - Physical Exam General: Alert, In no apparent distress, Oriented x3 HEENT: Mucous membr. moist/pink, Sclerae nonicteric Neck: JVD not distended Respiratory: Clear to auscultation bilaterally, Normal air movement Cardiovascular: No edema, Regular rate/rhythm, Normal S1 S2 Gastrointestinal: Normal bowel sounds, Soft and benign, No tenderness Musculoskeletal: No swelling, No erythema Integumentary: No rashes Neurological: Normal speech, Normal strength at 5/5 x4 extr - Studies Microbiology Data (last 24 hrs): 05/14/19 18:55 Clean Catch Urine [place] Count - Final >100,000 CFU/ML. 05/14/19 18:55 Clean Catch Urine - Final MIXED MILES. Assessment And Plan - Current Problems (Diagnosis) (1) Acute on chronic kidney failure Current Visit: Yes Status: Acute (2) Anemia of chronic disease Current Visit: Yes Status: Acute (3) Metabolic acidosis Current Visit: Yes Status: Acute (4) Uremic encephalopathy Current Visit: Yes Status: Acute (5) UTI (urinary tract infection) Current Visit: Yes Status: Acute (6) Fall Current Visit: Yes Status: Acute - Plan Status post hemodialysis yesterday Metabolic acidosis significant improved. Hyperkalemia corrected. Urine culture: mixed growth Continue IV Rocephin for UTI. Patient to complete 3 days of treatment. Monitor H&H daily. Transfuse p.r.n. for hemoglobin less than 8. Renally dose medication Resume psychotropic medications. Avoid ARB and NSAID. Nephrology to follow.
[2019-05-17] MEDS: CEFTRIAXONE/SWI 1gm 1 GM/10 ML SYR IV SCH (20:57)
[2019-05-17] MEDS: GABAPENTIN 300 MG CAP PO SCH (20:58)
[2019-05-17] MEDS: PARoxetine HCL 10 MG TAB PO SCH (20:58)
[2019-05-17] MEDS ORDERED: HOME MED 1 EA UNK (Gabapentin [Neurontin] 300 MG) PO SCH (21:00)
[2019-05-17] MEDS ORDERED: GABAPENTIN 300 MG CAP PO SCH (21:00)
[2019-05-17] MEDS ORDERED: PAROXETINE HCL 10 MG PO SCH (21:00)
[2019-05-18 06:13] LABS: Absolute Lymphocytes (CBC) 0.8 K/uL (0.7-4.9); Basophils % 1.1 % (0-1.3); Hematocrit 24.7 % (39.6-49.0); MPV 9.6 fL (7.6-11.3); RBC Red Blood Cell Count 2.61 M/uL (4.33-5.43)
[2019-05-18 06:37] LABS: Albumin 2.9 g/dL (3.4-5.0); Magnesium 2.1 mg/dL (1.8-2.4); Phosphorus 3.7 mg/dL (2.5-4.9); Potassium 3.9 mmol/L (3.5-5.1)
[2019-05-18] MEDS: SODIUM BICARB 325 MG TAB PO SCH ×3 (07:50→20:29)
[2019-05-18] MEDS: ENOXAPARIN 30 MG/0.3 ML SQ SCH (07:51)
[2019-05-18] MEDS: PARoxetine HCL 10 MG TAB PO SCH ×2 (07:51→20:29)
[2019-05-18] MEDS: CA ACETATE 667 MG CAP PO SCH ×3 (07:51→16:08)
[2019-05-18] MEDS: VITAMIN D 5,000 UNIT CAP PO SCH (07:51)
[2019-05-18] MEDS: GABAPENTIN 300 MG CAP PO SCH (07:51)
[2019-05-18] MEDS: CALCITROL 0.25 MCG CAP PO SCH (07:51)
[2019-05-18] MEDS ORDERED: POTASSIUM CL SA 10 MEQ TAB PO ONE (09:00)
--- NOTE | 2019-05-18 12:04 | P.PN ---
Subjective Date of Service: 05/18/19 Primary Care Provider: Dr. Gracia Chief Complaint: Altered mental status; uremic encephalopathy Patient is awake and alert, oriented x4. He has no complain today. Physical Examination - Vital Signs Temperature: 98.3 F Blood Pressure: 138/83 Pulse: 76 Respirations: 18 Pulse Ox (%): 93 - Physical Exam General: Alert, In no apparent distress, Oriented x3 HEENT: Mucous membr. moist/pink Neck: Supple, JVD not distended Respiratory: Clear to auscultation bilaterally, Normal air movement Cardiovascular: No edema, Regular rate/rhythm, Normal S1 S2 Gastrointestinal: Normal bowel sounds, Soft and benign, No tenderness Musculoskeletal: No swelling Integumentary: No rashes Neurological: Other (Nonfocal) - Studies Microbiology Data (last 24 hrs): 05/14/19 18:55 Clean Catch Urine [place] Count - Final >100,000 CFU/ML. 05/14/19 18:55 Clean Catch Urine - Final MIXED MILES. Assessment And Plan - Current Problems (Diagnosis) (1) Acute on chronic kidney failure Current Visit: Yes Status: Acute (2) Anemia of chronic disease Current Visit: Yes Status: Acute (3) Metabolic acidosis Current Visit: Yes Status: Acute (4) Uremic encephalopathy Current Visit: Yes Status: Acute (5) UTI (urinary tract infection) Current Visit: Yes Status: Acute (6) Fall Current Visit: Yes Status: Acute - Plan Status post hemodialysis. Metabolic acidosis resoloved. Urine culture: mixed growth Continue IV Rocephin for UTI. Patient to complete 3 days of treatment. Monitor H&H daily. Transfuse p.r.n. for hemoglobin less than 8. Renally dose medication Avoid ARB and NSAID. Nephrology is following.
[2019-05-18] MEDS: ACETAMINOPHEN 500 MG TAB PO PRN ×2 (15:25→20:29)
[2019-05-18] MEDS: CEFTRIAXONE/SWI 1gm 1 GM/10 ML SYR IV SCH (20:29)
[2019-05-19 04:17] LABS: Absolute Lymphocytes (CBC) 1.1 K/uL (0.7-4.9); Basophils % 0.9 % (0-1.3); Hematocrit 25.5 % (39.6-49.0); Lymphocytes % 13.2 % (15.3-44.8); MPV 9.8 fL (7.6-11.3); RBC Red Blood Cell Count 2.66 M/uL (4.33-5.43)
[2019-05-19 04:39] LABS: Magnesium 2.3 mg/dL (1.8-2.4); Potassium 3.8 mmol/L (3.5-5.1)
--- NOTE | 2019-05-19 07:41 | P.PN ---
Subjective Date of Service: 05/19/19 Subjective: Improving Patient ended up pulling his Edwin catheter-patient with no active bleeding. Will contact Nephrology and decide on further plan of care Review of Systems 10-point ROS is otherwise unremarkable Physical Examination - Vital Signs Temperature: 98.2 F Blood Pressure: 143/87 Pulse: 72 Respirations: 16 Pulse Ox (%): 91 - Physical Exam General: Alert, In no apparent distress, Oriented x3 Neck: Supple, JVD not distended, Other (Minimal bleeding from right IJ site) Respiratory: Clear to auscultation bilaterally, Normal air movement Cardiovascular: Regular rate/rhythm, Normal S1 S2, No murmurs Gastrointestinal: Normal bowel sounds, Soft and benign, Non-distended, No tenderness Musculoskeletal: No clubbing, No swelling, No tenderness Neurological: Normal speech, Normal strength at 5/5 x4 extr, Normal tone, Sensation intact, Cranial nerves 3-12 intact - Studies Medications List Reviewed: Yes Assessment & Plan - Problems (Diagnosis) (1) Uremic encephalopathy Current Visit: Yes Status: Acute (2) Acute on chronic kidney failure Current Visit: Yes Status: Acute (3) History of AAA (abdominal aortic aneurysm) repair Current Visit: Yes Status: Acute (4) Depression Current Visit: Yes Status: Acute (5) Migraine Current Visit: Yes Status: Acute (6) Anemia of chronic disease Current Visit: Yes Status: Acute (7) Metabolic acidosis Current Visit: Yes Status: Acute (8) Thrombocytopenia Current Visit: Yes Status: Acute (9) Proteinuria Current Visit: Yes Status: Acute (10) Status post insertion of hemodialysis catheter Current Visit: Yes Status: Acute - Plan Plan: 1. Continuing IV hydration 2. Nephrology consultation appreciated 3. Contact surgery for permanent hemodialysis access catheter placement/Tessio catheter 4. Monitor labs closely 5. IV antibiotics for UTI 6. Monitor CBCs and continue monitoring renal function 7. GI and DVT prophylaxis Discharge Plan: Home Plan to discharge in: Greater than 2 days - Advance Directives Does patient have a Living Will: Yes Does patient have a Durable POA for Healthcare: No - Code Status/Comfort Care Code Status: Full Code Critical Care: No Time Spent Managing PTS Care (In Minutes): 35
[2019-05-19] MEDS: CA ACETATE 667 MG CAP PO SCH ×3 (08:00→16:47)
[2019-05-19] MEDS: GABAPENTIN 300 MG CAP PO SCH (09:00)
[2019-05-19] MEDS: SODIUM BICARB 325 MG TAB PO SCH (09:00)
[2019-05-19] MEDS: VITAMIN D 5,000 UNIT CAP PO SCH (09:00)
[2019-05-19] MEDS: PARoxetine HCL 10 MG TAB PO SCH ×2 (09:00→21:11)
[2019-05-19] MEDS: CALCITROL 0.25 MCG CAP PO SCH (09:00)
[2019-05-19] MEDS: ENOXAPARIN 30 MG/0.3 ML SQ SCH (09:00)
[2019-05-19] MEDS ORDERED: Ringers Lactate 1,000 ML IV ONE (09:31)
[2019-05-19] MEDS ORDERED: NA CHLORIDE 0.9% 500 ML ONE (09:36)
[2019-05-19] MEDS ORDERED: CEFAZOLIN/SWI 1gm 1 GM/10 ML SYR ONE (09:51)
[2019-05-19] MEDS ORDERED: FENTANYL CITR 100 MCG/2 ML ONE (10:26)
[2019-05-19] MEDS ORDERED: LIDOCAINE 2% MPF 5 ML VIAL ONE (10:26)
[2019-05-19] MEDS ORDERED: propofoL 200 MG/20 ML VIAL IV ONE (10:26)
[2019-05-19] MEDS ORDERED: LIDOCAINE 1% MPF 30 ML VIAL ONE (11:28)
[2019-05-19] MEDS ORDERED: HEPARIN 5000 UNIT/ML 1 ML VIAL ONE (11:29)
[2019-05-19] MEDS ORDERED: NA CHLORIDE 0.9% 100 ML IV ONE (11:30)
[2019-05-19] MEDS ORDERED: NS 0.9% VIAL 10 ML ONE (11:31)
--- NOTE | 2019-05-19 12:47 | P.OP ---
Preoperative diagnosis: ESRD Postoperative diagnosis: same Primary procedure: SONDRA Dick, Fluoroscopy Anesthesia: MAC Estimated blood loss: min Specimen: None Findings: Normal Anatomy Complications: None Drain(s): Nasogastric Transferred to: Recovery Room Condition: Good
--- NOTE | 2019-05-19 12:52 | RAD REPORT ---
EXAM DESCRIPTION: RAD - Fluoroscopy <1 Hour - 05/19/2019 12:46 pm FINDINGS: There were 2 portable C-arm views obtained during fluoroscopic assisted placement of a rig ht-sided dialysis catheter. No suspicious or unexpected findings. Fluoro time was less than 0.1 minutes.
--- NOTE | 2019-05-19 13:42 | PREOPCON ---
Date of Consultation: 05/19/2019 Reason For Consultation: Patient needs Tesio catheter. History Of Present Illness: The patient is a 68-year-old gentleman. He came with uremic encephalopa thy, altered mental status on , had a Tesio catheter placed, however, did not function and had a replace with a Edwin the next day and was dialyzed and then last night, accidentally the catheter g ot pulled while he was getting out of bed to go to the bathroom. I was consulted for Tesio catheter placement. He is awake, alert. No fever or chills. No sore throat, runny nose, cough, headaches, o r dizziness. No chest pain. Review of Systems: Otherwise, unremarkable. Past Medical History: Significant for migraines, anxiety, Shingles, and abdominal aneurysm. Past Surgical History: Repair of abdominal aneurysm. Allergies: NONE. Social History: Patient does smoke and drink alcohol, has been counseled. Family History: Significant for diabetes. Physical Examination: Vital Signs: Stable. He is afebrile. General: He is awake, alert, and oriented x3. Head and Neck: Cranial nerves 2 through 12 grossly within normal limits. No neck masses. No JVD. Throat clear. Neck supple. Chest: Clear. Heart: S1 and S2. Abdomen: Soft. Extremities: Neurovascularly intact. Neurologic: Nonfocal. Laboratory Data: White count is 8.1, hemoglobin and hematocrit are 8.4 and 25.5, and platelets are 1 14. INR was 1.09 on admission. BUN is 35. Creatinine is 6.17. Assessment: End-stage renal disease. Plan: Placement of Tesio catheter. Patient understands the risks, benefits, and alternatives and ag castillo to procedure. /MODL Voice ID: [id number] Report ID: [id number]
--- NOTE | 2019-05-19 13:43 | RAD REPORT ---
EXAM DESCRIPTION: RAD - Chest Single View - 05/19/2019 1:33 pm CLINICAL HISTORY: S/P Tesio COMPARISON: AP chest May 15 TECHNIQUE: AP portable chest image was obtained 05/19/2019 1:33 pm . FINDINGS: Right-sided Tessio catheter has been placed. Tip of the catheter is in the mid SVC level. No pneumothorax. Left pleural effusion and bilateral lung base parenchymal opacification have not changed. Heart size is stable. Defibrillator is in place. IMPRESSION: No pneumothorax. Tessio catheter in good position. Catheter tip mid SVC.
--- NOTE | 2019-05-19 20:49 | P.PN ---
Date of Service: 05/19/19 Vital Signs Temp Pulse Resp BP Pulse Ox 98.2 F 91 H 18 153/101 H 96 05/19/19 20:00 05/19/19 20:00 05/19/19 20:00 05/19/19 20:00 05/19/19 20:00 Medications Acetaminophen (Tylenol -Extra Strength) 500 mg PO Q4HP PRN PRN Reason: pain/fever Stop: 06/13/19 20:24 Last Admin: 05/18/19 20:29 Dose: 500 mg Alprazolam (Xanax) 0.25 mg PO BEDTIME PRN PRN PRN Reason: INSOMNIA Stop: 06/13/19 20:24 Last Admin: 05/15/19 00:07 Dose: 0.25 mg Calcitriol (Rocaltrol) 0.5 mcg PO DAILY [facility] Stop: 06/15/19 09:01 Last Admin: 05/19/19 09:00 Dose: Not Given Calcium Acetate (Phoslo) 667 mg PO TIDWM [facility] Stop: 06/14/19 17:01 Last Admin: 05/19/19 16:47 Dose: Not Given Cholecalciferol (Vitamin D 5,000 Iu Cap) 5,000 unit PO DAILY [facility] Stop: 06/15/19 09:01 Last Admin: 05/19/19 09:00 Dose: Not Given Enoxaparin Sodium (Lovenox 30 Mg Inj) 30 mg SQ DAILY [facility] Stop: 06/14/19 09:01 Last Admin: 05/19/19 09:00 Dose: Not Given Gabapentin (Neurontin) 100 mg PO BEDTIME [facility] Stop: 06/18/19 21:01 Heparin Sodium (Porcine) (Heparin 1,000 Units/Ml) 6,000 unit IV EVERY HD PRN PRN Reason: FLUSH AFTER EACH USE Stop: 06/14/19 14:55 Ceftriaxone Sodium/Sodium Chloride (Rocephin 1 Gm/10 Ml Swi Ivp) 1 gm in 10 mls @ 20 mls/hr IV 2100 [facility]; Protocol Stop: 06/13/19 21:01 Last Admin: 05/18/19 20:29 Dose: 10 mls Albumin Human (Albumin 25%) 50 mls @ 100 mls/hr IV EVERY HD [facility] Stop: 06/14/19 15:01 Ferric Sodium Gluconate Complex 125 mg/ Sodium Chloride 110 mls @ 100 mls/hr IV 1X ONE Stop: 05/20/19 21:50 Lorazepam (Ativan) 1 mg PO DAILY PRN PRN Reason: ANXIETY Stop: 06/16/19 13:39 Mannitol (Mannitol 12.5 Gm/50 Ml Vial) 12.5 gm IV EVERY HD PRN PRN Reason: FOR BP SUPPORT AT HD Stop: 06/14/19 14:55 Ondansetron HCl (Zofran) 4 mg IV Q6HP PRN PRN Reason: NAUSEA / VOMITING Stop: 06/13/19 20:24 Paroxetine HCl (Paxil) 10 mg PO BID [facility] Stop: 06/16/19 21:01 Last Admin: 05/19/19 09:00 Dose: Not Given Sodium Chloride (Normal Saline Flush) 10 ml IV BID [facility] Stop: 06/13/19 21:01 Last Admin: 05/19/19 09:00 Dose: Not Given Microbiology Results 05/14/19 18:30 Blood - Blood Aerobic Blood Culture - Final No growth in 5 days. 05/14/19 18:30 Blood - Blood Anaerobic Blood Culture - Final No growth in 5 days. 05/14/19 18:30 Blood - Blood Aerobic Blood Culture - Final No growth in 5 days. 05/14/19 18:30 Blood - Blood Anaerobic Blood Culture - Final No growth in 5 days. 05/14/19 18:55 Clean Catch Urine [place] Count - Final >100,000 CFU/ML. 05/14/19 18:55 Clean Catch Urine - Final MIXED MILES. Assessment/ Plan: Nephrology CPS stable without CP or SOB. No acute events overnight. Plan for tunneled CVC today. Vitals, medications, blood work and imaging reviewed in the chart. General: In no apparent distress, Cooperative HEENT: Atraumatic Neck: Supple Respiratory: Clear to auscultation bilaterally Cardiovascular: No edema, Regular rate/rhythm Gastrointestinal: Soft and benign, Non-distended Musculoskeletal: No clubbing, No contractures Integumentary: No rashes, No cyanosis Neurological: Normal speech Laboratory Data (last 24 hrs) 05/14/19 18:45: PT 12.8 H, INR 1.09, APTT 40.1 H 05/14/19 18:45: WBC 7.0, Hgb 9.2 L, Hct 28.4 L, Plt Count 129 L 05/14/19 18:45: Sodium 136, Potassium 5.0, BUN 86 H, Creatinine 9.08 H* D, Glucose 90, Total Bilirubin 1.1 H, AST 7 L, ALT 10 L, Alkaline Phosphatase 137 H , Amylase 30, Lipase 114 Imagings Data: EXAM DESCRIPTION: Brittany Single View05/14/2019 6:37 pm CLINICAL HISTORY: Chest pain COMPARISON: April 2019 FINDINGS: Small to moderate left and small right pleural effusions. Left basilar atelectasis. Mild interstitial lung opacities probably mild interstitial pulmonary edema The heart is mildly to moderately enlarged. Pacemaker leads are in place. Conclusions/Impression: A/ SARAH likely due to LEONEL and suspicious for ESRD. Hyponatremia. Hyperkalemia. Acidosis. CKD IV with proteinuria in the setting of HTN, vascular disease and NSAIDs. HTN with CKD/ CHF. Diastolic CHF, A/C. Anemia in chronic illness. Thrombocytopenia. HyperPO4. P/ Continue current POC and Medications. Plan for tunneled HD CVC today. Case reviewed with Dr. Rm. Acute HD today as ordered. Give a dose of IV iron. Give Retacrit. Reduce gabapentin. Check a Doppler Renal US. Check LE Arterial Doppler due to claudication. No NSAIDs. Renal Diet. AM labs. Daily weight.
[2019-05-19] MEDS ORDERED: EPOETIN ALFA-EPBX 10,000 UNIT/ML VIAL SQ SCH (21:00)
[2019-05-19] MEDS ORDERED: EPOETIN ALFA 10,000 UNIT/ML VIAL ONE (21:04)
[2019-05-19] MEDS: CEFTRIAXONE/SWI 1gm 1 GM/10 ML SYR IV SCH (21:10)
[2019-05-19] MEDS: GABAPENTIN 100 MG CAP PO SCH (21:11)
[2019-05-19] MEDS: ALPRAZOLAM 0.25 MG TABLET PO PRN (21:11)
[2019-05-19] MEDS: carvediloL 6.25 MG TAB PO SCH (21:43)
[2019-05-19] MEDS: LOSARTAN POTASSIUM 50 MG TABLET PO SCH (21:43)
--- NOTE | 2019-05-19 23:51 | OP ---
Date of Procedure: 05/19/2019 Surgeon: Martin Rm MD Preoperative Diagnosis: End-stage renal disease. Postoperative Diagnosis: End-stage renal disease. Procedure: Right internal jugular Tesio catheter placement and interpretation of intraoperative fluo roscopy. Estimated Blood Loss: Minimal. Specimen: None. Findings: Normal anatomy. Anesthesia: MAC. Complications: None. Disposition: Patient tolerated the procedure in stable condition, taken to Recovery in good general condition. Procedure In Detail: Patient was brought to the OR and placed in supine position. MAC anesthesia wa s begun. Patient was prepped and draped in the usual sterile fashion. Lidocaine 1% infiltrated loca lly. An 18-gauge needle was used to access the right IJ vein. Guidewire passed. Position confirmed with fluoroscopy. Counterincision made. Tunneling device was used to tunnel the catheter between t he 2 wounds. Seldinger technique was used. Tip of the catheter was placed in the SVC under fluorosc opy. Catheter flushed with heparin and packed with heparin with good blood flow. 3-0 chromic was us ed to approximate subcutaneous tissue, and 3-0 nylon was used to secure the tube to the chest wall. Sterile dressing was applied. Patient was awakened and taken to Recovery in good general condition. Chest x-ray has been ordered. /MODL Voice ID: [id number] Report ID: [id number]
[2019-05-20 02:07] LABS: HBsAG Nonreactive (Nonreactive)
[2019-05-20 05:25] LABS: Absolute Lymphocytes (CBC) 0.8 K/uL (0.7-4.9); Basophils % 1.1 % (0-1.3); Hematocrit 25.1 % (39.6-49.0); Lymphocytes % 11.5 % (15.3-44.8); MPV 9.5 fL (7.6-11.3)
--- NOTE | 2019-05-20 06:55 | RAD REPORT ---
EXAM DESCRIPTION: US - Renal Ultrasound-Complete - 05/19/2019 9:17 pm CLINICAL HISTORY: SARAH. Vascular Disease. AAA. COMPARISON: Renal Ultrasound-Complete dated 12/22/2018 FINDINGS: The right kidney measures 8.6 x 5.1 x 4.2 cm. The left kidney measures 8.2 x 4.2 x 4.3 cm . Renal size in volume measurements are substantially decreased from December 2018. This is suspected to be related to image acquisition and measuring techniques. It would be unusual for kidneys to lose so much volume over short 5 month interval. Cortical thickness is normal. Increased cortical echogenicity is noted consistent with medical renal disease. This matches the prior study. No hydronephrosis or suspicious renal mass. Urinary bladder is separately detailed. IMPRESSION: No hydronephrosis or suspicious renal mass. Increased cortical echogenicity is present consistent with medical renal disease. This matches the co mparison. Kidneys measure substantially smaller than December 2018. This is favored to be due to measuring techn ique. Such a substantial reduction in renal volume over 5 month interval would be unusual.
--- NOTE | 2019-05-20 06:56 | RAD REPORT ---
EXAM DESCRIPTION: US - Urinary Bladder - 05/19/2019 9:18 pm CLINICAL HISTORY: SARAH. COMPARISON: None FINDINGS: No bladder wall thickening or mass. No stone or other intraluminal finding. Prevoid volume was 494 milliliters. Postvoid volume was 463 milliliters.
[2019-05-20] MEDS: CA ACETATE 667 MG CAP PO SCH ×3 (08:20→17:05)
[2019-05-20] MEDS: MULTIVITAMINS,THERAPEUT 1 TAB PO SCH (08:21)
[2019-05-20] MEDS: PARoxetine HCL 10 MG TAB PO SCH ×2 (08:21→20:07)
[2019-05-20] MEDS: VITAMIN D 5,000 UNIT CAP PO SCH (08:21)
[2019-05-20] MEDS: CALCITROL 0.25 MCG CAP PO SCH (08:21)
[2019-05-20] MEDS: ENOXAPARIN 30 MG/0.3 ML SQ SCH (08:22)
[2019-05-20] MEDS: carvediloL 6.25 MG TAB PO SCH ×2 (08:22→20:06)
--- NOTE | 2019-05-20 10:59 | P.PN ---
Subjective Date of Service: 05/20/19 Primary Care Provider: Dr. Gracia Chief Complaint: Altered mental status; uremic encephalopathy Patient is awake and alert, oriented x4. He has no complain today. Status post hemodialysis sessions. Physical Examination - Vital Signs Temperature: 98.9 F Blood Pressure: 155/74 Pulse: 73 Respirations: 16 Pulse Ox (%): 95 - Physical Exam General: Alert, In no apparent distress, Oriented x3 HEENT: Mucous membr. moist/pink, Sclerae nonicteric Neck: Supple, JVD not distended Respiratory: Clear to auscultation bilaterally, Normal air movement Cardiovascular: No edema, Regular rate/rhythm, Normal S1 S2 Gastrointestinal: Normal bowel sounds, Soft and benign, Non-distended, No tenderness Musculoskeletal: No swelling, No erythema Integumentary: No rashes Neurological: Normal speech, Normal strength at 5/5 x4 extr, Cranial nerves 3- 12 intact - Studies Microbiology Data (last 24 hrs): 05/14/19 18:30 Blood - Blood Aerobic Blood Culture - Final No growth in 5 days. 05/14/19 18:30 Blood - Blood Anaerobic Blood Culture - Final No growth in 5 days. 05/14/19 18:30 Blood - Blood Aerobic Blood Culture - Final No growth in 5 days. 05/14/19 18:30 Blood - Blood Anaerobic Blood Culture - Final No growth in 5 days. Medications List Reviewed: Yes Assessment And Plan - Current Problems (Diagnosis) (1) Acute on chronic kidney failure Current Visit: Yes Status: Acute (2) Anemia of chronic disease Current Visit: Yes Status: Acute (3) Metabolic acidosis Current Visit: Yes Status: Resolved (4) Uremic encephalopathy Current Visit: Yes Status: Resolved (5) UTI (urinary tract infection) Current Visit: Yes Status: Acute (6) Fall Current Visit: Yes Status: Acute - Plan Status post multiple hemodialysis. Metabolic acidosis resolved. Urine culture: mixed growth Patient completed treatment for UTI. Hemoglobin has been stable around 8. Renally dose medication Nephrology is following. Permanent dialysis catheter placed. Patient is waiting for outpatient dialysis seat.
--- NOTE | 2019-05-20 16:41 | RAD REPORT ---
EXAM DESCRIPTION: US - Lower Extremity Arterial Bilat - 05/20/2019 3:57 pm CLINICAL HISTORY: Left greater than right claudication Leg pain, claudication COMPARISON: No comparisons TECHNIQUE: Bilateral lower extremity arterial Doppler examination was performed with waveform tracin g and ankle brachial pressure measurements. FINDINGS: Symmetric brachial pressure measurements are noted. Triphasic waveforms are seen throughout both lower extremity arterial systems to the level of the melyssa salis pedis arteries. Mild atheromatous plaquing is seen throughout both lower extremity arterial sys tems. Right ankle brachial index measures 1.2, normal. Left ankle brachial index measures 1.1, normal. IMPRESSION: No evidence of significant peripheral vascular disease. Mild atherosclerosis noted.
[2019-05-20] MEDS: NICOTINE 14 MG/PAT TD SCH (18:34)
[2019-05-20] MEDS: LOSARTAN POTASSIUM 50 MG TABLET PO SCH (20:05)
[2019-05-20] MEDS: GABAPENTIN 100 MG CAP PO SCH (20:06)
[2019-05-20] MEDS: LORAZEPAM 1 MG TABLET PO PRN (20:22)
[2019-05-20] MEDS ORDERED: SOD FERRIC GLUC COMPLX/SUCROSE 125 MG in NA CHLORIDE 0.9% 100 ML IV ONE (20:45)
--- NOTE | 2019-05-20 20:47 | P.PN ---
Date of Service: 05/20/19 Vital Signs Temp Pulse Resp BP Pulse Ox 99.6 F 74 16 162/93 H 95 05/20/19 20:00 05/20/19 20:06 05/20/19 20:00 05/20/19 20:06 05/20/19 20:00 Medications Acetaminophen (Tylenol -Extra Strength) 500 mg PO Q4HP PRN PRN Reason: pain/fever Stop: 06/13/19 20:24 Last Admin: 05/18/19 20:29 Dose: 500 mg Calcitriol (Rocaltrol) 0.5 mcg PO DAILY SANTOSH Stop: 06/15/19 09:01 Last Admin: 05/20/19 08:21 Dose: 0.5 mcg Calcium Acetate (Phoslo) 667 mg PO TIDWM SANTOSH Stop: 06/14/19 17:01 Last Admin: 05/20/19 17:05 Dose: 667 mg Carvedilol (Coreg) 6.25 mg PO BID SANTOSH Stop: 06/19/19 09:01 Last Admin: 05/20/19 20:06 Dose: 6.25 mg Cholecalciferol (Vitamin D 5,000 Iu Cap) 5,000 unit PO DAILY SANTOSH Stop: 06/15/19 09:01 Last Admin: 05/20/19 08:21 Dose: 5,000 unit Enoxaparin Sodium (Lovenox 30 Mg Inj) 30 mg SQ DAILY SANTOSH Stop: 06/14/19 09:01 Last Admin: 05/20/19 08:22 Dose: 30 mg Gabapentin (Neurontin) 100 mg PO BEDTIME SANTOSH Stop: 06/18/19 21:01 Last Admin: 05/20/19 20:06 Dose: 100 mg Heparin Sodium (Porcine) (Heparin 1,000 Units/Ml) 6,000 unit IV EVERY HD PRN PRN Reason: FLUSH AFTER EACH USE Stop: 06/14/19 14:55 Albumin Human (Albumin 25%) 50 mls @ 100 mls/hr IV EVERY HD SANTOSH Stop: 06/14/19 15:01 Ferric Sodium Gluconate Complex 125 mg/ Sodium Chloride 110 mls @ 100 mls/hr IV 1X ONE Stop: 05/20/19 21:50 Last Admin: 05/20/19 20:05 Dose: 110 mls Lorazepam (Ativan) 1 mg PO DAILY PRN PRN Reason: ANXIETY Stop: 06/16/19 13:39 Last Admin: 05/20/19 20:22 Dose: 1 mg Losartan Potassium (Cozaar) 100 mg PO BEDTIME SANTOSH Stop: 06/19/19 21:01 Last Admin: 05/20/19 20:05 Dose: 100 mg Mannitol (Mannitol 12.5 Gm/50 Ml Vial) 12.5 gm IV EVERY HD PRN PRN Reason: FOR BP SUPPORT AT HD Stop: 06/14/19 14:55 Nicotine (Nicoderm) 14 mg TD DAILY SANTOSH Stop: 06/19/19 19:01 Last Admin: 05/20/19 18:34 Dose: 14 mg Ondansetron HCl (Zofran) 4 mg IV Q6HP PRN PRN Reason: NAUSEA / VOMITING Stop: 06/13/19 20:24 Paroxetine HCl (Paxil) 20 mg PO BID SANTOSH Stop: 06/19/19 09:01 Last Admin: 05/20/19 20:07 Dose: 20 mg Sodium Chloride (Normal Saline Flush) 10 ml IV BID SANTOSH Stop: 06/13/19 21:01 Last Admin: 05/20/19 08:22 Dose: 10 ml Tamsulosin HCl (Flomax) 0.4 mg PO BID [facility] Stop: 06/19/19 21:01 Vitamin B Complex/Vit C/Folic Acid (Nephro-David) 1 tab PO DAILY SANTOSH Stop: 06/19/19 09:01 Last Admin: 05/20/19 08:21 Dose: 1 tab Lab Results (last 24 hrs) 05/14/19 20:36: Hep Bs Antigen Nonreactive, Hep Bs Antibody, Quant <5 L, Hep B Core Total Ab Nonreactive Microbiology Results 05/14/19 18:30 Blood - Blood Aerobic Blood Culture - Final No growth in 5 days. 05/14/19 18:30 Blood - Blood Anaerobic Blood Culture - Final No growth in 5 days. 05/14/19 18:30 Blood - Blood Aerobic Blood Culture - Final No growth in 5 days. 05/14/19 18:30 Blood - Blood Anaerobic Blood Culture - Final No growth in 5 days. 05/14/19 18:55 Clean Catch Urine [place] Count - Final >100,000 CFU/ML. 05/14/19 18:55 Clean Catch Urine - Final MIXED MILES. Assessment/ Plan: Nephrology CPS stable without CP or SOB. No acute events overnight. Feeling better and wants to leave the hospital. Vitals, medications, blood work and imaging reviewed in the chart. General: In no apparent distress, Cooperative HEENT: Atraumatic Neck: Supple Respiratory: Clear to auscultation bilaterally Cardiovascular: No edema, Regular rate/rhythm Gastrointestinal: Soft and benign, Non-distended Musculoskeletal: No clubbing, No contractures Integumentary: No rashes, No cyanosis Neurological: Normal speech Laboratory Data (last 24 hrs) 05/14/19 18:45: PT 12.8 H, INR 1.09, APTT 40.1 H 05/14/19 18:45: WBC 7.0, Hgb 9.2 L, Hct 28.4 L, Plt Count 129 L 05/14/19 18:45: Sodium 136, Potassium 5.0, BUN 86 H, Creatinine 9.08 H* D, Glucose 90, Total Bilirubin 1.1 H, AST 7 L, ALT 10 L, Alkaline Phosphatase 137 H , Amylase 30, Lipase 114 Imagings Data: EXAM DESCRIPTION: Dajuant Single View05/14/2019 6:37 pm CLINICAL HISTORY: Chest pain COMPARISON: April 2019 FINDINGS: Small to moderate left and small right pleural effusions. Left basilar atelectasis. Mild interstitial lung opacities probably mild interstitial pulmonary edema The heart is mildly to moderately enlarged. Pacemaker leads are in place. Conclusions/Impression: A/ SARAH likely due to LEONEL and suspicious for ESRD. Hyponatremia. Hyperkalemia. Acidosis. CKD IV with proteinuria in the setting of HTN, vascular disease and NSAIDs. HTN with CKD/ CHF. Diastolic CHF, A/C. Anemia in chronic illness. Thrombocytopenia. HyperPO4. BPH with LUTS. P/ Continue current POC and Medications. Acute HD today as ordered. Next HD tomorrow. Give another dose of IV iron. Retacrit PRN. Start Flomax for elevated PVR. Check Bladder Scan tomorrow. No NSAIDs. Renal Diet. AM labs. Daily weight. Placement pending for [facility].
[2019-05-20] MEDS: TAMSULOSIN 0.4 MG SR CAP PO SCH (20:55)
[2019-05-21 05:02] LABS: Basophils % 0.7 % (0-1.3); Hematocrit 25.6 % (39.6-49.0); Lymphocytes % 12.5 % (15.3-44.8); MPV 9.7 fL (7.6-11.3); RBC Red Blood Cell Count 2.65 M/uL (4.33-5.43)
[2019-05-21 05:08] LABS: Potassium 3.9 mmol/L (3.5-5.1)
[2019-05-21] MEDS: CALCITROL 0.25 MCG CAP PO SCH (08:23)
[2019-05-21] MEDS: PARoxetine HCL 10 MG TAB PO SCH ×2 (08:23→21:41)
[2019-05-21] MEDS: CA ACETATE 667 MG CAP PO SCH ×3 (08:24→19:44)
[2019-05-21] MEDS: ENOXAPARIN 30 MG/0.3 ML SQ SCH (08:24)
[2019-05-21] MEDS: carvediloL 6.25 MG TAB PO SCH ×2 (08:24→21:41)
[2019-05-21] MEDS: TAMSULOSIN 0.4 MG SR CAP PO SCH ×2 (08:24→21:41)
[2019-05-21] MEDS: MULTIVITAMINS,THERAPEUT 1 TAB PO SCH (08:24)
[2019-05-21] MEDS: VITAMIN D 5,000 UNIT CAP PO SCH (08:24)
[2019-05-21] MEDS: NICOTINE 14 MG/PAT TD SCH (08:25)
--- NOTE | 2019-05-21 21:19 | P.PN ---
Date of Service: 05/21/19 Vital Signs Temp Pulse Resp BP Pulse Ox 99.2 F 72 20 113/72 95 05/21/19 16:00 05/21/19 16:00 05/21/19 16:00 05/21/19 16:00 05/21/19 16:00 Medications Acetaminophen (Tylenol -Extra Strength) 500 mg PO Q4HP PRN PRN Reason: pain/fever Stop: 06/13/19 20:24 Last Admin: 05/18/19 20:29 Dose: 500 mg Calcitriol (Rocaltrol) 0.5 mcg PO DAILY SANTOSH Stop: 06/15/19 09:01 Last Admin: 05/21/19 08:23 Dose: 0.5 mcg Calcium Acetate (Phoslo) 667 mg PO TIDWM SANTOSH Stop: 06/14/19 17:01 Last Admin: 05/21/19 19:44 Dose: 667 mg Carvedilol (Coreg) 6.25 mg PO BID SANTOSH Stop: 06/19/19 09:01 Last Admin: 05/21/19 08:24 Dose: 6.25 mg Cholecalciferol (Vitamin D 5,000 Iu Cap) 5,000 unit PO DAILY SANTOSH Stop: 06/15/19 09:01 Last Admin: 05/21/19 08:24 Dose: 5,000 unit Enoxaparin Sodium (Lovenox 30 Mg Inj) 30 mg SQ DAILY SANTOSH Stop: 06/14/19 09:01 Last Admin: 05/21/19 08:24 Dose: 30 mg Gabapentin (Neurontin) 100 mg PO BEDTIME SANTOSH Stop: 06/18/19 21:01 Last Admin: 05/20/19 20:06 Dose: 100 mg Albumin Human (Albumin 25%) 50 mls @ 100 mls/hr IV EVERY HD SANTOSH Stop: 06/14/19 15:01 Lorazepam (Ativan) 1 mg PO DAILY PRN PRN Reason: ANXIETY Stop: 06/16/19 13:39 Last Admin: 05/20/19 20:22 Dose: 1 mg Losartan Potassium (Cozaar) 100 mg PO BEDTIME SANTOSH Stop: 06/19/19 21:01 Last Admin: 05/20/19 20:05 Dose: 100 mg Mannitol (Mannitol 12.5 Gm/50 Ml Vial) 12.5 gm IV EVERY HD PRN PRN Reason: FOR BP SUPPORT AT HD Stop: 06/14/19 14:55 Nicotine (Nicoderm) 14 mg TD DAILY SANTOSH Stop: 06/19/19 19:01 Last Admin: 05/21/19 08:25 Dose: 14 mg Ondansetron HCl (Zofran) 4 mg IV Q6HP PRN PRN Reason: NAUSEA / VOMITING Stop: 06/13/19 20:24 Paroxetine HCl (Paxil) 20 mg PO BID SANTOSH Stop: 06/19/19 09:01 Last Admin: 05/21/19 08:23 Dose: 20 mg Sodium Chloride (Normal Saline Flush) 10 ml IV BID SANTOSH Stop: 06/13/19 21:01 Last Admin: 05/21/19 08:25 Dose: 10 ml Tamsulosin HCl (Flomax) 0.4 mg PO BID SANTOSH Stop: 06/19/19 21:01 Last Admin: 05/21/19 08:24 Dose: 0.4 mg Vitamin B Complex/Vit C/Folic Acid (Nephro-David) 1 tab PO DAILY SANTOSH Stop: 06/19/19 09:01 Last Admin: 05/21/19 08:24 Dose: 1 tab Microbiology Results 05/14/19 18:30 Blood - Blood Aerobic Blood Culture - Final No growth in 5 days. 05/14/19 18:30 Blood - Blood Anaerobic Blood Culture - Final No growth in 5 days. 05/14/19 18:30 Blood - Blood Aerobic Blood Culture - Final No growth in 5 days. 05/14/19 18:30 Blood - Blood Anaerobic Blood Culture - Final No growth in 5 days. 05/14/19 18:55 Clean Catch Urine [place] Count - Final >100,000 CFU/ML. 05/14/19 18:55 Clean Catch Urine - Final MIXED MILES. Assessment/ Plan: Nephrology CPS stable without CP or SOB. No acute events overnight. Feeling better. Vitals, medications, blood work and imaging reviewed in the chart. General: In no apparent distress, Cooperative HEENT: Atraumatic Neck: Supple Respiratory: Clear to auscultation bilaterally Cardiovascular: No edema, Regular rate/rhythm Gastrointestinal: Soft and benign, Non-distended Musculoskeletal: No clubbing, No contractures Integumentary: No rashes, No cyanosis Neurological: Normal speech Laboratory Data (last 24 hrs) 05/14/19 18:45: PT 12.8 H, INR 1.09, APTT 40.1 H 05/14/19 18:45: WBC 7.0, Hgb 9.2 L, Hct 28.4 L, Plt Count 129 L 05/14/19 18:45: Sodium 136, Potassium 5.0, BUN 86 H, Creatinine 9.08 H* D, Glucose 90, Total Bilirubin 1.1 H, AST 7 L, ALT 10 L, Alkaline Phosphatase 137 H , Amylase 30, Lipase 114 Imagings Data: EXAM DESCRIPTION: Brittany Single View05/14/2019 6:37 pm CLINICAL HISTORY: Chest pain COMPARISON: April 2019 FINDINGS: Small to moderate left and small right pleural effusions. Left basilar atelectasis. Mild interstitial lung opacities probably mild interstitial pulmonary edema The heart is mildly to moderately enlarged. Pacemaker leads are in place. Conclusions/Impression: A/ SARAH likely due to LEONEL and suspicious for ESRD. Hyponatremia. Hyperkalemia. Acidosis. CKD IV with proteinuria in the setting of HTN, vascular disease and NSAIDs. HTN with CKD/ CHF. Diastolic CHF, A/C. Anemia in chronic illness. Thrombocytopenia. HyperPO4. BPH with LUTS. PVR seems improved today. P/ Continue current POC and Medications. Acute HD today as ordered. Next full HD Sunday Give another dose of IV iron. Retacrit PRN. Continue to monitor PVR due to possible omer cath prior to discharge. No NSAIDs. Renal Diet. AM labs. Daily weight. Placement confirmed for [facility]. Addendum: HD nurse called this evening to report the CVC not working well. Will need a partial HD in the am to confirm the CVC is working prior to discharge.
[2019-05-21] MEDS: GABAPENTIN 100 MG CAP PO SCH (21:41)
[2019-05-21] MEDS: LOSARTAN POTASSIUM 50 MG TABLET PO SCH (21:41)
[2019-05-21] MEDS: LORAZEPAM 1 MG TABLET PO PRN (21:48)
--- NOTE | 2019-05-22 02:33 | DS ---
Date of service 05/21/2019 Consultants: Dr. Rodríguez with Nephrology; Dr. Mathias with Surgery; Dr. Rm with Surgery. Procedures: On 05/19/2019, right IJ Tesio and fluoroscopy. 05/16/2019, Dr. Mathias, for insertion of temporary dialysis catheter. Admitting Diagnoses: 1. Uremic encephalopathy. 2. Acute on chronic kidney injury. 3. History of abdominal aortic aneurysm repair. 4. Depression. 5. Migraine. 6. Anemia of chronic disease. 7. Metabolic acidosis. 8. Thrombocytopenia. 9. Proteinuria. Discharge Diagnoses: 1. Uremic encephalopathy, resolved. 2. Acute on chronic kidney failure, now started on dialysis. 3. Metabolic acidosis, resolved. 4. Anemia of chronic disease. H and H stable. 5. Urinary tract infection. Culture showing mixed louise. Treatment completed with antibiotics. 6. Status post fall. 7. History of migraines, stable. 8. Generalized anxiety disorder, stable. 9. History of AAA repair, stable. Hospital Course: Patient is a 68-year-old male, came into the hospital with confusion. Patient's creatinine was elevated to 9.08. His baseline is around 3. Patient was started on IV fluids. Nephrology was consulted. Patient was also seen by General Surgery, Dr. Mathias and Dr. Rm and patient had Tesio catheter placed. Patient was initiated on dialysis and dialysis was set up as an outpatient. His cultures remained negative including blood culture, urine culture showed mixed louise. He was treated with antibiotics and completed treatment. Patient did have some urinary retention, was started on Flomax as patient may need to be straight cathed if necessary. Patient was then cleared for discharge and was sent home in a stable condition with dialysis setup. Medications: As per medication reconciliation list. Followup: Followup with primary care physician in 2 to 3 days. Followup with supervisor webbing, Dr. Rodríguez in 2 weeks. Return to ER for worsening condition. Diet: Renal. Activity: Fall precautions. Physical Examination: General: Awake, alert, and oriented, no acute distress. Elderly male, appears older than stated age. CV: S1, S2. Respiratory: Moving air well bilaterally. Abdomen: Abdomen is soft, nontender, nondistended. Positive bowel sounds. Extremities: No clubbing, cyanosis, edema. Neurologic: Nonfocal. Total Time Spent: On discharging patient was 35 minutes. SA/MODL Voice ID: [id number] Report ID: [id number] ANTHONY
[2019-05-22 05:16] LABS: Magnesium 2.1 mg/dL (1.8-2.4); Phosphorus 1.9 mg/dL (2.5-4.9); Potassium 4.2 mmol/L (3.5-5.1)
[2019-05-22 08:40] VITALS: BP 127/80; TEMP 98
[2019-05-22] MEDS ORDERED: EPOETIN ALFA 10,000 UNIT/ML VIAL SQ SCH (09:00)
[2019-05-22 09:56] VITALS: O2SAT 92
[2019-05-22] MEDS: POTASS/SODIUM PHOSPHATE 1 PKT POWD.PACK PO SCH ×3 (10:00→12:13)
[2019-05-22] MEDS: CA ACETATE 667 MG CAP PO SCH ×2 (12:00→12:13)
[2019-05-22] MEDS: MULTIVITAMINS,THERAPEUT 1 TAB PO SCH (12:13)
[2019-05-22] MEDS: carvediloL 6.25 MG TAB PO SCH (12:13)
[2019-05-22] MEDS: TAMSULOSIN 0.4 MG SR CAP PO SCH (12:13)
[2019-05-22] MEDS: NICOTINE 14 MG/PAT TD SCH (12:13)
[2019-05-22] MEDS: VITAMIN D 5,000 UNIT CAP PO SCH (12:13)
[2019-05-22] MEDS: PARoxetine HCL 10 MG TAB PO SCH (12:14)
[2019-05-22] MEDS: ENOXAPARIN 30 MG/0.3 ML SQ SCH (12:15)
[2019-05-22] MEDS: CALCITROL 0.25 MCG CAP PO SCH (12:15)
--- NOTE | 2019-05-22 16:33 | PN ---
Date of Progress Note: 05/22/2019 Subjective: Patient seen and examined. Chart reviewed and case discussed with RN and Dr. Rodríguez as well as Dr. Rm. Patient's dialysis catheter is working properly, was dialyzed for about 30 minut es. There were no issues. Patient denies any urinary retention. Medications: List reviewed. Physical Examination: Vital Signs: Temperature 98, heart rate 80, blood pressure 127/80, respirations 18, O2 of 92% on harrison m air. General: Awake, alert, oriented x3, not in any acute distress, elderly male. CV: S1, S2. Peripheral pulses weak. Respiratory: Moving air well bilaterally. No wheezing. Gastrointestinal: Abdomen is soft, nontender, nondistended. Positive bowel sounds. Extremities: No clubbing, cyanosis, or edema. Neurologic: Nonfocal. Laboratory Data: Sodium 140, potassium 4.2, chloride 106, CO2 of 26, BUN 9, creatinine 3.52, glucose 97, phosphorus 1.9, magnesium 2.1. WBC pending. Assessment: A 68-year-old male with: 1.Uremic encephalopathy, resolved. 2.Acute on chronic kidney failure, now on dialysis. 3.Metabolic acidosis, resolved. 4.Anemia of chronic disease, stable. 5.Acute cystitis with hematuria, treatment completed with antibiotics. 6.Urinary obstruction, likely due to benign prostatic hyperplasia, improved with Flomax. 7.Status post fall. 8.History of migraines, stable. 9.Generalized anxiety disorder, stable. 10.History of abdominal aortic aneurysm repair, stable. Plan: Discharge home in stable condition. Patient to follow up with consumer loan manager and urologist in 1 to 2 weeks. Follow up with primary care physician in 2 to 3 days. Return to ER for worsening condi tion. Keep dialysis appointment as scheduled. SA/MODL Voice ID: [id number] Report ID: [id number]
--- NOTE | 2019-05-22 20:52 | P.PN ---
Date of Service: 05/22/19 Vital Signs Temp Pulse Resp BP Pulse Ox 98 F 80 18 127/80 92 05/22/19 08:00 05/22/19 08:00 05/22/19 08:00 05/22/19 08:00 05/22/19 08:00 Microbiology Results 05/14/19 18:30 Blood - Blood Aerobic Blood Culture - Final No growth in 5 days. 05/14/19 18:30 Blood - Blood Anaerobic Blood Culture - Final No growth in 5 days. 05/14/19 18:30 Blood - Blood Aerobic Blood Culture - Final No growth in 5 days. 05/14/19 18:30 Blood - Blood Anaerobic Blood Culture - Final No growth in 5 days. 05/14/19 18:55 Clean Catch Urine [place] Count - Final >100,000 CFU/ML. 05/14/19 18:55 Clean Catch Urine - Final MIXED MLIES. Assessment/ Plan: Nephrology CPS stable without CP or SOB. No acute events overnight. Feeling better. Vitals, medications, blood work and imaging reviewed in the chart. General: In no apparent distress, Cooperative HEENT: Atraumatic Neck: Supple Respiratory: Clear to auscultation bilaterally Cardiovascular: No edema, Regular rate/rhythm Gastrointestinal: Soft and benign, Non-distended Musculoskeletal: No clubbing, No contractures Integumentary: No rashes, No cyanosis Neurological: Normal speech Laboratory Data (last 24 hrs) 05/14/19 18:45: PT 12.8 H, INR 1.09, APTT 40.1 H 05/14/19 18:45: WBC 7.0, Hgb 9.2 L, Hct 28.4 L, Plt Count 129 L 05/14/19 18:45: Sodium 136, Potassium 5.0, BUN 86 H, Creatinine 9.08 H* D, Glucose 90, Total Bilirubin 1.1 H, AST 7 L, ALT 10 L, Alkaline Phosphatase 137 H , Amylase 30, Lipase 114 Imagings Data: EXAM DESCRIPTION: Brittany Single View05/14/2019 6:37 pm CLINICAL HISTORY: Chest pain COMPARISON: April 2019 FINDINGS: Small to moderate left and small right pleural effusions. Left basilar atelectasis. Mild interstitial lung opacities probably mild interstitial pulmonary edema The heart is mildly to moderately enlarged. Pacemaker leads are in place. Conclusions/Impression: A/ SARAH likely due to LEONEL and suspicious for ESRD. Hyponatremia. Hyperkalemia. Acidosis. CKD IV with proteinuria in the setting of HTN, vascular disease and NSAIDs. HTN with CKD/ CHF. Diastolic CHF, A/C. Anemia in chronic illness. Thrombocytopenia. HyperPO4. BPH with LUTS. PVR seems improved today. P/ Continue current POC and Medications. Nurse to verify the CVC is working this morning; may be discharged if the CVC is working. Discharge home on Flomax. No NSAIDs. Renal Diet. AM labs. Daily weight. Placement confirmed for [facility]. Case reviewed with Dr. Gonzalez.
[2019-05-22] MEDS ORDERED: SOD FERRIC GLUC COMPLX/SUCROSE 125 MG in NA CHLORIDE 0.9% 100 ML IV ONE (21:30)
== END 2019-05-22 14:40 | disposition home health service (06) | DRG 682 ==
LOC: ER 16:52 → ERHOLD 20:43 → 4TH 21:51
PROVIDERS: ADMIT Hospitalist; ATTEND Family Medicine
PROC: B513YZA Fluoroscopy of Right Jugular Veins using Other Contrast, Guidance (ICD-10-PCS; 2019-05-15)
PROC: 5A1D70Z Performance of Urinary Filtration, Intermittent, Less than 6 Hours Per Day (ICD-10-PCS; 2019-05-15)
PROC: 05HM33Z Insertion of Infusion Device into Right Internal Jugular Vein, Percutaneous Approach (ICD-10-PCS; principal; 2019-05-15 13:30)
PROC: 05PY33Z Removal of Infusion Device from Upper Vein, Percutaneous Approach (ICD-10-PCS; 2019-05-16)
PROC: 05HM33Z Insertion of Infusion Device into Right Internal Jugular Vein, Percutaneous Approach (ICD-10-PCS; 2019-05-16)
PROC: B513YZA Fluoroscopy of Right Jugular Veins using Other Contrast, Guidance (ICD-10-PCS; 2019-05-16)
PROC: 5A1D70Z Performance of Urinary Filtration, Intermittent, Less than 6 Hours Per Day (ICD-10-PCS; 2019-05-16)
PROC: 5A1D70Z Performance of Urinary Filtration, Intermittent, Less than 6 Hours Per Day (ICD-10-PCS; 2019-05-17)
PROC: 05HN33Z Insertion of Infusion Device into Left Internal Jugular Vein, Percutaneous Approach (ICD-10-PCS; 2019-05-19)
PROC: B514YZA Fluoroscopy of Left Jugular Veins using Other Contrast, Guidance (ICD-10-PCS; 2019-05-19)
PROC: 5A1D70Z Performance of Urinary Filtration, Intermittent, Less than 6 Hours Per Day (ICD-10-PCS; 2019-05-19)
PROC: 5A1D70Z Performance of Urinary Filtration, Intermittent, Less than 6 Hours Per Day (ICD-10-PCS; 2019-05-20)
PROC: 5A1D70Z Performance of Urinary Filtration, Intermittent, Less than 6 Hours Per Day (ICD-10-PCS; 2019-05-21)
PROC: 5A1D70Z Performance of Urinary Filtration, Intermittent, Less than 6 Hours Per Day (ICD-10-PCS; 2019-05-22)
DX: N18.6 End stage renal disease (principal); G93.41 Metabolic encephalopathy; I50.33 Acute on chronic diastolic (congestive) heart failure; E87.2 Acidosis; E87.1 Hypo-osmolality and hyponatremia; I13.0 Hypertensive heart and chronic kidney disease with heart failure and stage 1 through stage 4 chronic kidney disease, or unspecified chronic kidney disease; I13.2 Hypertensive heart and chronic kidney disease with heart failure and with stage 5 chronic kidney disease, or end stage renal disease; T82.41XA Breakdown (mechanical) of vascular dialysis catheter, initial encounter; N30.01 Acute cystitis with hematuria; N17.9 Acute kidney failure, unspecified; N11.9 Chronic tubulo-interstitial nephritis, unspecified; R80.9 Proteinuria, unspecified; G43.909 Migraine, unspecified, not intractable, without status migrainosus; F32.89 Other specified depressive episodes; D63.8 Anemia in other chronic diseases classified elsewhere; D69.6 Thrombocytopenia, unspecified; E87.5 Hyperkalemia; E83.39 Other disorders of phosphorus metabolism; N40.1 Benign prostatic hyperplasia with lower urinary tract symptoms; Z86.79 Personal history of other diseases of the circulatory system
CPT/HCPCS: 36415; 70450; 71045; 76000; 76770; 76857; 80048; 80069; 80076; 81001; 81003; 81015; 82043; 82150; 82550; 82553; 82570; 82607; 82746; 82947; 83540; 83605; 83690; 83735; 83880; 84100; 84145; 84466; 84484; 84550; 85025; 85610; 85730; 86317; 86704; 86706; 86803; 87040; 87086; 87088; 87340; 90935; 93925; 99285; C1752; J0690; J0696; J1642; J1644; J1650; J2001; J2405; J2704; J2710; J2916; J3010; J7030; J7040; J7120; Q5105; Q5106

== ENCOUNTER 2019-06-23 15:50 | Observation (INO) | payer OTHER ==
--- OUTSIDE RECORDS SUMMARY | 2019-06-23 17:15 | XMS REPORT ---
:1950 Author Organization [facility] t Address [address] [place] [address] [address]. [address] [place] [address] Care Team Providers Name Role Phone PREVENTZA, ALRIVIAD Unavailable Unavailable Payers Payer Name Policy Type Policy Number Effective Date Expiration D ate Problems This patient has no known problems. Allergies, Adverse Reactions, Alerts Allergy Allergy Status Severity Reaction(s) Onset Inactive Treating C omments Name Type Date Date Clinician caffeine FA Active U 2019-02 00:00:0 0 No Known DA Active U 2019-02 -13 00:00:0 0 Medications This patient has no known medications. Results Test Description Test Time Test Comments Text Results Atomic Results Result Comments BASIC METABOLIC PANEL 2019-03-05 11:43:00 Test Item Value Reference Range Comments SODIUM (test code = NA) 137 MMOL/L 137-145 POTASSIUM (test code = K) 3.4 MMOL/L 3.5-5.1 CHLORIDE (test code = CL) 102 MMOL/L 98-107 CARBON DIOXIDE (test code = CO2) 22 MMOL/L 22-30 ANION GAP (test code = GAP) 16 MMOL/L 14-24 GLUCOSE (test code = GLU) 122 MG/DL 74-106 BLOOD UREA NITROGEN (test code = 31 MG/DL 9-20 BUN) GLOMERULAR FILTRATION RATE (test 19 Reporting units: ml/min/1.73 m2 code = GFR) (Modified MDRD Formula)Referenc e Range: > or = 60 ml/min/1.73 m 2 CREATININE (test code = CREAT) 3.20 MG/DL 0.66-1.25 CALCIUM (test code = CA) 9.3 MG/DL 8.4-10.2 BASIC METABOLIC [id number] 11:35:00 Test Item Value Reference Range Comments SODIUM (test code = NA) 137 MMOL/L 137-145 POTASSIUM (test code = K) 3.4 MMOL/L 3.5-5.1 CHLORIDE (test code = CL) 102 MMOL/L 98-107 CARBON DIOXIDE (test code = CO2) MMOL/L 22-30 GLUCOSE (test code = GLU) MG/DL 74-106 BLOOD UREA NITROGEN (test code = BUN) MG/DL 9-20 GLOMERULAR FILTRATION RATE (test code = GFR) CREATININE (test code = CREAT) MG/DL 0.66-1.25 CALCIUM (test code = CA) MG/DL 8.7-9.7 CBC W/AUTO [id number] 11:12:00 Test Item Value Reference Range Comments WHITE BLOOD CELL (test code = WBC) 8.4 K/MM3 3.8-9.8 RED BLOOD CELL (test code = RBC) 3.92 M/MM3 3.95-5.67 HEMOGLOBIN (test code = HGB) 11.8 G/DL 12.4-16.7 HEMATOCRIT (test code = HCT) 38.1 % 35.9-49.5 MEAN CELL VOLUME (test code = MCV) 97 fL 81.7-96.1 MEAN CELL HGB (test code = MCH) 30.1 pg 27.6-33.2 MEAN CELL HGB CONCETRATION (test code = MCHC) 31.0 % 32 .9-35.5 RED CELL DISTRIBUTION WIDTH (test code = RDW) 19.1 % 12 .1-15.2 PLATELET COUNT (test code = PLT) 157 K/MM3 129-368 MEAN PLATELET VOLUME (test code = MPV) 11.8 fl 7.4-10.4 NEUTROPHIL % (test code = NT%) 74.8 % 43-75 IMMATURE GRANULOCYTE % (test code = IG%) 0.4 % 0.0-2.0 LYMPHOCYTE % (test code = LY%) 13.5 % 14-44 MONOCYTE % (test code = MO%) 9.6 % 4-13 EOSINOPHIL % (test code = EO%) 1.2 % 0-6 BASOPHIL % (test code = BA%) 0.5 % 0-2 NUCLEATED RBC % (test code = NRBC%) 0.0 % 0-1.0 NEUTROPHIL # (test code = NT#) 6.25 K/mm3 2.0-7.6 IMMATURE GRANULOCYTE # (test code = IG#) 0.03 x10 3/uL 0-0.03 LYMPHOCYTE # (test code = LY#) 1.13 K/mm3 1.0-3.8 MONOCYTE # (test code = MO#) 0.80 K/mm3 0.1-0.8 EOSINOPHIL # (test code = EO#) 0.10 K/mm3 0.0-0.2 BASOPHIL # (test code = BA#) 0.04 K/mm3 0.0-0.2 NUCLEATED RBC # (test code = NRBC#) 0.00 K/mm3 0.0-0.1 - XR CHEST [id number] 19:01:00 Patient Name: ROSEMARIE YOUNG Unit No: [id number] EXAMS: CPT CODE: [id number] XR CHEST 1V [id number] Chest Radiograph History: S/P ICD Comparison: None [...] by: Raimundo Loving MD CC: René Brownlee MD; Aaron Benz Technologist: Felicitas Lantigua (RT)(R) Transcrpt Date/Tm/Trnsp: 03/04/2019 (1900) HeatherPMT Orig Print D/T: S: 03/04/2019 (1903) [facility] NAME: ROSEMARIE YOUNG [id number] [address] PHYS: [place] [address] : 1950 AGE: 68 SEX: M LOC: Z.365 A PHONE #: [phone] EXAM DATE: 03/04/2019 STATUS: ADM IN FAX #: [phone] RADIOLOGY NO: PAGE 1 Signed ReportBASIC METABOLIC [id number] 11:49:00 Test Item Value Reference Range Comments SODIUM (test code = NA) 139 MMOL/L 137-145 POTASSIUM (test code = K) 3.5 MMOL/L 3.5-5.1 CHLORIDE (test code = CL) 102 MMOL/L 98-107 CARBON DIOXIDE (test code = 23 MMOL/L 22-30 CO2) ANION GAP (test code = GAP) 18 MMOL/L 14-24 GLUCOSE (test code = GLU) 110 MG/DL 74-106 BLOOD UREA NITROGEN (test code 31 MG/DL 9-20 = BUN) GLOMERULAR FILTRATION RATE 19 Repor ting units: ml/min/1.73 (test code = GFR) m2 (Modified MDRD Formula)Referenc e Range: > or = 60 ml/min/1 .73 m2 CREATININE (test code = CREAT) 3.30 MG/DL 0.66-1.25 CALCIUM (test code = CA) 9.5 MG/DL 8.4-10.2 Comments to Electric Razor Assembler: NURSE WILL BRING SPECIMEN TO LAB Is this a LINE draw? NComments to Electric Razor Assembler: NURSE WILL BRING SPECIMEN TO [id number] 11:49:00 Test Item Value Reference Range Comments MAGNESIUM (test code = MAG) 2.4 MG/DL 1.6-2.3 Comments to Electric Razor Assembler: NURSE WILL BRING SPECIMEN TO LAB Is this a LINE draw? NComments to Electric Razor Assembler: NURSE WILL BRING SPECIMEN TO LABPROTHROMBIN TIME 2019-03-04 11:49:00 Test Item Value Reference Range Comments PROTHROMBIN TIME PATIENT (test 12.2 SECONDS 9.6-11.6 code = PTP) INTERNATIONAL NORMAL RATIO 1.2 0.8-1.1 The I NR is to be used only (test code = INR) for monitoring oral anticoagulantthe rapy. INDICATION INR VALUE 1. Prophylaxis, maite p venous thrombosis, i ncluding high risk surger y. 2.0 - 3 .0 2. Prophylaxis, maite p venous thrombosis, h ip surgery, treatme nt for deep venous t hrombosis or pulmonary pre vention of systemic embo lism in patients with valvular heart disease, a trial fibrillation, tissue heart valve, or acute myocardial in farction. 2.0 - 3.0 3 . Mechanical prost hesis heart valves, recurrent systemic embolis m. 3.0 - 4. 5 Comments to Electric Razor Assembler: NURSE WILL BRING SPECIMEN TO LABPTT ACTIVATED 2019-03-04 11:49:00 Test Item Value Reference Range Comments PTT ACTIVATED (test code = APTT) 31.7 SECONDS 22.0-33.0 Comments to Electric Razor Assembler: NURSE WILL BRING SPECIMEN TO LABBASIC METABOLIC PANEL 2019-03-04 11:45:00 Test Item Value Reference Range Comments SODIUM (test code = NA) 139 MMOL/L 137-145 POTASSIUM (test code = K) 3.5 MMOL/L 3.5-5.1 CHLORIDE (test code = CL) 102 MMOL/L 98-107 CARBON DIOXIDE (test code = CO2) MMOL/L 22-30 GLUCOSE (test code = GLU) MG/DL 74-106 BLOOD UREA NITROGEN (test code = BUN) MG/DL 9-20 GLOMERULAR FILTRATION RATE (test code = GFR) CREATININE (test code = CREAT) MG/DL 0.66-1.25 CALCIUM (test code = CA) MG/DL 8.7-9.7 Comments to Electric Razor Assembler: NURSE WILL BRING SPECIMEN TO LAB Is this a LINE draw? NComments to Electric Razor Assembler: NURSE WILL BRING SPECIMEN TO [id number] 11:45:00 Test Item Value Reference Range Comments MAGNESIUM (test code = MAG) MG/DL 1.6-2.3 Comments to Electric Razor Assembler: NURSE WILL BRING SPECIMEN TO LAB Is this a LINE draw? NComments to Electric Razor Assembler: NURSE WILL BRING SPECIMEN TO LABBASIC METABOLIC PANEL 2019-03-04 11:44:00 Test Item Value Reference Range Comments SODIUM (test code = NA) MMOL/L 137-145 POTASSIUM (test code = K) MMOL/L 3.5-5.1 CHLORIDE (test code = CL) 102 MMOL/L 98-107 CARBON DIOXIDE (test code = CO2) MMOL/L 22-30 GLUCOSE (test code = GLU) MG/DL 74-106 BLOOD UREA NITROGEN (test code = BUN) MG/DL 9-20 GLOMERULAR FILTRATION RATE (test code = GFR) CREATININE (test code = CREAT) MG/DL 0.66-1.25 CALCIUM (test code = CA) MG/DL 8.7-9.7 Comments to Electric Razor Assembler: NURSE WILL BRING SPECIMEN TO LAB Is this a LINE draw? NComments to Electric Razor Assembler: NURSE WILL BRING SPECIMEN TO [id number] 11:44:00 Test Item Value Reference Range Comments MAGNESIUM (test code = MAG) MG/DL 1.6-2.3 Comments to Electric Razor Assembler: NURSE WILL BRING SPECIMEN TO LAB Is this a LINE draw? NComments to Electric Razor Assembler: NURSE WILL BRING SPECIMEN TO LABCBC W/AUTO DIFF 2019-03-04 11:33:00 Test Item Value Reference Range Comments WHITE BLOOD CELL (test code = WBC) 8.5 K/MM3 3.8-9.8 RED BLOOD CELL (test code = RBC) 4.20 M/MM3 3.95-5.67 HEMOGLOBIN (test code = HGB) 12.8 G/DL 12.4-16.7 HEMATOCRIT (test code = HCT) 41.4 % 35.9-49.5 MEAN CELL VOLUME (test code = MCV) 99 fL 81.7-96.1 MEAN CELL HGB (test code = MCH) 30.5 pg 27.6-33.2 MEAN CELL HGB CONCETRATION (test code = MCHC) 30.9 % 32 .9-35.5 RED CELL DISTRIBUTION WIDTH (test code = RDW) 19.1 % 12 .1-15.2 PLATELET COUNT (test code = PLT) 184 K/MM3 129-368 MEAN PLATELET VOLUME (test code = MPV) 11.8 fl 7.4-10.4 NEUTROPHIL % (test code = NT%) 77.0 % 43-75 IMMATURE GRANULOCYTE % (test code = IG%) 0.2 % 0.0-2.0 LYMPHOCYTE % (test code = LY%) 11.8 % 14-44 MONOCYTE % (test code = MO%) 9.0 % 4-13 EOSINOPHIL % (test code = EO%) 1.5 % 0-6 BASOPHIL % (test code = BA%) 0.5 % 0-2 NUCLEATED RBC % (test code = NRBC%) 0.0 % 0-1.0 NEUTROPHIL # (test code = NT#) 6.53 K/mm3 2.0-7.6 IMMATURE GRANULOCYTE # (test code = IG#) 0.02 x10 3/uL 0-0.03 LYMPHOCYTE # (test code = LY#) 1.00 K/mm3 1.0-3.8 MONOCYTE # (test code = MO#) 0.76 K/mm3 0.1-0.8 EOSINOPHIL # (test code = EO#) 0.13 K/mm3 0.0-0.2 BASOPHIL # (test code = BA#) 0.04 K/mm3 0.0-0.2 NUCLEATED RBC # (test code = NRBC#) 0.00 K/mm3 0.0-0.1 Comments to Electric Razor Assembler: NURSE WILL BRING SPECIMEN TO LABIs this a LINE draw? N BASIC METABOLIC [id number] 07:10:00 Test Item Value Reference Range Comments SODIUM (test code = NA) 135 MMOL/L 137-145 POTASSIUM (test code = K) 3.9 MMOL/L 3.5-5.1 CHLORIDE (test code = CL) 99 MMOL/L 98-107 CARBON DIOXIDE (test code = 24 MMOL/L 22-30 CO2) ANION GAP (test code = GAP) 16 MMOL/L 14-24 GLUCOSE (test code = GLU) 132 MG/DL 74-106 BLOOD UREA NITROGEN (test code 31 MG/DL 9-20 = BUN) GLOMERULAR FILTRATION RATE 19 Repor ting units: ml/min/1.73 (test code = GFR) m2 (Modified MDRD Formula)Referenc e Range: > or = 60 ml/min/1 .73 m2 CREATININE (test code = CREAT) 3.30 MG/DL 0.66-1.25 CALCIUM (test code = CA) 9.2 MG/DL 8.4-10.2 LIPID PROFILE (CORONARY RISK)2019-02-15 07:10:00 Test Item Value Reference Range Comments TRIGLYCERIDES (test code = 148 MG/DL TRIGL YCERIDES REFERENCE TRIG) RANGE:Normal: <1 50 mg/dLBorderline High: 150-199 mg/dLHigh: 200-4 99 mg/dLVery High: >=500 mg/d L CHOLESTEROL (test code = CHOL) 152 MG/DL <200 HDL CHOLESTEROL (test code = 38 MG/DL 40-59 HDL) LIPOPROTEIN LDL (test code = 78 MG/DL 0-99 LDL) OPTIMAL......... <100 mg/dLNEAR OPTIMA L/ABOVE OPTIMAL......... 100-129 mg/dL BORDER LINE HIGH.........130 -159 mg/dL HIGH.........160 -189 mg/dL PETER Y HIGH.........>/= 190 mg/dL [id number] 07:10:00 Test Item Value Reference Range Comments MAGNESIUM (test code = MAG) 2.4 MG/DL 1.6-2.3 BASIC METABOLIC [id number] 07:01:00 Test Item Value Reference Range Comments SODIUM (test code = NA) 135 MMOL/L 137-145 POTASSIUM (test code = K) 3.9 MMOL/L 3.5-5.1 CHLORIDE (test code = CL) 99 MMOL/L 98-107 CARBON DIOXIDE (test code = 24 MMOL/L 22-30 CO2) ANION GAP (test code = GAP) 16 MMOL/L 14-24 GLUCOSE (test code = GLU) 132 MG/DL 74-106 BLOOD UREA NITROGEN (test code 31 MG/DL 9-20 = BUN) GLOMERULAR FILTRATION RATE 19 Repor ting units: ml/min/1.73 (test code = GFR) m2 (Modified MDRD Formula)Referenc e Range: > or = 60 ml/min/1 .73 m2 CREATININE (test code = CREAT) 3.30 MG/DL 0.66-1.25 CALCIUM (test code = CA) 9.2 MG/DL 8.4-10.2 LIPID PROFILE (CORONARY RISK)2019-02-15 07:01:00 Test Item Value Reference Range Comments TRIGLYCERIDES (test code = 148 MG/DL TRIGL YCERIDES REFERENCE TRIG) RANGE:Normal: <1 50 mg/dLBorderline High: 150-199 mg/dLHigh: 200-4 99 mg/dLVery High: >=500 mg/d L CHOLESTEROL (test code = CHOL) 152 MG/DL <200 HDL CHOLESTEROL (test code = 38 MG/DL 40-59 HDL) LIPOPROTEIN LDL (test code = MG/DL 0-99 LDL) [id number] 07:01:00 Test Item Value Reference Range Comments MAGNESIUM (test code = MAG) 2.4 MG/DL 1.6-2.3 BASIC METABOLIC [id number] 06:55:00 Test Item Value Reference Range Comments SODIUM (test code = NA) 135 MMOL/L 137-145 POTASSIUM (test code = K) 3.9 MMOL/L 3.5-5.1 CHLORIDE (test code = CL) 99 MMOL/L 98-107 CARBON DIOXIDE (test code = CO2) MMOL/L 22-30 GLUCOSE (test code = GLU) MG/DL 74-106 BLOOD UREA NITROGEN (test code = BUN) MG/DL 9-20 GLOMERULAR FILTRATION RATE (test code = GFR) CREATININE (test code = CREAT) MG/DL 0.66-1.25 CALCIUM (test code = CA) MG/DL 8.7-9.7 LIPID PROFILE (CORONARY RISK)2019-02-15 06:55:00 Test Item Value Reference Range Comments TRIGLYCERIDES (test code = TRIG) MG/DL CHOLESTEROL (test code = CHOL) MG/DL <200 HDL CHOLESTEROL (test code = HDL) MG/DL 40-59 LIPOPROTEIN LDL (test code = LDL) MG/DL 0-99 [id number] 06:55:00 Test Item Value Reference Range Comments MAGNESIUM (test code = MAG) MG/DL 1.6-2.3 PROTHROMBIN [id number] 06:53:00 Test Item Value Reference Range Comments PROTHROMBIN TIME PATIENT (test 11.9 SECONDS 9.6-11.6 code = PTP) INTERNATIONAL NORMAL RATIO 1.1 0.8-1.1 The I NR is to be used only (test code = INR) for monitoring oral anticoagulantthe rapy. INDICATION INR VALUE 1. Prophylaxis, maite p venous thrombosis, i ncluding high risk surger y. 2.0 - 3 .0 2. Prophylaxis, maite p venous thrombosis, h ip surgery, treatme nt for deep venous t hrombosis or pulmonary pre vention of systemic embo lism in patients with valvular heart disease, a trial fibrillation, tissue heart valve, or acute myocardial in farction. 2.0 - 3.0 3 . Mechanical prost hesis heart valves, recurrent systemic embolis m. 3.0 - 4. 5 PTT [id number] 06:53:00 Test Item Value Reference Range Comments PTT ACTIVATED (test code = APTT) 32.2 SECONDS 22.0-33.0 CBC W/AUTO [id number] 06:43:00 Test Item Value Reference Range Comments WHITE BLOOD CELL (test code = WBC) 9.2 K/MM3 3.8-9.8 RED BLOOD CELL (test code = RBC) 3.48 M/MM3 3.95-5.67 HEMOGLOBIN (test code = HGB) 10.4 G/DL 12.4-16.7 HEMATOCRIT (test code = HCT) 33.3 % 35.9-49.5 MEAN CELL VOLUME (test code = MCV) 96 fL 81.7-96.1 MEAN CELL HGB (test code = MCH) 29.9 pg 27.6-33.2 MEAN CELL HGB CONCETRATION (test code = MCHC) 31.2 % 32 .9-35.5 RED CELL DISTRIBUTION WIDTH (test code = RDW) 17.2 % 12 .1-15.2 PLATELET COUNT (test code = PLT) 257 K/MM3 129-368 MEAN PLATELET VOLUME (test code = MPV) 11.3 fl 7.4-10.4 NEUTROPHIL % (test code = NT%) 74.4 % 43-75 IMMATURE GRANULOCYTE % (test code = IG%) 0.7 % 0.0-2.0 LYMPHOCYTE % (test code = LY%) 13.9 % 14-44 MONOCYTE % (test code = MO%) 9.1 % 4-13 EOSINOPHIL % (test code = EO%) 1.4 % 0-6 BASOPHIL % (test code = BA%) 0.5 % 0-2 NUCLEATED RBC % (test code = NRBC%) 0.0 % 0-1.0 NEUTROPHIL # (test code = NT#) 6.86 K/mm3 2.0-7.6 IMMATURE GRANULOCYTE # (test code = IG#) 0.06 x10 3/uL 0-0.03 LYMPHOCYTE # (test code = LY#) 1.28 K/mm3 1.0-3.8 MONOCYTE # (test code = MO#) 0.84 K/mm3 0.1-0.8 EOSINOPHIL # (test code = EO#) 0.13 K/mm3 0.0-0.2 BASOPHIL # (test code = BA#) 0.05 K/mm3 0.0-0.2 NUCLEATED RBC # (test code = NRBC#) 0.00 K/mm3 0.0-0.1 [id number] 05:11:00 Test Item Value Reference Range Comments PHOSPHORUS (BEAKER) (test code = 604) 1.8 mg/dL 2.3-4.7 [id number] 05:11:00 Test Item Value Reference Range Comments MAGNESIUM (BEAKER) (test code = 627) 2.0 mg/dL 1.6-2.6 BASIC METABOLIC [id number] 05:11:00 Test Item Value Reference Range Comments SODIUM (BEAKER) (test 135 meq/L 136-145 code = 381) POTASSIUM (BEAKER) (test 3.2 meq/L 3.5-5.1 code = 379) CHLORIDE (BEAKER) (test 105 meq/L 98-107 code = 382) CO2 (BEAKER) (test code = 21 meq/L 22-29 355) BLOOD UREA NITROGEN 16 mg/dL 7-21 (BEAKER) (test code = 354) CREATININE (BEAKER) (test 1.56 mg/dL 0.57-1.25 code = 358) GLUCOSE RANDOM (BEAKER) 97 mg/dL 70-105 (test code = 652) CALCIUM (BEAKER) (test 8.4 mg/dL 8.4-10.2 code = 697) EGFR (BEAKER) (test code 44 mL/min/1.73 sq m EST IMATED GFR IS NOT = 1092) ACCURATE CREA TININE CLEARANCE IN PRE DICTING GLOMERULAR FILTR ATION RATE. ESTIMATED GFR IS NOT APPLICABLE F OR DIALYSIS PATIENT S. [id number] 05:07:00 Test Item Value Reference Range Comments PARTIAL THROMBOPLASTIN TIME (BEAKER) (test code 47.4 seconds 22.5-36.0 = 760) PROTHROMBIN [id number] 05:05:00 Test Item Value Reference Range Comments PROTIME (BEAKER) (test code = 759) 14.2 seconds 11.9-14.2 INR (BEAKER) (test code = 370) 1.2 <=5.9 Effective 07/31/2018: PT Reference Range ChangeNew: 11.9-14.2 Previous: 11.7- 14.7RECOMMENDED COUMADIN/WARFARIN INR THERAPY RANGESSTANDARD DOSE: 2.0-3.0 Includes: PROPHYLAXIS for venous thrombosis, systemic embolization; TREATMENT for venous thrombosis and/or pulmonary embolus.HIGH RISK: Target INR is2.5-3.5 for patients wiht mechanical heart valves.CBC (HEMOGRAM ONLY)2018-12-27 04:58:00 Test Item Value Reference Range Comments WHITE BLOOD CELL COUNT (BEAKER) (test code = 10.9 K/ L 3.5 -10.5 775) RED BLOOD CELL COUNT (BEAKER) (test code = 761) 3.09 M/ L 4.63-6.08 HEMOGLOBIN (BEAKER) (test code = 410) 9.8 GM/DL 13.7-17.5 HEMATOCRIT (BEAKER) (test code = 411) 29.8 % 40.1-51.0 MEAN CORPUSCULAR VOLUME (BEAKER) (test code = 96.4 fL 79 .0-92.2 753) MEAN CORPUSCULAR HEMOGLOBIN (BEAKER) (test code 31.7 pg 25.7-32.2 = 751) MEAN CORPUSCULAR HEMOGLOBIN CONC (BEAKER) (test 32.9 GM/DL 32.3-36.5 code = 752) RED CELL DISTRIBUTION WIDTH (BEAKER) (test code 13.8 % 11.6-14.4 = 412) PLATELET COUNT (BEAKER) (test code = 756) 135 K/CU MM 150-45 0 MEAN PLATELET VOLUME (BEAKER) (test code = 754) 10.7 fL 9.4-12.4 NUCLEATED RED BLOOD CELLS (BEAKER) (test code = 0 /100 WBC 0-0 413) POTASSIUM-STAT [id number] 19:57:00 Test Item Value Reference Range Comments POTASSIUM (BEAKER) (test code = 379) 3.4 meq/L 3.6-5.5 POTASSIUM-STAT [id number] 13:27:00 Test Item Value Reference Range Comments POTASSIUM (BEAKER) (test code = 379) 3.1 meq/L 3.6-5.5 RAD, CHEST, 1 VIEW, NON [id number] 08:42:00Reason for exam:->postop and intubatedFINAL REPORT INDICATION: postop and intubated TECHNIQUE: Chest radiograph, single view, portable technique. FINDINGS / IMPRESSION: Comparison to December 25 at 11:11 PM.Bibasilar subsegmental atelectasis without discrete pneumonia. No overt pulmonary edema or pneumothorax.Endotracheal tube and right internal jugular line again demonstrated and appear in good position. Signed: Alejandro Cardenas MDReport Verified Date/Time: 12/26/2018 08:42:52 Reading Location: [facility] Reading Room BLOOD GAS, [id number] 04:48:00 Test Item Value Reference Range Comments PH ARTERIAL (BEAKER) (test code = 383) 7.43 7.35-7.45 PCO2 ARTERIAL (BEAKER) (test code = 384) 31 mmHg 35-45 PO2 ARTERIAL (BEAKER) (test code = 385) 62 mmHg 80-90 O2 SATURATION ARTERIAL (BEAKER) (test code = 92.9 % 96. 0-97.0 386) HCO3 ARTERIAL (BEAKER) (test code = 388) 20 mmol/L 21-29 BASE EXCESS ARTERIAL (BEAKER) (test code = 387) -3.6 mmol/L -2.0-3.0 PATIENT TEMPERATURE (BEAKER) (test code = 1818) 36.8 C FIO2 (BEAKER) (test code = 1819) 60.0 % [id number] 04:17:00 Test Item Value Reference Range Comments PHOSPHORUS (BEAKER) (test code = 604) 2.7 mg/dL 2.3-4.7 [id number] 04:17:00 Test Item Value Reference Range Comments MAGNESIUM (BEAKER) (test code = 627) 2.3 mg/dL 1.6-2.6 BASIC METABOLIC [id number] 04:17:00 Test Item Value Reference Range Comments SODIUM (BEAKER) (test 141 meq/L 136-145 code = 381) POTASSIUM (BEAKER) (test 3.3 meq/L 3.5-5.1 code = 379) CHLORIDE (BEAKER) (test 112 meq/L 98-107 code = 382) CO2 (BEAKER) (test code = 21 meq/L 22-29 355) BLOOD UREA NITROGEN 16 mg/dL 7-21 (BEAKER) (test code = 354) CREATININE (BEAKER) (test 1.63 mg/dL 0.57-1.25 code = 358) GLUCOSE RANDOM (BEAKER) 102 mg/dL 70-105 (test code = 652) CALCIUM (BEAKER) (test 8.4 mg/dL 8.4-10.2 code = 697) EGFR (BEAKER) (test code 42 mL/min/1.73 sq m EST IMATED GFR IS NOT = 1092) ACCURATE CREA TININE CLEARANCE IN PRE DICTING GLOMERULAR FILTR ATION RATE. ESTIMATED GFR IS NOT APPLICABLE F OR DIALYSIS PATIENT S. [id number] 04:00:00 Test Item Value Reference Range Comments PARTIAL THROMBOPLASTIN TIME (BEAKER) (test code 44.5 seconds 22.5-36.0 = 760) PROTHROMBIN TIME/[id number] 03:59:00 Test Item Value Reference Range Comments PROTIME (BEAKER) (test code = 759) 14.3 seconds 11.9-14.2 INR (BEAKER) (test code = 370) 1.2 <=5.9 Effective 07/31/2018: PT Reference Range ChangeNew: 11.9-14.2 Previous: 11.7- 14.7RECOMMENDED COUMADIN/WARFARIN INR THERAPY RANGESSTANDARD DOSE: 2.0-3.0 Includes: PROPHYLAXIS for venous thrombosis, systemic embolization; TREATMENT for venous thrombosis and/or pulmonary embolus.HIGH RISK: Target INR is2.5-3.5 for patients wiht mechanical heart valves.CBC (HEMOGRAM ONLY)2018-12-26 03:52:00 Test Item Value Reference Range Comments WHITE BLOOD CELL COUNT (BEAKER) (test code = 12.1 K/ L 3.5 -10.5 775) RED BLOOD CELL COUNT (BEAKER) (test code = 761) 3.38 M/ L 4.63-6.08 HEMOGLOBIN (BEAKER) (test code = 410) 10.6 GM/DL 13.7-17.5 HEMATOCRIT (BEAKER) (test code = 411) 33.3 % 40.1-51.0 MEAN CORPUSCULAR VOLUME (BEAKER) (test code = 98.5 fL 79 .0-92.2 753) MEAN CORPUSCULAR HEMOGLOBIN (BEAKER) (test code 31.4 pg 25.7-32.2 = 751) MEAN CORPUSCULAR HEMOGLOBIN CONC (BEAKER) (test 31.8 GM/DL 32.3-36.5 code = 752) RED CELL DISTRIBUTION WIDTH (BEAKER) (test code 13.9 % 11.6-14.4 = 412) PLATELET COUNT (BEAKER) (test code = 756) 157 K/CU MM 150-45 0 MEAN PLATELET VOLUME (BEAKER) (test code = 754) 10.8 fL 9.4-12.4 NUCLEATED RED BLOOD CELLS (BEAKER) (test code = 0 /100 WBC 0-0 413) BASIC METABOLIC [id number] 00:10:00 Test Item Value Reference Range Comments SODIUM (BEAKER) (test 136 meq/L 136-145 code = 381) POTASSIUM (BEAKER) (test 4.0 meq/L 3.5-5.1 code = 379) CHLORIDE (BEAKER) (test 110 meq/L 98-107 code = 382) CO2 (BEAKER) (test code = 18 meq/L 22-29 355) BLOOD UREA NITROGEN 14 mg/dL 7-21 (BEAKER) (test code = 354) CREATININE (BEAKER) (test 1.46 mg/dL 0.57-1.25 code = 358) GLUCOSE RANDOM (BEAKER) 100 mg/dL 70-105 (test code = 652) CALCIUM (BEAKER) (test 7.9 mg/dL 8.4-10.2 code = 697) EGFR (BEAKER) (test code 48 mL/min/1.73 sq m EST IMATED GFR IS NOT = 1092) ACCURATE CREA TININE CLEARANCE IN PRE DICTING GLOMERULAR FILTR ATION RATE. ESTIMATED GFR IS NOT APPLICABLE F OR DIALYSIS PATIENT S. [id number] 23:55:00 Test Item Value Reference Range Comments PHOSPHORUS (BEAKER) (test code = 604) 3.9 mg/dL 2.3-4.7 [id number] 23:55:00 Test Item Value Reference Range Comments MAGNESIUM (BEAKER) (test code = 627) 1.9 mg/dL 1.6-2.6 RAD, CHEST, 1 VIEW, NON [id number] 23:50:00Reason for exam:->postopShould this be performed at the bedside?->YesFINAL REPORT [...] effusion. No acute bony abnormality. Signed: Jose Panda Verified Date/Time: 12/25/2018 23:50:30 Reading Location: [address] Ortho Consult Reading Room OXYGEN SATURATION, [id number] 23:34:00 Test Item Value Reference Range Comments O2 SATURATION (MEASURED) (BEAKER) (test code = 1455) 87.1 % BLOOD GAS, [id number] 23:33:00 Test Item Value Reference Range Comments PH ARTERIAL (BEAKER) (test code = 383) 7.29 7.35-7.45 PCO2 ARTERIAL (BEAKER) (test code = 384) 45 mmHg 35-45 PO2 ARTERIAL (BEAKER) (test code = 385) 98 mmHg 80-90 O2 SATURATION ARTERIAL (BEAKER) (test code = 96.8 % 96. 0-97.0 386) HCO3 ARTERIAL (BEAKER) (test code = 388) 22 mmol/L 21-29 BASE EXCESS ARTERIAL (BEAKER) (test code = 387) -4.9 mmol/L -2.0-3.0 PATIENT TEMPERATURE (BEAKER) (test code = 1818) 36.8 C FIO2 (BEAKER) (test code = 1819) 60.0 % [id number] 23:17:00 Test Item Value Reference Range Comments PARTIAL THROMBOPLASTIN TIME (BEAKER) (test code 39.2 seconds 22.5-36.0 = 760) PROTHROMBIN TIME/[id number] 23:16:00 Test Item Value Reference Range Comments PROTIME (BEAKER) (test code = 759) 16.4 seconds 11.9-14.2 INR (BEAKER) (test code = 370) 1.4 <=5.9 Effective 07/31/2018: PT Reference Range ChangeNew: 11.9-14.2 Previous: 11.7- 14.7RECOMMENDED COUMADIN/WARFARIN INR THERAPY RANGESSTANDARD DOSE: 2.0-3.0 Includes: PROPHYLAXIS for venous thrombosis, systemic embolization; TREATMENT for venous thrombosis and/or pulmonary embolus.HIGH RISK: Target INR is2.5-3.5 for patients wiht mechanical heart valves.CBC W/PLT COUNT & AUTO [id number] 23:15:00 Test Item Value Reference Range Comments WHITE BLOOD CELL COUNT (BEAKER) (test code = 14.0 K/ L 3.5 -10.5 775) RED BLOOD CELL COUNT (BEAKER) (test code = 761) 3.36 M/ L 4.63-6.08 HEMOGLOBIN (BEAKER) (test code = 410) 10.7 GM/DL 13.7-17.5 HEMATOCRIT (BEAKER) (test code = 411) 33.6 % 40.1-51.0 MEAN CORPUSCULAR VOLUME (BEAKER) (test code = 100.0 fL 79 .0-92.2 753) MEAN CORPUSCULAR HEMOGLOBIN (BEAKER) (test code 31.8 pg 25.7-32.2 = 751) MEAN CORPUSCULAR HEMOGLOBIN CONC (BEAKER) (test 31.8 GM/DL 32.3-36.5 code = 752) RED CELL DISTRIBUTION WIDTH (BEAKER) (test code 13.8 % 11.6-14.4 = 412) PLATELET COUNT (BEAKER) (test code = 756) 156 K/CU MM 150-45 0 MEAN PLATELET VOLUME (BEAKER) (test code = 754) 10.6 fL 9.4-12.4 NUCLEATED RED BLOOD CELLS (BEAKER) (test code = 0 /100 WBC 0-0 413) NEUTROPHILS RELATIVE PERCENT (BEAKER) (test code 73 % = 429) LYMPHOCYTES RELATIVE PERCENT (BEAKER) (test code 15 % = 430) MONOCYTES RELATIVE PERCENT (BEAKER) (test code = 9 % 431) EOSINOPHILS RELATIVE PERCENT (BEAKER) (test code 1 % = 432) BASOPHILS RELATIVE PERCENT (BEAKER) (test code = 1 % 437) NEUTROPHILS ABSOLUTE COUNT (BEAKER) (test code = 10.24 K/ L 1.78-5.38 670) LYMPHOCYTES ABSOLUTE COUNT (BEAKER) (test code = 2.05 K/ L 1.32-3.57 414) MONOCYTES ABSOLUTE COUNT (BEAKER) (test code = 1.27 K/ L 0 .30-0.82 415) EOSINOPHILS ABSOLUTE COUNT (BEAKER) (test code = 0.17 K/ L 0.04-0.54 416) BASOPHILS ABSOLUTE COUNT (BEAKER) (test code = 0.07 K/ L 0 .01-0.08 417) IMMATURE GRANULOCYTES-RELATIVE PERCENT (BEAKER) 1 % 0-1 (test code = 2801) [id number] 22:22:00 Test Item Value Reference Range Comments ACTIVATED CLOTTING TIME 114 sec Referenc e Range: 74-137 (BEAKER) (test code = 441) secon ds, Baseline/TESTED AT [address] [address] [id number] 22:22:00 Test Item Value Reference Range Comments ACTIVATED CLOTTING TIME 340 sec Referenc e Range: 74-137 (BEAKER) (test code = 441) secon ds, Baseline/TESTED AT [address] [address] [id number] 22:22:00 Test Item Value Reference Range Comments ACTIVATED CLOTTING TIME 219 sec Referenc e Range: 74-137 (BEAKER) (test code = 441) secon ds, Baseline/TESTED AT [address] [address] [id number] 22:22:00 Test Item Value Reference Range Comments ACTIVATED CLOTTING TIME 252 sec Referenc e Range: 74-137 (BEAKER) (test code = 441) secon ds, Baseline/TESTED AT [address] [address] [id number] 22:22:00 Test Item Value Reference Range Comments ACTIVATED CLOTTING TIME 257 sec Referenc e Range: 74-137 (BEAKER) (test code = 441) venkat shelton, Baseline/TESTED AT [facility] [address] [facility] [address] [id number] 22:22:00 Test Item Value Reference Range Comments ACTIVATED CLOTTING TIME 224 sec Referenc e Range: 74-137 (BEAKER) (test code = 441) venkat shelton, Baseline/TESTED AT [facility] [address] [facility] [address] GLUCOSE-STAT [id number] 22:20:00 Test Item Value Reference Range Comments GLUCOSE RANDOM (BEAKER) (test code = 652) 101 mg/dL 70-110 SODIUM NA-STAT [id number] 22:20:00 Test Item Value Reference Range Comments SODIUM (BEAKER) (test code = 381) 136 meq/L 135-148 POTASSIUM-STAT [id number] 22:20:00 Test Item Value Reference Range Comments POTASSIUM (BEAKER) (test code = 379) 4.0 meq/L 3.6-5.5 BLOOD GAS, [id number] 22:20:00 Test Item Value Reference Range Comments PH ARTERIAL (BEAKER) (test code = 383) 7.28 7.35-7.45 PCO2 ARTERIAL (BEAKER) (test code = 384) 48 mmHg 35-45 PO2 ARTERIAL (BEAKER) (test code = 385) 181 mmHg 80-90 O2 SATURATION ARTERIAL (BEAKER) (test code = 99.1 % 96. 0-97.0 386) HCO3 ARTERIAL (BEAKER) (test code = 388) 22 mmol/L 21-29 BASE EXCESS ARTERIAL (BEAKER) (test code = 387) -4.5 mmol/L -2.0-3.0 PATIENT TEMPERATURE (BEAKER) (test code = 1818) 36.5 C FIO2 (BEAKER) (test code = 1819) 100.0 % HGB/HCT (H&H) - STAT [id number] 22:20:00 Test Item Value Reference Range Comments HEMOGLOBIN (BEAKER) (test code = 410) 11.0 g/dL 13.0-16.8 HEMATOCRIT (BEAKER) (test code = 411) 32.0 % 40.0-50.0 CALCIUM, [id number] 22:20:00 Test Item Value Reference Range Comments CALCIUM IONIZED (BEAKER) (test code = 698) 1.08 mmol/L 1.12- 1.27 PH, BLOOD (BEAKER) (test code = 1810) 7.28 CALCIUM, [id number] 21:14:00 Test Item Value Reference Range Comments CALCIUM IONIZED (BEAKER) (test code = 698) 1.09 mmol/L 1.12- 1.27 PH, BLOOD (BEAKER) (test code = 1810) 7.26 GLUCOSE-STAT [id number] 21:13:00 Test Item Value Reference Range Comments GLUCOSE RANDOM (BEAKER) (test code = 652) 97 mg/dL 70-110 SODIUM NA-STAT [id number] 21:13:00 Test Item Value Reference Range Comments SODIUM (BEAKER) (test code = 381) 135 meq/L 135-148 POTASSIUM-STAT [id number] 21:13:00 Test Item Value Reference Range Comments POTASSIUM (BEAKER) (test code = 379) 4.6 meq/L 3.6-5.5 BLOOD GAS, [id number] 21:13:00 Test Item Value Reference Range Comments PH ARTERIAL (BEAKER) (test code = 383) 7.26 7.35-7.45 PCO2 ARTERIAL (BEAKER) (test code = 384) 52 mmHg 35-45 PO2 ARTERIAL (BEAKER) (test code = 385) 226 mmHg 80-90 O2 SATURATION ARTERIAL (BEAKER) (test code = 99.3 % 96. 0-97.0 386) HCO3 ARTERIAL (BEAKER) (test code = 388) 23 mmol/L 21-29 BASE EXCESS ARTERIAL (BEAKER) (test code = 387) -4.3 mmol/L -2.0-3.0 PATIENT TEMPERATURE (BEAKER) (test code = 1818) 36.5 C FIO2 (BEAKER) (test code = 1819) 100.0 % HGB/HCT (H&H) - STAT [id number] 21:13:00 Test Item Value Reference Range Comments HEMOGLOBIN (BEAKER) (test code = 410) 11.0 g/dL 13.0-16.8 HEMATOCRIT (BEAKER) (test code = 411) 32.0 % 40.0-50.0 BLOOD GAS, [id number] 20:07:00 Test Item Value Reference Range Comments PH ARTERIAL (BEAKER) (test code = 383) 7.30 7.35-7.45 PCO2 ARTERIAL (BEAKER) (test code = 384) 47 mmHg 35-45 PO2 ARTERIAL (BEAKER) (test code = 385) 248 mmHg 80-90 O2 SATURATION ARTERIAL (BEAKER) (test code = 99.5 % 96. 0-97.0 386) HCO3 ARTERIAL (BEAKER) (test code = 388) 23 mmol/L 21-29 BASE EXCESS ARTERIAL (BEAKER) (test code = 387) -3.4 mmol/L -2.0-3.0 PATIENT TEMPERATURE (BEAKER) (test code = 1818) 36.4 C FIO2 (BEAKER) (test code = 1819) 100.0 % POTASSIUM-STAT [id number] 20:07:00 Test Item Value Reference Range Comments POTASSIUM (BEAKER) (test code = 379) 2.8 meq/L 3.6-5.5 HGB/HCT (H&H) - STAT [id number] 20:07:00 Test Item Value Reference Range Comments HEMOGLOBIN (BEAKER) (test code = 410) 10.9 g/dL 13.0-16.8 HEMATOCRIT (BEAKER) (test code = 411) 32.0 % 40.0-50.0 CALCIUM, [id number] 20:07:00 Test Item Value Reference Range Comments CALCIUM IONIZED (BEAKER) (test code = 698) 1.01 mmol/L 1.12- 1.27 PH, BLOOD (BEAKER) (test code = 1810) 7.30 GLUCOSE-STAT [id number] 20:06:00 Test Item Value Reference Range Comments GLUCOSE RANDOM (BEAKER) (test code = 652) 93 mg/dL 70-110 SODIUM NA-STAT [id number] 20:06:00 Test Item Value Reference Range Comments SODIUM (BEAKER) (test code = 381) 135 meq/L 135-148 BLOOD GAS, [id number] 19:04:00 Test Item Value Reference Range Comments PH ARTERIAL (BEAKER) (test code = 383) 7.37 7.35-7.45 PCO2 ARTERIAL (BEAKER) (test code = 384) 40 mmHg 35-45 PO2 ARTERIAL (BEAKER) (test code = 385) 198 mmHg 80-90 O2 SATURATION ARTERIAL (BEAKER) (test code = 99.3 % 96. 0-97.0 386) HCO3 ARTERIAL (BEAKER) (test code = 388) 23 mmol/L 21-29 BASE EXCESS ARTERIAL (BEAKER) (test code = 387) -2.7 mmol/L -2.0-3.0 PATIENT TEMPERATURE (BEAKER) (test code = 1818) 36.3 C FIO2 (BEAKER) (test code = 1819) 100.0 % POTASSIUM-STAT [id number] 19:04:00 Test Item Value Reference Range Comments POTASSIUM (BEAKER) (test code = 379) 2.4 meq/L 3.6-5.5 HGB/HCT (H&H) - STAT [id number] 19:04:00 Test Item Value Reference Range Comments HEMOGLOBIN (BEAKER) (test code = 410) 11.4 g/dL 13.0-16.8 HEMATOCRIT (BEAKER) (test code = 411) 34.0 % 40.0-50.0 CALCIUM, [id number] 19:04:00 Test Item Value Reference Range Comments CALCIUM IONIZED (BEAKER) (test code = 698) 1.11 mmol/L 1.12- 1.27 PH, BLOOD (BEAKER) (test code = 1810) 7.37 GLUCOSE-STAT [id number] 19:03:00 Test Item Value Reference Range Comments GLUCOSE RANDOM (BEAKER) (test code = 652) 92 mg/dL 70-110 SODIUM NA-STAT [id number] 19:03:00 Test Item Value Reference Range Comments SODIUM (BEAKER) (test code = 381) 140 meq/L 135-148 [id number] 05:00:00 Test Item Value Reference Range Comments PHOSPHORUS (BEAKER) (test code = 604) 3.0 mg/dL 2.3-4.7 [id number] 05:00:00 Test Item Value Reference Range Comments MAGNESIUM (BEAKER) (test code = 627) 2.1 mg/dL 1.6-2.6 BASIC METABOLIC [id number] 05:00:00 Test Item Value Reference Range Comments SODIUM (BEAKER) (test 140 meq/L 136-145 code = 381) POTASSIUM (BEAKER) (test 3.1 meq/L 3.5-5.1 code = 379) CHLORIDE (BEAKER) (test 111 meq/L 98-107 code = 382) CO2 (BEAKER) (test code = 22 meq/L 22-29 355) BLOOD UREA NITROGEN 17 mg/dL 7-21 (BEAKER) (test code = 354) CREATININE (BEAKER) (test 1.46 mg/dL 0.57-1.25 code = 358) GLUCOSE RANDOM (BEAKER) 90 mg/dL 70-105 (test code = 652) CALCIUM (BEAKER) (test 8.8 mg/dL 8.4-10.2 code = 697) EGFR (BEAKER) (test code 48 mL/min/1.73 sq m EST IMATED GFR IS NOT = 1092) ACCURATE CREA TININE CLEARANCE IN PRE DICTING GLOMERULAR FILTR ATION RATE. ESTIMATED GFR IS NOT APPLICABLE F OR DIALYSIS PATIENT S. CBC (HEMOGRAM ONLY)2018-12-25 04:53:00 Test Item Value Reference Range Comments WHITE BLOOD CELL COUNT 10.1 K/ L 3.5-10.5 (BEAKER) (test code = 775) RED BLOOD CELL COUNT (BEAKER) 3.37 M/ L 4.63-6.08 (test code = 761) HEMOGLOBIN (BEAKER) (test 10.7 GM/DL 13.7-17.5 code = 410) HEMATOCRIT (BEAKER) (test 33.0 % 40.1-51.0 code = 411) MEAN CORPUSCULAR VOLUME 97.9 fL 79.0-92.2 Discorda nt MCV results (BEAKER) (test code = 753) timur red to previous results; clinica l correlation requ ired. MEAN CORPUSCULAR HEMOGLOBIN 31.8 pg 25.7-32.2 (BEAKER) (test code = 751) MEAN CORPUSCULAR HEMOGLOBIN 32.4 GM/DL 32.3-36.5 CONC (BEAKER) (test code = 752) RED CELL DISTRIBUTION WIDTH 13.7 % 11.6-14.4 (BEAKER) (test code = 412) PLATELET COUNT (BEAKER) (test 167 K/CU MM 150-450 code = 756) MEAN PLATELET VOLUME (BEAKER) 10.5 fL 9.4-12.4 (test code = 754) NUCLEATED RED BLOOD CELLS 0 /100 WBC 0-0 (BEAKER) (test code = 413) [id number] 04:48:00 Test Item Value Reference Range Comments PARTIAL THROMBOPLASTIN TIME (BEAKER) (test code 39.6 seconds 22.5-36.0 = 760) PROTHROMBIN [id number] 04:47:00 Test Item Value Reference Range Comments PROTIME (BEAKER) (test code = 759) 16.5 seconds 11.9-14.2 INR (BEAKER) (test code = 370) 1.4 <=5.9 Effective 07/31/2018: PT Reference Range ChangeNew: 11.9-14.2 Previous: 11.7- 14.7RECOMMENDED COUMADIN/WARFARIN INR THERAPY RANGESSTANDARD DOSE: 2.0-3.0 Includes: PROPHYLAXIS for venous thrombosis, systemic embolization; TREATMENT for venous thrombosis and/or pulmonary embolus.HIGH RISK: Target INR is2.5-3.5 for patients wiht mechanical heart valves.CTA, CHEST, ABDOMEN - PELVIS, FOR [id number] 16:52:00Addendum BeginsREPORT STATUS:A Addendum: I agree with the previously described non vascular findings. Signed: Chris Spencer MDRepcory Verified Date/Time: 12/24/2018 16:52:26 Corina marks Location: [place] [address] Angio Body Reading RoomAddendum EndsFINAL REPORT CT angiography of the thoracoabdominal aorta and pelvic arteries, 23 December 2018 INDICATION: This is a 68 year old male with a diagnosis of aortic aneurysm presents for assessment. TECHNIQUE: Spiral a cquisition before and during intravenous contrast administration using a Karrie multidetector CT scanner. Images were obtained before and during the dynamic passage of intravenous contrast material. Multi-planar 3-D volume-rendering reconstruction was performed using an independent workstation [...] the aneurysmal dilation is 6.9 x 6.6 cm, with circumferential intraluminal [...] approach could be the more optimal approach. Advertising Intern dimension of the left and the right [...] is no evidence of acute aortic pathology, specifically,there is no dissection, intramural hematoma, or contained rupture. The arch vessel branching patternis normal and the visualized arch vessels are widely patent proximally. Nonobstructive noncalcific atherosclerosis is seen at the takeoff of the left subclavian artery, image 46. Quantitative dimensions of the aorta are as follows: 3.7 x 3.7 cm at the sinuses of Valsalva (the sino- tubular junction is preserved); 3.5 x 3.4 cm [...] has been already been described by the [employer] Layer Radiologist. See formal dictation for details. In [...] rim-enhancing is identified. See recent dictation by Sew[employer] P[employer] Layer Radiologist for details. Once again of note, as described by the [employer] Layer Radiologist, a focus of inflammatory fat stranding [...] aorta. Increasing atherosclerosis is identified in the descending thoracic aorta with protruding noncalcific atheroma identified. Aneurysmal [...] dictated, however, the referring physician is the [employer] Cardiovascular Surgeon of the [facility], therefore no recommendation is necessary. Substantial angulation [...] be dictated regarding the non-vascularfindings by the [employer] P[employer] Layer Radiologist. Signed: Tahir Aritaeport Verified Date/Time: 12/24/2018 07:57:30 [id number] 05:30:00 Test Item Value Reference Range Comments PARTIAL THROMBOPLASTIN TIME (BEAKER) (test code 35.2 seconds 22.5-36.0 = 760) PROTHROMBIN [id number] 05:29:00 Test Item Value Reference Range Comments PROTIME (BEAKER) (test code = 759) 13.8 seconds 11.9-14.2 INR (BEAKER) (test code = 370) 1.1 <=5.9 Effective 07/31/2018: PT Reference Range ChangeNew: 11.9-14.2 Previous: 11.7- 14.7RECOMMENDED COUMADIN/WARFARIN INR THERAPY RANGESSTANDARD DOSE: 2.0-3.0 Includes: PROPHYLAXIS for venous thrombosis, systemic embolization; TREATMENT for venous thrombosis and/or pulmonary embolus.HIGH RISK: Target INR is2.5-3.5 for patients wiht mechanical heart valves.[id number] 04:10:00 Test Item Value Reference Range Comments PHOSPHORUS (BEAKER) (test code = 604) 2.4 mg/dL 2.3-4.7 [id number] 04:10:00 Test Item Value Reference Range Comments MAGNESIUM (BEAKER) (test code = 627) 2.2 mg/dL 1.6-2.6 BASIC METABOLIC [id number] 04:10:00 Test Item Value Reference Range Comments SODIUM (BEAKER) (test 136 meq/L 136-145 code = 381) POTASSIUM (BEAKER) (test 3.4 meq/L 3.5-5.1 code = 379) CHLORIDE (BEAKER) (test 106 meq/L 98-107 code = 382) CO2 (BEAKER) (test code = 24 meq/L -29 355) BLOOD UREA NITROGEN 21 mg/dL 7-21 (BEAKER) (test code = 354) CREATININE (BEAKER) (test 1.54 mg/dL 0.57-1.25 code = 358) GLUCOSE RANDOM (BEAKER) 124 mg/dL 70-105 (test code = 652) CALCIUM (BEAKER) (test 8.8 mg/dL 8.4-10.2 code = 697) EGFR (BEAKER) (test code 45 mL/min/1.73 sq m EST IMATED GFR IS NOT = 1092) ACCURATE CREA TININE CLEARANCE IN PRE DICTING GLOMERULAR FILTR ATION RATE. ESTIMATED GFR IS NOT APPLICABLE F OR DIALYSIS PATIENT S. CBC (HEMOGRAM ONLY)2018-12-24 03:42:00 Test Item Value Reference Range Comments WHITE BLOOD CELL COUNT (BEAKER) (test code = 12.3 K/ L 3.5 -10.5 775) RED BLOOD CELL COUNT (BEAKER) (test code = 761) 3.66 M/ L 4.63-6.08 HEMOGLOBIN (BEAKER) (test code = 410) 11.4 GM/DL 13.7-17.5 HEMATOCRIT (BEAKER) (test code = 411) 33.9 % 40.1-51.0 MEAN CORPUSCULAR VOLUME (BEAKER) (test code = 92.6 fL 79 .0-92.2 753) MEAN CORPUSCULAR HEMOGLOBIN (BEAKER) (test code 31.1 pg 25.7-32.2 = 751) MEAN CORPUSCULAR HEMOGLOBIN CONC (BEAKER) (test 33.6 GM/DL 32.3-36.5 code = 752) RED CELL DISTRIBUTION WIDTH (BEAKER) (test code 13.2 % 11.6-14.4 = 412) PLATELET COUNT (BEAKER) (test code = 756) 193 K/CU MM 150-45 0 MEAN PLATELET VOLUME (BEAKER) (test code = 754) 10.3 fL 9.4-12.4 NUCLEATED RED BLOOD CELLS (BEAKER) (test code = 0 /100 WBC 0-0 413) POCT-GLUCOSE [id number] 00:04:00 Test Item Value Reference Range Comments POC-GLUCOSE METER (BEAKER) 112 mg/dL 70-110 TESTE D AT [address] (test code = 1538) [facility] [address] RAD, CHEST, 1 VIEW, NON [id number] 10:30:00Reason for exam:->Post-opShould this be performed at the bedside?->YesFINAL REPORT CLINICAL HISTORY: Post-op TECHNIQUE: 1 view of the chest. COMPARISON: CT 12/23/2018 IMPRESSION: There are coarsened lung markings without focal infiltrates or effusions. The cardiomediastinal silhouette is magnified by technique. Tortuosity of the thoracic aorta again seen. Signed: Shreya Abreu MDReport Verified Date/Time: 12/23/2018 10:30:21 Reading Location: [facility] Radiology Reading Room 10:30 AMLACTIC ACID, [id number] 04:16:00 Test Item Value Reference Range Comments LACTATE BLOOD ARTERIAL (2) (BEAKER) (test code = 0.5 mmol/L 0.5-2.2 2874) BASIC METABOLIC [id number] 04:16:00 Test Item Value Reference Range Comments SODIUM (BEAKER) (test 136 meq/L 136-145 code = 381) POTASSIUM (BEAKER) (test 3.2 meq/L 3.5-5.1 code = 379) CHLORIDE (BEAKER) (test 102 meq/L 98-107 code = 382) CO2 (BEAKER) (test code = 25 meq/L 22-29 355) BLOOD UREA NITROGEN 28 mg/dL 7-21 (BEAKER) (test code = 354) CREATININE (BEAKER) (test 1.87 mg/dL 0.57-1.25 code = 358) GLUCOSE RANDOM (BEAKER) 116 mg/dL 70-105 (test code = 652) CALCIUM (BEAKER) (test 9.2 mg/dL 8.4-10.2 code = 697) EGFR (BEAKER) (test code 36 mL/min/1.73 sq m EST IMATED GFR IS NOT = 1092) ACCURATE CREA TININE CLEARANCE IN PRE DICTING GLOMERULAR FILTR ATION RATE. ESTIMATED GFR IS NOT APPLICABLE F OR DIALYSIS PATIENT S. [id number] 04:13:00 Test Item Value Reference Range Comments PARTIAL THROMBOPLASTIN TIME (BEAKER) (test code 34.4 seconds 22.5-36.0 = 760) PROTHROMBIN TIME/[id number] 04:12:00 Test Item Value Reference Range Comments PROTIME (BEAKER) (test code = 759) 13.3 seconds 11.9-14.2 INR (BEAKER) (test code = 370) 1.1 <=5.9 Effective 07/31/2018: PT Reference Range ChangeNew: 11.9-14.2 Previous: 11.7- 14.7RECOMMENDED COUMADIN/WARFARIN INR THERAPY RANGESSTANDARD DOSE: 2.0-3.0 Includes: PROPHYLAXIS for venous thrombosis, systemic embolization; TREATMENT for venous thrombosis and/or pulmonary embolus.HIGH RISK: Target INR is2.5-3.5 for patients wiht mechanical heart valves.BLOOD GAS, [id number] 03:55:00 Test Item Value Reference Range Comments PH ARTERIAL (BEAKER) (test code = 383) 7.48 7.35-7.45 PCO2 ARTERIAL (BEAKER) (test code = 384) 34 mmHg 35-45 PO2 ARTERIAL (BEAKER) (test code = 385) 64 mmHg 80-90 O2 SATURATION ARTERIAL (BEAKER) (test code = 386) 94.2 % 96.0-97.0 HCO3 ARTERIAL (BEAKER) (test code = 388) 25 mmol/L 21-29 BASE EXCESS ARTERIAL (BEAKER) (test code = 387) 1.5 mmol/L -2.0-3.0 PATIENT TEMPERATURE (BEAKER) (test code = 1818) 36.7 C FIO2 (BEAKER) (test code = 1819) 21.0 % CBC (HEMOGRAM ONLY)2018-12-23 03:48:00 Test Item Value Reference Range Comments WHITE BLOOD CELL COUNT (BEAKER) (test code = 14.4 K/ L 3.5 -10.5 775) RED BLOOD CELL COUNT (BEAKER) (test code = 761) 3.97 M/ L 4.63-6.08 HEMOGLOBIN (BEAKER) (test code = 410) 12.5 GM/DL 13.7-17.5 HEMATOCRIT (BEAKER) (test code = 411) 36.9 % 40.1-51.0 MEAN CORPUSCULAR VOLUME (BEAKER) (test code = 92.9 fL 79 .0-92.2 753) MEAN CORPUSCULAR HEMOGLOBIN (BEAKER) (test code 31.5 pg 25.7-32.2 = 751) MEAN CORPUSCULAR HEMOGLOBIN CONC (BEAKER) (test 33.9 GM/DL 32.3-36.5 code = 752) RED CELL DISTRIBUTION WIDTH (BEAKER) (test code 13.2 % 11.6-14.4 = 412) PLATELET COUNT (BEAKER) (test code = 756) 180 K/CU MM 150-45 0 MEAN PLATELET VOLUME (BEAKER) (test code = 754) 10.0 fL 9.4-12.4 NUCLEATED RED BLOOD CELLS (BEAKER) (test code = 0 /100 WBC 0-0 413) CT, CHEST, WITHOUT [id number] 02:30:00Reason for exam:->AAA found on OSH renal [...] was not given. This exam was performed acc ording to our departmental dose-optimization program, which includes automated exposure control, adjustment of the mA and/or kV according to patient size and/or use of the iterative reconstruction technique. Comparison: None. Chest: Lung parenchyma: Mild emphysematous changes [...] seen on coronal image 41 and axial [id number]. Evaluation is limited by lack of IV [...] the time of dictation. Signed: Paul Tejeda Verified Date/Time: 12/23/2018 02:27:28 CT, [id number] 02:30:00Reason for exam:->AAA, finding on OSH renal U/SAddendum BeginsREPORT STATUS:A Findings were discussed with Dr. Reddy of the vascular surgery service at the time of dictation. An additional recommendation of follow-up colonoscopy when clinically feasible is recommended to exclude a more aggressive colonic lesion. Signed: Paul Tejeda Verified Date/Time: 12/23/2018 02:30:49 Addendum EndsFINAL REPORT CLINICAL HISTORY: AAA, preop planning FINDINGS: Multiple axial images of the chest, abdomen and pelvis were performed without IV contrast. Oral contrast was not given. This exam was performed acc ording to our departmental dose-optimization program, which includes automated exposure control, adjustment of the mA and/or kV according to patient size and/or use of the iterative reconstruction technique. Comparison: None. Chest: Lung parenchyma: Mild emphysematous changes [...] seen on coronal image 41 and axial [id number]. Evaluation is limited by lack of IV [...] dictation. Signed: Paul Tejeda MDReport Verified Date/Time: 12/23/2018 02:27:28 CBC W/PLT COUNT & AUTO [id number] 01:24:00 Test Item Value Reference Range Comments WHITE BLOOD CELL COUNT (BEAKER) (test code = 12.0 K/ L 3.5 -10.5 775) RED BLOOD CELL COUNT (BEAKER) (test code = 761) 4.11 M/ L 4.63-6.08 HEMOGLOBIN (BEAKER) (test code = 410) 12.7 GM/DL 13.7-17.5 HEMATOCRIT (BEAKER) (test code = 411) 38.3 % 40.1-51.0 MEAN CORPUSCULAR VOLUME (BEAKER) (test code = 93.2 fL 79 .0-92.2 753) MEAN CORPUSCULAR HEMOGLOBIN (BEAKER) (test code 30.9 pg 25.7-32.2 = 751) MEAN CORPUSCULAR HEMOGLOBIN CONC (BEAKER) (test 33.2 GM/DL 32.3-36.5 code = 752) RED CELL DISTRIBUTION WIDTH (BEAKER) (test code 13.2 % 11.6-14.4 = 412) PLATELET COUNT (BEAKER) (test code = 756) 183 K/CU MM 150-45 0 MEAN PLATELET VOLUME (BEAKER) (test code = 754) 11.2 fL 9.4-12.4 NUCLEATED RED BLOOD CELLS (BEAKER) (test code = 0 /100 WBC 0-0 413) NEUTROPHILS RELATIVE PERCENT (BEAKER) (test code 80 % = 429) LYMPHOCYTES RELATIVE PERCENT (BEAKER) (test code 11 % = 430) MONOCYTES RELATIVE PERCENT (BEAKER) (test code = 8 % 431) EOSINOPHILS RELATIVE PERCENT (BEAKER) (test code 1 % = 432) BASOPHILS RELATIVE PERCENT (BEAKER) (test code = 1 % 437) NEUTROPHILS ABSOLUTE COUNT (BEAKER) (test code = 9.51 K/ L 1.78-5.38 670) LYMPHOCYTES ABSOLUTE COUNT (BEAKER) (test code = 1.28 K/ L 1.32-3.57 414) MONOCYTES ABSOLUTE COUNT (BEAKER) (test code = 0.96 K/ L 0 .30-0.82 415) EOSINOPHILS ABSOLUTE COUNT (BEAKER) (test code = 0.09 K/ L 0.04-0.54 416) BASOPHILS ABSOLUTE COUNT (BEAKER) (test code = 0.06 K/ L 0 .01-0.08 417) IMMATURE GRANULOCYTES-RELATIVE PERCENT (BEAKER) 1 % 0-1 (test code = 2801) PROTHROMBIN TIME/[id number] 01:19:00 Test Item Value Reference Range Comments PROTIME (BEAKER) (test code = 759) 13.2 seconds 11.9-14.2 INR (BEAKER) (test code = 370) 1.0 <=5.9 Effective 07/31/2018: PT Reference Range ChangeNew: 11.9-14.2 Previous: 11.7- 14.7RECOMMENDED COUMADIN/WARFARIN INR THERAPY RANGESSTANDARD DOSE: 2.0-3.0 Includes: PROPHYLAXIS for venous thrombosis, systemic embolization; TREATMENT for venous thrombosis and/or pulmonary embolus.HIGH RISK: Target INR is2.5-3.5 for patients wiht mechanical heart valves.[id number] 01:19:00 Test Item Value Reference Range Comments PARTIAL THROMBOPLASTIN TIME (BEAKER) (test code 35.8 seconds 22.5-36.0 = 760) CALCIUM, [id number] 01:15:00 Test Item Value Reference Range Comments CALCIUM IONIZED (BEAKER) (test code = 698) 1.02 mmol/L 1.12- 1.27 PH, BLOOD (BEAKER) (test code = 1810) 7.52 BLOOD GAS, [id number] 01:15:00 Test Item Value Reference Range Comments PH ARTERIAL (BEAKER) (test code = 383) 7.52 7.35-7.45 PCO2 ARTERIAL (BEAKER) (test code = 384) 32 mmHg 35-45 PO2 ARTERIAL (BEAKER) (test code = 385) 74 mmHg 80-90 O2 SATURATION ARTERIAL (BEAKER) (test code = 386) 96.3 % 96.0-97.0 HCO3 ARTERIAL (BEAKER) (test code = 388) 25 mmol/L 21-29 BASE EXCESS ARTERIAL (BEAKER) (test code = 387) 3.0 mmol/L -2.0-3.0 PATIENT TEMPERATURE (BEAKER) (test code = 1818) 36.8 C FIO2 (BEAKER) (test code = 1819) 21.0 % SODIUM NA-STAT [id number] 01:15:00 Test Item Value Reference Range Comments SODIUM (BEAKER) (test code = 381) 132 meq/L 135-148 POTASSIUM-STAT [id number] 01:15:00 Test Item Value Reference Range Comments POTASSIUM (BEAKER) (test code = 379) 2.7 meq/L 3.6-5.5 GLUCOSE-STAT [id number] 01:15:00 Test Item Value Reference Range Comments GLUCOSE RANDOM (BEAKER) (test code = 652) 123 mg/dL 70-110 HGB/HCT (H&H) - STAT [id number] 01:15:00 Test Item Value Reference Range Comments HEMOGLOBIN (BEAKER) (test code = 410) 12.8 g/dL 13.0-16.8 HEMATOCRIT (BEAKER) (test code = 411) 38.0 % 40.0-50.0 [id number] 00:51:00 Test Item Value Reference Range Comments PHOSPHORUS (BEAKER) (test code = 604) 3.0 mg/dL 2.3-4.7 [id number] 00:51:00 Test Item Value Reference Range Comments MAGNESIUM (BEAKER) (test code = 627) 2.3 mg/dL 1.6-2.6 BASIC METABOLIC [id number] 00:51:00 Test Item Value Reference Range Comments SODIUM (BEAKER) (test 134 meq/L 136-145 code = 381) POTASSIUM (BEAKER) (test 2.8 meq/L 3.5-5.1 code = 379) CHLORIDE (BEAKER) (test 99 meq/L 98-107 code = 382) CO2 (BEAKER) (test code = 25 meq/L 22-29 355) BLOOD UREA NITROGEN 29 mg/dL 7-21 (BEAKER) (test code = 354) CREATININE (BEAKER) (test 1.95 mg/dL 0.57-1.25 code = 358) GLUCOSE RANDOM (BEAKER) 128 mg/dL 70-105 (test code = 652) CALCIUM (BEAKER) (test 9.0 mg/dL 8.4-10.2 code = 697) EGFR (BEAKER) (test code 34 mL/min/1.73 sq m EST IMATED GFR IS NOT = 1092) ACCURATE CREA TININE CLEARANCE IN PRE DICTING GLOMERULAR FILTR ATION RATE. ESTIMATED GFR IS NOT APPLICABLE F OR DIALYSIS PATIENT S. LACTIC ACID, [id number] 00:45:00 Test Item Value Reference Range Comments LACTATE BLOOD ARTERIAL (2) (PHILLIP) (test code = 0.9 mmol/L 0.5-2.2 9434)
[2019-06-23 17:17] VITALS: BMI 25.4
[2019-06-23] MEDS ORDERED: ACETAMINOPHEN 500 MG TAB PO PRN (17:44)
[2019-06-23] MEDS ORDERED: ALPRAZOLAM 0.25 MG TABLET PO PRN (17:44)
[2019-06-23] MEDS ORDERED: ONDANSETRON 4 MG/2 ML VIAL IV PRN (17:44)
[2019-06-23] MEDS ORDERED: ALBUTEROL INHALER 60 PUFF/8 GM IH PRN (17:44)
--- NOTE | 2019-06-23 17:49 | P.HP ---
Certification for Inpatient Patient admitted to: Observation With expected LOS: <2 Midnights Patient will require the following post-hospital care: None Practitioner: I am a practitioner with admitting privileges, knowledge of patient current condition, hospital course, and medical plan of care. Services: Services provided to patient in accordance with Admission requirements found in Title 42 Section 412.3 of the Code of Federal Regulations Patient History Date of Service: 06/23/19 Primary Care Provider: Dr. Gracia; Nephrology-Dr. Rodríguez; Pulm-Dr. Reyes Reason for admission: SOB History of Present Illness: 68-year-old male with history of end-stage renal disease on hemodialysis, hypertension, anxiety, chronic pain with neuropathy, and CAD with pacemaker. Patient presented to the emergency room at [facility] for shortness of breath. Patient has been shortness of breath over the last several days. He denies any fever, chills, nausea or vomiting. Patient has noted increasing edema to the lower extremity. During dialysis today he became more short of breath. He was sent to the ER for further evaluation at [facility]. The patient was evaluated there. There was some suspicion of acute on chronic systolic CHF with possible COPD exacerbation. The patient was transferred to our facility for continuity of care with his nephrologists. Patient also being evaluated for COVID due to his symptoms and risk factors. Upon transfer to our hospital. Patient is stable. Some edema to the lower extremity noted Patient without significant shortness of breath. Patient is a smoker. Allergies No Known Allergies Allergy (Verified 05/15/19 01:15) Home medications list reviewed: Yes Home Medications: LORazepam [Ativan*] 1 mg PO DAILY PRN 10/17/16 Paroxetine HCl [Paxil] 10 mg PO BID 10/17/16 Losartan Potassium 100 mg PO DAILY 05/15/19 Aspirin Chewable [Aspirin Chewable*] 1 tab PO DAILY 05/17/19 carvediloL [Coreg*] 6.25 mg PO BID 05/17/19 Calcitrol [Rocaltrol*] 0.5 mcg PO DAILY #30 cap 05/21/19 Calcium Acetate [Phoslo*] 667 mg PO TIDWM #90 cap 05/21/19 Cholecalciferol (Vitamin D3) [Vitamin D 5,000 IU Cap*] 5,000 unit PO DAILY #30 cap 05/21/19 Gabapentin [Neurontin*] 100 mg PO BEDTIME #30 cap 05/21/19 - Past Medical/Surgical History Has patient received pneumonia vaccine in the past: Yes Diabetic: No -: Migraines -: Anxiety -: History of shingles -: ESRD -: Hypertension -: CHF -: Pacemaker -: Hx of AAA repair -: Tobacco abuse -: abdominal aortic aneurysm repair -: pacemaker Psychosocial/ Personal History: Patient lives at home. - Family History Father -: Diabetes Mother -: Diabetes - Social History Smoking Status: Current every day smoker Alcohol use: No CD- Drugs: No Caffeine use: No Place of Residence: Home Review of Systems General: As per HPI Eyes: Unremarkable ENT: Unremarkable Respiratory: Shortness of Breath, SOB with Excertion, As per HPI Cardiovascular: Edema, As per HPI Gastrointestinal: Unremarkable Genitourinary: Unremarkable Musculoskeletal: Pedal edema, As per HPI Integumentary: Unremarkable Neurological: Unremarkable Lymphatics: Unremarkable Physical Examination - Physical Exam General: Alert, In no apparent distress, Oriented x3, Cooperative HEENT: Atraumatic, Normocephalic, Mucous membr. moist/pink Neck: Supple Respiratory: Diminished (Bile) Cardiovascular: Normal pulses, Regular rate/rhythm Gastrointestinal: Normal bowel sounds, Soft and benign, Non-distended, No tenderness, No masses, No rebound, No guarding Integumentary: No erythema, No warmth, No cyanosis, Tenderness/swelling (2+ pitting edema to the lower extremity) Neurological: Normal speech, Normal strength at 5/5 x4 extr, Normal tone, Abnormal affect (Increased anxiety) Assessment and Plan - Plan Impression: Shortness of breath likely related to acute on chronic systolic CHF complicated with COPD exacerbation End-stage renal disease on hemodialysis Hypertension Anxiety Tobacco abuse BPH with history of urinary retention Chronic pain History of AAA repair/pacemaker Plan: Shortness of breath likely related to acute on chronic systolic CHF complicated with COPD exacerbation: Will monitor the patient closely. Due to his risk factors patient will be evaluated for COVID. Anticipate this will be negative. Will start IV Lasix. Will obtain echocardiogram to further evaluate. Will continue a 1500 cc per day fluid restriction. Case discussed with nephrology. Patient will require dialysis likely in the morning after his evaluation for COVID is negative. Will also obtain echocardiogram to further evaluate for underlying CHF. Will start prednisone 10 mg 1 pill twice daily and continue Dulera/ProAir for COPD. Will maintain oxygen saturations above 93%. Will continue to monitor closely. Will provide DVT prophylaxis. Anticipate i mprovement over the next 24 hr with likely discharge tomorrow. End-stage renal disease on hemodialysis: Some volume overload noted. Will continue as above. Patient will require dialysis. Case discussed at length with nephrology. Hypertension: Continue with losartan and carvedilol. Anxiety: Continue with Paxil. Will provide Xanax as needed. Tobacco abuse: Will provide nicotine patch. BPH with history of urinary retention: Continue Flomax. Chronic pain: Continue with gabapentin. History of AAA repair/pacemaker: Continue to monitor closely.Will check echocardiogram. Continue with aspirin. Discharge Plan: Home Plan to discharge in: 24 Hours - Advance Directives Does patient have a Living Will: Yes Does patient have a Durable POA for Healthcare: No - Code Status/Comfort Care Code Status Assessed: Yes (Patient is full code) Time Spent Managing Pts Care (In Minutes): 55
[2019-06-23] MEDS: HYDRALAZINE HCL 20 MG/ML VIAL IV PRN (17:59)
[2019-06-23] MEDS: predniSONE 10 MG TAB PO SCH (19:59)
[2019-06-23] MEDS: PARoxetine HCL 10 MG TAB PO SCH (19:59)
[2019-06-23] MEDS: TAMSULOSIN 0.4 MG SR CAP PO SCH (19:59)
[2019-06-23] MEDS: HEPARIN 5000 UNIT/ML 1 ML VIAL SQ SCH (19:59)
[2019-06-23] MEDS: GABAPENTIN 100 MG CAP PO SCH (19:59)
[2019-06-23] MEDS: carvediloL 6.25 MG TAB PO SCH (20:00)
[2019-06-23] MEDS: DULERA 100/5 (MOMETASONE/FORMOTEROL) INHALER IH SCH (21:00)
[2019-06-24] MEDS: HYDRALAZINE HCL 20 MG/ML VIAL IV PRN (00:08)
[2019-06-24 05:43] LABS: Absolute Lymphocytes (CBC) 0.6 K/uL (0.7-4.9); Basophils % 0.3 % (0-1.3); Lymphocytes % 10.2 % (15.3-44.8)
[2019-06-24 06:05] LABS: Magnesium 2.8 mg/dL (1.8-2.4); Potassium 4.5 mmol/L (3.5-5.1)
[2019-06-24 06:28] LABS: Anisocytosis SLIGHT; Blood Morphology Comment NOTED (NOT SEEN); Macrocytosis 1+; Platelet Estimate ADEQ
[2019-06-24] MEDS ORDERED: MANNITOL 25% 12.5 GM/50 ML VIAL IV PRN (08:49)
[2019-06-24] MEDS ORDERED: NA CHLORIDE 0.9% 1,000 ML IV PRN (08:49)
[2019-06-24] MEDS ORDERED: EPOETIN ALFA-EPBX 10,000 UNIT/ML VIAL SQ ONE (08:51)
[2019-06-24] MEDS: carvediloL 6.25 MG TAB PO SCH (08:52)
[2019-06-24] MEDS: HEPARIN 5000 UNIT/ML 1 ML VIAL SQ SCH (08:52)
[2019-06-24] MEDS: PARoxetine HCL 10 MG TAB PO SCH (08:52)
[2019-06-24] MEDS: CA ACETATE 667 MG CAP PO SCH ×3 (08:53→17:00)
[2019-06-24] MEDS: predniSONE 10 MG TAB PO SCH (08:53)
[2019-06-24] MEDS: FUROSEMIDE 40 MG/4 ML VIAL IV SCH ×2 (08:53→17:24)
[2019-06-24] MEDS: GABAPENTIN 100 MG CAP PO SCH (08:53)
[2019-06-24] MEDS: TAMSULOSIN 0.4 MG SR CAP PO SCH (08:53)
[2019-06-24] MEDS: DULERA 100/5 (MOMETASONE/FORMOTEROL) INHALER IH SCH (08:54)
[2019-06-24] MEDS ORDERED: LOSARTAN POTASSIUM 50 MG TABLET PO SCH (09:00)
[2019-06-24] MEDS ORDERED: CALCITROL 0.25 MCG CAP PO ONE (09:00)
[2019-06-24] MEDS ORDERED: ALBUMIN HUMAN 25% 50 ML IV SCH (09:00)
[2019-06-24] MEDS ORDERED: ASPIRIN EC 81 MG TAB PO SCH (09:00)
[2019-06-24] MEDS ORDERED: VITAMIN D 5,000 UNIT CAP PO SCH (09:00)
[2019-06-24] MEDS ORDERED: NICOTINE 21 MG/PAT TD SCH (09:00)
[2019-06-24] MEDS ORDERED: CALCITROL 0.25 MCG CAP PO SCH (09:00)
[2019-06-24] MEDS ORDERED: MULTIVITAMINS,THERAPEUT 1 TAB PO SCH (09:00)
--- NOTE | 2019-06-24 10:41 | P.DS ---
Admission Date: 06/23/19 Discharge Date: 06/24/19 Primary Care Provider: Dr. Gracia; Nephrology-Dr. Rodríguez; Pulm-Dr. Reyes Disposition: ROUTINE DISCHARGE Discharge Condition: GOOD Reason for Admission: SOB Consultations: Nephrology-Dr. Rodríguez Pulmonary-Dr. Reyes Procedures: Medical problem list: Shortness of breath likely related to acute on chronic systolic CHF complicated with COPD exacerbation End-stage renal disease on hemodialysis Hypertension Anxiety Tobacco abuse BPH with history of urinary retention Chronic pain History of AAA repair/pacemaker Brief History of Present Illness: 68-year-old male with history of end-stage renal disease on hemodialysis, hypertension, anxiety, chronic pain with neuropathy, and CAD with pacemaker. Patient presented to the emergency room at [facility] for shortness of breath. Patient has been shortness of breath over the last several days. He d enies any fever, chills, nausea or vomiting. Patient has noted increasing edema to the lower extremity. During dialysis today he became more short of breath. He was sent to the ER for further evaluation at [facility]. The patient was evaluated there. There was some suspicion of acute on chronic systolic CHF with possible COPD exacerbation. The patient was transferred to our facility fo r continuity of care with his nephrologists. Patient also being evaluated for COVID due to his symptoms and risk factors. Upon transfer to our hospital. Patient is stable. Some edema to the lower extremity noted Patient without significant shortness of breath. Patient is a smoker. Hospital Course: Patient presented with shortness of breath likely from acute on chronic systolic CHF complicated with COPD exacerbation. Patient was transferred from [facility] to breath support to continue his care for continuity. Patient received IV Lasix. Patient also received steroids and breathing treatments. His condition has improved. Patient was started on a fluid restriction. Patient receives dialysis. Echocardiogram obtained to evaluate CHF. Pulmonology was consulted as well. At discharge for his COPD will continue with Symbicort 2 puffs twice daily. Patient may continue with albuterol nebs 1 unit dose 3 times a day as needed for shortness of breath. Patient will also continue with prednisone 10 mg daily for the next 5 days. Case discussed with pulmonology. Recommend follow up with pulmonology in 1-2 weeks to monitor his progress and further address his COPD. For his CHF patient will continue a 1500 cc per day fluid restriction and low-salt diet. Patient will continue with dialysis as directed by nephrology. Nephrology will continue to work to do case his fluid intake and decrease his dry await. Patient will continue with Lasix 40 mg daily. Recommend to monitor weight daily. He is to keep track of this. Recommend follow up with nephrology in 1-2 weeks to monitor his care. If his weight increases by more than 5 lb he is to contact nephrology for further recommendation. Patient with end-stage renal disease on hemodialysis. Patient likely with volume overload related to CHF. Patient require dialysis. Case discussed at length with nephrology. Continue with above recommendations. Patient will continue with his medications of calcitriol, PhosLo and vitamin-D. Patient with hypertension. This has remained stable. At discharge he will continue with losartan and carvedilol. Recommend to maintain blood pressures less 150/80. Further adjustment can be done by nephrology. Patient with anxiety. At discharge, patient will continue with Paxil and benzodiazepine. Patient with increase anxiety. Patient required medication during the hospital stay. Patient with BPH with history of urinary retention. At discharge he will continue with Flomax. Patient with chronic pain. At discharge he will continue with gabapentin. Patient with history of AAA repair and pacemaker. Echocardiogram obtained. Patient may continue with aspirin 81 mg daily. Patient may follow up with cardiology as directed. Patient with tobacco abuse. Tobacco cessation education provided. Will provide Nicoderm medication to help with his cessation. Vital Signs/Physical Exam: Temp Pulse Resp BP Pulse Ox 97.8 F 82 18 136/96 H 94 06/24/19 08:00 06/24/19 08:53 06/24/19 08:00 06/24/19 08:53 06/24/19 08:00 General: Alert, In no apparent distress, Oriented x3, Cooperative HEENT: Atraumatic Neck: Supple Respiratory: Clear to auscultation bilaterally, Normal air movement Cardiovascular: Normal pulses, Regular rate/rhythm Gastrointestinal: Normal bowel sounds, Soft and benign, Non-distended, No masses, No rebound, No guarding Integumentary: No tenderness/swelling, No erythema, No warmth, No cyanosis Neurological: Normal speech, Normal strength at 5/5 x4 extr, Normal tone, Abnormal affect (Some anxiety noted) Laboratory Data at Discharge: WBC 5.4 K/uL (4.3-10.9) 06/24/19 05:14 Hgb 9.5 g/dL (13.6-17.9) L 06/24/19 05:14 Hct 30.0 % (39.6-49.0) L 06/24/19 05:14 Plt Count 127 K/uL (152-406) L 06/24/19 05:14 Sodium 137 mmol/L (136-145) 06/24/19 05:14 Potassium 4.5 mmol/L (3.5-5.1) 06/24/19 05:14 BUN 41 mg/dL (7-18) H 06/24/19 05:14 Creatinine 5.02 mg/dL (0.55-1.3) H* 06/24/19 05:14 Glucose 135 mg/dL (74-106) H 06/24/19 05:14 Magnesium 2.8 mg/dL (1.8-2.4) H D 06/24/19 05:14 Home Medications: LORazepam [Ativan*] 1 mg PO DAILY PRN 10/17/16 Paroxetine HCl [Paxil] 20 mg PO BID 10/17/16 Losartan Potassium 100 mg PO DAILY 05/15/19 Aspirin Chewable [Aspirin Chewable*] 1 tab PO DAILY 05/17/19 carvediloL [Coreg*] 6.25 mg PO BID 05/17/19 Calcium Acetate [Phoslo*] 667 mg PO TIDWM #90 cap 05/21/19 Cholecalciferol (Vitamin D3) [Vitamin D 5,000 IU Cap*] 5,000 unit PO DAILY #30 cap 05/21/19 Calcitrol [Rocaltrol*] 0.5 mcg PO BEDTIME 06/23/19 Gabapentin [Neurontin*] 200 mg PO BID 06/23/19 Tamsulosin [Flomax*] 0.4 mg PO BID 06/23/19 Budesonide/Formoterol Fumarate [Symbicort 160-4.5 Mcg Inhaler] 2 puff IH BID #1 hfa.aer.ad 06/24/19 Nicotine [Nicoderm*] 21 mg TD DAILY #30 patch.td24 06/24/19 predniSONE [Deltasone*] 10 mg PO DAILY #5 tab 06/24/19 New Medications: predniSONE [Deltasone*] 10 mg PO DAILY #5 tab Nicotine [Nicoderm*] 21 mg TD DAILY #30 patch.td24 Budesonide/Formoterol Fumarate [Symbicort 160-4.5 Mcg Inhaler] 2 puff IH BID #1 hfa.aer.ad Patient Discharge Instructions: 1. Recommend follow up with PCP in 1 week to follow up this hospitalization. 2. Patient presented with shortness of breath likely from acute on chronic systolic CHF complicated with COPD exacerbation. Patient was transferred from [facility] to [facility] to continue his care for continuity. Patient received IV Lasix. Patient also received steroids and breathing treatments. His condition has improved. Patient was started on a fluid restriction. Patient receives dialysis. Echocardiogram obtained to evaluate CHF. Pulmonology was consulted as well. At discharge for his COPD will recommend to start Advair 1 puff twice daily. Patient may continue with albuterol nebs 1 unit dose 3 times a day as needed for shortness of breath. Patient will also continue with prednisone 10 mg daily for the next 5 days. Recommend follow up with pulmonology in 1-2 weeks to monitor his progress and further address his COPD. For his CHF patient will continue a 1500 cc per day fluid restriction and low-salt diet. Patient will continue with dialysis as directed by nephrology. Nephrology will continue to work to do case his fluid intake and decrease his dry await. Patient may require Lasix in the future to help maintain his edema. Recommend follow up with nephrology in 1-2 weeks to monitor his care. Recommend to monitor his weight daily. If his weight increases by more than 5 lb he is to contact nephrology for further recommendation. 3. Patient with end-stage renal disease on hemodialysis. Patient likely with volume overload related to CHF. Patient require dialysis. Case discussed at length with nephrology. Continue with above recommendations. Patient will continue with his medications of calcitriol, PhosLo and vitamin-D. 4. Patient with hypertension. This has remained stable. At discharge he will continue with losartan and carvedilol. Recommend to maintain blood pressures less 150/80. Further adjustment can be done by nephrology. 5. Patient with anxiety. At discharge, patient will continue with Paxil and benzodiazepine. 6. Patient with BPH with history of urinary retention. At discharge he will continue with Flomax. 7. Patient with chronic pain. At discharge he will continue with gabapentin. 8. Patient with history of AAA repair and pacemaker. Echocardiogram obtained. Patient may continue with aspirin 81 mg daily. Patient may follow up with cardiology as directed. 9. Patient with tobacco abuse. Tobacco cessation education provided. Will provide Nicoderm medication to help with his cessation. Diet: Renal (1500 cc per day fluid restriction) Activity: Ad santa Time spent managing pt's care (in minutes): 55
--- NOTE | 2019-06-24 12:20 | P.CNS ---
Date of Consult: 06/24/19 Primary Care Provider: Dr. Gracia; Nephrology-Dr. Rodríguez; Pulm-Dr. Reyes Chief Complaint: SOB History of Present Illness: Patient is 68 years of age with a history of mild COPD admitted with worsening dyspnea he is on dialysis denies any fever chills or cough he does have some productive clear sputum patient is compliant with his inhalers he takes Symbicort and Xopenex still continues to smoke feeling better Allergies No Known Allergies Allergy (Verified 05/15/19 01:15) Home Medications: LORazepam [Ativan*] 1 mg PO DAILY PRN 10/17/16 Paroxetine HCl [Paxil] 20 mg PO BID 10/17/16 Losartan Potassium 100 mg PO DAILY 05/15/19 Aspirin Chewable [Aspirin Chewable*] 1 tab PO DAILY 05/17/19 carvediloL [Coreg*] 6.25 mg PO BID 05/17/19 Calcium Acetate [Phoslo*] 667 mg PO TIDWM #90 cap 05/21/19 Cholecalciferol (Vitamin D3) [Vitamin D 5,000 IU Cap*] 5,000 unit PO DAILY #30 cap 05/21/19 Calcitrol [Rocaltrol*] 0.5 mcg PO BEDTIME 06/23/19 Gabapentin [Neurontin*] 200 mg PO BID 06/23/19 Tamsulosin [Flomax*] 0.4 mg PO BID 06/23/19 Fluticasone/Salmeterol [Advair 250-50 Diskus] 1 puff IH BID #1 blst.w.dev 06/24/19 Nicotine [Nicoderm*] 21 mg TD DAILY #30 patch.td24 06/24/19 predniSONE [Deltasone*] 10 mg PO DAILY #5 tab 06/24/19 - Past Medical/Surgical History Diabetic: No -: Migraines -: Anxiety -: History of shingles -: ESRD -: Hypertension -: CHF -: Pacemaker -: Hx of AAA repair -: Tobacco abuse -: abdominal aortic aneurysm repair -: pacemaker Psychosocial/ Personal History: Patient lives at home. - Family History Father Medical History: Diabetes Mother Medical History: Diabetes - Social History Smoking Status: Current every day smoker Alcohol use: No CD- Drugs: No Caffeine use: No Place of Residence: Home Review of Systems 10-point ROS is otherwise unremarkable Physical Examination Temp Pulse Resp BP Pulse Ox 97.8 F 82 18 136/96 H 94 06/24/19 08:00 06/24/19 08:53 06/24/19 08:00 06/24/19 08:53 06/24/19 08:00 General: Alert, In no apparent distress, Oriented x3 HEENT: Atraumatic Neck: Supple Respiratory: Clear to auscultation bilaterally, Diminished Cardiovascular: No edema, Normal S1 S2 Gastrointestinal: Normal bowel sounds, Soft and benign Laboratory Data (last 24 hrs) 06/24/19 05:14: Sodium 137, Potassium 4.5, BUN 41 H, Creatinine 5.02 H*, Glucose 135 H, Magnesium 2.8 H D 06/24/19 05:14: WBC 5.4, Hgb 9.5 L, Hct 30.0 L, Plt Count 127 L - Problems (1) COPD exacerbation Current Visit: Yes Status: Acute Plan: Patient is 68 years of age with a history of mild COPD admitted with worsening dyspnea x-ray ordered CBC unremarkable labs shows renal failure vital signs is stable stable for discharge continue using his Symbicort and Xopenex small dose of some prednisone follow-up with me in 1 week
--- NOTE | 2019-06-24 12:50 | RAD REPORT ---
EXAM DESCRIPTION: RAD - Chest Pa And Lat (2 Views) - 06/24/2019 12:41 pm CLINICAL HISTORY: Shortness of breath Chest pain. COMPARISON: Chest Single View dated 05/19/2019; Chest Single View dated 05/16/2019; Chest Single View dated 05/15/2019; Chest Single View dated 05/14/2019 FINDINGS: Mild interstitial pulmonary edema is seen. Small right and small to moderate left pleural effusion noted. Heart is mildly enlarged with multilead pacer/defibrillator device. Right-sided venou s catheter tip in the SVC. IMPRESSION: Mild to moderate CHF.
[2019-06-24 13:16] VITALS: O2SAT 96
[2019-06-24 13:18] VITALS: TEMP 97.5
[2019-06-24 17:24] VITALS: BP 134/87
[2019-06-24] MEDS ORDERED: ALBUTEROL INHALER 60 PUFF/8 GM IH ONE (18:38)
[2019-06-24] MEDS ORDERED: PAROXETINE HCL 20 MG PO SCH (21:00)
--- NOTE | 2019-06-24 21:12 | P.CNS ---
Date of Consult: 06/24/19 Reason for Consult: ESRD Requesting Physician: Cirilo Torres Primary Care Provider: Dr. Gracia; Nephrology-Dr. Rodríguez; Pulm-Dr. Reyes Chief Complaint: SOB History of Present Illness: 68 yo WM CKD, COPD/ Tobacco presented to the ER with 4 days of moderate, progressive dyspnea in the setting of CHF and COPD. Symptoms started after cutting the lawn. Associated anxiety. No modifying fx. 68-year-old male with history of end-stage renal disease on hemodialysis, hypertension, anxiety, chronic pain with neuropathy, and CAD with pacemaker. Patient presented to the emergency room at [facility] for shortness of breath. Patient has been shortness of breath over the last several days. He denies any fever, chills, nausea or vomiting. Patient has noted increasing edema to the lower extremity. During dialysis today he became more short of breath. He was sent to the ER for further evaluation at [facility]. The patient was evaluated there. There was some suspicion of acute on chronic systolic CHF with possible COPD exacerbation. The patient was transferred to our facility for continuity of care with his nephrologists. Patient also being evaluated for COVID due to his symptoms and risk factors. Allergies No Known Allergies Allergy (Verified 05/15/19 01:15) Home medications list reviewed: Yes Home Medications: LORazepam [Ativan*] 1 mg PO DAILY PRN 10/17/16 Paroxetine HCl [Paxil] 20 mg PO BID 10/17/16 Losartan Potassium 100 mg PO DAILY 05/15/19 Aspirin Chewable [Aspirin Chewable*] 1 tab PO DAILY 05/17/19 carvediloL [Coreg*] 6.25 mg PO BID 05/17/19 Calcium Acetate [Phoslo*] 667 mg PO TIDWM #90 cap 05/21/19 Cholecalciferol (Vitamin D3) [Vitamin D 5,000 IU Cap*] 5,000 unit PO DAILY #30 cap 05/21/19 Calcitrol [Rocaltrol*] 0.5 mcg PO BEDTIME 06/23/19 Gabapentin [Neurontin*] 200 mg PO BID 06/23/19 Tamsulosin [Flomax*] 0.4 mg PO BID 06/23/19 Budesonide/Formoterol Fumarate [Symbicort 160-4.5 Mcg Inhaler] 2 puff IH BID #1 hfa.aer.ad 06/24/19 Furosemide [Lasix] 40 mg PO DAILY #30 tab 06/24/19 Nicotine [Nicoderm*] 21 mg TD DAILY #30 patch.td24 06/24/19 predniSONE [Deltasone*] 10 mg PO DAILY #5 tab 06/24/19 - Past Medical/Surgical History Diabetic: No -: Migraines -: Anxiety -: History of shingles -: ESRD -: Hypertension -: CHF -: Pacemaker -: Hx of AAA repair -: Tobacco abuse -: abdominal aortic aneurysm repair -: pacemaker Psychosocial/ Personal History: Patient lives at home. - Family History Father Medical History: Diabetes Mother Medical History: Diabetes - Social History Smoking Status: Current every day smoker Alcohol use: No CD- Drugs: No Caffeine use: No Place of Residence: Home Review of Systems 10-point ROS is otherwise unremarkable General: Weakness, Malaise Respiratory: Shortness of Breath, SOB with Excertion Cardiovascular: Edema Neurological: Weakness Physical Examination Temp Pulse Resp BP Pulse Ox 97.5 F 75 20 134/87 96 06/24/19 12:00 06/24/19 17:27 06/24/19 12:00 06/24/19 17:27 06/24/19 12:00 General: Oriented x3, Cooperative HEENT: Atraumatic Neck: Supple, JVD distended Respiratory: Diminished, Expiratory wheezes Cardiovascular: Regular rate/rhythm, Edema Gastrointestinal: Soft and benign, Non-distended Musculoskeletal: No clubbing, No contractures Integumentary: No rashes, No cyanosis Neurological: Normal speech Laboratory Data (last 24 hrs) 06/24/19 05:14: Sodium 137, Potassium 4.5, BUN 41 H, Creatinine 5.02 H*, Glucose 135 H, Magnesium 2.8 H D 06/24/19 05:14: WBC 5.4, Hgb 9.5 L, Hct 30.0 L, Plt Count 127 L Imagings Data: EXAM DESCRIPTION: RAD - Chest Pa And Lat (2 Views) - 06/24/2019 12:41 pm CLINICAL HISTORY: Shortness of breath Chest pain. COMPARISON: Chest Single View dated 05/19/2019; Chest Single View dated 05/16/2019; Chest Single View dated 05/15/2019; Chest Single View dated 05/14/2019 FINDINGS: Mild interstitial pulmonary edema is seen. Small right and small to moderate left pleural effusion noted. Heart is mildly enlarged with multilead pacer/defibrillator device. Right-sided venous catheter tip in the SVC. IMPRESSION: Mild to moderate CHF. Conclusions/Impression: A/ ESRD on HD. Diastolic CHF, A/C. HTN with CKD/ CHF. COPD with exacerbation. Anemia in CKD. Secondary HyperPTH. BPH with LUTS. P/ Continue current POC and Medications. Acute HD with UF as ordered. Agree with prednisone and inhalers. Restart home medications as indicated. No NSAIDs. AM labs. Daily weight. Thank you kindly for the consultation. Case reviewed in the Dr. Torres.
--- NOTE | 2019-06-25 08:54 | ECHO ---
HEIGHT: 6 ft 0 in WEIGHT: 188 lb 0 oz DATE OF STUDY: 06/24/[address]: Cirilo Torres DO 2-DIMENSIONAL: YES M.MODE: YES DOPPLER: YES COLOR FLOW: YES TDS: NO PORTABLE: NO DEFINITY: NO BUBBLE STUDY: NO DIAGNOSIS: CONGESTIVE HEART FAILURE CARDIAC HISTORY: CATHERIZATION: NO SURGERY: NO PROSTHETIC VALVE: NO PACEMAKER: YES MEASUREMENTS (cm) DIASTOLIC (NORMALS) SYSTOLIC (NORMALS) IVSd 1.2 (0.6-1.2) LA Diam 4.3 (1.9-4.0) LVEF 25% LVIDd 5.3 (3.5-5.7) LVIDs 5.0 (2.0-3.5) %FS 6% LVPWd 1.0 (0.6-1.2) Ao Diam 4.2 (2.0-3.7) 2 DIMENSIONAL ASSESSMENT: RIGHT ATRIUM: NORMAL LEFT ATRIUM: DILATED RIGHT VENTRICLE: PACEMAKER LEFT VENTRICLE: NORMAL SIZE TRICUSPID VALVE: NORMAL MITRAL VALVE: NORMAL PULMONIC VALVE: NORMAL AORTIC VALVE: NORMAL PERICARDIAL EFFUSION: NONE AORTIC ROOT: NORMAL LEFT VENTRICULAR WALL MOTION: SEVERE GLOBAL HYPOKINESIS. DOPPLER/COLOR FLOW: MILD TRICUSPID REGURGITATION. COMMENTS: SEVERE GLOBAL HYPOKINESIS. EJECTION FRACTION 25%. MILD TRICUSPID REGURGITATION - MILD PULMONARY HYPERTENSION. TECHNOLOGIST: MANGO HORNER
[2019-06-25] MEDS ORDERED: ASPIRIN 81 MG CHEWABLE TABLET PO SCH (09:00)
[2019-06-25] MEDS ORDERED: CALCITROL 0.25 MCG CAP PO SCH (09:00)
[2019-06-25] MEDS ORDERED: HOME MED 1 EA UNK (Losartan Potassium [Losartan Potassium] 100 MG) PO SCH (09:00)
== END 2019-06-24 18:39 | disposition home or self-care (01) ==
LOC: 4TH 17:10 → 2ND 06-24 01:58
PROVIDERS: ADMIT Family Medicine; ATTEND Family Medicine
DX: I13.2 Hypertensive heart and chronic kidney disease with heart failure and with stage 5 chronic kidney disease, or end stage renal disease (principal); I50.23 Acute on chronic systolic (congestive) heart failure; N18.6 End stage renal disease; J44.1 Chronic obstructive pulmonary disease with (acute) exacerbation; F41.9 Anxiety disorder, unspecified; F17.210 Nicotine dependence, cigarettes, uncomplicated; G62.9 Polyneuropathy, unspecified; N40.0 Benign prostatic hyperplasia without lower urinary tract symptoms; G89.29 Other chronic pain; D63.8 Anemia in other chronic diseases classified elsewhere; N25.81 Secondary hyperparathyroidism of renal origin; Z95.0 Presence of cardiac pacemaker; Z99.2 Dependence on renal dialysis
CPT/HCPCS: 93306; 85025; 80048; 36415; 83735; 71046; U0002; J0360 ×2; J1940 ×2; J1644 ×4; Q5106; G0257; G0379; G0378 ×3; J7512; J7606

== ENCOUNTER 2020-06-14 19:54 | Emergency (ER) | payer OTHER ==
--- OUTSIDE RECORDS SUMMARY | 2020-06-14 19:57 | XMS REPORT | Continuity of Care Document ---
:1950 Author Organization [facility] t Address [address] [place] [address] Care Team Providers Name Role Phone RAYMUNDO Elam Attending Clinician Derik LILLY Attending Clinician Unavailable Wong MANUEL, Holden Attending Clinician Ronni MANUEL Attending Clinician Doctor Unassigned, Name Attending Clinician Unavailable Isaiah MANUEL, Isaiah[facility] Attending Clinician Heidi GONZALEZ Attending Clinician Unavailable Igor LILLY Attending Clinician Unavailable PATY REID Attending Clinician Unavailable Ronni MANUEL Admitting Clinician PATY REID Admitting Clinician Unavailable Payers Payer Name Policy Type Policy Effective Date Expiration Date Sour ce Number MEDICAREMEDICARE PART [id number] 2015 [place] aishwarya Casey AND 00:00:00 [facility] OfxnztosGE050/03/2015[place] A [id number] 2015 MIKI Koch NirhewevSW3 2015- 00:00:00 - M edical PresentMedicare Center Problems Condition Condition Condition Status Onset Resolution Last Treating Co mments Source Name Details Category Date Date Treatment Clinician Date Abdominal Abdominal Disease Active 2018-[address] [facility] aortic aortic 0[facility] aneurysm aneurysm 00:00: Medica l (AAA) (AAA) 00 [place] Anxiety Anxiety Disease Active 2018-[address] [facility] [address] 0-21 [facility] - 00:00: Medical 00 [place] CKD CKD Disease Active 2018-[address] [facility] (chronic (chronic 0-21 [facility] - kidney kidney 00:00: Medical disease) disease) 00 Center (Cr 1.95, (Cr 1.95, BUN 29 on BUN 29 on admit) admit) Acute Acute Disease Active 2018-[address] [facility] [address] sigmoid sigmoid 0-21 [facility] - diverticul diverticul 00:00: Me dical itis itis 00 [place] Leukocytos Leukocytos Disease Active 2018-[address] is is 0-21 [facility] - 00:00: Medical 00 [place] Hypokalemi Hypokalemi Disease Active 2018-[address] a (K 2.8 a (K 2.8 0-21 [facility] - on admit) on admit) 00:00: Medi norberto 00 [place] Anemia Anemia Disease Active 2018-[address] [facility] [address] 0-21 [facility] - 00:00: Medical 00 [place] H/O H/O Disease Active [facility] endovascul endovascul Daniela kes - ar stent ar stent Medica l graft for graft for Cent er abdominal abdominal aortic aortic aneurysm aneurysm Hypertensi Hypertensi Disease Active [facility] on on [facility] Current Current Disease Active [facility] tobacco tobacco [facility] - use use [facility] COPD COPD Disease Active [facility] (chronic (chronic [facility] - obstructiv obstructiv Me dical e e Center pulmonary pulmonary disease) disease) CKD CKD Disease Active [facility] (chronic (chronic [facility] - kidney kidney Medical disease), disease), Cent er stage IV stage IV CHF NYHA CHF NYHA Disease Active Overview: [facility] class III class III EF 25-29% L [facility] Allergies, Adverse Reactions, Alerts Allergy Allergy Status Severity Reaction(s) Onset Inactive Treating Comm ents Source Name Type Date Date Clinician caffeine FA Active U 2018-03 [facility] 00:[facility]: [address] No Known DA Active U 2018-03 [facility] Allergie 2-13 [place] 00:00: [address] Caffeine Propensi Active Anxiety 2018-03 [facility] - adverse 00:00: Medical reaction 00 [place] [facility] Social History Social Habit Start Date Stop Date Quantity Comments Source Cigarettes smoked 2019-05-09 2019-05-09 MIKI Bland - current (pack per 00:00:00 00:00:00 [facility] day) - Reported Cigarette 2019-05-09 2019-05-09 MIKI Bland - pack-years 00:00:00 00:00:00 [facility] Tobacco use and 2019-05-09 2019-05-09 Never used MIKI Phan kes - exposure 00:00:00 00:00:00 [facility] Alcohol intake 2019-05-09 2019-05-09 [facility]00 [facility] (finding) Sex Ass[birth year] At [birth year] [facility] ethodist 00:00:00 00:00:00 Smoking Status Start Date Stop Date Source Current every day smoker 2019-05-09 00:00:[address] [facility] gustabo [facility] Medications Ordered Filled Start Stop Current Ordering Indication Dosage Frequency Signature Comments Components Source Medication Medication Date Date Medication? Clinician (SIG) Name Name aspirin 81 2019-0 Yes 81mg Chew 81 [place] mg chewable 7-21 mg. Methodi tablet 12:29: st 17 carvediloL 2019-0 Yes 6.25mg Take 6.25 [place] (COREG) 7-21 mg by Methodi 6.25 MG 12:29: mouth. st tablet 17 LORAZepam 2019-0 Yes 1mg Take 1 mg En[place] ston (ATIVAN) 1 7-21 by mouth. Meth blessing MG tablet 12:29: st 17 budesonide- 2019-0 Yes 2{puff} Q.5D Inhale 2 [place] formoteroL 7-21 puffs 2 Method i (SYMBICORT) 12:29: (two) st 160-4.5 17 times a mcg/actuati day. on inhaler folic acid 2019-0 Yes 1mg QD Take 1 mg [place] (FOLVITE) 1 7-21 by mouth Meth blessing MG tablet 12:29: daily. st 17 B complex 2019-0 Yes QD Take by [place] with C 7-21 mouth Methodi 20-folic 12:29: daily. st acid 1 mg 17 capsule gabapentin 2020-0 Yes 600mg Q.5D Take 600 [place] (NEURONTIN) 6-15 mg by Methodi 600 mg 00:00: mouth 2 st tablet 00 (two) times a day. PARoxetine 2020-0 Yes 10mg Take 10 mg [place] (PAXIL) 10 -23 by mouth. Meth blessing MG tablet 00:00: st 00 fluticasone 2019-0 Yes INHALE ONE [place] propion-ignacio 4-23 (1) Methodi meteroL 00:00: PUFF(S) BY st (ADVAIR/ 00 MOUTH WIXELA TWICE A INHUB) DAY FOR 250-50 COPD. mcg/dose DISKUS LORazepam 2019-0 Yes anxiety 1mg Take [address] (ATIVAN) 1 3-03 by mouth [facility] - MG tablet 12:43: daily as Medi norberto 01 needed for Center Anxiety . carvedilol 2019-0 Yes 6.25mg Take 6.[address] (COREG) 3-03 mg by [facility] - 12.5 MG 12:42: mouth 2 Medical tablet 50 (two) Center times daily with breakfast and dinner . gabapentin 2020-0 Yes 600mg Q.5D Take [address] (NEURONTIN) 3-03 mg by [facility] - 600 MG 12:41: mouth 2 Medical tablet 35 (two) Center times daily. PARoxetine 2020-0 Yes 10mg Q.25D Take [address] (PAXIL) 10 3-03 by mouth 4 Brian es - MG tablet 12:41: (four) Medica l 35 times Center daily. aspirin 81 2020-0 Yes 81mg QD Take [address] MG chewable 3-03 by mouth Luke s - tablet 12:41: daily. Medical 35 Center amLODIPine 2018-03 Yes 10mg QD Take 1 [facility] t (NORVASC) 0-26 tablet (10 Luke s - 10 MG 00:00: mg total) Medical tablet 00 by mouth Center daily. Vital Signs Vital Name Observation Time Observation Value Comments Source Systolic blood 2019-09-23 12:24:00 118 mm[Hg] Brandon n [facility] pressure Diastolic blood 2019-09-23 12:24:00 73 mm[Hg] Alivia on [facility] pressure Heart rate 2019-09-23 12:24:00 60 /min Giancarlo Robbins Body temperature 2019-09-23 12:24:00 36.44 Teresa Hous cris Robbins Body height 2019-09-23 12:24:00 180.3 cm Giancarlo Robbins Body weight 2019-09-23 12:24:00 77.111 kg Giancarlo Robbins BMI 2019-09-23 12:24:00 23.71 kg/m2 Giancarlo Robbins Oxygen saturation in 2019-09-23 12:24:00 100 /min Giancarlo Robbins Arterial blood by Pulse oximetry Procedures Procedure Date / Time Performed Performing Clinician Sourc e US VEIN MAPPING UPPER 2019-09-23 12:10:00 Chele Cuco Espitia Giancarlo Robbins EXTREMITY BILATERAL SARS-COV2/RT-PCR 2019-06-23 18:08:[address] [facility] - ([facility]) [facility] Center Plan of Care Planned Activity Planned Date Details Comments Source Future Scheduled 2020-10-03 INFLUENZA VACCINE [place] [facility] Test 00:00:00 [code = INFLUENZA VACCINE] Future Scheduled 2020-03-[address] [facility] - Test 00:00:00 (12+) [code = [facility] Center DEPRESSION SCREENING (12+)] Future Scheduled 2019-11-04 INFLUENZA VACCINE (#1) [facility] Test 00:00:00 [code = INFLUENZA Medical Ce nter VACCINE (#1)] Future Scheduled 2016-06-[address] [facility] - Test 00:00:00 WELLNESS (YEAR 2 or Medical Center FIRST YEAR if no IPPE) [code = MEDICARE ANNUAL WELLNESS (YEAR 2 or FIRST YEAR if no IPPE)] Future Scheduled 2015-06-29 PNEUMOCOCCAL 65+ [facility] - Test 00:00:00 (1 of 1 - [facility] Center [id number] PCV13) [code = PNEUMOCOCCAL 65+ YRS (1 of 1 - [id number] PCV13)] Future Scheduled 2000 COLONOSCOPY SCREENING [place] [facility] Test 00:00:00 [code = COLONOSCOPY SCREENING] Future Scheduled 2000 SHINGLES VACCINES (#1) H [place] [facility] Test 00:00:00 [code = SHINGLES VACCINES (#1)] Future Scheduled 1968 Hepatitis C screening [place] [facility] Test 00:00:00 (procedure) [code = 620436172] Future Scheduled 1966 COVID-19 VACCINE (1) Enoc sapp [facility] Test 00:00:00 [code = COVID-19 VACCINE (1)] Future Scheduled 1956 65+ PNEUMOCOCCAL [place] [facility] Test 00:00:00 VACCINE (1 of 4 - PCV13) [code = 65+ PNEUMOCOCCAL VACCINE (1 of 4 - PCV13)] Future Scheduled [address] [facility] es - Test 00:00:00 malignant neoplasm of Medica l Center colon (procedure) [code = 304708385] Encounters Start End Encounter Admission Attending Care Care Encounter Source Date/Time Date/Time Type Type Clinicians Facility Department ID 2020-06-11 2020-06-11 Telephone HERACLIO Freed [id number] 00:00:00 00:00:00 [facility] [id number] [facility] [id number] 2020-06-11 2020-06-11 Transition Ash More [id number] 00:00:00 00:00:00 of Care Michelle Nelson [id number] [place] [id number] [id number] 2020-06-01 2020-06-10 [facility] Chintan Back 1.2.840 .[id number] 00:32:00 13:35:00 Encounter Steve Rudolph [id number] [facility] [id number] 2020-06-01 2020-06-01 Orders Doctor JOSÉ [id number] 00:00:00 00:00:00 Only Unassigned, IGGY [id number] Zeb [facility] [id number] 2019-09-23 2019-09-23 Outpatient [facility] [id number] [place] [address] 00:00:00 00:00:[address] 2019-09-23 2019-09-23 Outpatient [facility] [id number] [place] [address] 00:00:00 00:00:00 [place] [address] Results Test Description Test Time Test Comments Results Result Comments Source SARS-CoV2/RT-PCR ([facility]) 2019-06-24 00:13:00 Test Item Value Reference Range Interpretation Comme nts SARS-COV2/RT-PCR (test code = Not Detected Not Detected, Negative 98946-7) SARS-COV-[address] [facility] (test code = 74942-6) DOMENICA (test code = DOMENICA) Negative results do not preclude SARS-CoV-2 infection and should not be used as the sole basis for patient management decisions. Negative results must be combined with clinical observations, patient history, and epidemiological information. A false negative result may occur if a specimen is improperly collected, transported or handled. The limit of detection for this assay is 250 copies/mL. This SARS CoV-2 test is a rapid, real-time RT-PCR test intended for the qualitative detection of nucleic acid from SARS-CoV-2 in a nasopharyngeal swab specimen collected from individuals suspected of COVID-19 by their healthcare provider. This test has not been Food and Drug Administration (FDA) cleared or approved and has been authorized by FDA under an Emergency Use Authorization (EUA). This EUA will be effective until the declaration that circumstances exist justifying the authorization of the emergency use of in vitro diagnostic tests for detection and/or diagnosis of COVID-19 is terminated under Section 564(b)(2) of the Act or the EUA is revoked under Section 564(g) of the Act. Fact Sheet for Healthcare Providers:https://www.flux - neutrinity/Documents/Xpert%20Xpress %20SARS%20CoV-2/Fact%20Sheets /302-0632%20SDNZ-YWP-0%20HEAL THCARE%20PROVIDERS%20FACT%20S HEET.pdf Fact Sheet for Healthcare Patients:https://www.QuoVadis/Documents/Xpert%20Xpress% 20SARS%20CoV-2/Fact%20Sheets/ 302-1061%07TGGG-NVB-9%20PATIE NT%20FACT%20SHEET.pdf Performing Laboratory:[facility], [place] [id number] [place], [place] [address]ARS-COV2/RT-PCR ([facility])2019-06-24 00:13:00 Test Item Value Reference Range Interpretation Comments SARS-COV2/RT-PCR (test Not Detected Not Detected, Negative code = 2636795) SARS-COV-[address] [facility] (test code = 0543175) Negative results do not preclude SARS-CoV-2 infection and should not be used as the sole basis for patient management decisions. Negative results must be combined with clinical observations, patient history, and epidemiological information. A false negative result may occur if a specimen is improperly collected, transported or handled.The limit of detection for this assay is 250 copies/mL.This SARS CoV-2 test is a rapid, real-time RT-PCR test intended for the qualitative detection of nucleic acid from SARS-CoV-2 in a nasopharyngeal swab specimen collected from individuals suspected of COVID-19 by their healthcare provider.This test has not been Food and Drug Administration (FDA) cleared or approved and has been authorized by FDA under an Emergency Use Authorization (EUA). This EUA will be effective until the declaration that circumstances exist justifying the authorization of the emergency use of in vitro diagnostic tests for detection and/or diagnosis of COVID-19 is terminated under Section 564(b)(2) of the Act or the EUA is revoked under Section 564(g) of the Act.Fact Sheet for Healthcare Pro viders:https://www.[employer].Naiku/Documents/Xpert%20Xpress%20SARS%20CoV-2/Fact%20Sh eets/3023802%66BUBM-YQL-7%20HEALTHCARE%20PROVIDERS%20FACT%20SHEET.pdfFact Sheet for Healthcare Patients:https://www.Innolume.Naiku/Documents/Xpert%20Xpress%20SARS%20CoV-2/Fact%20Sheets/3023801%20SARS-COV -2%20PATIENT%20FACT%20SHEET.pdfPerforming Laboratory:[facility], [place] [address]UFVKW METABOLIC [id number] 11:43:00 Test Item Value Reference Range Interpretation Comments SODIUM (test code = 137 MMOL/L 137-145 N NA) POTASSIUM (test code = 3.4 MMOL/L 3.5-5.1 L K) CHLORIDE (test code = 102 MMOL/L 98-107 N CL) CARBON DIOXIDE (test 22 MMOL/L 22-30 N code = CO2) ANION GAP (test code = 16 MMOL/L 14-24 N GAP) GLUCOSE (test code = 122 MG/DL 74-106 H GLU) BLOOD UREA NITROGEN 31 MG/DL 9-20 H (test code = BUN) GLOMERULAR FILTRATION 19 Report ing units: RATE (test code = GFR) ml/mi n/1.73 m2 (Modified MDRD Formula)Referen ce Range: > or = 6 0 ml/min/1.73 m2 CREATININE (test code 3.20 MG/DL 0.66-1.25 H = CREAT) CALCIUM (test code = 9.3 MG/DL 8.4-10.2 N CA) BASIC METABOLIC [id number] 11:35:00 Test Item Value Reference Range Interpretation Comments SODIUM (test code = NA) 137 MMOL/L 137-145 N POTASSIUM (test code = K) 3.4 MMOL/L 3.5-5.1 L CHLORIDE (test code = CL) 102 MMOL/L 98-107 N CARBON DIOXIDE (test code = CO2) MMOL/L 22-30 GLUCOSE (test code = GLU) MG/DL 74-106 BLOOD UREA NITROGEN (test code = MG/DL 9-20 BUN) GLOMERULAR FILTRATION RATE (test code = GFR) CREATININE (test code = CREAT) MG/DL 0.66-1.25 CALCIUM (test code = CA) MG/DL 8.7-9.7 CBC W/AUTO [id number] 11:12:00 Test Item Value Reference Range Interpretation Comments WHITE BLOOD CELL (test code = 8.4 K/MM3 3.8-9.8 N WBC) RED BLOOD CELL (test code = 3.92 M/MM3 3.95-5.67 L RBC) HEMOGLOBIN (test code = HGB) 11.8 G/DL 12.4-16.7 L HEMATOCRIT (test code = HCT) 38.1 % 35.9-49.5 N MEAN CELL VOLUME (test code = 97 fL 81.7-96.1 H MCV) MEAN CELL HGB (test code = MCH) 30.1 pg 27.6-33.2 N MEAN CELL HGB CONCETRATION 31.0 % 32.9-35.5 L (test code = MCHC) RED CELL DISTRIBUTION WIDTH 19.1 % 12.1-15.2 H (test code = RDW) PLATELET COUNT (test code = 157 K/MM3 129-368 N PLT) MEAN PLATELET VOLUME (test code 11.8 fl 7.4-10.4 H = MPV) NEUTROPHIL % (test code = NT%) 74.8 % 43-75 N IMMATURE GRANULOCYTE % (test 0.4 % 0.0-2.0 N code = IG%) LYMPHOCYTE % (test code = LY%) 13.5 % 14-44 L MONOCYTE % (test code = MO%) 9.6 % 4-13 N EOSINOPHIL % (test code = EO%) 1.2 % 0-6 N BASOPHIL % (test code = BA%) 0.5 % 0-2 N NUCLEATED RBC % (test code = 0.0 % 0-1.0 N NRBC%) NEUTROPHIL # (test code = NT#) 6.25 K/mm3 2.0-7.6 N IMMATURE GRANULOCYTE # (test 0.03 x10 3/uL 0-0.03 N code = IG#) LYMPHOCYTE # (test code = LY#) 1.13 K/mm3 1.0-3.8 N MONOCYTE # (test code = MO#) 0.80 K/mm3 0.1-0.8 N EOSINOPHIL # (test code = EO#) 0.10 K/mm3 0.0-0.2 N BASOPHIL # (test code = BA#) 0.04 K/mm3 0.0-0.2 N NUCLEATED RBC # (test code = 0.00 K/mm3 0.0-0.1 N NRBC#) - XR CHEST [id number] 19:01:00 Patient Name: ROSEMARIE YOUNG Unit No: [id number] EXAMS: CPT CODE: [id number] XR CHEST 1V 25915 Chest Radiograph History: S/P ICD Comparison: None [...] Felicitas Lantigua (RT)(R) Transcrpt Date/Tm/Trnsp: 03/04/2019 (1900) t.SDR.PMT Orig Print D/T: S: 03/04/2019 (1903) [facility] NAME: ROSEMARIE YOUNG [address] PHYS: [place] [address] : 1950 AGE: 68 SEX: M LOC: [id number] PHONE #: [phone] EXAM DATE: 03/04/2019 STATUS: ADM IN FAX #: [phone] RADIOLOGY NO: PAGE 1 Signed ReportBASIC METABOLIC [id number] 11:49:00 Test Item Value Reference Range Interpretation Comments SODIUM (test code = 139 MMOL/L 137-145 N NA) POTASSIUM (test code = 3.5 MMOL/L 3.5-5.1 N K) CHLORIDE (test code = 102 MMOL/L 98-107 N CL) CARBON DIOXIDE (test 23 MMOL/L 22-30 N code = CO2) ANION GAP (test code = 18 MMOL/L 14-24 N GAP) GLUCOSE (test code = 110 MG/DL 74-106 H GLU) BLOOD UREA NITROGEN 31 MG/DL 9-20 H (test code = BUN) GLOMERULAR FILTRATION 19 Report ing units: RATE (test code = GFR) ml/mi n/1.73 m2 (Modified MDRD Formula)Referen ce Range: > or = 6 0 ml/min/1.73 m2 CREATININE (test code 3.30 MG/DL 0.66-1.25 H = CREAT) CALCIUM (test code = 9.5 MG/DL 8.4-10.2 N CA) Comments to Senior Manufacturing Engineer: NURSE WILL BRING SPECIMEN TO LAB Is this a LINE draw? NComments to Senior Manufacturing Engineer: NURSE WILL BRING SPECIMEN TO [id number] 11:49:00 Test Item Value Reference Range Interpretation Comments MAGNESIUM (test code = MAG) 2.4 MG/DL 1.6-2.3 H Comments to Senior Manufacturing Engineer: NURSE WILL BRING SPECIMEN TO LAB Is this a LINE draw? NComments to Senior Manufacturing Engineer: NURSE WILL BRING SPECIMEN TO LABPROTHROMBIN TIME 2019-03-04 11:49:00 Test Item Value Reference Range Interpretation Comments PROTHROMBIN TIME 12.2 SECONDS 9.6-11.6 H PATIENT (test code = PTP) INTERNATIONAL NORMAL 1.2 0.8-1.1 H The INR is to be RATIO (test code = used only for INR) monitoring oral anticoagulantth erap y. INDICATION I NR VALUE ---- ---- ---- -------1. Prophylaxis, de ep venous thrombos is, including hig h risk surgery. 2.0 - 3.0 2. Prophylaxis, de ep venous thrombos is, hip surgery, treatment for d eep venous thrombosis or pulmonary prevention of systemic emboli sm in patients wit h valvular heart disease, atrial fibrillation, tissue heart va lve, or acute myocar dial infarction. 2.0 - 3 .0 3. Mechanical prosthesis hear t valves, recurrent syste osmar embolism. 3.0 - 4.5 Comments to Senior Manufacturing Engineer: NURSE WILL BRING SPECIMEN TO LABPTT ACTIVATED 2019-03-04 11:49:00 Test Item Value Reference Range Interpretation Comments PTT ACTIVATED (test code = APTT) 31.7 SECONDS 22.0-33.0 N Comments to Senior Manufacturing Engineer: NURSE WILL BRING SPECIMEN TO LABBASIC METABOLIC PANEL 2019-03-04 11:45:00 Test Item Value Reference Range Interpretation Comments SODIUM (test code = NA) 139 MMOL/L 137-145 N POTASSIUM (test code = K) 3.5 MMOL/L 3.5-5.1 N CHLORIDE (test code = CL) 102 MMOL/L 98-107 N CARBON DIOXIDE (test code = CO2) MMOL/L 22-30 GLUCOSE (test code = GLU) MG/DL 74-106 BLOOD UREA NITROGEN (test code = MG/DL 9-20 BUN) GLOMERULAR FILTRATION RATE (test code = GFR) CREATININE (test code = CREAT) MG/DL 0.66-1.25 CALCIUM (test code = CA) MG/DL 8.7-9.7 Comments to Senior Manufacturing Engineer: NURSE WILL BRING SPECIMEN TO LAB Is this a LINE draw? NComments to Senior Manufacturing Engineer: NURSE WILL BRING SPECIMEN TO [id number] 11:45:00 Test Item Value Reference Range Interpretation Comments MAGNESIUM (test code = MAG) MG/DL 1.6-2.3 Comments to Senior Manufacturing Engineer: NURSE WILL BRING SPECIMEN TO LAB Is this a LINE draw? NComments to Senior Manufacturing Engineer: NURSE WILL BRING SPECIMEN TO LABBASIC METABOLIC PANEL 2019-03-04 11:44:00 Test Item Value Reference Range Interpretation Comments SODIUM (test code = NA) MMOL/L 137-145 POTASSIUM (test code = K) MMOL/L 3.5-5.1 CHLORIDE (test code = CL) 102 MMOL/L 98-107 N CARBON DIOXIDE (test code = CO2) MMOL/L 22-30 GLUCOSE (test code = GLU) MG/DL 74-106 BLOOD UREA NITROGEN (test code = MG/DL 9-20 BUN) GLOMERULAR FILTRATION RATE (test code = GFR) CREATININE (test code = CREAT) MG/DL 0.66-1.25 CALCIUM (test code = CA) MG/DL 8.7-9.7 Comments to Senior Manufacturing Engineer: NURSE WILL BRING SPECIMEN TO LAB Is this a LINE draw? NComments to Senior Manufacturing Engineer: NURSE WILL BRING SPECIMEN TO [id number] 11:44:00 Test Item Value Reference Range Interpretation Comments MAGNESIUM (test code = MAG) MG/DL 1.6-2.3 Comments to Senior Manufacturing Engineer: NURSE WILL BRING SPECIMEN TO LAB Is this a LINE draw? NComments to Senior Manufacturing Engineer: NURSE WILL BRING SPECIMEN TO LABCBC W/AUTO DIFF 2019-03-04 11:33:00 Test Item Value Reference Range Interpretation Comments WHITE BLOOD CELL (test code = 8.5 K/MM3 3.8-9.8 N WBC) RED BLOOD CELL (test code = 4.20 M/MM3 3.95-5.67 N RBC) HEMOGLOBIN (test code = HGB) 12.8 G/DL 12.4-16.7 N HEMATOCRIT (test code = HCT) 41.4 % 35.9-49.5 N MEAN CELL VOLUME (test code = 99 fL 81.7-96.1 H MCV) MEAN CELL HGB (test code = MCH) 30.5 pg 27.6-33.2 N MEAN CELL HGB CONCETRATION 30.9 % 32.9-35.5 L (test code = MCHC) RED CELL DISTRIBUTION WIDTH 19.1 % 12.1-15.2 H (test code = RDW) PLATELET COUNT (test code = 184 K/MM3 129-368 N PLT) MEAN PLATELET VOLUME (test code 11.8 fl 7.4-10.4 H = MPV) NEUTROPHIL % (test code = NT%) 77.0 % 43-75 H IMMATURE GRANULOCYTE % (test 0.2 % 0.0-2.0 N code = IG%) LYMPHOCYTE % (test code = LY%) 11.8 % 14-44 L MONOCYTE % (test code = MO%) 9.0 % 4-13 N EOSINOPHIL % (test code = EO%) 1.5 % 0-6 N BASOPHIL % (test code = BA%) 0.5 % 0-2 N NUCLEATED RBC % (test code = 0.0 % 0-1.0 N NRBC%) NEUTROPHIL # (test code = NT#) 6.53 K/mm3 2.0-7.6 N IMMATURE GRANULOCYTE # (test 0.02 x10 3/uL 0-0.03 N code = IG#) LYMPHOCYTE # (test code = LY#) 1.00 K/mm3 1.0-3.8 N MONOCYTE # (test code = MO#) 0.76 K/mm3 0.1-0.8 N EOSINOPHIL # (test code = EO#) 0.13 K/mm3 0.0-0.2 N BASOPHIL # (test code = BA#) 0.04 K/mm3 0.0-0.2 N NUCLEATED RBC # (test code = 0.00 K/mm3 0.0-0.1 N NRBC#) Comments to Senior Manufacturing Engineer: NURSE WILL BRING SPECIMEN TO LABIs this a LINE draw? N BASIC METABOLIC [id number] 07:10:00 Test Item Value Reference Range Interpretation Comments SODIUM (test code = 135 MMOL/L 137-145 L NA) POTASSIUM (test code = 3.9 MMOL/L 3.5-5.1 N K) CHLORIDE (test code = 99 MMOL/L 98-107 N CL) CARBON DIOXIDE (test 24 MMOL/L 22-30 N code = CO2) ANION GAP (test code = 16 MMOL/L 14-24 N GAP) GLUCOSE (test code = 132 MG/DL 74-106 H GLU) BLOOD UREA NITROGEN 31 MG/DL 9-20 H (test code = BUN) GLOMERULAR FILTRATION 19 Report ing units: RATE (test code = GFR) ml/mi n/1.73 m2 (Modified MDRD Formula)Referen ce Range: > or = 6 0 ml/min/1.73 m2 CREATININE (test code 3.30 MG/DL 0.66-1.25 H = CREAT) CALCIUM (test code = 9.2 MG/DL 8.4-10.2 N CA) LIPID PROFILE (CORONARY RISK)2019-02-15 07:10:00 Test Item Value Reference Range Interpretation Comments TRIGLYCERIDES (test 148 MG/DL TRIGLYCE RIDES code = TRIG) REFERENCE RANGE:Normal: < 150 mg/dLBorderline High: 150-199 mg/dLHi gh: 200-499 mg/dLVe ry High: >=500 mg/ dL CHOLESTEROL (test code 152 MG/DL <200 = CHOL) HDL CHOLESTEROL (test 38 MG/DL 40-59 L code = HDL) LIPOPROTEIN LDL (test 78 MG/DL 0-99 N code = LDL) OPTIMAL........ .<100 mg/dLNEAR OPTIMAL/ABOVE OPTIMAL........ .100-12 9 mg/dL BORDERLINE HIGH.........13 0-159 mg/dL HIGH.........16 0-189 mg/dL VERY HIGH...... ...>/= 190 mg/dL [id number] 07:10:00 Test Item Value Reference Range Interpretation Comments MAGNESIUM (test code = MAG) 2.4 MG/DL 1.6-2.3 H BASIC METABOLIC [id number] 07:01:00 Test Item Value Reference Range Interpretation Comments SODIUM (test code = 135 MMOL/L 137-145 L NA) POTASSIUM (test code = 3.9 MMOL/L 3.5-5.1 N K) CHLORIDE (test code = 99 MMOL/L 98-107 N CL) CARBON DIOXIDE (test 24 MMOL/L 22-30 N code = CO2) ANION GAP (test code = 16 MMOL/L 14-24 N GAP) GLUCOSE (test code = 132 MG/DL 74-106 H GLU) BLOOD UREA NITROGEN 31 MG/DL 9-20 H (test code = BUN) GLOMERULAR FILTRATION 19 Report ing units: RATE (test code = GFR) ml/mi n/1.73 m2 (Modified MDRD Formula)Referen ce Range: > or = 6 0 ml/min/1.73 m2 CREATININE (test code 3.30 MG/DL 0.66-1.25 H = CREAT) CALCIUM (test code = 9.2 MG/DL 8.4-10.2 N CA) LIPID PROFILE (CORONARY RISK)2019-02-15 07:01:00 Test Item Value Reference Range Interpretation Comments TRIGLYCERIDES (test 148 MG/DL TRIGLYCE RIDES code = TRIG) REFERENCE RANGE:Normal: < 150 mg/dLBorderline High: 150-199 mg/dLHi gh: 200-499 mg/dLVe ry High: >=500 mg/ dL CHOLESTEROL (test code 152 MG/DL <200 = CHOL) HDL CHOLESTEROL (test 38 MG/DL 40-59 L code = HDL) LIPOPROTEIN LDL (test MG/DL 0-99 code = LDL) [id number] 07:01:00 Test Item Value Reference Range Interpretation Comments MAGNESIUM (test code = MAG) 2.4 MG/DL 1.6-2.3 H BASIC METABOLIC [id number] 06:55:00 Test Item Value Reference Range Interpretation Comments SODIUM (test code = NA) 135 MMOL/L 137-145 L POTASSIUM (test code = K) 3.9 MMOL/L 3.5-5.1 N CHLORIDE (test code = CL) 99 MMOL/L 98-107 N CARBON DIOXIDE (test code = CO2) MMOL/L 22-30 GLUCOSE (test code = GLU) MG/DL 74-106 BLOOD UREA NITROGEN (test code = MG/DL 9-20 BUN) GLOMERULAR FILTRATION RATE (test code = GFR) CREATININE (test code = CREAT) MG/DL 0.66-1.25 CALCIUM (test code = CA) MG/DL 8.7-9.7 LIPID PROFILE (CORONARY RISK)2019-02-15 06:55:00 Test Item Value Reference Range Interpretation Comments TRIGLYCERIDES (test code = TRIG) MG/DL CHOLESTEROL (test code = CHOL) MG/DL <200 HDL CHOLESTEROL (test code = HDL) MG/DL 40-59 LIPOPROTEIN LDL (test code = LDL) MG/DL 0-99 [id number] 06:55:00 Test Item Value Reference Range Interpretation Comments MAGNESIUM (test code = MAG) MG/DL 1.6-2.3 PROTHROMBIN [id number] 06:53:00 Test Item Value Reference Range Interpretation Comments PROTHROMBIN TIME 11.9 SECONDS 9.6-11.6 H PATIENT (test code = PTP) INTERNATIONAL NORMAL 1.1 0.8-1.1 N The INR is to be RATIO (test code = used only for INR) monitoring oral anticoagulantth erap y. INDICATION I NR VALUE ---- ---- ---- -------1. Prophylaxis, de ep venous thrombos is, including hig h risk surgery. 2.0 - 3.0 2. Prophylaxis, de ep venous thrombos is, hip surgery, treatment for d eep venous thrombosis or pulmonary prevention of systemic emboli sm in patients wit h valvular heart disease, atrial fibrillation, tissue heart va lve, or acute myocar dial infarction. 2.0 - 3 .0 3. Mechanical prosthesis hear t valves, recurrent syste osmar embolism. 3.0 - 4.5 PTT [id number] 06:53:00 Test Item Value Reference Range Interpretation Comments PTT ACTIVATED (test code = APTT) 32.2 SECONDS 22.0-33.0 N CBC W/AUTO [id number] 06:43:00 Test Item Value Reference Range Interpretation Comments WHITE BLOOD CELL (test code = 9.2 K/MM3 3.8-9.8 N WBC) RED BLOOD CELL (test code = 3.48 M/MM3 3.95-5.67 L RBC) HEMOGLOBIN (test code = HGB) 10.4 G/DL 12.4-16.7 L HEMATOCRIT (test code = HCT) 33.3 % 35.9-49.5 L MEAN CELL VOLUME (test code = 96 fL 81.7-96.1 N MCV) MEAN CELL HGB (test code = MCH) 29.9 pg 27.6-33.2 N MEAN CELL HGB CONCETRATION 31.2 % 32.9-35.5 L (test code = MCHC) RED CELL DISTRIBUTION WIDTH 17.2 % 12.1-15.2 H (test code = RDW) PLATELET COUNT (test code = 257 K/MM3 129-368 N PLT) MEAN PLATELET VOLUME (test code 11.3 fl 7.4-10.4 H = MPV) NEUTROPHIL % (test code = NT%) 74.4 % 43-75 N IMMATURE GRANULOCYTE % (test 0.7 % 0.0-2.0 N code = IG%) LYMPHOCYTE % (test code = LY%) 13.9 % 14-44 L MONOCYTE % (test code = MO%) 9.1 % 4-13 N EOSINOPHIL % (test code = EO%) 1.4 % 0-6 N BASOPHIL % (test code = BA%) 0.5 % 0-2 N NUCLEATED RBC % (test code = 0.0 % 0-1.0 N NRBC%) NEUTROPHIL # (test code = NT#) 6.86 K/mm3 2.0-7.6 N IMMATURE GRANULOCYTE # (test 0.06 x10 3/uL 0-0.03 H code = IG#) LYMPHOCYTE # (test code = LY#) 1.28 K/mm3 1.0-3.8 N MONOCYTE # (test code = MO#) 0.84 K/mm3 0.1-0.8 H EOSINOPHIL # (test code = EO#) 0.13 K/mm3 0.0-0.2 N BASOPHIL # (test code = BA#) 0.05 K/mm3 0.0-0.2 N NUCLEATED RBC # (test code = 0.00 K/mm3 0.0-0.1 N NRBC#) [id number] 05:11:00 Test Item Value Reference Range Interpretation Comments PHOSPHORUS (BEAKER) (test code = 1.8 mg/dL 2.3-4.7 L 604) [id number] 05:11:00 Test Item Value Reference Range Interpretation Comments MAGNESIUM (BEAKER) (test code = 2.0 mg/dL 1.6-2.6 627) BASIC METABOLIC [id number] 05:11:00 Test Item Value Reference Range Interpretation Comments SODIUM (BEAKER) 135 meq/L 136-145 L (test code = 381) POTASSIUM (BEAKER) 3.2 meq/L 3.5-5.1 L (test code = 379) CHLORIDE (BEAKER) 105 meq/L 98-107 (test code = 382) CO2 (BEAKER) (test 21 meq/L 22-29 L code = 355) BLOOD UREA NITROGEN 16 mg/dL 7-21 (BEAKER) (test code = 354) CREATININE (BEAKER) 1.56 mg/dL 0.57-1.25 H (test code = 358) GLUCOSE RANDOM 97 mg/dL 70-105 (BEAKER) (test code = 652) CALCIUM (BEAKER) 8.4 mg/dL 8.4-10.2 (test code = 697) EGFR (BEAKER) (test 44 mL/min/1.73 ESTIMA TRACEY GFR IS code = 1092) sq m NOT ACCURATE CREATININE CLEARANCE IN PREDICTING GLOMERULAR FILTRATION RATE . ESTIMATED GFR I S NOT APPLICABLE FOR DIALYSIS PATIEN TS. [id number] 05:07:00 Test Item Value Reference Range Interpretation Comments PARTIAL THROMBOPLASTIN TIME 47.4 seconds 22.5-36.0 H (BEAKER) (test code = 760) PROTHROMBIN [id number] 05:05:00 Test Item Value Reference Range Interpretation Comments PROTIME (BEAKER) (test code = 14.2 seconds 11.9-14.2 759) INR (BEAKER) (test code = 370) 1.2 <=5.9 Effective 07/31/2018: PT Reference Range ChangeNew: 11.9-14.2 Previous: 11.7- 14.7RECOMMENDED COUMADIN/WARFARIN INR THERAPY RANGESSTANDARD DOSE: 2.0-3.0 Includes: PROPHYLAXIS for venous thrombosis, systemic embolization; TREATMENT for venous thrombosis and/or pulmonary embolus.HIGH RISK: Target INR is2.5-3.5 for patients wiht mechanical heart valves.CBC (HEMOGRAM ONLY)2018-12-27 04:58:00 Test Item Value Reference Range Interpretation Comments WHITE BLOOD CELL COUNT (BEAKER) 10.9 K/ L 3.5-10.5 H (test code = 775) RED BLOOD CELL COUNT (BEAKER) 3.09 M/ L 4.63-6.08 L (test code = 761) HEMOGLOBIN (BEAKER) (test code = 9.8 GM/DL 13.7-17.5 L 410) HEMATOCRIT (BEAKER) (test code = 29.8 % 40.1-51.0 L 411) MEAN CORPUSCULAR VOLUME (BEAKER) 96.4 fL 79.0-92.2 H (test code = 753) MEAN CORPUSCULAR HEMOGLOBIN 31.7 pg 25.7-32.2 (BEAKER) (test code = 751) MEAN CORPUSCULAR HEMOGLOBIN CONC 32.9 GM/DL 32.3-36.5 (BEAKER) (test code = 752) RED CELL DISTRIBUTION WIDTH 13.8 % 11.6-14.4 (BEAKER) (test code = 412) PLATELET COUNT (BEAKER) (test 135 K/CU MM 150-450 L code = 756) MEAN PLATELET VOLUME (BEAKER) 10.7 fL 9.4-12.4 (test code = 754) NUCLEATED RED BLOOD CELLS 0 /100 WBC 0-0 (BEAKER) (test code = 413) POTASSIUM-STAT [id number] 19:57:00 Test Item Value Reference Range Interpretation Comments POTASSIUM (BEAKER) (test code = 3.4 meq/L 3.6-5.5 L 379) POTASSIUM-STAT [id number] 13:27:00 Test Item Value Reference Range Interpretation Comments POTASSIUM (BEAKER) (test code = 3.1 meq/L 3.6-5.5 L 379) RAD, CHEST, 1 VIEW, NON [id number] 08:42:00Reason for exam:->postop and intubatedFINAL REPORT INDICATION: postop and intubated TECHNIQUE: Chest radiograph, single view, portable technique. FINDINGS / IMPRESSION: Comparison to December 25 at 11:11 PM.Bibasilar subsegmental atelectasis without discrete pneumonia. No overt pulmonary edema or pneumothorax.Endotracheal tube and right internal jugular line again demonstrated and appear in good position. Signed: Alejandro Cardenas MDReport Verified Date/Time: 12/26/2018 08:42:52 Reading Location: [facility] Reading Room BLOOD GAS, [id number] 04:48:00 Test Item Value Reference Range Interpretation Comments PH ARTERIAL (BEAKER) (test code = 7.43 7.35-7.45 383) PCO2 ARTERIAL (BEAKER) (test code 31 mmHg 35-45 L = 384) PO2 ARTERIAL (BEAKER) (test code 62 mmHg 80-90 L = 385) O2 SATURATION ARTERIAL (BEAKER) 92.9 % 96.0-97.0 L (test code = 386) HCO3 ARTERIAL (BEAKER) (test code 20 mmol/L 21-29 L = 388) BASE EXCESS ARTERIAL (BEAKER) -3.6 mmol/L -2.0-3.0 L (test code = 387) PATIENT TEMPERATURE (BEAKER) 36.8 C (test code = 1818) FIO2 (BEAKER) (test code = 1819) 60.0 % [id number] 04:17:00 Test Item Value Reference Range Interpretation Comments PHOSPHORUS (BEAKER) (test code = 2.7 mg/dL 2.3-4.7 604) [id number] 04:17:00 Test Item Value Reference Range Interpretation Comments MAGNESIUM (BEAKER) (test code = 2.3 mg/dL 1.6-2.6 627) BASIC METABOLIC [id number] 04:17:00 Test Item Value Reference Range Interpretation Comments SODIUM (BEAKER) 141 meq/L 136-145 (test code = 381) POTASSIUM (BEAKER) 3.3 meq/L 3.5-5.1 L (test code = 379) CHLORIDE (BEAKER) 112 meq/L 98-107 H (test code = 382) CO2 (BEAKER) (test 21 meq/L 22-29 L code = 355) BLOOD UREA NITROGEN 16 mg/dL 7-21 (BEAKER) (test code = 354) CREATININE (BEAKER) 1.63 mg/dL 0.57-1.25 H (test code = 358) GLUCOSE RANDOM 102 mg/dL 70-105 (BEAKER) (test code = 652) CALCIUM (BEAKER) 8.4 mg/dL 8.4-10.2 (test code = 697) EGFR (BEAKER) (test 42 mL/min/1.73 ESTIMA TRACEY GFR IS code = 1092) sq m NOT ACCURATE CREATININE CLEARANCE IN PREDICTING GLOMERULAR FILTRATION RATE . ESTIMATED GFR I S NOT APPLICABLE FOR DIALYSIS PATIEN TS. [id number] 04:00:00 Test Item Value Reference Range Interpretation Comments PARTIAL THROMBOPLASTIN TIME 44.5 seconds 22.5-36.0 H (BEAKER) (test code = 760) PROTHROMBIN [id number] 03:59:00 Test Item Value Reference Range Interpretation Comments PROTIME (BEAKER) (test code = 14.3 seconds 11.9-14.2 H 759) INR (BEAKER) (test code = 370) 1.2 <=5.9 Effective 07/31/2018: PT Reference Range ChangeNew: 11.9-14.2 Previous: 11.7- 14.7RECOMMENDED COUMADIN/WARFARIN INR THERAPY RANGESSTANDARD DOSE: 2.0-3.0 Includes: PROPHYLAXIS for venous thrombosis, systemic embolization; TREATMENT for venous thrombosis and/or pulmonary embolus.HIGH RISK: Target INR is2.5-3.5 for patients wiht mechanical heart valves.CBC (HEMOGRAM ONLY)2018-12-26 03:52:00 Test Item Value Reference Range Interpretation Comments WHITE BLOOD CELL COUNT (BEAKER) 12.1 K/ L 3.5-10.5 H (test code = 775) RED BLOOD CELL COUNT (BEAKER) 3.38 M/ L 4.63-6.08 L (test code = 761) HEMOGLOBIN (BEAKER) (test code = 10.6 GM/DL 13.7-17.5 L 410) HEMATOCRIT (BEAKER) (test code = 33.3 % 40.1-51.0 L 411) MEAN CORPUSCULAR VOLUME (BEAKER) 98.5 fL 79.0-92.2 H (test code = 753) MEAN CORPUSCULAR HEMOGLOBIN 31.4 pg 25.7-32.2 (BEAKER) (test code = 751) MEAN CORPUSCULAR HEMOGLOBIN CONC 31.8 GM/DL 32.3-36.5 L (BEAKER) (test code = 752) RED CELL DISTRIBUTION WIDTH 13.9 % 11.6-14.4 (BEAKER) (test code = 412) PLATELET COUNT (BEAKER) (test 157 K/CU MM 150-450 code = 756) MEAN PLATELET VOLUME (BEAKER) 10.8 fL 9.4-12.4 (test code = 754) NUCLEATED RED BLOOD CELLS 0 /100 WBC 0-0 (BEAKER) (test code = 413) BASIC METABOLIC [id number] 00:10:00 Test Item Value Reference Range Interpretation Comments SODIUM (BEAKER) 136 meq/L 136-145 (test code = 381) POTASSIUM (BEAKER) 4.0 meq/L 3.5-5.1 (test code = 379) CHLORIDE (BEAKER) 110 meq/L 98-107 H (test code = 382) CO2 (BEAKER) (test 18 meq/L 22-29 L code = 355) BLOOD UREA NITROGEN 14 mg/dL 7-21 (BEAKER) (test code = 354) CREATININE (BEAKER) 1.46 mg/dL 0.57-1.25 H (test code = 358) GLUCOSE RANDOM 100 mg/dL 70-105 (BEAKER) (test code = 652) CALCIUM (BEAKER) 7.9 mg/dL 8.4-10.2 L (test code = 697) EGFR (BEAKER) (test 48 mL/min/1.73 ESTIMA TRACEY GFR IS code = 1092) sq m NOT ACCURATE CREATININE CLEARANCE IN PREDICTING GLOMERULAR FILTRATION RATE . ESTIMATED GFR I S NOT APPLICABLE FOR DIALYSIS PATIEN TS. [id number] 23:55:00 Test Item Value Reference Range Interpretation Comments PHOSPHORUS (BEAKER) (test code = 3.9 mg/dL 2.3-4.7 604) [id number] 23:55:00 Test Item Value Reference Range Interpretation Comments MAGNESIUM (BEAKER) (test code = 1.9 mg/dL 1.6-2.6 627) RAD, CHEST, 1 VIEW, NON [id number] 23:50:00Reason for exam:->postopShould this be performed at [...] No acute bony abnormality. Signed: Jose Panda MDReport Verified Date/Time: 12/25/2018 23:50:30 Reading Location: [facility] B1 [id number] Ortho Consult Reading Room OXYGEN SATURATION, [id number] 23:34:00 Test Item Value Reference Range Interpretation Comments O2 SATURATION (MEASURED) (BEAKER) 87.1 % (test code = 1455) BLOOD GAS, [id number] 23:33:00 Test Item Value Reference Range Interpretation Comments PH ARTERIAL (BEAKER) (test code = 7.29 7.35-7.45 L 383) PCO2 ARTERIAL (BEAKER) (test code 45 mmHg 35-45 = 384) PO2 ARTERIAL (BEAKER) (test code 98 mmHg 80-90 H = 385) O2 SATURATION ARTERIAL (BEAKER) 96.8 % 96.0-97.0 (test code = 386) HCO3 ARTERIAL (BEAKER) (test code 22 mmol/L 21-29 = 388) BASE EXCESS ARTERIAL (BEAKER) -4.9 mmol/L -2.0-3.0 L (test code = 387) PATIENT TEMPERATURE (BEAKER) 36.8 C (test code = 1818) FIO2 (BEAKER) (test code = 1819) 60.0 % [id number] 23:17:00 Test Item Value Reference Range Interpretation Comments PARTIAL THROMBOPLASTIN TIME 39.2 seconds 22.5-36.0 H (BEAKER) (test code = 760) PROTHROMBIN [id number] 23:16:00 Test Item Value Reference Range Interpretation Comments PROTIME (BEAKER) (test code = 16.4 seconds 11.9-14.2 H 759) INR (BEAKER) (test code = 370) 1.4 <=5.9 Effective 07/31/2018: PT Reference Range ChangeNew: 11.9-14.2 Previous: 11.7- 14.7RECOMMENDED COUMADIN/WARFARIN INR THERAPY RANGESSTANDARD DOSE: 2.0-3.0 Includes: PROPHYLAXIS for venous thrombosis, systemic embolization; TREATMENT for venous thrombosis and/or pulmonary embolus.HIGH RISK: Target INR is2.5-3.5 for patients wiht mechanical heart valves.CBC W/PLT COUNT & AUTO [id number] 23:15:00 Test Item Value Reference Range Interpretation Comments WHITE BLOOD CELL COUNT (BEAKER) 14.0 K/ L 3.5-10.5 H (test code = 775) RED BLOOD CELL COUNT (BEAKER) 3.36 M/ L 4.63-6.08 L (test code = 761) HEMOGLOBIN (BEAKER) (test code = 10.7 GM/DL 13.7-17.5 L 410) HEMATOCRIT (BEAKER) (test code = 33.6 % 40.1-51.0 L 411) MEAN CORPUSCULAR VOLUME (BEAKER) 100.0 fL 79.0-92.2 H (test code = 753) MEAN CORPUSCULAR HEMOGLOBIN 31.8 pg 25.7-32.2 (BEAKER) (test code = 751) MEAN CORPUSCULAR HEMOGLOBIN CONC 31.8 GM/DL 32.3-36.5 L (BEAKER) (test code = 752) RED CELL DISTRIBUTION WIDTH 13.8 % 11.6-14.4 (BEAKER) (test code = 412) PLATELET COUNT (BEAKER) (test 156 K/CU MM 150-450 code = 756) MEAN PLATELET VOLUME (BEAKER) 10.6 fL 9.4-12.4 (test code = 754) NUCLEATED RED BLOOD CELLS 0 /100 WBC 0-0 (BEAKER) (test code = 413) NEUTROPHILS RELATIVE PERCENT 73 % (BEAKER) (test code = 429) LYMPHOCYTES RELATIVE PERCENT 15 % (BEAKER) (test code = 430) MONOCYTES RELATIVE PERCENT 9 % (BEAKER) (test code = 431) EOSINOPHILS RELATIVE PERCENT 1 % (BEAKER) (test code = 432) BASOPHILS RELATIVE PERCENT 1 % (BEAKER) (test code = 437) NEUTROPHILS ABSOLUTE COUNT 10.24 K/ L 1.78-5.38 H (BEAKER) (test code = 670) LYMPHOCYTES ABSOLUTE COUNT 2.05 K/ L 1.32-3.57 (BEAKER) (test code = 414) MONOCYTES ABSOLUTE COUNT (BEAKER) 1.27 K/ L 0.30-0.82 H (test code = 415) EOSINOPHILS ABSOLUTE COUNT 0.17 K/ L 0.04-0.54 (BEAKER) (test code = 416) BASOPHILS ABSOLUTE COUNT (BEAKER) 0.07 K/ L 0.01-0.08 (test code = 417) IMMATURE GRANULOCYTES-RELATIVE 1 % 0-1 PERCENT (BEAKER) (test code = 2801) [id number] 22:22:00 Test Item Value Reference Range Interpretation Comments ACTIVATED CLOTTING TIME 114 sec Refe rence Range: (BEAKER) (test code = 74-137 seconds, 441) Baseline/TESTED AT [place] [address] 0 [id number] 22:22:00 Test Item Value Reference Range Interpretation Comments ACTIVATED CLOTTING TIME 340 sec Refe rence Range: (BEAKER) (test code = 74-137 seconds, 441) Baseline/TESTED AT [place] [address] 0 [id number] 22:22:00 Test Item Value Reference Range Interpretation Comments ACTIVATED CLOTTING TIME 219 sec Refe rence Range: (BEAKER) (test code = 74-137 seconds, 441) Baseline/TESTED AT [place] [address] 0 [id number] 22:22:00 Test Item Value Reference Range Interpretation Comments ACTIVATED CLOTTING TIME 252 sec Refe rence Range: (BEAKER) (test code = 74-137 seconds, 441) Baseline/TESTED AT [address] [address] [id number] 22:22:00 Test Item Value Reference Range Interpretation Comments ACTIVATED CLOTTING TIME 257 sec Refe rence Range: (BEAKER) (test code = 74-137 seconds, 441) Baseline/TESTED AT [address] [address] [id number] 22:22:00 Test Item Value Reference Range Interpretation Comments ACTIVATED CLOTTING TIME 224 sec Refe rence Range: (BEAKER) (test code = 74-137 seconds, 441) Baseline/TESTED AT [place] [address] 0 GLUCOSE-STAT [id number] 22:20:00 Test Item Value Reference Range Interpretation Comments GLUCOSE RANDOM (BEAKER) (test code 101 mg/dL 70-110 = 652) SODIUM NA-STAT [id number] 22:20:00 Test Item Value Reference Range Interpretation Comments SODIUM (BEAKER) (test code = 381) 136 meq/L 135-148 POTASSIUM-STAT [id number] 22:20:00 Test Item Value Reference Range Interpretation Comments POTASSIUM (BEAKER) (test code = 4.0 meq/L 3.6-5.5 379) BLOOD GAS, [id number] 22:20:00 Test Item Value Reference Range Interpretation Comments PH ARTERIAL (BEAKER) (test code = 7.28 7.35-7.45 L 383) PCO2 ARTERIAL (BEAKER) (test code 48 mmHg 35-45 H = 384) PO2 ARTERIAL (BEAKER) (test code 181 mmHg 80-90 H = 385) O2 SATURATION ARTERIAL (BEAKER) 99.1 % 96.0-97.0 H (test code = 386) HCO3 ARTERIAL (BEAKER) (test code 22 mmol/L 21-29 = 388) BASE EXCESS ARTERIAL (BEAKER) -4.5 mmol/L -2.0-3.0 L (test code = 387) PATIENT TEMPERATURE (BEAKER) 36.5 C (test code = 1818) FIO2 (BEAKER) (test code = 1819) 100.0 % HGB/HCT (H&H) - STAT [id number] 22:20:00 Test Item Value Reference Range Interpretation Comments HEMOGLOBIN (BEAKER) (test code = 11.0 g/dL 13.0-16.8 L 410) HEMATOCRIT (BEAKER) (test code = 32.0 % 40.0-50.0 L 411) CALCIUM, [id number] 22:20:00 Test Item Value Reference Range Interpretation Comments CALCIUM IONIZED (BEAKER) (test 1.08 mmol/L 1.12-1.27 L code = 698) PH, BLOOD (BEAKER) (test code = 7.28 1810) CALCIUM, [id number] 21:14:00 Test Item Value Reference Range Interpretation Comments CALCIUM IONIZED (BEAKER) (test 1.09 mmol/L 1.12-1.27 L code = 698) PH, BLOOD (BEAKER) (test code = 7.26 1810) GLUCOSE-STAT [id number] 21:13:00 Test Item Value Reference Range Interpretation Comments GLUCOSE RANDOM (BEAKER) (test code = 97 mg/dL 70-110 652) SODIUM NA-STAT [id number] 21:13:00 Test Item Value Reference Range Interpretation Comments SODIUM (BEAKER) (test code = 381) 135 meq/L 135-148 POTASSIUM-STAT [id number] 21:13:00 Test Item Value Reference Range Interpretation Comments POTASSIUM (BEAKER) (test code = 4.6 meq/L 3.6-5.5 379) BLOOD GAS, [id number] 21:13:00 Test Item Value Reference Range Interpretation Comments PH ARTERIAL (BEAKER) (test code = 7.26 7.35-7.45 L 383) PCO2 ARTERIAL (BEAKER) (test code 52 mmHg 35-45 H = 384) PO2 ARTERIAL (BEAKER) (test code 226 mmHg 80-90 H = 385) O2 SATURATION ARTERIAL (BEAKER) 99.3 % 96.0-97.0 H (test code = 386) HCO3 ARTERIAL (BEAKER) (test code 23 mmol/L = 388) BASE EXCESS ARTERIAL (BEAKER) -4.3 mmol/L -2.0-3.0 L (test code = 387) PATIENT TEMPERATURE (BEAKER) 36.5 C (test code = 1818) FIO2 (BEAKER) (test code = 1819) 100.0 % HGB/HCT (H&H) - STAT [id number] 21:13:00 Test Item Value Reference Range Interpretation Comments HEMOGLOBIN (BEAKER) (test code = 11.0 g/dL 13.0-16.8 L 410) HEMATOCRIT (BEAKER) (test code = 32.0 % 40.0-50.0 L 411) BLOOD GAS, [id number] 20:07:00 Test Item Value Reference Range Interpretation Comments PH ARTERIAL (BEAKER) (test code = 7.30 7.35-7.45 L 383) PCO2 ARTERIAL (BEAKER) (test code 47 mmHg 35-45 H = 384) PO2 ARTERIAL (BEAKER) (test code 248 mmHg 80-90 H = 385) O2 SATURATION ARTERIAL (BEAKER) 99.5 % 96.0-97.0 H (test code = 386) HCO3 ARTERIAL (BEAKER) (test code 23 mmol/L 2129 = 388) BASE EXCESS ARTERIAL (BEAKER) -3.4 mmol/L -2.0-3.0 L (test code = 387) PATIENT TEMPERATURE (BEAKER) 36.4 C (test code = 1818) FIO2 (BEAKER) (test code = 1819) 100.0 % POTASSIUM-STAT [id number] 20:07:00 Test Item Value Reference Range Interpretation Comments POTASSIUM (BEAKER) (test code = 2.8 meq/L 3.6-5.5 L 379) HGB/HCT (H&H) - STAT [id number] 20:07:00 Test Item Value Reference Range Interpretation Comments HEMOGLOBIN (BEAKER) (test code = 10.9 g/dL 13.0-16.8 L 410) HEMATOCRIT (BEAKER) (test code = 32.0 % 40.0-50.0 L 411) CALCIUM, [id number] 20:07:00 Test Item Value Reference Range Interpretation Comments CALCIUM IONIZED (BEAKER) (test 1.01 mmol/L 1.12-1.27 L code = 698) PH, BLOOD (BEAKER) (test code = 7.30 1810) GLUCOSE-STAT [id number] 20:06:00 Test Item Value Reference Range Interpretation Comments GLUCOSE RANDOM (BEAKER) (test code = 93 mg/dL 70-110 652) SODIUM NA-STAT [id number] 20:06:00 Test Item Value Reference Range Interpretation Comments SODIUM (BEAKER) (test code = 381) 135 meq/L 135-148 BLOOD GAS, [id number] 19:04:00 Test Item Value Reference Range Interpretation Comments PH ARTERIAL (BEAKER) (test code = 7.37 7.35-7.45 383) PCO2 ARTERIAL (BEAKER) (test code 40 mmHg 35-45 = 384) PO2 ARTERIAL (BEAKER) (test code 198 mmHg 80-90 H = 385) O2 SATURATION ARTERIAL (BEAKER) 99.3 % 96.0-97.0 H (test code = 386) HCO3 ARTERIAL (BEAKER) (test code 23 mmol/L 21-29 = 388) BASE EXCESS ARTERIAL (BEAKER) -2.7 mmol/L -2.0-3.0 L (test code = 387) PATIENT TEMPERATURE (BEAKER) 36.3 C (test code = 1818) FIO2 (BEAKER) (test code = 1819) 100.0 % POTASSIUM-STAT [id number] 19:04:00 Test Item Value Reference Range Interpretation Comments POTASSIUM (BEAKER) (test code = 2.4 meq/L 3.6-5.5 LL 379) HGB/HCT (H&H) - STAT [id number] 19:04:00 Test Item Value Reference Range Interpretation Comments HEMOGLOBIN (BEAKER) (test code = 11.4 g/dL 13.0-16.8 L 410) HEMATOCRIT (BEAKER) (test code = 34.0 % 40.0-50.0 L 411) CALCIUM, [id number] 19:04:00 Test Item Value Reference Range Interpretation Comments CALCIUM IONIZED (BEAKER) (test 1.11 mmol/L 1.12-1.27 L code = 698) PH, BLOOD (BEAKER) (test code = 7.37 1810) GLUCOSE-STAT [id number] 19:03:00 Test Item Value Reference Range Interpretation Comments GLUCOSE RANDOM (BEAKER) (test code = 92 mg/dL 70-110 652) SODIUM NA-STAT [id number] 19:03:00 Test Item Value Reference Range Interpretation Comments SODIUM (BEAKER) (test code = 381) 140 meq/L 135-148 [id number] 05:00:00 Test Item Value Reference Range Interpretation Comments PHOSPHORUS (BEAKER) (test code = 3.0 mg/dL 2.3-4.7 604) [id number] 05:00:00 Test Item Value Reference Range Interpretation Comments MAGNESIUM (BEAKER) (test code = 2.1 mg/dL 1.6-2.6 627) BASIC METABOLIC [id number] 05:00:00 Test Item Value Reference Range Interpretation Comments SODIUM (BEAKER) 140 meq/L 136-145 (test code = 381) POTASSIUM (BEAKER) 3.1 meq/L 3.5-5.1 L (test code = 379) CHLORIDE (BEAKER) 111 meq/L 98-107 H (test code = 382) CO2 (BEAKER) (test 22 meq/L 22-29 code = 355) BLOOD UREA NITROGEN 17 mg/dL 7-21 (BEAKER) (test code = 354) CREATININE (BEAKER) 1.46 mg/dL 0.57-1.25 H (test code = 358) GLUCOSE RANDOM 90 mg/dL 70-105 (BEAKER) (test code = 652) CALCIUM (BEAKER) 8.8 mg/dL 8.4-10.2 (test code = 697) EGFR (BEAKER) (test 48 mL/min/1.73 ESTIMA TRACEY GFR IS code = 1092) sq m NOT ACCURATE CREATININE CLEARANCE IN PREDICTING GLOMERULAR FILTRATION RATE . ESTIMATED GFR I S NOT APPLICABLE FOR DIALYSIS PATIEN TS. CBC (HEMOGRAM ONLY)2018-12-25 04:53:00 Test Item Value Reference Range Interpretation Comments WHITE BLOOD CELL COUNT 10.1 K/ L 3.5-10.5 (BEAKER) (test code = 775) RED BLOOD CELL COUNT 3.37 M/ L 4.63-6.08 L (BEAKER) (test code = 761) HEMOGLOBIN (BEAKER) 10.7 GM/DL 13.7-17.5 L (test code = 410) HEMATOCRIT (BEAKER) 33.0 % 40.1-51.0 L (test code = 411) MEAN CORPUSCULAR 97.9 fL 79.0-92.2 H Discordant MCV VOLUME (BEAKER) (test result s compared to code = 753) previous result s; clinical correl ation required. MEAN CORPUSCULAR 31.8 pg 25.7-32.2 HEMOGLOBIN (BEAKER) (test code = 751) MEAN CORPUSCULAR 32.4 GM/DL 32.3-36.5 HEMOGLOBIN CONC (BEAKER) (test code = 752) RED CELL DISTRIBUTION 13.7 % 11.6-14.4 WIDTH (BEAKER) (test code = 412) PLATELET COUNT 167 K/CU MM 150-450 (BEAKER) (test code = 756) MEAN PLATELET VOLUME 10.5 fL 9.4-12.4 (BEAKER) (test code = 754) NUCLEATED RED BLOOD 0 /100 WBC 0-0 CELLS (BEAKER) (test code = 413) [id number] 04:48:00 Test Item Value Reference Range Interpretation Comments PARTIAL THROMBOPLASTIN TIME 39.6 seconds 22.5-36.0 H (BEAKER) (test code = 760) PROTHROMBIN TIME/[id number] 04:47:00 Test Item Value Reference Range Interpretation Comments PROTIME (PHILLIP) (test code = 16.5 seconds 11.9-14.2 H 759) INR (PHILLIP) (test code = 370) 1.4 <=5.9 Effective 07/31/2018: PT Reference Range ChangeNew: 11.9-14.2 Previous: 11.7- 14.7RECOMMENDED COUMADIN/WARFARIN INR THERAPY RANGESSTANDARD DOSE: 2.0-3.0 Includes: PROPHYLAXIS for venous thrombosis, systemic embolization; TREATMENT for venous thrombosis and/or pulmonary embolus.HIGH RISK: Target INR is2.5-3.5 for patients wiht mechanical heart valves.CTA, CHEST, ABDOMEN - PELVIS, FOR [id number] 16:52:00Addendum BeginsREPORT STATUS:A Addendum: I agree with the previously described non vascular findings. Signed: Ten Spencer MDReport Verified Date/Time: 12/24/2018 16:52:26 Corina marks Location: [place] [address] Angio Body Reading RoomAddendum EndsFINAL REPORT CT [...] approach could be the more optimal approach. Billiard Table Assembler dimension of the left and the right [...] has been already been described by the Coin Machine Servicer Repairer Radiologist. See formal dictation for details. In [...] rim-enhancing is identified. See recent dictation by Coin Machine Servicer Repairer Radiologist for details. Once again of note, as described by the Coin Machine Servicer Repairer Radiologist, a focus of inflammatory fat stranding [...] dictated, however, the referring physician is the Coin Machine Servicer Repairer Cardiovascular Surgeon of the [facility], therefore no recommendation is necessary. Substantial angulation [...] be dictated regarding the non-vascularfindings by the Coin Machine Servicer Repairer Radiologist. Signed: Tahir Arita MDRort Verified Date/Time: 12/24/2018 07:57:30 [id number] 05:30:00 Test Item Value Reference Range Interpretation Comments PARTIAL THROMBOPLASTIN TIME 35.2 seconds 22.5-36.0 (BEAKER) (test code = 760) PROTHROMBIN [id number] 05:29:00 Test Item Value Reference Range Interpretation Comments PROTIME (BEAKER) (test code = 13.8 seconds 11.9-14.2 759) INR (BEAKER) (test code = 370) 1.1 <=5.9 Effective 07/31/2018: PT Reference Range ChangeNew: 11.9-14.2 Previous: 11.7- 14.7RECOMMENDED COUMADIN/WARFARIN INR THERAPY RANGESSTANDARD DOSE: 2.0-3.0 Includes: PROPHYLAXIS for venous thrombosis, systemic embolization; TREATMENT for venous thrombosis and/or pulmonary embolus.HIGH RISK: Target INR is2.5-3.5 for patients wiht mechanical heart valves.[id number] 04:10:00 Test Item Value Reference Range Interpretation Comments PHOSPHORUS (BEAKER) (test code = 2.4 mg/dL 2.3-4.7 604) [id number] 04:10:00 Test Item Value Reference Range Interpretation Comments MAGNESIUM (BEAKER) (test code = 2.2 mg/dL 1.6-2.6 627) BASIC METABOLIC [id number] 04:10:00 Test Item Value Reference Range Interpretation Comments SODIUM (BEAKER) 136 meq/L 136-145 (test code = 381) POTASSIUM (BEAKER) 3.4 meq/L 3.5-5.1 L (test code = 379) CHLORIDE (BEAKER) 106 meq/L 98-107 (test code = 382) CO2 (BEAKER) (test 24 meq/L - code = 355) BLOOD UREA NITROGEN 21 mg/dL 7-21 (BEAKER) (test code = 354) CREATININE (BEAKER) 1.54 mg/dL 0.57-1.25 H (test code = 358) GLUCOSE RANDOM 124 mg/dL 70-105 H (BEAKER) (test code = 652) CALCIUM (BEAKER) 8.8 mg/dL 8.4-10.2 (test code = 697) EGFR (BEAKER) (test 45 mL/min/1.73 ESTIMA TRACEY GFR IS code = 1092) sq m NOT ACCURATE CREATININE CLEARANCE IN PREDICTING GLOMERULAR FILTRATION RATE . ESTIMATED GFR I S NOT APPLICABLE FOR DIALYSIS PATIEN TS. CBC (HEMOGRAM ONLY)2018-12-24 03:42:00 Test Item Value Reference Range Interpretation Comments WHITE BLOOD CELL COUNT (BEAKER) 12.3 K/ L 3.5-10.5 H (test code = 775) RED BLOOD CELL COUNT (BEAKER) 3.66 M/ L 4.63-6.08 L (test code = 761) HEMOGLOBIN (BEAKER) (test code = 11.4 GM/DL 13.7-17.5 L 410) HEMATOCRIT (BEAKER) (test code = 33.9 % 40.1-51.0 L 411) MEAN CORPUSCULAR VOLUME (BEAKER) 92.6 fL 79.0-92.2 H (test code = 753) MEAN CORPUSCULAR HEMOGLOBIN 31.1 pg 25.7-32.2 (BEAKER) (test code = 751) MEAN CORPUSCULAR HEMOGLOBIN CONC 33.6 GM/DL 32.3-36.5 (BEAKER) (test code = 752) RED CELL DISTRIBUTION WIDTH 13.2 % 11.6-14.4 (BEAKER) (test code = 412) PLATELET COUNT (BEAKER) (test 193 K/CU MM 150-450 code = 756) MEAN PLATELET VOLUME (BEAKER) 10.3 fL 9.4-12.4 (test code = 754) NUCLEATED RED BLOOD CELLS 0 /100 WBC 0-0 (BEAKER) (test code = 413) POCT-GLUCOSE [id number] 00:04:00 Test Item Value Reference Range Interpretation Comments POC-GLUCOSE METER 112 mg/dL 70-[address] [facility] 6720 (BEAKER) (test code = [place]RISTA JOHN 1538) [address] RAD, CHEST, 1 VIEW, NON [id number] 10:30:00Reason for exam:->Post-opShould this be performed at the bedside?->YesFINAL REPORT CLINICAL HISTORY: Post-op TECHNIQUE: 1 view of the chest. COMPARISON: CT 12/23/2018 IMPRESSION: There are coarsened lung markings without focal infiltrates or effusions. The cardiomediastinal silhouette is magnified by technique. Tortuosity of the thoracic aorta again seen. Signed: Shreya Abreu Verified Date/Time: 12/23/2018 10:30:21 Reading Location: [facility] Radiology Reading Room 10:30 AMLACTIC ACID, [id number] 04:16:00 Test Item Value Reference Range Interpretation Comments LACTATE BLOOD ARTERIAL (2) 0.5 mmol/L 0.5-2.2 (BEAKER) (test code = 2874) BASIC METABOLIC [id number] 04:16:00 Test Item Value Reference Range Interpretation Comments SODIUM (BEAKER) 136 meq/L 136-145 (test code = 381) POTASSIUM (BEAKER) 3.2 meq/L 3.5-5.1 L (test code = 379) CHLORIDE (BEAKER) 102 meq/L 98-107 (test code = 382) CO2 (BEAKER) (test 25 meq/L 22-29 code = 355) BLOOD UREA NITROGEN 28 mg/dL 7-21 H (BEAKER) (test code = 354) CREATININE (BEAKER) 1.87 mg/dL 0.57-1.25 H (test code = 358) GLUCOSE RANDOM 116 mg/dL 70-105 H (BEAKER) (test code = 652) CALCIUM (BEAKER) 9.2 mg/dL 8.4-10.2 (test code = 697) EGFR (BEAKER) (test 36 mL/min/1.73 ESTIMA TRACEY GFR IS code = 1092) sq m NOT ACCURATE CREATININE CLEARANCE IN PREDICTING GLOMERULAR FILTRATION RATE . ESTIMATED GFR I S NOT APPLICABLE FOR DIALYSIS PATIEN TS. [id number] 04:13:00 Test Item Value Reference Range Interpretation Comments PARTIAL THROMBOPLASTIN TIME 34.4 seconds 22.5-36.0 (BEAKER) (test code = 760) PROTHROMBIN [id number] 04:12:00 Test Item Value Reference Range Interpretation Comments PROTIME (BEAKER) (test code = 13.3 seconds 11.9-14.2 759) INR (BEAKER) (test code = 370) 1.1 <=5.9 Effective 07/31/2018: PT Reference Range ChangeNew: 11.9-14.2 Previous: 11.7- 14.7RECOMMENDED COUMADIN/WARFARIN INR THERAPY RANGESSTANDARD DOSE: 2.0-3.0 Includes: PROPHYLAXIS for venous thrombosis, systemic embolization; TREATMENT for venous thrombosis and/or pulmonary embolus.HIGH RISK: Target INR is2.5-3.5 for patients wiht mechanical heart valves.BLOOD GAS, [id number] 03:55:00 Test Item Value Reference Range Interpretation Comments PH ARTERIAL (BEAKER) (test code = 7.48 7.35-7.45 H 383) PCO2 ARTERIAL (BEAKER) (test code 34 mmHg 35-45 L = 384) PO2 ARTERIAL (BEAKER) (test code = 64 mmHg 80-90 L 385) O2 SATURATION ARTERIAL (BEAKER) 94.2 % 96.0-97.0 L (test code = 386) HCO3 ARTERIAL (BEAKER) (test code 25 mmol/L - = 388) BASE EXCESS ARTERIAL (BEAKER) 1.5 mmol/L -2.0-3.0 (test code = 387) PATIENT TEMPERATURE (BEAKER) (test 36.7 C code = 1818) FIO2 (BEAKER) (test code = 1819) 21.0 % CBC (HEMOGRAM ONLY)2018-12-23 03:48:00 Test Item Value Reference Range Interpretation Comments WHITE BLOOD CELL COUNT (BEAKER) 14.4 K/ L 3.5-10.5 H (test code = 775) RED BLOOD CELL COUNT (BEAKER) 3.97 M/ L 4.63-6.08 L (test code = 761) HEMOGLOBIN (BEAKER) (test code = 12.5 GM/DL 13.7-17.5 L 410) HEMATOCRIT (BEAKER) (test code = 36.9 % 40.1-51.0 L 411) MEAN CORPUSCULAR VOLUME (BEAKER) 92.9 fL 79.0-92.2 H (test code = 753) MEAN CORPUSCULAR HEMOGLOBIN 31.5 pg 25.7-32.2 (BEAKER) (test code = 751) MEAN CORPUSCULAR HEMOGLOBIN CONC 33.9 GM/DL 32.3-36.5 (BEAKER) (test code = 752) RED CELL DISTRIBUTION WIDTH 13.2 % 11.6-14.4 (BEAKER) (test code = 412) PLATELET COUNT (BEAKER) (test 180 K/CU MM 150-450 code = 756) MEAN PLATELET VOLUME (BEAKER) 10.0 fL 9.4-12.4 (test code = 754) NUCLEATED RED BLOOD CELLS 0 /100 WBC 0-0 (BEAKER) (test code = 413) CT, CHEST, WITHOUT [id number] 02:30:00Reason for exam:->AAA found on OSH renal [...] seen on coronal image 41 and axial [id number]. Evaluation is limited by lack of IV [...] Paul Tejeda MDReport Verified Date/Time: 12/23/2018 02:27:28 [facility], [id number] 02:30:00Reason for exam:->AAA, finding on OSH renal [...] 12/23/2018 02:27:28 CBC W/PLT COUNT & AUTO [id number] 01:24:00 Test Item Value Reference Range Interpretation Comments WHITE BLOOD CELL COUNT (BEAKER) 12.0 K/ L 3.5-10.5 H (test code = 775) RED BLOOD CELL COUNT (BEAKER) 4.11 M/ L 4.63-6.08 L (test code = 761) HEMOGLOBIN (BEAKER) (test code = 12.7 GM/DL 13.7-17.5 L 410) HEMATOCRIT (BEAKER) (test code = 38.3 % 40.1-51.0 L 411) MEAN CORPUSCULAR VOLUME (BEAKER) 93.2 fL 79.0-92.2 H (test code = 753) MEAN CORPUSCULAR HEMOGLOBIN 30.9 pg 25.7-32.2 (BEAKER) (test code = 751) MEAN CORPUSCULAR HEMOGLOBIN CONC 33.2 GM/DL 32.3-36.5 (BEAKER) (test code = 752) RED CELL DISTRIBUTION WIDTH 13.2 % 11.6-14.4 (BEAKER) (test code = 412) PLATELET COUNT (BEAKER) (test 183 K/CU MM 150-450 code = 756) MEAN PLATELET VOLUME (BEAKER) 11.2 fL 9.4-12.4 (test code = 754) NUCLEATED RED BLOOD CELLS 0 /100 WBC 0-0 (BEAKER) (test code = 413) NEUTROPHILS RELATIVE PERCENT 80 % (BEAKER) (test code = 429) LYMPHOCYTES RELATIVE PERCENT 11 % (BEAKER) (test code = 430) MONOCYTES RELATIVE PERCENT 8 % (BEAKER) (test code = 431) EOSINOPHILS RELATIVE PERCENT 1 % (BEAKER) (test code = 432) BASOPHILS RELATIVE PERCENT 1 % (BEAKER) (test code = 437) NEUTROPHILS ABSOLUTE COUNT 9.51 K/ L 1.78-5.38 H (BEAKER) (test code = 670) LYMPHOCYTES ABSOLUTE COUNT 1.28 K/ L 1.32-3.57 L (BEAKER) (test code = 414) MONOCYTES ABSOLUTE COUNT (BEAKER) 0.96 K/ L 0.30-0.82 H (test code = 415) EOSINOPHILS ABSOLUTE COUNT 0.09 K/ L 0.04-0.54 (BEAKER) (test code = 416) BASOPHILS ABSOLUTE COUNT (BEAKER) 0.06 K/ L 0.01-0.08 (test code = 417) IMMATURE GRANULOCYTES-RELATIVE 1 % 0-1 PERCENT (BEAKER) (test code = 2801) PROTHROMBIN [id number] 01:19:00 Test Item Value Reference Range Interpretation Comments PROTIME (BEAKER) (test code = 13.2 seconds 11.9-14.2 759) INR (BEAKER) (test code = 370) 1.0 <=5.9 Effective 07/31/2018: PT Reference Range ChangeNew: 11.9-14.2 Previous: 11.7- 14.7RECOMMENDED COUMADIN/WARFARIN INR THERAPY RANGESSTANDARD DOSE: 2.0-3.0 Includes: PROPHYLAXIS for venous thrombosis, systemic embolization; TREATMENT for venous thrombosis and/or pulmonary embolus.HIGH RISK: Target INR is2.5-3.5 for patients wiht mechanical heart valves.[id number] 01:19:00 Test Item Value Reference Range Interpretation Comments PARTIAL THROMBOPLASTIN TIME 35.8 seconds 22.5-36.0 (BEAKER) (test code = 760) CALCIUM, [id number] 01:15:00 Test Item Value Reference Range Interpretation Comments CALCIUM IONIZED (BEAKER) (test 1.02 mmol/L 1.12-1.27 L code = 698) PH, BLOOD (BEAKER) (test code = 7.52 1810) BLOOD GAS, [id number] 01:15:00 Test Item Value Reference Range Interpretation Comments PH ARTERIAL (BEAKER) (test code = 7.52 7.35-7.45 H 383) PCO2 ARTERIAL (BEAKER) (test code 32 mmHg 35-45 L = 384) PO2 ARTERIAL (BEAKER) (test code = 74 mmHg 80-90 L 385) O2 SATURATION ARTERIAL (BEAKER) 96.3 % 96.0-97.0 (test code = 386) HCO3 ARTERIAL (BEAKER) (test code 25 mmol/L = 388) BASE EXCESS ARTERIAL (BEAKER) 3.0 mmol/L -2.0-3.0 (test code = 387) PATIENT TEMPERATURE (BEAKER) (test 36.8 C code = 1818) FIO2 (BEAKER) (test code = 1819) 21.0 % SODIUM NA-STAT [id number] 01:15:00 Test Item Value Reference Range Interpretation Comments SODIUM (BEAKER) (test code = 381) 132 meq/L 135-148 L POTASSIUM-STAT [id number] 01:15:00 Test Item Value Reference Range Interpretation Comments POTASSIUM (BEAKER) (test code = 2.7 meq/L 3.6-5.5 L 379) GLUCOSE-STAT [id number] 01:15:00 Test Item Value Reference Range Interpretation Comments GLUCOSE RANDOM (BEAKER) (test code 123 mg/dL 70-110 H = 652) HGB/HCT (H&H) - STAT [id number] 01:15:00 Test Item Value Reference Range Interpretation Comments HEMOGLOBIN (BEAKER) (test code = 12.8 g/dL 13.0-16.8 L 410) HEMATOCRIT (BEAKER) (test code = 38.0 % 40.0-50.0 L 411) [id number] 00:51:00 Test Item Value Reference Range Interpretation Comments PHOSPHORUS (BEAKER) (test code = 3.0 mg/dL 2.3-4.7 604) [id number] 00:51:00 Test Item Value Reference Range Interpretation Comments MAGNESIUM (BEAKER) (test code = 2.3 mg/dL 1.6-2.6 627) BASIC METABOLIC [id number] 00:51:00 Test Item Value Reference Range Interpretation Comments SODIUM (BEAKER) 134 meq/L 136-145 L (test code = 381) POTASSIUM (BEAKER) 2.8 meq/L 3.5-5.1 L (test code = 379) CHLORIDE (BEAKER) 99 meq/L 98-107 (test code = 382) CO2 (BEAKER) (test 25 meq/L 22-29 code = 355) BLOOD UREA NITROGEN 29 mg/dL 7-21 H (BEAKER) (test code = 354) CREATININE (BEAKER) 1.95 mg/dL 0.57-1.25 H (test code = 358) GLUCOSE RANDOM 128 mg/dL 70-105 H (BEAKER) (test code = 652) CALCIUM (BEAKER) 9.0 mg/dL 8.4-10.2 (test code = 697) EGFR (PHILLIP) (test 34 mL/min/1.73 ESTIMA TRACEY GFR IS code = 1092) sq m NOT ACCURATE CREATININE CLEARANCE IN PREDICTING GLOMERULAR FILTRATION RATE . ESTIMATED GFR I S NOT APPLICABLE FOR DIALYSIS PATIEN TS. LACTIC ACID, [id number] 00:45:00 Test Item Value Reference Range Interpretation Comments LACTATE BLOOD ARTERIAL (2) 0.9 mmol/L 0.5-2.2 (PHILLIP) (test code = 2874)
[2020-06-14 20:52] LABS: Absolute Lymphocytes (CBC) 0.6 K/uL (0.7-4.9); Basophils % 0.4 % (0-1.3); Lymphocytes % 5.2 % (15.3-44.8); MPV 8.1 fL (7.6-11.3); RBC Red Blood Cell Count 2.54 M/uL (4.33-5.43)
[2020-06-14] MEDS ORDERED: NA CHLORIDE 0.9% 250 ML ONE (21:00)
[2020-06-14] MEDS ORDERED: NA CHLORIDE 0.9% 1,000 ML ONE (21:00)
[2020-06-14] MEDS ORDERED: PANTOPRAZOLE 40 MG INJ ONE (21:00)
[2020-06-14] MEDS ORDERED: CEFTRIAXONE/SWI 1gm 1 GM/10 ML SYR ONE (21:02)
[2020-06-14] MEDS ORDERED: OCTREOTIDE ACETATE 100 MCG/ML ONE (21:02)
[2020-06-14 21:07] LABS: Albumin 2.3 g/dL (3.4-5.0); Bilirubin Direct 0.3 mg/dL (0-0.2); Bilirubin Total 0.6 mg/dL (0.2-1.0); Potassium 4.1 mmol/L (3.5-5.1); Protein, Total 6.2 g/dL (6.4-8.2)
[2020-06-14 21:10] LABS: Protime INR 1.06
[2020-06-14 21:22] LABS: Magnesium 2.2 mg/dL (1.8-2.4); NT PRO-BNP 15881 pg/mL (<125); Troponin (Emerg Dept Use Only) < 0.02 ng/mL (0.0-0.045)
[2020-06-14 22:33] LABS: Anisocytosis 1+; Blood Morphology Comment NOTED (NOT SEEN); Platelet Estimate ADEQ
--- NOTE | 2020-06-14 23:15 | EDPHYS ---
Physician Documentation [facility] Name: Marquise Mendoza Age: 69 yrs Sex: Male : 1950 Arrival Date: 06/14/2020 Time: 19:57 Bed 17 Private MD: ED Physician Emmett Morales HPI: 06/14 23:13 This 69 yrs old Male presents to ER via EMS with complaints of Shortness Of ma2 Breath and rectal bleeding. 23:13 Onset: The symptoms/episode began/occurred gradually, 1 day(s) ago. Severity of ma2 symptoms: At their worst the symptoms were moderate in the emergency department the symptoms are unchanged. The patient has not experienced similar symptoms in the past. here with bright red blood per rectum about 200 ml in er, . Historical: - Allergies: 20:07 No Known Allergies; ca1 - PMHx: 20:07 Anxiety; Migraines; ESRD; ca1 20:09 Pacemaker; defibrillator; AAA; ca1 - PSHx: 20:09 abdominal surgery; shoulder surgery; ca1 - Immunization history:: Adult Immunizations unknown. - Social history:: Smoking status: Patient reports the use of cigarette tobacco products, smokes one-half pack cigarettes per day. - Family history:: not pertinent. ROS: 23:13 Constitutional: Negative for fever, chills, and weight loss. ma2 23:13 All other systems are negative. Exam: 23:13 Constitutional: This is a well developed, well nourished patient who is awake, alert, ma2 and in no acute distress. Head/Face: Normocephalic, atraumatic. Eyes: Pupils equal round and reactive to light, extra-ocular motions intact. Lids and lashes normal. Conjunctiva and sclera are non-icteric and not injected. Cornea within normal limits. Periorbital areas with no swelling, redness, or edema. ENT: Nares patent. No nasal discharge, no septal abnormalities noted. Tympanic membranes are normal and external auditory canals are clear. Oropharynx with no redness, swelling, or masses, exudates, or evidence of obstruction, uvula midline. Mucous membranes moist. Neck: Trachea midline, no thyromegaly or masses palpated, and no cervical lymphadenopathy. Supple, full range of motion without nuchal rigidity, or vertebral point tenderness. No Meningismus. Chest/axilla: Normal chest wall appearance and motion. Nontender with no deformity. No lesions are appreciated. Cardiovascular: Regular rate and rhythm with a normal S1 and S2. No gallops, murmurs, or rubs. Normal PMI, no JVD. No pulse deficits. Respiratory: Lungs have equal breath sounds bilaterally, clear to auscultation and percussion. No rales, rhonchi or wheezes noted. No increased work of breathing, no retractions or nasal flaring. Abdomen/GI: Soft, non-tender, with normal bowel sounds. No distension or tympany. No guarding or rebound. No evidence of tenderness throughout. Skin: Warm, dry with normal turgor. Normal color with no rashes, no lesions, and no evidence of cellulitis. MS/ Extremity: Pulses equal, no cyanosis. Neurovascular intact. Full, normal range of motion. Neuro: Awake and alert, GCS 15, oriented to person, place, time, and situation. Cranial nerves II-XII grossly intact. Motor strength 5/5 in all extremities. Sensory grossly intact. Cerebellar exam normal. Normal gait. Vital Signs: 19:57 BP 84 / 60; Pulse 103; Resp 20; Temp 97.6; Pulse Ox 96% on 2 lpm NC; Weight 61.69 kg; ca1 Height 6 ft. 0 in. (182.88 cm); Pain 0/10; 20:57 BP 76 / 60; Pulse 97; Resp 26; Pulse Ox 82% on R/A; jb4 21:45 BP 84 / 60; Pulse 82; Resp 21; Pulse Ox 97% on 3 lpm NC; jb4 22:45 BP 86 / 62; Pulse 83; Resp 19; Pulse Ox 100% on 3 lpm NC; jb4 23:14 BP 90 / 58; Pulse 88; Resp 18; Pulse Ox 98% 3 lpm ; ea 06/15 00:00 BP 89 / 67; Pulse 90; Resp 18; Pulse Ox 98% on 3 lpm NC; ea 01:37 BP 89 / 63; Pulse 90; Resp 18; Pulse Ox 99% on R/A; ea 02:59 BP 88 / 68; Pulse 80; Resp 18; Temp 98; Pulse Ox 98% ; ea 03:45 BP 92 / 63; Pulse 81; Resp 18; Temp 97.8; Pulse Ox 100% on R/A; ea 06/14 19:57 Body Mass Index 18.44 (61.69 kg, 182.88 cm) ca1 MDM: 06/14 20:25 Patient medically screened. ma2 23:13 Differential diagnosis: Anemia reactive airway disease, gi bleeding. Data reviewed: ri2 vital signs, nurses notes. Counseling: I had a detailed discussion with the patient and/or guardian regarding: the historical points, exam findings, and any diagnostic results supporting the discharge/admit diagnosis, the presence of at least one elevated blood pressure reading (>120/80) during this emergency department visit, the need to transfer to another facility. ED course: no gi available in our hospital . 06/14 20:23 Order name: Basic Metabolic Panel; Complete Time: 22:17 [facility] [place] 06/14 20:23 Order name: CBC with Diff; Complete Time: 22:57 [facility] 06/14 20:23 Order name: Hepatic Function; Complete Time: 22:17 [facility] 06/14 20:23 Order name: Lipase; Complete Time: 22:17 [facility] 06/14 20:23 Order name: Type And Screen [facility] 06/14 20:34 Order name: Magnesium; Complete Time: 22:17 [facility] 06/14 20:34 Order name: NT PRO-BNP; Complete Time: 22:17 [facility] 06/14 20:34 Order name: PT-INR; Complete Time: 22:17 [facility] 06/14 20:34 Order name: Troponin (emerg Dept Use Only); Complete Time: 22:17 [facility] 06/14 21:03 Order name: Manual Differential; Complete Time: 22:57 [facility] 06/14 21:10 Order name: COVID-19 : Document "Date of Symptom Onset" if Symptomatic. tt3 06/14 22:11 Order name: SARS-COV-2 RT PCR; Complete Time: 22:17 [facility] 06/14 20:23 Order name: IV Saline Lock; Complete Time: 21:04 [facility] 06/14 20:23 Order name: Labs collected and sent; Complete Time: 21:04 [facility] 06/14 20:34 Order name: XRAY Chest (1 view) [facility] 06/14 20:34 Order name: EKG; Complete Time: 20:35 [facility] 06/14 20:34 Order name: Cardiac monitoring; Complete Time: 21:04 [facility] 06/14 20:34 Order name: EKG - Nurse/Tech; Complete Time: 21:04 [facility] 06/14 20:34 Order name: O2 Per Protocol; Complete Time: 21: [facility] 06/14 20:34 Order name: O2 Sat Monitoring; Complete Time: 21:04 [facility] 06/14 21:08 Order name: Transfuse: 2 UNITS PACKED RBC. RATE 2 HRS PER UNIT; Complete Time: 01:36 [facility] 06/14 23:07 Order name: Packed RBC Leukored EDWI 06/15 00:19 Order name: ABO/RH no charge; Complete Time: 00:23 EDMS Administered Medications: 20:50 Drug: Pantoprazole 80 mg Route: IVP; Site: right antecubital; ea 21:12 Follow up: Response: No adverse reaction ea 20:55 Drug: Pantoprazole 8 mg/hr Route: IV; Rate: 25 ml/hr; Site: right antecubital; ea 21:05 Drug: NS 0.9% 500 ml Route: IV; Rate: 125 ml/hr; Site: right antecubital; ea 21:05 Drug: Rocephin (cefTRIAXone) 1 grams Route: IV; Rate: calculated rate; Site: left ea antecubital; 21:05 Drug: Octreotide Infusion (50 mcg/hr) - (Octreotide 500 mcg, NS 0.9% 500 ml) Route: IV; ea Rate: 50 ml/hr; Site: left antecubital; Disposition: 06/14/20 23:[address] [facility]. Diagnosis is Gastrointestinal hemorrhage, unspecified. - Reason for transfer: Higher level of care. - Accepting physician is Rhea Pereira. - Condition is Stable. - Problem is new. - Symptoms are unchanged. Signatures: Dispatcher [employer] EDMS Naveen Villasenor RN RN jb4 Penny Zavala RN RN ea Alzahri, Mohammad, MD MD ma2 Nadeen Anand RN RN ca1 Corrections: (The following items were deleted from the chart) 20:49 20:36 TYPE AND SCREEN+BB.LAB.BRZ ordered. EDMS EDMS 21:31 21:11 CORONAVIRUS ordered. EDWI EDMS 23:41 23:15 06/14/2020 23:[address] [facility]. ma2 Diagnosis is Gastrointestinal hemorrhage, unspecified. Reason for transfer: Higher level of care. Accepting physician is os. Condition is Stable. Problem is new. Symptoms are unchanged. ma2 06/15 02:32 06/14 23:41 06/14/2020 23:[address] [facility]. ma2 Diagnosis is Gastrointestinal hemorrhage, unspecified. Reason for transfer: Higher level of care. Accepting physician is Amelie Pereira. Condition is Stable. Problem is new. Symptoms are unchanged. ma2 06/15 03:59 02:32 06/14/2020 23:[address] [facility]. ea Diagnosis is Gastrointestinal hemorrhage, unspecified. Reason for transfer: Higher level of care. Accepting physician is Rhea Pereira. Condition is Stable. Problem is new. Symptoms are unchanged. ma2
--- NOTE | 2020-06-14 23:15 | ER ---
Nurse's Notes [facility] Name: Marquise Mendoza Age: 69 yrs Sex: Male : 1950 Arrival Date: 06/14/2020 Time: 19:57 Bed 17 Private MD: Diagnosis: Gastrointestinal hemorrhage, unspecified Presentation: 06/14 19:57 Chief complaint: EMS states: Pt is on dialysis MWF. Had a dialysis today, felt good. ca1 Got home after dialysis and smoked 2 cigarettes, felt SOB around 1800. Upon arrival on scene, pt laying down on the floor, vomited x2 O2 sat at 70% RA. Gave him 02 at at 2LPM, sats increase to 100%. Pt reported he was just discharged from [facility] yesterday for fluid in the lungs. Pt also reported that his kidney doctor changed is HPN meds and he is normally hypotensive since. BP is 92/51. Coronavirus screen: shortness of breath, Client presents with at least one sign or symptom that may indicate coronavirus-19. Standard/surgical mask placed on the client. Provider contacted for isolation considerations. Ebola Screen: Patient negative for fever greater than or equal to 101.5 degrees Fahrenheit, and additional compatible Ebola Virus Disease symptoms Patient denies exposure to infectious person. Patient denies travel to an Ebola-affected area in the 21 days before illness onset. No symptoms or risks identified at this time. Initial Sepsis Screen:. Risk Assessment: Do you want to hurt yourself or someone else? Patient reports no desire to harm self or others. Onset of symptoms was June 14, 2020 at 18:00. 19:57 Method Of Arrival: EMS: [facility] ca1 19:57 Acuity: JELLY 2 ca1 19:57 Initial Sepsis Screen: Does the patient meet any 2 criteria? No. Patient's initial ca1 sepsis screen is negative. Does the patient have a suspected source of infection? No. Patient's initial sepsis screen is negative. Triage Assessment: 21:10 General: Appears in no apparent distress. Behavior is calm, cooperative, appropriate ea for age. Pain: Denies pain. Respiratory: Airway is patent Respiratory effort is even, unlabored, Respiratory pattern is regular, symmetrical, Onset: The symptoms/episode began/occurred today. Derm: Skin is dry, Skin is pale, Skin temperature is warm. Historical: - Allergies: 20:07 No Known Allergies; ca1 - PMHx: 20:07 Anxiety; Migraines; ESRD; ca1 20:09 Pacemaker; defibrillator; AAA; ca1 - PSHx: 20:09 abdominal surgery; shoulder surgery; ca1 - Immunization history:: Adult Immunizations unknown. - Social history:: Smoking status: Patient reports the use of cigarette tobacco products, smokes one-half pack cigarettes per day. - Family history:: not pertinent. Screenin:42 Abuse screen: Denies threats or abuse. Nutritional screening: No deficits noted. ea Tuberculosis screening: No symptoms or risk factors identified. Fall Risk IV access (20 points). Assessment: 21:00 Reassessment: see triage assessment. ea 23:03 Reassessment: Patient and/or family updated on plan of care and expected duration. Pain ea level reassessed. Patient is alert, oriented x 3, equal unlabored respirations, skin warm/dry/pink. 06/15 00:00 Reassessment: Patient and/or family updated on plan of care and expected duration. Pain em level reassessed. Pt resting with eyes closed, respirations even and unlabored, chest expansions even and symmetrical. 01:36 Reassessment: Patient and/or family updated on plan of care and expected duration. Pain ea level reassessed. Pt resting with eyes closed, respirations even and unlabored, chest expansions even and symmetrical. 02:59 Reassessment: Patient and/or family updated on plan of care and expected duration. Pain ea level reassessed. Pt resting with eyes closed, respirations even and unlabored, chest expansions even and symmetrical. 03:45 Reassessment: Patient and/or family updated on plan of care and expected duration. Pain ea level reassessed. Patient is alert, oriented x 3, equal unlabored respirations, skin warm/dry/pink. LJ EMS at facility for transfer. Pt left ED via stretcher per EMS tolerating well. Vital Signs: 06/14 19:57 BP 84 / 60; Pulse 103; Resp 20; Temp 97.6; Pulse Ox 96% on 2 lpm NC; Weight 61.69 kg; ca1 Height 6 ft. 0 in. (182.88 cm); Pain 0/10; 20:57 BP 76 / 60; Pulse 97; Resp 26; Pulse Ox 82% on R/A; jb4 21:45 BP 84 / 60; Pulse 82; Resp 21; Pulse Ox 97% on 3 lpm NC; jb4 22:45 BP 86 / 62; Pulse 83; Resp 19; Pulse Ox 100% on 3 lpm NC; jb4 23:14 BP 90 / 58; Pulse 88; Resp 18; Pulse Ox 98% 3 lpm ; ea 06/15 00:00 BP 89 / 67; Pulse 90; Resp 18; Pulse Ox 98% on 3 lpm NC; ea 01:37 BP 89 / 63; Pulse 90; Resp 18; Pulse Ox 99% on R/A; ea 02:59 BP 88 / 68; Pulse 80; Resp 18; Temp 98; Pulse Ox 98% ; ea 03:45 BP 92 / 63; Pulse 81; Resp 18; Temp 97.8; Pulse Ox 100% on R/A; ea 06/14 19:57 Body Mass Index 18.44 (61.69 kg, 182.88 cm) ca1 ED Course: 06/14 18:00 Inserted saline lock: 18 gauge in left antecubital area, using aseptic technique. ea 19:57 Patient arrived in ED. ca1 20:01 Triage completed. ca1 20:01 Arm band placed on right wrist. ca1 20:25 Emmett Morales MD is Attending Physician. ma2 20:37 Penny Zavala, MAXX is Primary Nurse. ea 20:58 XRAY Chest (1 view) In Process Unspecified. EDMS 21:00 Inserted saline lock: 20 gauge in right forearm, using aseptic technique. Blood ea collected. 21:10 Patient has correct armband on for positive identification. Placed in gown. Bed in low ea position. Call light in reach. phototypesetting equipment monitor on. Pulse ox on. NIBP on. 21:13 Initiated transfer at [facility] with Stephanie Davalos and was connected with Mandy. tt3 Transfer is on hold until covid results comes back. Information passed on to Penny Zavala, MAXX, primary nurse and Dr. Morales. 22:11 Called [facility] transfer center and updated Zeinab with pt covid results. Results were tt3 faxd to per Zeinab's request. 23:14 No provider procedures requiring assistance completed. Patient admitted, IV remains in ea place. 23:50 Missed attempt(s): 22 gauge in right hand. Bleeding controlled, band aid applied, ea catheter tip intact. 06/15 00:00 Inserted saline lock: 24 gauge in right hand, using aseptic technique. ea Administered Medications: 06/14 20:50 Drug: Pantoprazole 80 mg Route: IVP; Site: right antecubital; ea 21:12 Follow up: Response: No adverse reaction ea 20:55 Drug: Pantoprazole 8 mg/hr Route: IV; Rate: 25 ml/hr; Site: right antecubital; ea 21:05 Drug: NS 0.9% 500 ml Route: IV; Rate: 125 ml/hr; Site: right antecubital; ea 21:05 Drug: Rocephin (cefTRIAXone) 1 grams Route: IV; Rate: calculated rate; Site: left ea antecubital; 21:05 Drug: Octreotide Infusion (50 mcg/hr) - (Octreotide 500 mcg, NS 0.9% 500 ml) Route: IV; ea Rate: 50 ml/hr; Site: left antecubital; Outcome: 23:15 ER care complete, transfer ordered by . jesus 06/15 01:38 Instructed on the need for transfer, Demonstrated understanding of instructions. ea 03:59 Patient left the ED. ea 03:59 Transferred by ground EMS to [facility], Transfer form ea completed. 03:59 Condition: stable Signatures: Dispatcher [employer] EDMS Huey Duarte RN RN em Bryson, James, RN RN jb4 Penny Zavala RN RN ea Alzahri, Mohammad, MD MD ma2 aNdeen Anand RN RN ca1 Pedro Salcido tt3 Corrections: (The following items were deleted from the chart) 06/14 20:01 19:57 Chief complaint: EMS states: Pt is on dialysis MWF. Had a dialysis today, felt ca1 good. Got home after dialysis and smoked 2 cigarettes, felt SOB around 1800. Upon arrival on scene, pt laying down on the floor, vomited x2 O2 sat at 70% RA. Gave him 02 at at 2LPM, sats increase to 100%. Pt reported he was just discharged from [facility] yesterday for fluid in the lungs. Pt also reported that his kidney doctor changed is N meds and he is normally hypotensive since. ca1 20:06 19:57 Acuity: JELLY 3 ca1 ca1
[2020-06-15] MEDS ORDERED: NA CHLORIDE 0.9% 250 ML ONE (00:30)
[2020-06-15 04:19] VITALS: BP 88/68; TEMP 98; O2SAT 98
--- NOTE | 2020-06-15 09:01 | RAD REPORT ---
EXAM DESCRIPTION: RAD - Chest Single View - 06/14/2020 8:59 pm CLINICAL HISTORY: DYSPNEA Chest pain. COMPARISON: Chest Pa And Lat (2 Views) dated 06/24/2019; Chest Single View dated 05/19/2019; Chest Sin gle View dated 05/16/2019; Chest Single View dated 05/15/2019 FINDINGS: Portable technique limits examination quality. Small right pleural effusion is seen. Mild to moderate pulmonary edema suspected. The heart is normal in size. Dual lead pacer/ defibrillator device present. IMPRESSION: Mild to moderate CHF.
--- NOTE | 2020-06-15 16:35 | EKG ---
Test Date: 2020-06-14 Test Time: 20:44:16 Cd Technician: NOLAN MEASUREMENT RESULTS: Intervals: Rate: 90 VA: 110 QRSD: 82 QT: 434 QTc: 530 [place]: P: 88 VA: 110 QRS: 47 T: -63 INTERPRETIVE STATEMENTS: Sinus rhythm with short VA with premature supraventricular complexes and with occasional premature ventricular complexes Inferior infarct, age undetermined ST & T wave abnormality, consider lateral ischemia Abnormal ECG Compared to ECG 06/14/2020 20:43:47 Atrial premature complex(es) now present Ventricular premature complex(es) now present Short VA interval now present Myocardial infarct finding still present ST (T wave) deviation still present Possible ischemia still present Electronically Signed On 06-15-20 16:33:02 CDT by Pankaj Gutierrez
== END 2020-06-15 03:59 | disposition short-term general hospital (02) ==
LOC: ER 19:54
DX: K92.1 Melena (principal); Z20.822 Contact with and (suspected) exposure to COVID-19; F41.9 Anxiety disorder, unspecified; Z95.810 Presence of automatic (implantable) cardiac defibrillator; N18.6 End stage renal disease; F17.210 Nicotine dependence, cigarettes, uncomplicated; R06.02 Shortness of breath
CPT/HCPCS: 93005; 85025; 80048; 36415; 86900; 83735; 86850; 85610; 86901; 80076; 84484; 83690; 83880; 71045; U0003; J2354; C9113; J0696; P9016 ×2; J7050 ×2; J7040; 99285

== ENCOUNTER 2020-11-18 11:58 | Inpatient (IN) | payer OTHER ==
[2020-11-18 14:06] LABS: Urine Blood 1+ (Negative); Urine Glucose Negative (Negative); Urine Protein 1+ (Negative)
--- NOTE | 2020-11-18 14:18 | RAD REPORT ---
EXAM DESCRIPTION: RAD - Chest Single View - 11/18/2020 2:03 pm CLINICAL HISTORY: Fever;Cough;Congestion COMPARISON: Chest Pa And Lat (2 Views) dated 09/02/2020; Chest Single View dated 06/14/2020; Chest Pa A nd Lat (2 Views) dated 06/24/2019; Chest Single View dated 05/19/2019 FINDINGS: Lines: Right IJ approach dialysis catheter. Pacemaker. The tip of the dialysis catheter is difficult to visualize. Lungs: Diffuse prominence of the pulmonary interstitium P Pleural: Bilateral pleural effusions, moderate on the right. Cardiac: Cardiomegaly. Bones: No acute fractures. Other: IMPRESSION: Increased edema compared with 09/02/2020. Pneumonia difficult to exclude radiographicall yKang
[2020-11-18 14:30] LABS: Absolute Lymphocytes (CBC) 0.4 K/uL (0.7-4.9); Basophils % 0.6 % (0-1.3); Hematocrit 36.2 % (39.6-49.0); Lymphocytes % 4.2 % (15.3-44.8); MPV 8.1 fL (7.6-11.3)
[2020-11-18 14:31] LABS: Protime INR 1.04
[2020-11-18 14:43] LABS: ALT/SGPT 17 U/L (12-78); AST/SGOT 13 U/L (15-37); Albumin 3.1 g/dL (3.4-5.0); Alkaline Phosphatase 122 U/L (45-117); Amylase 41 U/L (25-115); BUN Blood Urea Nitrogen 56 mg/dL (7-18); Bicarbonate 22 mmol/L (21-32); Bilirubin Direct 0.7 mg/dL (0-0.2); Bilirubin Total 1.1 mg/dL (0.2-1.0); CKMB Creatine Kinase MB 1.4 ng/mL (1.0-3.6); Creatine Phosphokinase 32 U/L (39-308); Glucose Level 90 mg/dL (74-106); Lipase 56 U/L (73-393); Protein, Total 7.7 g/dL (6.4-8.2); Sodium Level 135 mmol/L (136-145); Troponin (Emerg Dept Use Only) < 0.02 ng/mL (0.0-0.045)
[2020-11-18 14:51] LABS: White Blood Cell Scan OK (OK)
[2020-11-18 14:52] LABS: Blood Morphology Comment NOT SEEN (NOT SEEN); Platelet Estimate ADEQ
[2020-11-18 15:10] LABS: Urine Bacteria >50 /HPF (NONE SEEN)
--- NOTE | 2020-11-18 17:23 | ER ---
Nurse's Notes [facility] Name: Marquise Mendoza Age: 70 yrs Sex: Male : 1950 Arrival Date: 11/18/2020 Time: 12:02 Bed 30 Private MD: Diagnosis: Febrile illness, urinary tract infection, shortness of breath, weakness Presentation: 11/18 12:17 Chief complaint: This morning pt temperature was 101.7 and Oxygen level was 85% on 3L. vg1 [facility] stated pt Hospice nurse stated for pt to come to the ED for further evaluation and Covid test. Pt denies NVD, states shortness of breath. Coronavirus screen: Vaccine status: Patient reports receiving the 2nd dose of the covid vaccine. Client presents with at least one sign or symptom that may indicate coronavirus-19. Standard/surgical mask placed on the client. Ebola Screen: Patient negative for fever greater than or equal to 101.5 degrees Fahrenheit, and additional compatible Ebola Virus Disease symptoms. Initial Sepsis Screen: Does the patient meet any 2 criteria? RR > 20 per min. HR > 90 bpm. Yes Does the patient have a suspected source of infection?. Risk Assessment: Do you want to hurt yourself or someone else? Patient reports no desire to harm self or others. Onset of symptoms was November 18, 2020. 12:17 Method Of Arrival: Wheelchair vg1 12:17 Acuity: JELLY 3 vg1 Triage Assessment: 12:21 General: Appears in no apparent distress. comfortable, Behavior is calm, cooperative. vg1 Pain: Denies pain. Historical: - Allergies: 12:21 No Known Allergies; vg1 - Home Meds: 12:21 gabapentin Oral [Active]; Lorazepam Oral [Active]; paroxetine Oral [Active]; vg1 12:25 Aspirin Oral [Active]; Furosemide Oral [Active]; pantoprazole oral [Active]; vg1 risperidone oral [Active]; Lorazepam Oral [Active]; Imodium Oral [Active]; prednisone Oral [Active]; Albuterol Nebulizer [Active]; - PMHx: 12:21 AAA; Anxiety; defibrillator; ESRD; Migraines; Pacemaker; COPD; vg1 12:24 CHF; Kidney disease; Dialysis; Mondays and Fridays; vg1 - Immunization history:: Adult Immunizations up to date, Client reports receiving the 2nd dose of the Covid vaccine. - Social history:: Smoking status: Patient reports the use of cigarette tobacco products, smokes one-half pack cigarettes per day. Screenin:53 Abuse screen: Denies threats or abuse. Denies injuries from another. Nutritional ld1 screening: No deficits noted. Tuberculosis screening: No symptoms or risk factors identified. Fall Risk None identified. Assessment: 12:53 General: Appears in no apparent distress. uncomfortable, Behavior is calm, cooperative, ld1 appropriate for age. Pain: Denies pain. Neuro: Level of Consciousness is awake, alert, obeys commands, Oriented to person, place, time, situation, Appropriate for age. Cardiovascular: Capillary refill < 3 seconds Patient's skin is warm and dry. Rhythm is Respiratory: Reports shortness of breath at rest on exertion Airway is patent Respiratory effort is even, labored, Respiratory pattern is regular, symmetrical. GI: Abdomen is flat, non-distended. : No signs and/or symptoms were reported regarding the genitourinary system. EENT: No signs and/or symptoms were reported regarding the EENT system. Derm: No signs and/or symptoms reported regarding the dermatologic system. Musculoskeletal: No signs and/or symptoms reported regarding the musculoskeletal system. 14:14 Reassessment: Patient appears in no apparent distress at this time. Patient and/or ld1 family updated on plan of care and expected duration. Pain level reassessed. Patient is alert, oriented x 3, equal unlabored respirations, skin warm/dry/pink. 15:19 Reassessment: Patient appears in no apparent distress at this time. Patient and/or ld1 family updated on plan of care and expected duration. Pain level reassessed. Patient is alert, oriented x 3, equal unlabored respirations, skin warm/dry/pink. 16:29 Reassessment: Patient appears in no apparent distress at this time. No changes from ld1 previously documented assessment. Patient and/or family updated on plan of care and expected duration. Pain level reassessed. Patient is alert, oriented x 3, equal unlabored respirations, skin warm/dry/pink. Pt resting in bed. RR 25. 17:16 Reassessment: Patient appears in no apparent distress at this time. Patient and/or ld1 family updated on plan of care and expected duration. Pain level reassessed. RR 26. Vital Signs: 12:17 BP 124 / 86; Pulse 105; Resp 30; Temp 99.3(O); Pulse Ox 95% on 3 lpm NC; Weight 61.69 vg1 kg; Height 6 ft. 0 in. (182.88 cm); Pain 0/10; 12:53 BP 138 / 94; Pulse 106; Resp 19; Pulse Ox 100% on 3 lpm NC; Pain 0/10; ld1 14:14 BP 126 / 89; Pulse 100; Resp 22; Pulse Ox 100% on 3 lpm NC; ld1 15:19 BP 116 / 82; Pulse 98; Resp 24; Pulse Ox 100% on 3 lpm NC; ld1 16:29 BP 119 / 78; Pulse 101; Resp 25; Pulse Ox 100% on 3 lpm NC; ld1 17:16 BP 109 / 93; Pulse 97; Resp 26; Pulse Ox 100% on 3 lpm NC; ld1 12:17 Body Mass Index 18.44 (61.69 kg, 182.88 cm) vg1 ED Course: 12:02 Patient arrived in ED. ds1 12:21 Triage completed. vg1 12:24 Arm band placed on. EKG completed in triage. Results shown to MD. vg1 12:38 Reyna Romero, MAXX is Primary Nurse. ld1 12:49 Ramon Simpson MD is Attending Physician. kdr 12:53 Patient has correct armband on for positive identification. Bed in low position. Call ld1 light in reach. Side rails up X2. school lunch monitor on. Pulse ox on. NIBP on. Door closed. Noise minimized. Warm blanket given. 12:53 No provider procedures requiring assistance completed. ld1 14:03 Chest Single View XRAY In Process Unspecified. EDMS 14:23 Blood Culture Sent. 5 14:23 CBC with Automated Diff Sent. mh5 14:23 Basic Metabolic Panel Sent. mh5 14:23 Amylase Sent. mh5 14:23 Amylase, Serum Sent. 5 14:23 Basic Metabolic Panel Sent. mh5 14:23 Blood Culture Adult (2) Sent. 5 14:23 CBC with Diff Sent. 5 14:24 CPK Sent. 5 14:24 Ckmb Sent. 5 14:24 LFT's Sent. 5 14:24 Lactate Sent. mh5 14:24 Lipase Sent. 5 14:24 Procalcitonin Sent. [facility] 14:24 Protime (+inr) Sent. [facility] 14:24 Ptt, Activated Sent. [facility] 14:24 Troponin (emerg Dept Use Only) Sent. 5 14:24 Urine Microscopic Only Sent. 5 14:24 Initial lab(s) drawn, by fl, sent to lab. Urine collected: clean catch specimen, clear, [facility] EKG done, by ED staff, reviewed by Ramon Simpson MD. COVID swab sent to lab. Inserted saline lock: 20 gauge in right upper arm, using aseptic technique. Blood collected. 16:53 BNP Sent. ld1 17:22 Cirilo Torres DO is Hospitalizing Provider. kdr Administered Medications: 17:24 Drug: Rocephin - (cefTRIAXone) 1 grams Route: IVPB; Infused Over: 30 mins; Site: right ld1 upper arm; 17:25 Follow up: Response: No adverse reaction ld1 Outcome: 17:23 Decision to Hospitalize by Provider. kdr 11/19 14:28 Patient left the ED. iw Signatures: Dispatcher [employer] EDMS Ramon Simpson MD MD kdr Barbara Rendon ds1 Maidna Espinosa, RN RN Niesha Cassidy [facility] Indira Gay, RN RN vg1 Reyna Romero, MAXX RN ld1 Corrections: (The following items were deleted from the chart) 11/18 12:25 12:17 Initial Sepsis Screen: Does the patient meet any 2 criteria? No. Patient's vg1 initial sepsis screen is negative. Does the patient have a suspected source of infection? No. Patient's initial sepsis screen is negative. vg1
--- NOTE | 2020-11-18 17:24 | EDPHYS ---
Physician Documentation [facility] Name: Marquise Mendoza Age: 70 yrs Sex: Male : 1950 Arrival Date: 11/18/2020 Time: 12:02 Bed 30 Private MD: ED Physician Ramon Simpson HPI: 11/18 13:34 This 70 yrs old Male presents to ER via Wheelchair with complaints of Fever, kdr Chest Congestion. 13:34 The patient reports fever, that was measured at 101.3 degrees Fahrenheit, with a kdr pattern that is intermittent, waxing and waning. Onset: The symptoms/episode began/occurred this morning. Modifying factors: Recent medications: none unaware of sick contact. Denies recent travel. Associated signs and symptoms: Pertinent positives:. Severity of symptoms: At their worst the symptoms were mild in the emergency department the symptoms are unchanged. The patient has not experienced similar symptoms in the past. The patient has not recently seen a physician. Historical: - Allergies: 12:21 No Known Allergies; vg1 - Home Meds: 12:21 gabapentin Oral [Active]; Lorazepam Oral [Active]; paroxetine Oral [Active]; vg1 12:25 Aspirin Oral [Active]; Furosemide Oral [Active]; pantoprazole oral [Active]; vg1 risperidone oral [Active]; Lorazepam Oral [Active]; Imodium Oral [Active]; prednisone Oral [Active]; Albuterol Nebulizer [Active]; - PMHx: 12:21 AAA; Anxiety; defibrillator; ESRD; Migraines; Pacemaker; COPD; vg1 12:24 CHF; Kidney disease; Dialysis; Mondays and Fridays; vg1 - Immunization history:: Adult Immunizations up to date, Client reports receiving the 2nd dose of the Covid vaccine. - Social history:: Smoking status: Patient reports the use of cigarette tobacco products, smokes one-half pack cigarettes per day. ROS: 13:34 Eyes: Negative for injury, pain, redness, and discharge, ENT: Negative for injury, kdr pain, and discharge, Neck: Negative for injury, pain, and swelling, Cardiovascular: Negative for chest pain, palpitations, and edema, Abdomen/GI: Negative for abdominal pain, nausea, vomiting, diarrhea, and constipation, Back: Negative for injury and pain, : Negative for injury, bleeding, discharge, and swelling, MS/Extremity: Negative for injury and deformity, Skin: Negative for injury, rash, and discoloration, Psych: Negative for depression, anxiety, suicide ideation, homicidal ideation, and hallucinations, Allergy/Immunology: Negative for hives, rash, and allergies, Endocrine: Negative for neck swelling, polydipsia, polyuria, polyphagia, and marked weight changes, Hematologic/Lymphatic: Negative for swollen nodes, abnormal bleeding, and unusual bruising. 13:34 Constitutional: Positive for body aches, chills, fatigue, fever, malaise. 13:34 Neuro: Positive for weakness, Patient is normally ambulatory but sometimes requires an aide of some sort. 13:34 Respiratory: Positive for cough, "sounds productive", dyspnea on exertion, Negative for kdr hemoptysis, orthopnea, pleurisy, wheezing. Exam: 13:34 Constitutional: This is a well developed, well nourished patient who is awake, alert, kdr and in mild distress. Head/Face: Normocephalic, atraumatic. Eyes: Pupils equal round and reactive to light, extra-ocular motions intact. Lids and lashes normal. Conjunctiva and sclera are non-icteric and not injected. Cornea within normal limits. Periorbital areas with no swelling, redness, or edema. Neck: Trachea midline, no thyromegaly or masses palpated, and no cervical lymphadenopathy. Supple, full range of motion without nuchal rigidity, or vertebral point tenderness. No Meningismus. Chest/axilla: Normal chest wall appearance and motion. Nontender with no deformity. No lesions are appreciated. Cardiovascular: Regular rate and rhythm with a normal S1 and S2. No gallops, murmurs, or rubs. Normal PMI, no JVD. No pulse deficits. Abdomen/GI: Soft, non-tender, with normal bowel sounds. No distension or tympany. No guarding or rebound. No evidence of tenderness throughout. Back: No spinal tenderness. No costovertebral tenderness. Full range of motion. Skin: Warm, dry with normal turgor. Normal color with no rashes, no lesions, and no evidence of cellulitis. MS/ Extremity: Pulses equal, no cyanosis. Neurovascular intact. Full, normal range of motion. Neuro: Awake and alert, GCS 15, oriented to person, place, time, and situation. Cranial nerves II-XII grossly intact. Motor strength 5/5 in all extremities. Sensory grossly intact. Cerebellar exam normal. Normal gait. Psych: Awake, alert, with orientation to person, place and time. Behavior, mood, and affect are within normal limits. 13:34 Respiratory: mild respiratory distress is noted, Respirations: normal, Breath sounds: rales, that are mild, are heard diffusely, rhonchi, that are mild, are scattered, are heard diffusely. Vital Signs: 12:17 BP 124 / 86; Pulse 105; Resp 30; Temp 99.3(O); Pulse Ox 95% on 3 lpm NC; Weight 61.69 vg1 kg; Height 6 ft. 0 in. (182.88 cm); Pain 0/10; 12:53 BP 138 / 94; Pulse 106; Resp 19; Pulse Ox 100% on 3 lpm NC; Pain 0/10; ld1 14:14 BP 126 / 89; Pulse 100; Resp 22; Pulse Ox 100% on 3 lpm NC; ld1 15:19 BP 116 / 82; Pulse 98; Resp 24; Pulse Ox 100% on 3 lpm NC; ld1 16:29 BP 119 / 78; Pulse 101; Resp 25; Pulse Ox 100% on 3 lpm NC; ld1 17:16 BP 109 / 93; Pulse 97; Resp 26; Pulse Ox 100% on 3 lpm NC; ld1 12:17 Body Mass Index 18.44 (61.69 kg, 182.88 cm) vg1 MDM: 17:23 Patient medically screened. kdr 17:23 Data reviewed: vital signs, nurses notes, lab test result(s), radiologic studies. kdr Counseling: I had a detailed discussion with the patient and/or guardian regarding: the historical points, exam findings, and any diagnostic results supporting the discharge/admit diagnosis, lab results, radiology results, the need for further work-up and treatment in the hospital. 11/18 13:34 Order name: Amylase, Serum kdr 11/18 13:34 Order name: Basic Metabolic Panel kdr 11/18 13:34 Order name: Blood Culture Adult (2) kdr 11/18 13:34 Order name: CBC with Diff kdr 11/18 13:34 Order name: CPK; Complete Time: 15:26 kdr 11/18 13:34 Order name: Ckmb; Complete Time: 15: [facility] 11/18 13:34 Order name: LFT's; Complete Time: 15: [facility] 11/18 13:34 Order name: Lactate; Complete Time: : [facility] 11/18 13:34 Order name: Lipase; Complete Time: 15: [facility] 11/18 13:34 Order name: Procalcitonin; Complete Time: 17: [facility] 11/18 13:34 Order name: Protime (+inr); Complete Time: 15: [facility] 11/18 13:34 Order name: Ptt, Activated; Complete Time: 15: [facility] 11/18 13:34 Order name: Troponin (emerg Dept Use Only); Complete Time: : [facility] 11/18 13:34 Order name: Urine Microscopic Only; Complete Time: : [facility] 11/18 13:34 Order name: Amylase; Complete Time: 15: [facility] 11/18 13:34 Order name: Basic Metabolic Panel; Complete Time: 15: [facility] 11/18 13:34 Order name: Blood Culture [facility] 11/18 13:34 Order name: CBC with Automated Diff; Complete Time: 15: [facility] 11/18 14:05 Order name: Urine Dipstick-Ancillary; Complete Time: 15: [facility] 11/18 14:19 Order name: Glucose, Ancillary Testing; Complete Time: 15: [facility] 11/18 14:51 Order name: CBC Smear Scan; Complete Time: 15: [facility] 11/18 15:11 Order name: Urine Culture [facility] 11/18 16:28 Order name: BNP [facility] 11/18 16:29 Order name: NT PRO-BNP; Complete Time: 17:39 [facility] 11/18 16:33 Order name: SARS-COV-2 RT PCR; Complete Time: 17:15 [facility] 11/19 03:38 Order name: CBC with Automated Diff [facility] 11/19 03:47 Order name: Urinalysis [facility] 11/19 04:06 Order name: Comprehensive Metabolic Panel [facility] 11/19 04:06 Order name: Uric Acid [facility] 11/18 13:34 Order name: Chest Single View XRAY; Complete Time: 15: [facility] 11/18 13:34 Order name: Accucheck; Complete Time: 14:14 [facility] 11/18 13:34 Order name: Cardiac monitoring; Complete Time: 13:38 [facility] 11/18 13:34 Order name: EKG - Nurse/Tech; Complete Time: 13:38 kdr 11/18 13:34 Order name: IV Saline Lock - Large Bore; Complete Time: 14:14 kdr 11/18 13:34 Order name: Labs collected and sent; Complete Time: 14:14 kdr 11/18 13:34 Order name: O2 Per Protocol; Complete Time: 13:38 kdr 11/18 13:34 Order name: O2 Sat Monitoring; Complete Time: 13:38 kdr 11/18 13:34 Order name: Urine Dipstick-Ancillary (obtain specimen); Complete Time: 14:14 kdr 11/19 04:06 Order name: Phosphorus EDMS 11/19 04:06 Order name: NT PRO-BNP EDMS 11/19 04:06 Order name: Magnesium EDMS 11/19 04:06 Order name: Thyroid Stimulating Hormone EDMS 11/19 04:22 Order name: Urine Microscopic Only EDMS 11/19 13:01 Order name: Blood Culture EDMS Administered Medications: 17:24 Drug: Rocephin - (cefTRIAXone) 1 grams Route: IVPB; Infused Over: 30 mins; Site: right ld1 upper arm; 17:25 Follow up: Response: No adverse reaction ld1 Disposition Summary: 11/18/20 17:23 Hospitalization Ordered Hospitalization Status: Inpatient Admission kdr Provider: Cirilo Torres Condition: Fair kdr Problem: new kdr Symptoms: have improved kdr Bed/Room Type: Standard kdr Location: Telemetry/MedSurg (Inpatient)(11/19/20 12:46) [facility] Room Assignment: [facility](11/19/20 12:46) [facility] Diagnosis - Febrile illness, urinary tract infection, shortness of breath, weakness kdr Forms: - Medication Reconciliation Form kdr - SBAR form kdr Signatures: Dispatcher [employer] EDWA Ramon Simpson MD MD kdr Bar Byrd, BIOLOGY TUTOR-C BIOLOGY TUTOR-Cla1 Stacey Gay, RN RN Anoop Ramirez RN RN ja1 Indira Gay RN RN 1 Reyna Romero RN RN ld1 Corrections: (The following items were deleted from the chart) 15:31 14:04 CORONAVIRUS+MR.LAB.BRZ ordered. [facility] 22:14 17:23 Telemetry/MedSurg (Inpatient) kdr cg 22:14 17:23 kdr cg 11/19 12:46 11/18 22:14 [facility] ER [facility] cg ja1 11/19 1211/18 [facility]
[2020-11-18] MEDS ORDERED: CEFTRIAXONE/SWI 1gm 1 GM/10 ML SYR ONE (17:43)
[2020-11-18] MEDS ORDERED: ONDANSETRON 4 MG/2 ML VIAL IV PRN (18:55)
--- NOTE | 2020-11-18 18:55 | P.HP ---
Certification for Inpatient Patient admitted to: Inpatient With expected LOS: >2 Midnights Patient will require the following post-hospital care: None Practitioner: I am a practitioner with admitting privileges, knowledge of patient current condition, hospital course, and medical plan of care. Services: Services provided to patient in accordance with Admission requirements found in Title 42 Section 412.3 of the Code of Federal Regulations Patient History Date of Service: 11/18/20 Primary Care Provider: Dr. Gracia, Dr. Rodríguez Reason for admission: UTI, fever, dyspnea History of Present Illness: 70-year-old male with history of chronic systolic congestive heart failure status post AICD, COPD, ESRD on HD Sunday/Sunday currently on hospice for heart failure presented to the emergency department for fever. Granddaughter reports fever started today was measured 1-1.2 at home. Patient was evaluated in the emergency department labs were significant for white blood cell count 9.3 hemoglobin 11.9 sodium 135 creatinine 4.39 GFR 13 BUN 50 6T bili 1.1D bili 0.7 AST 13 alk phos 122 BNP 11,498 procalcitonin 0.8 urinalysis with 3+ leukoesterase nitrate positive urine microscopic with greater than 50 bacteria Covid negative chest x-ray demonstrates increased edema compared to 09/02/2020 study. Discussed case at length with granddaughter Marj and patient, they would like patient received IV antibiotics overnight and treat urinary tract infection then transition patient back to hospice at home. Blood pressure normal lactate normal doubt severe sepsis or septic shock at this time. Allergies No Known Allergies Allergy (Verified 05/15/19 01:15) Home Medications: LORazepam [Ativan*] 1 mg PO DAILY PRN 10/17/16 Paroxetine HCl [Paxil] 20 mg PO BID 10/17/16 Losartan Potassium 100 mg PO DAILY 05/15/19 Aspirin Chewable [Aspirin Chewable*] 1 tab PO DAILY 05/17/19 carvediloL [Coreg*] 6.25 mg PO BID 05/17/19 Calcium Acetate [Phoslo*] 667 mg PO TIDWM #90 cap 05/21/19 Cholecalciferol (Vitamin D3) [Vitamin D 5,000 IU Cap*] 5,000 unit PO DAILY #30 cap 05/21/19 Calcitrol [Rocaltrol*] 0.5 mcg PO BEDTIME 06/23/19 Gabapentin [Neurontin*] 200 mg PO BID 06/23/19 Tamsulosin [Flomax*] 0.4 mg PO BID 06/23/19 Budesonide/Formoterol Fumarate [Symbicort 160-4.5 Mcg Inhaler] 2 puff IH BID #1 hfa.aer.ad 06/24/19 Furosemide [Lasix] 40 mg PO DAILY #30 tab 06/24/19 Nicotine [Nicoderm*] 21 mg TD DAILY #30 patch.td24 06/24/19 predniSONE [Deltasone*] 10 mg PO DAILY #5 tab 06/24/19 - Past Medical/Surgical History Diabetic: No -: Migraines -: Anxiety -: History of shingles -: ESRD on HD Sunday/Sunday -: Hypertension -: Systolic CHF -: Pacemaker -: Hx of AAA repair -: Tobacco abuse -: abdominal aortic aneurysm repair -: pacemaker Psychosocial/ Personal History: Patient lives at home. - Family History Father -: Diabetes Mother -: Diabetes - Social History Smoking Status: Current every day smoker Alcohol use: No CD- Drugs: No Caffeine use: No Place of Residence: Home Review of Systems General: Fever, Chills, Weakness, Malaise Respiratory: Shortness of Breath Physical Examination - Physical Exam General: Alert, In no apparent distress, Oriented x3 HEENT: Atraumatic Neck: Supple Respiratory: Diminished, Other (Increased respiratory effort, accessory muscle use) Cardiovascular: No edema, Normal S1 S2 Capillary refill: <2 Seconds Gastrointestinal: Normal bowel sounds Musculoskeletal: No swelling, No contractures, No erythema Integumentary: No rashes, No breakdown, No significant lesion Neurological: Normal strength at 5/5 x4 extr, Normal tone, Sensation intact - Studies Laboratory Data (last 24 hrs) 11/18/20 14:09: PT 12.0, INR 1.04, APTT 32.2 11/18/20 14:09: WBC 9.30, Hgb 11.9 L, Hct 36.2 L, Plt Count 248 11/18/20 14:09: Sodium 135 L, Potassium 5.0, BUN 56 H, Creatinine 4.39 H, Glucose 90, Total Bilirubin 1.1 H, AST 13 L, ALT 17, Alkaline Phosphatase 122 H, Amylase 41, Lipase 56 L Assessment and Plan - Plan Assessment: Fever secondary to urinary tract infection Acute on chronic systolic congestive heart failure status post AICD insertion on hospice and home oxygen ESRD on HD Sunday/Sunday COPD Hypertension Anxiety/chronic pain Plan: Fever secondary to urinary tract infection: Blood cultures/urine cultures obtained continue with IV antibiotics, patient/family preferred treatment of UTI followed by placement back on home hospice possibly as early as tomorrow. Patient does not appear septic at this time blood pressure within normal limits lactate negative. Acute on chronic systolic congestive heart failure status post AICD insertion on hospice and home oxygen: We will provide patient with IV Lasix, further volume management to could be completed with dialysis. Nephrology consulted. ESRD on HD Sunday/Sunday: Nephrology consulted, will get dose of Lasix this evening. COPD: Supplemental oxygen as needed, as needed nebulizer treatments. Hypertension: Obtain and continue home medications Anxiety/chronic pain: Obtain and continue medications. DVT PPX: Heparin Code status: DNR Discharge Plan: Home Plan to discharge in: 48 Hours - Advance Directives Does patient have a Living Will: Yes Does patient have a Durable POA for Healthcare: No - Code Status/Comfort Care Code Status Assessed: Yes (DNR) Critical Care: No Time Spent Managing Pts Care (In Minutes): 55
[2020-11-18] MEDS ORDERED: FUROSEMIDE 40 MG/4 ML VIAL IV ONE (20:00)
[2020-11-18] MEDS ORDERED: ACETAMINOPHEN 500 MG TAB PO ONE (20:03)
[2020-11-18] MEDS ORDERED: ACETAMINOPHEN 325 MG TABLET PO PRN (20:04)
[2020-11-18] MEDS ORDERED: NA CHLORIDE 0.9% 1,000 ML IV PRN (20:13)
[2020-11-18] MEDS ORDERED: MANNITOL 25% 12.5 GM/50 ML VIAL IV PRN (20:13)
[2020-11-18] MEDS ORDERED: HEPARIN 5000 UNIT/ML 1 ML VIAL ONE (20:27)
[2020-11-18] MEDS ORDERED: FUROSEMIDE 40 MG/4 ML VIAL ONE (20:28)
[2020-11-18] MEDS ORDERED: ACETAMINOPHEN 500 MG TAB ONE (20:28)
[2020-11-18] MEDS: HEPARIN 5000 UNIT/ML 1 ML VIAL SQ SCH (21:00)
[2020-11-18] MEDS ORDERED: ALBUMIN HUMAN 25% 50 ML IV SCH (21:00)
[2020-11-19 02:50] VITALS: BMI 20.7
[2020-11-19 03:09] LABS: Urine Appearance CLOUDY (Clear); Urine Bilirubin NEGATIVE (Negative); Urine Blood 1+ (Negative); Urine Color YELLOW (Yellow); Urine Glucose NEGATIVE (Negative); Urine Protein TRACE (Negative); Urine Specific Gravity <=1.005 (1.005-1.030); Urine Urobilinogen 0.2 mg/dL (0.2-1.0); Urine pH 5.5 (5.0-7.0)
[2020-11-19 03:27] LABS: Absolute Lymphocytes (CBC) 0.7 K/uL (0.7-4.9); Basophils % 0.4 % (0-1.3); Hematocrit 36.3 % (39.6-49.0); Lymphocytes % 7.9 % (15.3-44.8); MPV 8.1 fL (7.6-11.3)
[2020-11-19 03:47] LABS: Urine Microscopic Reflex ORDER UMIC
[2020-11-19 04:05] LABS: Albumin 2.7 g/dL (3.4-5.0); Bilirubin Total 1.1 mg/dL (0.2-1.0); Magnesium 2.7 mg/dL (1.8-2.4); Phosphorus 5.5 mg/dL (2.5-4.9); Potassium 4.8 mmol/L (3.5-5.1); Protein, Total 6.7 g/dL (6.4-8.2); Thyroid Stimulating Hormone 0.638 uIU/mL (0.360-3.740); Uric Acid 6.6 mg/dL (3.5-7.2)
[2020-11-19 04:22] LABS: Urine Bacteria 20-50 /HPF (NONE SEEN); Urine Mucus 1+ /HPF (NONE SEEN)
--- NOTE | 2020-11-19 06:40 | P.PN ---
Subjective Date of Service: 11/19/20 Primary Care Provider: Dr. Gracia, Dr. Rodríguez Chief Complaint: UTI, fever, dyspnea Subjective: Improving, Doing well Physical Examination - Vital Signs Temperature: 99.6 F Blood Pressure: 106/68 Pulse: 95 Respirations: 23 Pulse Ox (%): 96 - Studies Laboratory Data (last 24 hrs) 11/18/20 14:09: PT 12.0, INR 1.04, APTT 32.2 11/18/20 14:09: WBC 9.30, Hgb 11.9 L, Hct 36.2 L, Plt Count 248 11/18/20 14:09: Sodium 135 L, Potassium 5.0, BUN 56 H, Creatinine 4.39 H, Glucose 90, Total Bilirubin 1.1 H, AST 13 L, ALT 17, Alkaline Phosphatase 122 H, Amylase 41, Lipase 56 L Assessment & Plan Discharge Plan: Home (with Hospice) Plan to discharge in: 72 Hours Physician Review Additional Text: COVID: negative CXR: COMPARISON: Chest Pa And Lat (2 Views) dated 09/02/2020; Chest Single View dated 06/14/2020; Chest Pa And Lat (2 Views) dated 06/24/2019; Chest Single View dated 05/19/2019 FINDINGS: Lines: Right IJ approach dialysis catheter. Pacemaker. The tip of the dialysis catheter is difficult to visualize. Lungs: Diffuse prominence of the pulmonary interstitium P Pleural: Bilateral pleural effusions, moderate on the right. Cardiac: Cardiomegaly. Bones: No acute fractures. IMPRESSION: Increased edema compared with 09/02/2020. Pneumonia difficult to exclude radiographically. Physical exam: General: Alert, In no apparent distress, Oriented x3 HEENT: Atraumatic Neck: Supple Respiratory: Diminished, Other (Increased respiratory effort, accessory muscle use) Cardiovascular: No edema, Normal S1 S2 Capillary refill: <2 Seconds Gastrointestinal: Normal bowel sounds Musculoskeletal: No swelling, No contractures, No erythema Integumentary: No rashes, No breakdown, No significant lesion Neurological: Normal strength at 5/5 x4 extr, Normal tone, Sensation intact Impression: Fever secondary to urinary tract infection Acute on chronic systolic congestive heart failure status post AICD insertion on hospice and home oxygen ESRD on HD Sunday/Sunday COPD Hypertension Anxiety/chronic pain Plan: Fever secondary to urinary tract infection: Patient remains on IV Rocephin. Await blood and urine culture results. Spoke to Granddaughter concerning the plan of care. Acute on chronic systolic congestive heart failure status post AICD insertion on hospice and home oxygen: Will monitor closely. Review and restart home meds. ESRD on HD Sunday/Sunday: Nephrology to continue with dialysis every Sunday and Sunday. Midodrine prior to every dialysis. COPD: Will provide COPD medication Hypertension: BP stable off medication. Anxiety/chronic pain: Will provide medication. DVT PPX: Heparin Code status: DNR Discharge Plan: Home with Hospice Time Spent Managing Pts Care (In Minutes): 55
[2020-11-19] MEDS: CEFTRIAXONE/SWI 1gm 1 GM/10 ML SYR IV SCH (09:00)
[2020-11-19] MEDS: HEPARIN 5000 UNIT/ML 1 ML VIAL SQ SCH ×2 (09:00→21:41)
[2020-11-19] MEDS ORDERED: CEFTRIAXONE 1 GM/NS 50 ML 1 GM/50 ML BAG IV SCH (09:00)
[2020-11-19] MEDS ORDERED: HEPARIN 5000 UNIT/ML 1 ML VIAL ONE (09:42)
[2020-11-19] MEDS ORDERED: CEFTRIAXONE/SWI 1gm 1 GM/10 ML SYR ONE (09:43)
[2020-11-19] MEDS ORDERED: ALBUTEROL 2.5 MG/3 ML NEB SOL NEB PRN (14:02)
[2020-11-19] MEDS ORDERED: IPRATROPIUM BROM 0.5MG/2.5ML NEB PRN (14:02)
[2020-11-19] MEDS ORDERED: TRAMADOL HCL 50 MG TAB PO PRN (14:06)
[2020-11-19] MEDS ORDERED: HYDROCODONE/APAP 5/325 MG TAB PO PRN (14:06)
--- NOTE | 2020-11-19 18:24 | EKG ---
Test Date: 2020-11-18 Test Time: 12:45:55 Float Builder: NOLAN MEASUREMENT RESULTS: Intervals: Rate: 108 AR: 128 QRSD: 94 QT: 318 QTc: 426 [place]: P: 71 AR: 128 QRS: 82 T: -72 INTERPRETIVE STATEMENTS: Sinus tachycardia Possible Left atrial enlargement Inferior infarct, age undetermined Abnormal ECG Compared to ECG 06/14/2020 20:44:16 Sinus rhythm no longer present Atrial premature complex(es) no longer present Short AR interval no longer present Ventricular premature complex(es) no longer present ST (T wave) deviation no longer present Possible ischemia no longer present Myocardial infarct finding still present Electronically Signed On 11-19-20 18:21:06 CDT by Pankaj Gutierrez
[2020-11-19] MEDS: ARFORMOTEROL TARTRATE 15 MCG/2 ML VIAL.NEB NEB SCH (19:45)
[2020-11-19] MEDS ORDERED: EPOETIN ALFA 10,000 UNIT/ML VIAL SQ ONE (21:24)
--- NOTE | 2020-11-19 21:26 | P.CNS ---
Date of Consult: 11/19/20 Reason for Consult: ESRD Requesting Physician: Cirilo Torres Primary Care Provider: Dr. Gracia, Dr. Rodríguez Chief Complaint: UTI, fever, dyspnea History of Present Illness: 70-year-old male with history of chronic systolic congestive heart failure status post AICD, COPD, ESRD on HD Sunday/Sunday currently on hospice for heart failure presented to the emergency department for fever. Granddaughter reports fever started today was measured 1-1.2 at home. Patient was evaluated in the emergency department labs were significant for white blood cell count 9.3 hemoglobin 11.9 sodium 135 creatinine 4.39 GFR 13 BUN 50 6T bili 1.1D bili 0.7 AST 13 alk phos 122 BNP 11,498 procalcitonin 0.8 urinalysis with 3+ leukoesterase nitrate positive urine microscopic with greater than 50 bacteria Covid negative chest x-ray demonstrates increased edema compared to 09/02/2020 study. Discussed case at length with granddaughter Marj and patient, they would like patient received IV antibiotics overnight and treat urinary tract infection then transition patient back to hospice at home. Blood pressure normal lactate normal doubt severe sepsis or septic shock at this time. 13:34 This 70 yrs old Male presents to ER via Wheelchair with complaints of Fever, kdr Chest Congestion. 13:34 The patient reports fever, that was measured at 101.3 degrees Fahrenheit, with a kdr pattern that is intermittent, waxing and waning. Onset: The symptoms/episode began/occurred this morning. Modifying factors: Recent medications: none unaware of sick contact. Denies recent travel. Associated signs and symptoms: Pertinent positives:. Severity of symptoms: At their worst the symptoms were mild in the emergency department the symptoms are unchanged. The patient has not experienced similar symptoms in the past. The patient has not recently seen a physician. Allergies No Known Allergies Allergy (Verified 05/15/19 01:15) Home medications list reviewed: Yes Home Medications: LORazepam [Ativan*] 1 mg PO DAILY PRN 10/17/16 Paroxetine HCl [Paxil] 20 mg PO BID 10/17/16 Losartan Potassium 100 mg PO DAILY 05/15/19 Aspirin Chewable [Aspirin Chewable*] 1 tab PO DAILY 05/17/19 carvediloL [Coreg*] 6.25 mg PO BID 05/17/19 Calcium Acetate [Phoslo*] 667 mg PO TIDWM #90 cap 05/21/19 Cholecalciferol (Vitamin D3) [Vitamin D 5,000 IU Cap*] 5,000 unit PO DAILY #30 cap 05/21/19 Calcitrol [Rocaltrol*] 0.5 mcg PO BEDTIME 06/23/19 Gabapentin [Neurontin*] 200 mg PO BID 06/23/19 Tamsulosin [Flomax*] 0.4 mg PO BID 06/23/19 Budesonide/Formoterol Fumarate [Symbicort 160-4.5 Mcg Inhaler] 2 puff IH BID #1 hfa.aer.ad 06/24/19 Furosemide [Lasix] 40 mg PO DAILY #30 tab 06/24/19 Nicotine [Nicoderm*] 21 mg TD DAILY #30 patch.td24 06/24/19 predniSONE [Deltasone*] 10 mg PO DAILY #5 tab 06/24/19 - Past Medical/Surgical History Diabetic: No -: Migraines -: Anxiety -: History of shingles -: ESRD on HD Sunday/Sunday -: Hypertension -: Systolic CHF -: Pacemaker -: Hx of AAA repair -: Tobacco abuse -: abdominal aortic aneurysm repair -: pacemaker Psychosocial/ Personal History: Patient lives at home. - Family History Father Medical History: Diabetes Mother Medical History: Diabetes - Social History Smoking Status: Current every day smoker Alcohol use: No CD- Drugs: No Caffeine use: No Place of Residence: Home Review of Systems 10-point ROS is otherwise unremarkable General: Weakness, Malaise Respiratory: SOB with Excertion Neurological: Weakness Physical Examination Temp Pulse Resp BP Pulse Ox 98.5 F 98 H 19 116/68 96 11/19/20 16:00 11/19/20 16:00 11/19/20 16:00 11/19/20 16:00 11/19/20 16:00 General: In no apparent distress, Cooperative HEENT: Atraumatic Neck: Supple Respiratory: Clear to auscultation bilaterally Cardiovascular: Regular rate/rhythm, Edema Gastrointestinal: Soft and benign, Non-distended Musculoskeletal: No clubbing, No contractures Integumentary: No rashes, No cyanosis Neurological: Normal speech Blood work reviewed in the chart. Imagings Data: EXAM DESCRIPTION: RAD - Chest Single View - 11/18/2020 2:03 pm CLINICAL HISTORY: Fever;Cough;Congestion COMPARISON: Chest Pa And Lat (2 Views) dated 09/02/2020; Chest Single View dated 06/14/2020; Chest Pa And Lat (2 Views) dated 06/24/2019; Chest Single View dated 05/19/2019 FINDINGS: Lines: Right IJ approach dialysis catheter. Pacemaker. The tip of the dialysis catheter is difficult to visualize. Lungs: Diffuse prominence of the pulmonary interstitium P Pleural: Bilateral pleural effusions, moderate on the right. Cardiac: Cardiomegaly. Bones: No acute fractures. Other: IMPRESSION: Increased edema compared with 09/02/2020. Pneumonia difficult to exclude radiographically. Conclusions/Impression: ESRD -HD TIW Hyperkalemia -HD TIW Chronic hypotension -Monitor BP -Midrodrine as needed Systolic CHF -HD with UF -Start CoQ10 Moderate malnutrition -Start Nepro Anemia in CKD -Start Retacrit CKD MBD -Start Vitamin D Acute Cystitis -Continue Rocephin -Follow up culture Thank you kindly for the consultation
[2020-11-19] MEDS: ALPRAZOLAM 0.25 MG TABLET PO PRN (21:41)
[2020-11-19] MEDS ORDERED: EPOETIN ALFA-EPBX 10,000 UNIT/ML VIAL ONE (22:20)
[2020-11-20 05:51] LABS: Absolute Lymphocytes (CBC) 0.7 K/uL (0.7-4.9); Basophils % 0.3 % (0-1.3); Lymphocytes % 7.7 % (15.3-44.8); MPV 8.1 fL (7.6-11.3); RBC Red Blood Cell Count 3.29 M/uL (4.33-5.43)
[2020-11-20 06:07] LABS: Albumin 2.4 g/dL (3.4-5.0); Bilirubin Total 0.9 mg/dL (0.2-1.0); Magnesium 2.6 mg/dL (1.8-2.4); Phosphorus 7.1 mg/dL (2.5-4.9); Potassium 4.3 mmol/L (3.5-5.1); Protein, Total 6.1 g/dL (6.4-8.2); Uric Acid 7.7 mg/dL (3.5-7.2)
[2020-11-20] MEDS: ARFORMOTEROL TARTRATE 15 MCG/2 ML VIAL.NEB NEB SCH ×2 (07:57→19:48)
[2020-11-20] MEDS: NEPRO SHAKE 237 ML CAN PO SCH ×3 (09:00→21:00)
[2020-11-20] MEDS: HEPARIN 5000 UNIT/ML 1 ML VIAL SQ SCH ×2 (09:00→21:34)
--- NOTE | 2020-11-20 14:15 | P.PN ---
Date of Service: 11/20/20 Subjective Primary Care Provider: Dr. Gracia, Dr. Rodríguez Chief Complaint: UTI, fever, dyspnea Subjective: Improving, Doing well, he had HD, he want to go home but we are not able to decide if hospice can take him as outpt or not Physical Examination - Vital Signs Temperature: 99.6 F Blood Pressure: 106/68 Pulse: 95 Respirations: 23 Pulse Ox (%): 96 Physical exam: General: Alert, In no apparent distress, Oriented x3 HEENT: Atraumatic Neck: Supple Respiratory: Diminished, Other (Increased respiratory effort, accessory muscle use) Cardiovascular: No edema, Normal S1 S2 Capillary refill: <2 Seconds Gastrointestinal: Normal bowel sounds Musculoskeletal: No swelling, No contractures, No erythema Integumentary: No rashes, No breakdown, No significant lesion Neurological: Normal strength at 5/5 x4 extr, Normal tone, Sensation intact - Studies Laboratory Data (last 24 hrs) 11/18/20 14:09: PT 12.0, INR 1.04, APTT 32.2 11/18/20 14:09: WBC 9.30, Hgb 11.9 L, Hct 36.2 L, Plt Count 248 11/18/20 14:09: Sodium 135 L, Potassium 5.0, BUN 56 H, Creatinine 4.39 H, Glucose 90, Total Bilirubin 1.1 H, AST 13 L, ALT 17, Alkaline Phosphatase 122 H, Amylase 41, Lipase 56 L Assessment & Plan Discharge Plan: Home (with Hospice) Plan to discharge in: 72 Hours Physician Review Additional Text: COVID: negative CXR: COMPARISON: Chest Pa And Lat (2 Views) dated 09/02/2020; Chest Single View dated 06/14/2020; Chest Pa And Lat (2 Views) dated 06/24/2019; Chest Single View dated 05/19/2019 FINDINGS: Lines: Right IJ approach dialysis catheter. Pacemaker. The tip of the dialysis catheter is difficult to visualize. Lungs: Diffuse prominence of the pulmonary interstitium P Pleural: Bilateral pleural effusions, moderate on the right. Cardiac: Cardiomegaly. Bones: No acute fractures. IMPRESSION: Increased edema compared with 09/02/2020. Pneumonia difficult to exclude radiographically. Physical exam: General: Alert, In no apparent distress, Oriented x3 HEENT: Atraumatic Neck: Supple Respiratory: Diminished, Other (Increased respiratory effort, accessory muscle use) Cardiovascular: No edema, Normal S1 S2 Capillary refill: <2 Seconds Gastrointestinal: Normal bowel sounds Musculoskeletal: No swelling, No contractures, No erythema Integumentary: No rashes, No breakdown, No significant lesion Neurological: Normal strength at 5/5 x4 extr, Normal tone, Sensation intact Impression: Fever secondary to urinary tract infection Acute on chronic systolic congestive heart failure status post AICD insertion on hospice and home oxygen ESRD on HD Sunday/Sunday COPD Hypertension Anxiety/chronic pain Plan: Fever secondary to urinary tract infection: still IV Rocephin. Await blood and urine culture results. Spoke to she is willing to take him on hospice but we are trying to get hold of hospice and find out if they will take pt iwth HD ? Acute on chronic systolic congestive heart failure status post AICD insertion on hospice and home oxygen: Will monitor closely. cont home meds. ESRD on HD : Nephrology to continue with dialysis every Sunday and Sunday. Midodrine prior to every dialysis.but the question would hosp COPD: Will provide COPD medication Hypertension: BP stable off medication. Anxiety/chronic pain: Will provide medication. DVT PPX: Heparin Code status: DNR Discharge Plan: Home with Hospice after discussion with hospice and figuring out HD
[2020-11-20] MEDS: CALCITROL 0.25 MCG CAP PO SCH (15:12)
[2020-11-20] MEDS: FAMOTIDINE 20 MG TAB PO SCH (15:12)
[2020-11-20] MEDS: MULTIVITAMINS,THERAPEUT 1 TAB PO SCH (15:12)
[2020-11-20] MEDS: CEFTRIAXONE/SWI 1gm 1 GM/10 ML SYR IV SCH (15:13)
[2020-11-20] MEDS: VITAMIN D 5,000 UNIT CAP PO SCH (15:13)
[2020-11-20] MEDS: COENZYME Q10- 200 MG CAP PO SCH (15:22)
[2020-11-20] MEDS: PARoxetine HCL 10 MG TAB PO SCH ×2 (17:59→18:01)
[2020-11-20] MEDS: GABAPENTIN 300 MG CAP PO SCH (22:14)
[2020-11-20] MEDS: ALPRAZOLAM 0.25 MG TABLET PO PRN (22:19)
[2020-11-21] MEDS ORDERED: METOPROLOL TARTRATE 5 MG/5 ML INJ IV STA ×2 (05:05→09:07)
[2020-11-21 07:11] LABS: Absolute Lymphocytes (CBC) 0.5 K/uL (0.7-4.9); Basophils % 0.4 % (0-1.3); Hematocrit 35.7 % (39.6-49.0); MPV 8.5 fL (7.6-11.3)
[2020-11-21 07:22] LABS: Albumin 2.6 g/dL (3.4-5.0); Bilirubin Total 0.8 mg/dL (0.2-1.0); Magnesium 2.3 mg/dL (1.8-2.4); Potassium 3.2 mmol/L (3.5-5.1); Protein, Total 6.7 g/dL (6.4-8.2)
[2020-11-21] MEDS: ARFORMOTEROL TARTRATE 15 MCG/2 ML VIAL.NEB NEB SCH (07:47)
[2020-11-21] MEDS ORDERED: GABAPENTIN 300 MG CAP PO SCH ×2 (09:00→20:00)
[2020-11-21] MEDS: COENZYME Q10- 200 MG CAP PO SCH (09:00)
[2020-11-21] MEDS: NEPRO SHAKE 237 ML CAN PO SCH (09:00)
[2020-11-21] MEDS: HEPARIN 5000 UNIT/ML 1 ML VIAL SQ SCH (09:00)
[2020-11-21] MEDS: MULTIVITAMINS,THERAPEUT 1 TAB PO SCH (10:26)
[2020-11-21] MEDS: GABAPENTIN 300 MG CAP PO SCH (10:26)
[2020-11-21] MEDS: CALCITROL 0.25 MCG CAP PO SCH (10:27)
[2020-11-21] MEDS: FAMOTIDINE 20 MG TAB PO SCH (10:27)
[2020-11-21] MEDS: VITAMIN D 5,000 UNIT CAP PO SCH (10:27)
[2020-11-21] MEDS: CEFTRIAXONE/SWI 1gm 1 GM/10 ML SYR IV SCH (10:28)
[2020-11-21 12:12] VITALS: BP 90/53; TEMP 98.1
[2020-11-21 12:57] VITALS: O2SAT 94
--- NOTE | 2020-11-21 13:58 | DS ---
Discharge Diagnoses: 1.Urinary tract infection/urosepsis. 2.Acute on chronic congestive heart failure, status post AICD. On hospice, on home oxygen. 3.End-stage renal disease, on hemodialysis. 4.Chronic obstructive pulmonary disease. 5.Hypertension. 6.Anxiety. Consult: Nephrology. Procedure: Hemodialysis. History Of Present Illness: Please refer to our admission note from Dr. Torres. Hospital Course: Initially, the patient presented to the hospital with fever. Granddaughter called 911 and the patient to be evaluated and he found to have signs of UTI and he was admitted for IV anti biotic overnight. Nephrology consult requested given the patient on hemodialysis. Patient was start ed on ceftriaxone. Urine culture was positive for E coli. Sensitivity came back. As his E coli was not very sensitive to ceftriaxone and patient was switched to Levaquin at 250 mg after hemodialysis every other day with loading dose of 500 mg for 7 days, given that patient on dialysis. He will be d ischarged today in stable condition. Hospice was contacted and they advised, they will take patient on continue hemodialysis. Discharge Condition: Stable. Discharge Diet: Renal, cardiac. Discharge Followup: With hospice. Discharge Physical Examination: Vital Signs: Blood pressure is 90/53, respiratory rate 16, pulse is 135, temperature 98.1. He is saturating 90% of room air. General: Alert and oriented x3. Does not look in any distress. HEENT: Atraumatic, normocephalic. PERRLA. Oral mucosa is moist. Neck: Supple. No JVD. No carotid bruit. Chest: Clear to auscultation. Good air entry. Heart: Regular rate and rhythm. No gallop or murmur. Abdomen: Soft, nontender. No masses. No hepatosplenomegaly. Positive bowel sounds. Extremities: No clubbing, cyanosis, or edema. No calf tenderness. Neurologic: Grossly intact. Patient had onset of atrial fibrillation around the time of discharge. He was given 5 mg of metoprol ol per the cardiology consult. The patient denied and he said he is on hospice, does not want any in tervention. He is DNR, so he refused Cardiology, so we will continue proceeding with the discharge a t this point. Discharge Medications: 1.Levaquin 500 mg loading dose, followed by 250 mg every other day for 7 days. 2.Aspirin 81 mg once a day. 3.Symbicort inhaler 1 puff twice a day. 4.Calcitriol 0.25 mcg capsule daily at bedtime. 5.PhosLo 667 mg t.i.d. 6.Vitamin D 5000 unit daily. 7.Lasix 40 mg daily. 8.Neurontin 100 mg twice a day. 9.Ativan 1 mg daily. 10.Levaquin 250 mg tablet as mentioned above, 500 mg loading dose on the first day, then 250 every 4 0 hours after dialysis. 11.Losartan 100 mg daily. 12.Nicotine patch as before. 13.Paxil 20 mg twice a day. 14.Flomax 0.4 mg daily. 15.Coreg 6.25 mg twice a day. 16.Prednisone 10 mg daily. SHAHEEN/BRII Voice ID: [id number] Report ID: [id number]
[2020-11-21] MEDS ORDERED: FUROSEMIDE 40 MG TABLET PO SCH (17:00)
[2020-11-24 13:25] LABS: HBsAG Nonreactive (Nonreactive)
== END 2020-11-21 13:57 | disposition hospice, home (50) | DRG 689 ==
LOC: ER 11:58 → ERHOLD 18:34 → 2ND 11-19 13:42
PROVIDERS: ADMIT Family Medicine; ATTEND Family Medicine
PROC: 5A1D70Z Performance of Urinary Filtration, Intermittent, Less than 6 Hours Per Day (ICD-10-PCS; principal; 2020-11-20)
DX: N39.0 Urinary tract infection, site not specified (principal); I50.23 Acute on chronic systolic (congestive) heart failure; N18.6 End stage renal disease; I13.2 Hypertensive heart and chronic kidney disease with heart failure and with stage 5 chronic kidney disease, or end stage renal disease; E46 Unspecified protein-calorie malnutrition; B96.20 Unspecified Escherichia coli [E. coli] as the cause of diseases classified elsewhere; J44.9 Chronic obstructive pulmonary disease, unspecified; F41.8 Other specified anxiety disorders; G89.29 Other chronic pain; E87.5 Hyperkalemia; I95.9 Hypotension, unspecified; Z68.20 Body mass index [BMI] 20.0-20.9, adult; F17.210 Nicotine dependence, cigarettes, uncomplicated; Z95.0 Presence of cardiac pacemaker; Z99.2 Dependence on renal dialysis; Z99.81 Dependence on supplemental oxygen; Z20.822 Contact with and (suspected) exposure to COVID-19
CPT/HCPCS: 36415; 71045; 80048; 80053; 80076; 81003; 81015; 82150; 82550; 82553; 82947; 83605; 83690; 83735; 83880; 84100; 84145; 84443; 84484; 84550; 85025; 85610; 85730; 86317; 87040; 87077; 87086; 87088; 87186; 87340; 90935; 93005; 94640; 96374; 99284; J0696; J1644; J1940; J7605; P9047; Q5105; Q5106; U0003